=== PATIENT | male | born 1935 | race Caucasian/White ===

== ENCOUNTER 2022-03-23 13:28 | Inpatient (IN) | payer MEDICARE, SELFPAY ==
[2022-03-23 13:29] VITALS: BP 143/122; PULSE 79; RESP 16; TEMP 35.8; O2SAT 99; BMI 25.0
--- NOTE | 2022-03-23 15:41 | EX.ED.DYSGE1 ---
HPI History of Present Illness Chief Complaint: Flank Pain Informant: patient Narrative Narrative: Patient is an 86-year-old male with history of prostate cancer status post what sounds like radiation therapy and who is hard of hearing presenting with urinary complaints. Patient had difficulty urinating for 3 to 4 days. In addition he has had lower abdominal discomfort most pronounced in the right lower quadrant. His granddaughter at the bedside sometimes he feels that he is urinating when he has not. Patient denies any change in his bowel habits. Denies any fever but has had some chills. Also reports a history of kidney stones. States the pain waxes and wanes. Feels that he is not emptying his bladder out completely when he urinates. Follows with Dr. Schafer, urology. [facility] Medical History Kidney stones Prostate cancer Home Medications cholecalciferol (vitamin D3) 25 mcg (1,000 unit) tablet (Vitamin D3) 1,000 unit PO DAILY supplement 03/23/22 [History Last Taken 03/23/22] lisinopril 10 mg tablet 10 mg PO DAILY bp 03/23/22 [History Last Taken 03/22/22] Allergy/AdvReac Type Severity Reaction Status Date / Time No Known Allergies Allergy Verified 03/23/22 13:31 Family History (Updated 03/23/22 @ 19:[address] Miryam Gonsalez DO) Other Heart disease Hypertension Social History (Updated 03/23/22 @ 19:[address] Miryam Gonsalez DO) household members: children housing: house Smoking Status: Never smoker alcohol intake: current alcohol intake frequency: 0-2 drinks per day Alcohol type: hard liquor substance use type: does not use ROS ROS ED Constitutional Constitutional ED: Reports chills; Denies fever(s) or sweats Eyes Eyes: Denies change in vision ENT ENT ED: Denies rhinorrhea or sore throat Cardiovascular Cardiovascular: Denies chest pain or palpitations Respiratory/Chest Respiratory/Chest: Denies cough Gastrointestinal Gastrointestinal: Reports abdominal pain; Denies diarrhea, nausea or vomiting Genitourinary Genitourinary ED: Reports dysuria and urinary frequency; Denies hematuria Musculoskeletal Musculoskeletal: Denies arthralgias or back pain Integumentary Denies rash Neurologic Neurologic: Denies headache(s) or weakness Psychiatric Psychiatric: Denies anxiety Hematologic/Lymphatic Hematologic/Lymphatic: Denies easy bleeding or easy bruising EXAM Physical Exam Const Vital Signs: 03/23/22 13:29 03/23/22 17:46 03/23/22 18:08 Temperature 96.5 F L 98.0 F 98.0 F Temperature Source Temporal Oral Oral Pulse Rate 79 64 64 Respiratory Rate 16 17 17 Blood Pressure 143/122 H 138/61 H 138/61 H Blood Pressure Mean 129 86 86 Pulse Ox 99 95 95 Oxygen Delivery Method Room Air Room Air Room Air Positive well nourished and well developed General Appearance ED: well developed and NAD HEENT Reports moist mucous membranes Eyes PERRL and EOMs intact bilaterally Neck supple and no JVD Chest Wall inspection of chest normal and palpation of chest normal Resp normal respiratory effort and clear to auscultation bilaterally Cardio regular rate, regular rhythm and no murmurs GI normal to inspection, nondistended, normoactive bowel sounds and non-tender Palpation: Negative for tender or guarding Back/Spine no CVA tenderness Extremity normal to inspection Neuro oriented x3 Motor Exam: Negative for general weakness Psych mental status grossly normal Skin no rashes or lesions noted and no wounds Skin Narrative: Well-healed, soft and nontender surgical scars in the lower abdomen MDM MDM MDM Narrative Medical decision making narrative: Patient is evaluated for urinary symptoms for the past 3 to 4 days. Patient appears nontoxic and in no acute distress. Hemodynamically stable. Urinalysis obtained through straight cath is highly consistent with infection with 50-100 white blood cells and 3+ bacteria. He started on IV Rocephin and urine culture sent. He does not have a leukocytosis or other signs of systemic infection including fever, tachycardia or tachypnea. Patient is found to have profound renal disease with a BUN of 40 and a creatinine of 8.09. Patient is not aware of having any history of renal insufficiency. His potassium is normal. Patient does not need emergent dialysis. Patient be admitted for further evaluation of his acute renal insufficiency as well as his UTI. He is agreeable this plan of care. He remains hemodynamically stable at time of disposition. Lab Data Attestation: I reviewed the patient's lab results. Labs: Laboratory Results - last 24 hr 03/23/22 03/23/22 03/23/22 15:34 15:34 15:44 WBC 6.2 RBC 3.53 L Hgb 12.3 L Hct 35.3 L MCV 100.0 H MCH 34.8 H MCHC 34.8 RDW Std Deviation 46.3 H RDW Coeff of Chaparro 12.7 Plt Count 238 MPV 10.2 Immature Gran % (Auto) 0.300 Neut % (Auto) 69.9 Lymph % (Auto) 10.3 L [place] % (Auto) 15.8 H Eos % (Auto) 3.1 Baso % (Auto) 0.6 Absolute Neuts (auto) 4.4 Absolute Lymphs (auto) 0.64 L Nucleated RBC % 0 Sodium 131 L Potassium 4.3 Chloride 96 L Carbon Dioxide 24.0 Anion Gap 11 BUN 40 H Creatinine 8.09 H* Estim Creat Clear Calc 6.46 Est GFR (MDRD) Af Amer 8 L Est GFR (MDRD) Non-Af 7 L BUN/Creatinine Ratio 4.9 L Glucose 102 Calcium 9.1 Urine Color Yellow Urine Clarity Cloudy Urine pH 6.0 Ur Specific [place] 1.010 Urine Protein 500 H Urine Glucose (UA) Normal Urine Ketones Negative Urine Occult Blood 50 H Urine Nitrite Negative Urine Bilirubin Negative Urine Urobilinogen Normal Ur Leukocyte Esterase 500 H Urine RBC 5-10 SEEN Urine WBC 50-100 SEEN Ur Squamous Epith Cells 10-25 SEEN Urine Bacteria 3+ Urine Mucus 0 SEEN Radiography Diagnostic Testing: Clinical Impression(s) from Imaging Studies Abdomen/Pelvis CT 03/23/22 16:25 IMPRESSION: (NOT LISTED IN ORDER OF SIGNIFICANCE) Urinary bladder wall has wall thickening. This can be related to a partially contractile state. However, a cystitis is not excluded. Urinalysis should be performed in an effort to exclude cystitis. There are multiple colonic diverticula consistent with diverticulosis. Other findings as above. Electronically Signed: Jaylon Serra MD at 17:23 EDT , Discharge Plan Dx/Rx/DC Orders Clinical Impression: UTI (urinary tract infection), Acute kidney injury Disposition Disposition: Acute Care [facility] Discharge Date/Time: 03/23/22 19:35
[2022-03-23 15:53] LABS: Mucous, Urine 0 SEEN /hpf (<or=2+)
[2022-03-23] MEDS: Morphine 2 MG/ML Syringe IV (15:54)
[2022-03-23] MEDS: 0.9% Normal Saline 1,000 ML 250 ML IV ×3 (15:54→23:51)
[2022-03-23 16:06] LABS: Color, Urine Yellow (Yellow); Glucose, Dipstick Normal (Normal); Ketone-Dipstick Negative (Negative); Leukocyte Esterase-Dipstick 500 /ul (Negative); Nitrite-Dipstick Negative (Negative); Occult Blood-Urine 50 /ul (Negative); Protein-Dipstick 500 mg/dl (Negative); Urine Bilirubin Dipstick Negative (Negative); Urine Clarity Cloudy (Clear); Urine Urobilinogen Normal (Normal)
[2022-03-23 16:14] LABS: Absolute Lymphocyte Count 0.64 X10^3/uL (0.83-4.51); Absolute Neutrophil Count 4.4 X10^3/uL (2.0-7.7); Basophil# 0.04 X10^3/uL; Basophil% 0.6 % (0-1); Eosinophil# 0.19 X10^3/uL; Eosinophils% 3.1 % (0-5); Hematocrit 35.3 % (40-54); Hemoglobin 12.3 g/dL (13.0-16.5); Lymphocyte # 0.64 X10^3/ul (0.83-4.51); Lymphocyte % 10.3 % (19-41); Mean Corp Hgb Conc 34.8 g/dL (32-36); Mean Corpuscular Hgb 34.8 pg (27.0-32.0); Mean Platelet Vol. 10.2 fl (6.2-12.0); Monocyte# 0.98 X10^3/uL; Monocyte% 15.8 % (0-10); NRBC Flagged by Analyzer 0 % (0-5); Neutrophil # 4.35 X10^3/uL (2.7-7.7); Neutrophil % 69.9 % (47-70); Platelet Count 238 K/mm3 (150-450); RBC Distribution Width CV 12.7 % (11.6-14.6); RBC Distribution Width SD 46.3 fl (35.1-43.9); Red Blood Count 3.53 M/mm3 (4.6-6.2); White Blood Count 6.2 K/mm3 (4.4-11.0)
[2022-03-23 16:21] LABS: Bacteria 3+ /hpf (None Seen); Red Blood Cells-Urine 5-10 SEEN /hpf (0-5); Squamous Epithelial Cells - UA 10-25 SEEN /hpf (0-5); White Blood Cells 50-100 SEEN /hpf (0-5)
--- NOTE | 2022-03-23 16:25 | CT_ITS ---
STUDY: CT Abdomen And Pelvis W/O Contrast Injection 03/23/2022 5:21 PM REASON FOR EXAM: Male, 86 years old. Abdominal pain right flank pain Individualized dose optimization techniques were used for this CT. COMPARISON: Aug 04 2011 2:20pm report only . TECHNIQUE: CT Abdomen And Pelvis W/O Contrast Injection FINDINGS: There are atherosclerotic calcifications of visualized coronary arteries. The visualized portions of the heart are within normal limits. Normal liver. Normal gallbladder and extrahepatic biliary system. Normal spleen. Normal pancreas. Normal bilateral adrenal glands. No acute findings of the right kidney. No acute findings of the left kidney. Normal visualized stomach. Normal small intestine. There are multiple colonic diverticula consistent with diverticulosis. The appendix is visualized and appears normal. There are calcifications of the abdominal aorta. This is consistent for atherosclerotic disease. There is NO abdominal aortic aneurysm. Vascular workup can be obtained based on clinical correlation. Normal inferior vena cava. Subcentimeter mesenteric lymph nodes. Urinary bladder wall has wall thickening. This can be related to a partially contractile state. However, a cystitis is not excluded. Urinalysis should be performed in an effort to exclude cystitis. There is an umbilical hernia containing fat. There are diffuse degenerative changes of the visualized lumbar spine. CT/Abdomen/Pelvis without Cont IMPRESSION: (NOT LISTED IN ORDER OF SIGNIFICANCE) Urinary bladder wall has wall thickening. This can be related to a partially contractile state. However, a cystitis is not excluded. Urinalysis should be performed in an effort to exclude cystitis. There are multiple colonic diverticula consistent with diverticulosis. Other findings as above. Electronically Signed: Jaylon Serra MD at 17:23 EDT ,
[2022-03-23 16:41] LABS: Anion Gap 11 (5-15); BUN 40 mg/dL (7-18); BUN/Creat Ratio 4.9 RATIO (10-20); Calcium,Total 9.1 mg/dL (8.5-10.1); Chloride 96 mmol/L (98-107); Creatinine, Serum 8.09 mg/dL (0.70-1.30); EST Glomerular Filtration Rate 7 mL/min (>60); Est Glom Filt Rate - Afr Amer 8 mL/min (>60); Estimated Creatinine Clearance 6.46 ml/min; Glucose 102 mg/dL (74-106); Potassium 4.3 mmol/L (3.5-5.1); Sodium Level 131 mmol/L (136-145)
[2022-03-23 17:46] VITALS: BP 138/61; PULSE 64; RESP 17; TEMP 36.7; O2SAT 95
[2022-03-23] MEDS: Ceftriaxone 1 GM/50 ML BAG IV (18:07)
[2022-03-23 18:08] VITALS: BP 138/61; PULSE 64; RESP 17; TEMP 36.7; O2SAT 95
--- NOTE | 2022-03-23 18:14 | NURSING ---
MED SURG DEBBI UTI, ACUTE RENAL FAILURE
--- NOTE | 2022-03-23 18:18 | US_ITS ---
STUDY: RENAL ULTRASOUND - COMPLETE REASON FOR EXAM: Male, 86 years old. BELKIS TECHNIQUE: Ultrasound evaluation of the kidneys was performed with real-time and static roberson-scale imaging. COMPARISON: CT done earlier today. FINDINGS: RIGHT KIDNEY: Normal location of the right kidney, which is normal in size. The right kidney measures 10.8 x 6.6 cm. There is a normal cortex of the right kidney. The renal cortex measures 2 cm. There is no right renal mass or cyst. There are no right renal calculi. There is no right hydronephrosis. DISTAL RIGHT URETER: There is non-visualization of the distal right ureter. There is no demonstrated right ureterovesical junction calculus. There is no demonstrated right ureteral jet. LEFT KIDNEY: Normal location of the left kidney, which is normal in size. The left kidney measures 11 x 5.7 cm. There is a normal cortex of the left kidney. The renal cortex measures 2 cm. Renal cyst measures 9 mm. No follow-up required. There are no left renal calculi. There is no left hydronephrosis. DISTAL LEFT URETER: There is non-visualization of the distal left ureter. There is no demonstrated left ureterovesical junction calculus. There is no demonstrated left ureteral jet. AORTA: There is obscuration of the abdominal aorta by overlying bowel gas . I.V.C.: The IVC is obscured. BLADDER: The distended urinary bladder has a volume of 8.3 ml. There is a normal wall thickness of the distended urinary bladder. There is no demonstrated mass within the urinary bladder. There are no demonstrated bladder calculi. US/Kidney and Bladder IMPRESSION: There are no acute findings. Electronically Signed: Jaylon Serra MD at 19:39 EDT ,
--- NOTE | 2022-03-23 18:26 | HP.PCM_ITS ---
Documented by User: AROLDO Wade 03/23/22 18:37 HPI - General General Date of Admission: 03/23/22 Date of Service: 03/23/22 Chief Complaint: Abdominal pain/flank pain HPI Narrative Joaquin GARLAND, is a 86 M who presents with complaints of flank pain/abdominal pain. Patient also states that he has been feeling tired with chills for the past 3 to 4 days. Patient's granddaughter at bedside states that he does [place] and while he was there a family member gave him some leftover antibiotics but she is unsure what it was. Patient medical history includes history of prostate cancer. Patient currently on lisinopril to protect his kidneys following radiation and chemotherapy for prostate cancer. Patient has no other medical history. [facility] Medical History Kidney stones Prostate cancer Home Medications cholecalciferol (vitamin D3) 25 mcg (1,000 unit) tablet (Vitamin D3) 1,000 unit PO DAILY supplement 03/23/22 [History Last Taken 03/23/22] lisinopril 10 mg tablet 10 mg PO DAILY bp 03/23/22 [History Last Taken 03/22/22] Allergy/AdvReac Type Severity Reaction Status Date / Time No Known Allergies Allergy Verified 03/23/22 13:31 Family History (Updated 03/23/22 @ 19:[address] Miryam Gonsalez DO) Other Heart disease Hypertension Surgical History no surgical history Social History (Updated 03/23/22 @ 19:[address] Miryam Gonsalez DO) household members: children housing: house Smoking Status: Never smoker alcohol intake: current alcohol intake frequency: 0-2 drinks per day Alcohol type: hard liquor substance use type: does not use ROS Constitutional Constitutional: Reports chills, fatigue and malaise; Denies anorexia or change in weight Cardiovascular Cardiovascular: Denies chest pain, edema or palpitations Respiratory/Chest Respiratory/Chest: Denies cough, shortness of breath at rest, shortness of breath with exertion or wheezing Gastrointestinal Gastrointestinal: Denies abdominal pain, constipation, diarrhea, nausea or vomiting Genitourinary Genitourinary: Reports abdominal discomfort, dysuria, flank pain and oliguria Musculoskeletal Musculoskeletal: Denies back pain, extremity pain, joint pain, joint stiffness or joint swelling Integumentary Integumentary: Denies dry skin Neurologic Neurologic: Denies abnormal gait, abnormal speech, confusion or dizziness Psychiatric Psychiatric: Denies anxiety or depression Endocrine Endocrinology: Denies change in body appearance Hematologic/Lymphatic Hematologic/Lymphatic: Denies anemia Vital Signs Vital Signs Vital Signs: 03/23/22 13:29 03/23/22 17:46 03/23/22 18:08 Temperature 96.5 F L 98.0 F 98.0 F Temperature Source Temporal Oral Oral Pulse Rate 79 64 64 Respiratory Rate 16 17 17 Blood Pressure 143/122 H 138/61 H 138/61 H Blood Pressure Mean 129 86 86 Pulse Ox 99 95 95 Oxygen Delivery Method Room Air Room Air Room Air Weight Weight: 165 lb Body Mass Index (BMI) 25.0 Physical Exam Const alert, oriented x3 and no apparent distress General Appearance: cooperative HEENT normocephalic, head/scalp atraumatic and moist oral mucous membranes Eyes conjunctivae normal and no scleral icterus Neck no lymphadenopathy and supple General: trachea midline Lymph Lymphatic: no lymphadenopathy noted Resp normal respiratory effort, normal air movement and clear to auscultation bilaterally Cardio regular rate, regular rhythm, S1 normal heart sound, S2 normal heart sound and peripheral pulses 2+ throughout GI normal to inspection, nondistended, normoactive bowel sounds, soft to palpation and non-tender Extremity normal capillary refill and no clubbing, cyanosis or edema Neuro oriented x3, moves all extremities and no focal motor deficits Sensorium / Orientation: awake and alert Psych thought process normal, cooperative and affect normal Results Lab / Micro Data Result Diagrams: 03/23/22 15:34 03/23/22 15:34 Labs: Laboratory Results - last 24 hr 03/23/22 15:34: WBC 6.2, RBC 3.53 L, Hgb 12.3 L, Hct 35.3 L, MCV 100.0 H, MCH 3 4.8 H, MCHC 34.8, RDW Std Deviation 46.3 H, RDW Coeff of [place] 12.7, Plt Count 238, MPV 10.2, Immature Gran % (Auto) 0.300, Neut % (Auto) 69.9, Lymph % (Auto) 10.3 L, [place] % (Auto) 15.8 H, Eos % (Auto) 3.1, Baso % (Auto) 0.6, Absolute Neuts (auto) 4.4, Absolute Lymphs (auto) 0.64 L, Nucleated RBC % 0 03/23/22 15:34: Sodium 131 L, Potassium 4.3, Chloride 96 L, Carbon Dioxide 24.0, Anion Gap 11, BUN 40 H, Creatinine 8.09 H*, Estim Creat Clear Calc 6.46, Est GFR (MDRD) Af Amer 8 L, Est GFR (MDRD) Non-Af 7 L, BUN/Creatinine Ratio 4.9 L, Glucose 102, Calcium 9.1 03/23/22 15:44: Urine Color Yellow, Urine Clarity Cloudy, Urine pH 6.0, Ur Specific [place] 1.010, Urine Protein 500 H, Urine Glucose (UA) Normal, Urine Ketones Negative, Urine Occult Blood 50 H, Urine Nitrite Negative, Urine Bilirubin Negative, Urine Urobilinogen Normal, Ur Leukocyte Esterase 500 H, Urine RBC 5-10 SEEN, Urine WBC 50-100 SEEN, Ur Squamous Epith Cells 10-25 SEEN, Urine Bacteria 3+, Urine Mucus 0 SEEN Radiology Impression Abdomen/Pelvis CT 03/23/22 16:25 IMPRESSION: (NOT LISTED IN ORDER OF SIGNIFICANCE) Urinary bladder wall has wall thickening. This can be related to a partially contractile state. However, a cystitis is not excluded. Urinalysis should be performed in an effort to exclude cystitis. There are multiple colonic diverticula consistent with diverticulosis. Other findings as above. Electronically Signed: Jaylon Serra MD at 17:23 EDT Reading Location ID and State: [address] [place] [address] , Service support , Assessment & Plan Assessment/Plan (1) UTI (urinary tract infection): (2) Acute kidney injury: PLAN: Plan 1. BELKIS secondary to UTI and dehydration -Admit to MedSur -Continue Rocephin, first dose given ER -Insert Kaur catheter -CBC, CMP, magnesium, phosphorus, TSH ordered for a.m. -Urine creatinine and urine sodium stat -Kidney and bladder ultrasound -Normal saline 250 mL/h -Vital signs per protocol -PT and OT to eval and treat -Strict intake and output and daily weights 2. History of prostate cancer -Follows with Dr. Schafer -Patient lisinopril to protect kidneys following radiation for prostate cancer per granddaughter, we will hold in presence of BELKIS DVT prophylaxis-SCDs and subcu heparin This patient was seen by Carla Lamar, ALYSA-C under the supervision of Dr. Gonsalez. 28 minutes spent in clinical coordination of patient's plan of care. Documented by User: Dr. Miryam Gonsalez, 03/23/22 20:32 HPI - General General Date of Admission: 03/23/22 HPI Narrative IRVIN GARLAND, is a 86 M who presented to the emergency department [facility] on 03/23/2022 with bilateral flank pain. The patient has a known history of prostate cancer for which she had seeding. He indicates his prostate cancer had been in remission for some time now. The patient reports that he has had about 3 to 4 days of general malaise, chills, and difficulty urinating during that time period as well. He has had some intermittent lower abdominal discomfort however it has worsened. The pain tends to wax and wane. The patient does not feel like he empties his bladder completely when he urinates. He denies any nausea or vomiting, constipation or diarrhea. His mental status is at baseline per discussion with his granddaughter who presents with him. He has had no respiratory symptoms and denies any chest pain. Patient and family both indicate that his p.o. intake has been depressed some over the last several days. In the emergency department his vitals were as follows: Temperature 96.5 with recheck at 98 degrees, blood pressure 143/122 with repeat at 138/61, respiratory rate 16, oxygen saturation is 99% on room air. CBC shows a mild anemia with a hemoglobin of 12.3 however his white count and platelet counts are normal. He has no left shift but does show a monocytosis. Serum sodium is 131 with a chloride of 96. BUN is 40 with a creatinine of 8.09 (his baseline serum creatinine from 04/01/2021 in clinisync was 0.78). UA showed specific gravity of 1.010, positive for urine protein and occult blood, leuk esterase and had 50-100 white blood cells per high-powered field and 3+ bacteria. See T of the abdomen pelvis showed urinary bladder wall thickening and multiple colonic diverticula consistent with diverticulosis. The emergency department he was treated with aggressive hydration and started on IV antibiotics. [facility] Medical History Kidney stones Prostate cancer Home Medications cholecalciferol (vitamin D3) 25 mcg (1,000 unit) tablet (Vitamin D3) 1,000 unit PO DAILY supplement 03/23/22 [History Last Taken 03/23/22] lisinopril 10 mg tablet 10 mg PO DAILY bp 03/23/22 [History Last Taken 03/22/22] Allergy/AdvReac Type Severity Reaction Status Date / Time No Known Allergies Allergy Verified 03/23/22 13:31 Family History (Updated 03/23/22 @ 19:[address] Miryam Gonsalez DO) Other Heart disease Hypertension Surgical History no surgical history no surgical history Social History (Updated 03/23/22 @ 19:[address] Miryam Gonsalez DO) household members: children housing: house Smoking Status: Never smoker alcohol intake: current alcohol intake frequency: 0-2 drinks per day Alcohol type: hard liquor substance use type: does not use ROS Constitutional Constitutional: Reports anorexia, chills, fatigue, malaise and weakness; Denies fever(s), night sweats, weight gain or weight loss Eyes Eyes: Denies blurry vision, change in vision, discharge from eye(s), double vision, erythema, eye pain, irritation or itchy eyes ENT HEENT: Denies abnormal hearing, dysphagia, ear pain, epistaxis, headache(s), hearing loss, loss taste/smell, nasal congestion, nasal discharge, post nasal drip, sinus pain, sinus pressure, sore throat or throat swelling Cardiovascular Cardiovascular: Denies chest pain, claudication, edema, orthopnea, palpitations, paroxysmal nocturnal dyspnea or syncope Respiratory/Chest Respiratory/Chest: Denies cough, hemoptysis, shortness of breath at rest, shortness of breath with exertion or wheezing Gastrointestinal Gastrointestinal: Reports abdominal pain; Denies constipation, diarrhea, dyspepsia, hematemesis, hematochezia, melena, nausea or vomiting Genitourinary Genitourinary: Reports dysuria and oliguria; Denies hematuria, nocturia, polyuria, urinary frequency, urinary hesitancy, urinary incontinence or urinary urgency Musculoskeletal Musculoskeletal: Denies back pain, extremity pain, joint pain, joint stiffness, joint swelling, limited range of motion, muscle weakness, neck pain or stiffness Integumentary Integumentary: Denies dry skin, jaundice, lesions, pruritus, rash or wounds Neurologic Neurologic: Denies abnormal gait, abnormal speech, confusion, dizziness, focal weakness, headache(s), lack of coordination, numbness, seizures, sensory deficit, tingling, tremor(s) or weakness Psychiatric Psychiatric: Denies anxiety, depression, homicidal ideation or suicidal ideation Endocrine Endocrinology: Denies change in body appearance, cold intolerance, heat intolerance, polydipsia or polyuria Hematologic/Lymphatic Hematologic/Lymphatic: Denies anemia, easy bleeding, easy bruising or lymphadenopathy Physical Exam Const alert, oriented x3, no apparent distress and well nourished Constitutional Narrative: Overweight, elderly white male lying in bed, granddaughter at bedside, patient appears comfortable nontoxic HEENT normocephalic, head/scalp atraumatic, EAC's normal, TM's normal bilaterally, moist oral mucous membranes, oropharynx normal and gingiva normal HEENT Narrative: Mallampati 3, no thrush, markedly hard of hearing Eyes PERRL and EOMs intact bilaterally Neck no carotid bruits Neck Narrative: Trachea midline, no thyroid enlargement noted Resp Auscultation: Negative for rales, rhonchi, wheezes or diminished lung sounds Cardio regular rate, regular rhythm, S1 normal heart sound, S2 normal heart sound, no murmurs, no rub, no gallops and peripheral pulses 2+ throughout GI normal to inspection, nondistended, normoactive bowel sounds and soft to palpation; Negative for non-tender GI Narrative: Mild tenderness bilateral lower quadrants Extremity no clubbing, cyanosis or edema Skin no rashes or lesions noted, no wounds, no jaundice, no petechiae and no mottling Skin Narrative: Tenting noted with skin turgor Neuro CN's II-XII intact bilaterally, no focal motor deficits and no sensory deficits noted Psych thought process normal, cooperative and affect normal Results Lab / Micro Data Attestation: I reviewed the patient's lab results. Result Diagrams: 03/23/22 15:34 03/23/22 15:34 Assessment & Plan Assessment/Plan (1) UTI (urinary tract infection): (2) Acute kidney injury: PLAN: Plan Acute complicated cystitis -UA is suggestive of UTI -Culture pending -Continue ceftriaxone with first dose given the emergency department BELKIS -Baseline serum creatinine was 0.78 on 04/01/2021 -Patient markedly oliguric -No current need for emergent dialysis -Current serum creatinine is 8.09 -Rest of hydration with normal saline at 250 cc/h -Reevaluate in a.m. -Check renal ultrasound -Check urine sodium and creatinine to calculate FENa -Avoid nephrotoxins -Hold home lisinopril Acute hyponatremia -Sodium is 131 -Suspect related to volume status Mild anemia -Hemoglobin is 12.3 -Baseline is unknown at this time -Continue to monitor -Suspect will trend down some with fluids Hypertension -Hold home lisinopril -As needed hydralazine for systolic greater than 160 History of prostate cancer -Has followed with Dr. Banegas on [place] previously -Sounds like he is currently in remission -Seeding previously Generalized weakness -Consult PT/OT for evaluation DVT prophylaxis -Subcu heparin -SCDs CODE STATUS -DNR CCA no intubation as per discussion with patient and his granddaughter at the bedside the emergency department prior to admission Charges/Coding Visit Charges Inpatient E&M: 85945 Init Hosp L3
[2022-03-23 19:46] VITALS: BMI 25.0
[2022-03-23 19:50] VITALS: BP 123/45; PULSE 78; RESP 18; TEMP 36.8; O2SAT 94
[2022-03-23] MEDS: Heparin Injection (Vial) 5,000 UNIT/ML VIAL 5000 UNIT SC (20:29)
[2022-03-23] MEDS: 0.9% Saline Lock 10 ML Syringe IV (20:29)
[2022-03-23 23:49] LABS: Urine Sodium 104 mmol/L (Not Establ.)
[2022-03-24] VITALS (8 sets, daily range): BP systolic 126–147; BP diastolic 57–73; PULSE 60–82; RESP 18–22; TEMP 36.6–36.9; O2SAT 87–97
[2022-03-24] MEDS: 0.9% Normal Saline 1,000 ML 250 ML IV ×2 (04:24→07:59)
[2022-03-24 06:57] LABS: Absolute Lymphocyte Count 0.68 X10^3/uL (0.83-4.51); Absolute Neutrophil Count 4.6 X10^3/uL (2.0-7.7); Basophil# 0.04 X10^3/uL; Basophil% 0.6 % (0-1); Eosinophil# 0.16 X10^3/uL; Eosinophils% 2.5 % (0-5); Hematocrit 32.5 % (40-54); Hemoglobin 10.9 g/dL (13.0-16.5); Lymphocyte # 0.68 X10^3/ul (0.83-4.51); Lymphocyte % 10.7 % (19-41); Mean Corp Hgb Conc 33.5 g/dL (32-36); Mean Corpuscular Hgb 34.6 pg (27.0-32.0); Mean Corpuscular Volume 103.2 fL (80-94); Mean Platelet Vol. 9.9 fl (6.2-12.0); Monocyte# 0.86 X10^3/uL; Monocyte% 13.5 % (0-10); NRBC Flagged by Analyzer 0 % (0-5); Neutrophil # 4.58 X10^3/uL (2.7-7.7); Neutrophil % 72.2 % (47-70); Platelet Count 240 K/mm3 (150-450); RBC Distribution Width CV 12.7 % (11.6-14.6); RBC Distribution Width SD 47.8 fl (35.1-43.9); Red Blood Count 3.15 M/mm3 (4.6-6.2); White Blood Count 6.4 K/mm3 (4.4-11.0)
[2022-03-24 07:44] LABS: ALB/GLOB Ratio 0.7 RATIO (0.9-2.4); AST(SGOT) 21 U/L (15-37); Alanine Aminotransfer ALT/SGPT 19 U/L (16-61); Albumin, Serum 2.5 g/dL (3.2-5.0); Alkaline Phosphatase 92 U/L (45-117); Anion Gap 11 (5-15); BUN 44 mg/dL (7-18); BUN/Creat Ratio 5.2 RATIO (10-20); Calcium,Total 7.7 mg/dL (8.5-10.1); Chloride 103 mmol/L (98-107); Creatinine, Serum 8.53 mg/dL (0.70-1.30); EST Glomerular Filtration Rate 6 mL/min (>60); Est Glom Filt Rate - Afr Amer 8 mL/min (>60); Estimated Creatinine Clearance 6.13 ml/min; Globulin 3.4 g/dL (2.2-4.2); Glucose 90 mg/dL (74-106); Magnesium 1.9 mg/dL (1.6-2.6); Phosphorus 5.9 mg/dL (2.5-4.9); Potassium 4.6 mmol/L (3.5-5.1); Protein, Total 5.9 g/dL (6.4-8.2); Sodium Level 133 mmol/L (136-145); Thyroid Stim Hormone (TSH) 1.29 uIU/mL (0.358-3.74)
[2022-03-24] MEDS: Cholecalciferol (VIT D3) 25 MCG TABLET (1,000 UNITS) PO (09:43)
[2022-03-24] MEDS: Ceftriaxone 1 GM/50 ML BAG IV (09:57)
--- NOTE | 2022-03-24 10:01 | PN.HOSP_ITS ---
Documented by User: PER WadeC 03/24/22 12:44 Subjective Subjective Patient seen and examined. Patient sitting in chair no distress noted. Patient states that he is feeling improved. Discussed with patient laboratory findings from this morning and informed him that he we will be having a social media executive see him today. Patient verbalizes understanding. Objective Data Objective Data Vital Signs: Vital Signs Temp Pulse Resp BP Pulse Ox O2 Del Method 97.9 F 60 18 126/57 H 97 Room Air 03/24/22 08:06 03/24/22 08:06 03/24/22 08:06 03/24/22 08:06 03/24/22 08:06 03/24/22 08:06 Oxygen Delivery Method Room Air Weight: 164 lb 3.91 oz Body Mass Index (BMI) 25.0 Intake & Output: Intake and Output for Last 24 Hours 03/22/22 03/23/22 03/24/22 23:59 23:59 23:59 Intake Total 1891.67 / 1891.67 1895.83 / 1895.83 Output Total 175 / 175 Balance 1891.67 / 1791.67 1720.83 / 1720.83 Lab / Micro Data Result Diagrams: 03/24/22 05:45 03/24/22 05:45 Labs: Laboratory Results - last 24 hr 03/23/22 15:34: WBC 6.2, RBC 3.53 L, Hgb 12.3 L, Hct 35.3 L, MCV 100.0 H, MCH 34.8 H, MCHC 34.8, RDW Std Deviation 46.3 H, RDW Coeff of [place] 12.7, Plt Count 238, MPV 10.2, Immature Gran % (Auto) 0.300, Neut % (Auto) 69.9, Lymph % (Auto) 10.3 L, Ellis % (Auto) 15.8 H, Eos % (Auto) 3.1, Baso % (Auto) 0.6, Absolute Neuts (auto) 4.4, Absolute Lymphs (auto) 0.64 L, Nucleated RBC % 0 03/23/22 15:34: Sodium 131 L, Potassium 4.3, Chloride 96 L, Carbon Dioxide 24.0, Anion Gap 11, BUN 40 H, Creatinine 8.09 H*, Estim Creat Clear Calc 6.46, Est GFR (MDRD) Af Amer 8 L, Est GFR (MDRD) Non-Af 7 L, BUN/Creatinine Ratio 4.9 L, Glucose 102, Calcium 9.1 03/23/22 15:44: Urine Color Yellow, Urine Clarity Cloudy, Urine pH 6.0, Ur Specific [place] 1.010, Urine Protein 500 H, Urine Glucose (UA) Normal, Urine Ketones Negative, Urine Occult Blood 50 H, Urine Nitrite Negative, Urine Bilirubin Negative, Urine Urobilinogen Normal, Ur Leukocyte Esterase 500 H, Urine RBC 5-10 SEEN, Urine WBC 50-100 SEEN, Ur Squamous Epith Cells 10-25 SEEN, Urine Bacteria 3+, Urine Mucus 0 SEEN 03/23/22 23:20: Ur Random Sodium 104, Urine Creatinine 29.70 03/24/22 05:45: WBC 6.4, RBC 3.15 L, Hgb 10.9 L, Hct 32.5 L, MCV 103.2 H, MCH 34.6 H, MCHC 33.5, RDW Std Deviation 47.8 H, RDW Coeff of [place] 12.7, Plt Count 240, MPV 9.9, Immature Gran % (Auto) 0.500, Neut % (Auto) 72.2 H, Lymph % (Auto) 10.7 L, Ellis % (Auto) 13.5 H, Eos % (Auto) 2.5, Baso % (Auto) 0.6, Absolute Neuts (auto) 4.6, Absolute Lymphs (auto) 0.68 L, Nucleated RBC % 0 03/24/22 05:45: Sodium 133 L, Potassium 4.6, Chloride 103, Carbon Dioxide 19.0 L , Anion Gap 11, BUN 44 H, Creatinine 8.53 H*, Estim Creat Clear Calc 6.13, Est GFR (MDRD) Af Amer 8 L, Est GFR (MDRD) Non-Af 6 L, BUN/Creatinine Ratio 5.2 L, Glucose 90, Calcium 7.7 L, Phosphorus 5.9 H, Magnesium 1.9, Total Bilirubin 0.50, AST 21, ALT 19, Alkaline Phosphatase 92, Total Protein 5.9 L, Albumin 2.5 L, Globulin 3.4, Albumin/Globulin Ratio 0.7 L, TSH 1.29 Radiography Diagnostic Testing: Radiology Impression Abdomen/Pelvis CT 03/23/22 16:25 IMPRESSION: (NOT LISTED IN ORDER OF SIGNIFICANCE) Urinary bladder wall has wall thickening. This can be related to a partially contractile state. However, a cystitis is not excluded. Urinalysis should be performed in an effort to exclude cystitis. There are multiple colonic diverticula consistent with diverticulosis. Other findings as above. Electronically Signed: Jaylon Serra MD at 17:23 EDT , Renal Ultrasound 03/23/22 18:18 IMPRESSION: There are no acute findings. Electronically Signed: Jaylon Serra MD at 19:39 EDT , Physical Exam Const alert, oriented x3, no apparent distress and well nourished General Appearance: cooperative HEENT normocephalic, head/scalp atraumatic, moist oral mucous membranes and oropharynx normal Eyes conjunctivae normal and no scleral icterus Neck no lymphadenopathy and supple General: trachea midline Lymph Lymphatic: no lymphadenopathy noted Resp normal respiratory effort, normal air movement and clear to auscultation bilaterally Cardio regular rate, regular rhythm, S1 normal heart sound, S2 normal heart sound and peripheral pulses 2+ throughout GI normal to inspection, nondistended, normoactive bowel sounds and soft to palpation; Negative for non-tender Extremity normal capillary refill and no clubbing, cyanosis or edema Skin no rashes or lesions noted, no wounds and no petechiae Neuro oriented x3, moves all extremities, no focal motor deficits and no sensory deficits noted Sensorium / Orientation: awake and alert Psych thought process normal, cooperative and affect normal Assessment & Plan Assessment/Plan (1) Acute kidney injury: (2) UTI (urinary tract infection): PLAN: Plan 1.? BELKIS secondary to UTI and dehydration -Continue Rocephin -Insert Kaur catheter -CBC, CMP daily -Kidney and bladder ultrasound normal -Lactated Ringer's 150 mL/h -Vital signs per protocol -PT and OT to eval and treat -Strict intake and output and daily weights -Urine creatinine worsened today, Nephrology following 2.? History of prostate cancer -Follows with Dr. Schafer -Patient lisinopril to protect kidneys following radiation for prostate cancer per granddaughter, we will hold in presence of BELKIS DVT prophylaxis-SCDs and subcu heparin This patient was seen by Carla Lamar NP-C under the supervision of Dr. Padilla. 12 minutes spent in clinical coordination of patient's plan of care. Documented by User: Dr. Radha Padilla MD 03/24/22 13:31 Objective Data Lab / Micro Data Result Diagrams: 03/24/22 05:45 03/24/22 05:45 Assessment & Plan Assessment/Plan (1) Acute kidney injury: (2) UTI (urinary tract infection): Charges/Coding Addendum Addendum: This patient was seen in conjunction with Shon Lamar NP. I have independently interviewed and examined the patient and reviewed pertinent his torical, laboratory, and other data. I have reviewed her note and concur with her documentation Patient was seen and examined. He denied any new complaints. No acute events overnight. Urine output has been oliguric Physical Exam: Gen: Comfortable, not pale, not jaundiced CVS:HS I +II, regular, no murmurs RESP: Diminished at lung bases GI: BS present and normal, soft, nontender, no palpable organs EXT:No edema ASSESSMENT: 1. BELKIS, renal, FeNa 21.6% 2. History of prostate CA 3. Hypertension Plan: Continue IV fluids Nephrology consult Repeat blood in am Time spent coordinating all aspects of patient's care, discussing with subspecialty and nursin minutes Visit Charges Inpatient E&M: 40713 Subs Hosp L2
--- NOTE | 2022-03-24 10:30 | CASEMGMT ---
RN JOSEFA Assessment: Face to Face with pt for initial transition planning/care coordination assessment. RN JOSEFA introduced self and role at [facility], pt voices understanding and consents to assessment. Pt is A/O x4 and answers all questions appropriately at this time. Pt is LITTLE TRAVERSE, grandson and great grandson at bedside throughout assessment. Care providers, pharmacy, and demographics verified/updated. Admitting Dx: BELKIS/UTI complicated PCP:Yg Specialists:leslie Schafer Preferred Pharmacy: [facility] Insurance: [employer] [facility] Prescription Benefit: yes LW/HPOA: Pt denies having a LW/DPOA and denies need for info regarding AD. LNOK: Jazmyn Rae, dtr; Toya Roa dtr Living Arrangements: Pt lives with dtr Toya and granddenisha in a ground level apt with 2 steps to enter with a rail. Pt reports he is I in ADL's and denies concerns at home. Pt states he does not use AD, just painted his garage, runs a chainsaw, mows and weedeats his yard. Transportation: Pt drives self and denies concerns with transportation. Pt reports he just came back from driving to [place]. DME/HHC/SNF: Pt has a FWW but does not use. Pt denies hx of HHC or SNF stays. Pt states no concerns with going home at time of dc. He denies needs for any homegoing services. He is aware that should he change his mind to ask for the RN JOSEFA.CM to follow. Advised pt to ask CM if any further question/concerns/needs arise, voices understanding. Pt Goal: Home Plan: Home
--- NOTE | 2022-03-24 10:45 | PCM.CONS.R ---
Assessment & Plan Assessment/Plan (1) Acute kidney injury: (2) UTI (urinary tract infection): PLAN: Plan Patient was admitted to the hospital for further evaluation and treatment of BELKIS, UTI and abdominal pain. We were consulted for acute kidney injury. Patient has no known past medical history of chronic kidney disease, serum creatinine 0.77 mg/dL as of September 2021. Creatinine 8.09 mg/dL yesterday in the emergency room and today creatinine is up to 8.53 mg/dL. Potassium is 4.6, bicarb 19 mmol/L. Patient was started on IV fluids, normal saline at 250 mL an hour. He was also started on IV antibiotics, ceftriaxone for suspected UTI, urine culture is pending. At this time there is no acute indication for CREW LEADER/CONTROL ROOM OPERATOR. Potassium and acid-base acceptable. Volume status is acceptable, patient is mildly hypovolemic on exam. Though patient is complaining of poor appetite there are no significant uremic symptoms at this time. Possible cause of BELKIS from volume depletion/dehydration with nausea, vomiting, diarrhea, poor oral intake and drinking alcohol (whiskey), compounded by MIKAEL inhibitor effect, UTI and possible effect from recent antibiotic. There is no overt fluid overload therefore recommended continue IV fluids as ordered. Renal ultrasound and noncontrast CT of abdomen and pelvis did not show any acute renal findings, no hydronephrosis. Patient does have Michel. Recommend strict urine output measurement. Urine output may be picking up. He did have a urinalysis which was obtained via straight cath which showed protein 500, occult blood 50 and positive leukocyte Estrace. Urine culture is pending. Though UA showed occult blood this may be from straight cath but will order renal serologies (C3, C4, P-ANCA, C-ANCA) to rule out other causes of BELKIS. Can repeat UA after michel removed. Blood pressures acceptable, not on any antihypertensives. Encouraged patient to increase oral and solute intake. Explained to patient and grandson that at this time there is no acute indication for CREW LEADER/CONTROL ROOM OPERATOR but over next 24 hours or so if renal function does not improve patient may need CREW LEADER/CONTROL ROOM OPERATOR. Explained risks and benefits of CREW LEADER/CONTROL ROOM OPERATOR versus if chose not to do CREW LEADER/CONTROL ROOM OPERATOR. Patient is in agreement for CREW LEADER/CONTROL ROOM OPERATOR if needed. We will continue to monitor renal function closely along with you. Thank you for allowing us participate in the care of Mr. Garland. HPI Consult Data Date of Consult: 03/24/22 HPI Narrative HPI Narrative: IRVIN GARLAND, is a 86 M with past medical history significant for prostate cancer status postchemotherapy and radiation approximately 2 years ago who presented to the emergency room with complaints of inability/difficulty urinating and abdominal pain. UA consistent with UTI, urine culture is pending. Patient had noncontrast CT of abdomen and pelvis which did not show any acute findings of right or left kidney, urinary bladder wall thickening, multiple colonic diverticula consistent with diverticulosis. Renal US no acute findings and no hydronephrosis in either kidney. Lab work showed a creatinine of 8 mg/dL. Patient was started on IV fluids and IV antibiotics and admitted for further evaluation and treatment. We were consulted for elevated creatinine. Patient is alert and oriented but very hard of hearing. His grandson is at bedside and able to give most of information. Patient has no known history of chronic kidney disease. We were able to obtain labs after calling PCP office: Creatinine 0.77 mg/dL September 2021. Patient had been in [place] visiting family/friends for approximately 3 weeks. Over the last week patient had not been feeling well, had intermittent nausea with vomiting, also had abdominal pain and loose bowel movements. Also noted dysuria and dark color urine. Patient reports he had poor appetite. Also states that he had not been drinking much fluids but did drink whiskey with his family/friends. Despite not feeling well patient continued to take his medication, lisinopril. Did not take any NSAIDs only Tylenol for pain. He also took an antibiotic for a few days for UTI but does not know name of antibiotic. Despite not feeling well patient continued to bale hay with his family/friends. [facility] Medical History Kidney stones Prostate cancer Home Medications cholecalciferol (vitamin D3) 25 mcg (1,000 unit) tablet (Vitamin D3) 1,000 unit PO DAILY supplement 03/23/22 [History Last Taken 03/23/22] lisinopril 10 mg tablet 10 mg PO DAILY bp 03/23/22 [History Last Taken 03/22/22] Allergy/AdvReac Type Severity Reaction Status Date / Time No Known Allergies Allergy Verified 03/23/22 13:31 Family History (Updated 03/23/22 @ 19:[address] Miryam Gonsalez DO) Other Heart disease Hypertension Surgical History no surgical history Social History (Updated 03/23/22 @ 19:[address] Miryam Gonsalez, DO) household members: children housing: house Smoking Status: Never smoker alcohol intake: current alcohol intake frequency: 0-2 drinks per day Alcohol type: hard liquor substance use type: does not use ROS ROS Narrative As per past medical history and HPI Physical Exam Narrative Alert and oriented x3, no apparent distress. Hard of hearing HEENT: Head is normocephalic, atraumatic, oral mucosa is moist. PERRLA. Cardio: S1-S2, RRR Respiratory: Lung sounds clear anteriorly and posteriorly. No wheezes, rhonchi or rales noted : Abdomen soft, nontender, positive bowel sounds x4 quadrants Extremities: No edema noted to bilateral lower legs feet arms or thighs. Indwelling Michel catheter with dark brown colored urine in bag Lab / Micro Data Result Diagrams: 03/24/22 05:45 03/24/22 05:45 Labs: Laboratory Results - last 24 hr 03/23/22 15:34: WBC 6.2, RBC 3.53 L, Hgb 12.3 L, Hct 35.3 L, MCV 100.0 H, MCH 34.8 H, MCHC 34.8, RDW Std Deviation 46.3 H, RDW Coeff of [place] 12.7, Plt Count 238, MPV 10.2, Immature Gran % (Auto) 0.300, Neut % (Auto) 69.9, Lymph % (Auto) 10.3 L, [place] % (Auto) 15.8 H, Eos % (Auto) 3.1, Baso % (Auto) 0.6, Absolute Neuts (auto) 4.4, Absolute Lymphs (auto) 0.64 L, Nucleated RBC % 0 03/23/22 15:34: Sodium 131 L, Potassium 4.3, Chloride 96 L, Carbon Dioxide 24.0, Anion Gap 11, BUN 40 H, Creatinine 8.09 H*, Estim Creat Clear Calc 6.46, Est GFR (MDRD) Af Amer 8 L, Est GFR (MDRD) Non-Af 7 L, BUN/Creatinine Ratio 4.9 L, Glucose 102, Calcium 9.1 03/23/22 15:44: Urine Color Yellow, Urine Clarity Cloudy, Urine pH 6.0, Ur Specific [place] 1.010, Urine Protein 500 H, Urine Glucose (UA) Normal, Urine Ketones Negative, Urine Occult Blood 50 H, Urine Nitrite Negative, Urine Bilirubin Negative, Urine Urobilinogen Normal, Ur Leukocyte Esterase 500 H, Urine RBC 5-10 SEEN, Urine WBC 50-100 SEEN, Ur Squamous Epith Cells 10-25 SEEN, Urine Bacteria 3+, Urine Mucus 0 SEEN 03/23/22 23:20: Ur Random Sodium 104, Urine Creatinine 29.70 03/24/22 05:45: WBC 6.4, RBC 3.15 L, Hgb 10.9 L, Hct 32.5 L, MCV 103.2 H, MCH 34.6 H, MCHC 33.5, RDW Std Deviation 47.8 H, RDW Coeff of [place] 12.7, Plt Count 240, MPV 9.9, Immature Gran % (Auto) 0.500, Neut % (Auto) 72.2 H, Lymph % (Auto) 10.7 L, [place] % (Auto) 13.5 H, Eos % (Auto) 2.5, Baso % (Auto) 0.6, Absolute Neuts (auto) 4.6, Absolute Lymphs (auto) 0.68 L, Nucleated RBC % 0 03/24/22 05:45: Sodium 133 L, Potassium 4.6, Chloride 103, Carbon Dioxide 19.0 L, Anion Gap 11, BUN 44 H, Creatinine 8.53 H*, Estim Creat Clear Calc 6.13, Est GFR (MDRD) Af Amer 8 L, Est GFR (MDRD) Non-Af 6 L, BUN/Creatinine Ratio 5.2 L, Glucose 90, Calcium 7.7 L, Phosphorus 5.9 H, Magnesium 1.9, Total Bilirubin 0.50, AST 21, ALT 19, Alkaline Phosphatase 92, Total Protein 5.9 L, Albumin 2.5 L, Globulin 3.4, Albumin/Globulin Ratio 0.7 L, TSH 1.29 Radiology Impression Abdomen/Pelvis CT 03/23/22 16:25 IMPRESSION: (NOT LISTED IN ORDER OF SIGNIFICANCE) Urinary bladder wall has wall thickening. This can be related to a partially contractile state. However, a cystitis is not excluded. Urinalysis should be performed in an effort to exclude cystitis. There are multiple colonic diverticula consistent with diverticulosis. Other findings as above. Electronically Signed: Jaylon Serra MD at 17:23 EDT , Renal Ultrasound 03/23/22 18:18 IMPRESSION: There are no acute findings. Electronically Signed: Jaylon Serra MD at 19:39 EDT ,
[2022-03-24] MEDS: Lactated Ringers 1,000 ML 150 ML IV ×2 (12:18→18:19)
[2022-03-24] MEDS: Heparin Injection (Vial) 5,000 UNIT/ML VIAL 5000 UNIT SC ×2 (14:51→21:07)
[2022-03-24] MEDS: 0.9% Saline Lock 10 ML Syringe IV (17:52)
[2022-03-24] MEDS: Ondansetron 4 MG/2 ML Vial IV (17:53)
[2022-03-25] VITALS (12 sets, daily range): BP systolic 120–162; BP diastolic 53–72; PULSE 68–92; RESP 18–22; TEMP 36.3–37; O2SAT 93–97; BMI 30.7
[2022-03-25] MEDS: Lactated Ringers 1,000 ML 150 ML IV (00:24)
--- NOTE | 2022-03-25 00:59 | PCM.PN.BLA ---
Progress Note STOP IVF for wheezing and requiring oxygen.
[2022-03-25] MEDS: 0.9% Saline Lock 10 ML Syringe IV ×2 (01:16→09:29)
[2022-03-25] MEDS: Heparin Injection (Vial) 5,000 UNIT/ML VIAL 5000 UNIT SC ×2 (05:41→23:17)
[2022-03-25 06:08] LABS: Absolute Lymphocyte Count 0.58 X10^3/uL (0.83-4.51); Absolute Neutrophil Count 3.8 X10^3/uL (2.0-7.7); Basophil# 0.04 X10^3/uL; Basophil% 0.7 % (0-1); Eosinophil# 0.23 X10^3/uL; Hematocrit 28.6 % (40-54); Hemoglobin 9.6 g/dL (13.0-16.5); Lymphocyte # 0.58 X10^3/ul (0.83-4.51); Lymphocyte % 10.1 % (19-41); Mean Corp Hgb Conc 33.6 g/dL (32-36); Mean Corpuscular Volume 101.4 fL (80-94); Mean Platelet Vol. 9.6 fl (6.2-12.0); Monocyte# 1.05 X10^3/uL; Monocyte% 18.3 % (0-10); NRBC Flagged by Analyzer 0 % (0-5); Neutrophil % 66.4 % (47-70); POSITIVE DIFFERENTIAL YES; Platelet Count 188 K/mm3 (150-450); RBC Distribution Width CV 12.6 % (11.6-14.6); RBC Distribution Width SD 47.3 fl (35.1-43.9); Red Blood Count 2.82 M/mm3 (4.6-6.2); White Blood Count 5.7 K/mm3 (4.4-11.0)
[2022-03-25 06:10] LABS: Differential Indicated SCAN CRITERIA MET
[2022-03-25 06:27] LABS: Differential Comment SCANNED
[2022-03-25 07:06] LABS: ALB/GLOB Ratio 0.7 RATIO (0.9-2.4); AST(SGOT) 22 U/L (15-37); Alanine Aminotransfer ALT/SGPT 20 U/L (16-61); Albumin, Serum 2.2 g/dL (3.2-5.0); Alkaline Phosphatase 106 U/L (45-117); BUN 47 mg/dL (7-18); BUN/Creat Ratio 5.1 RATIO (10-20); Calcium,Total 7.6 mg/dL (8.5-10.1); Chloride 103 mmol/L (98-107); Creatinine, Serum 9.16 mg/dL (0.70-1.30); EST Glomerular Filtration Rate 6 mL/min (>60); Est Glom Filt Rate - Afr Amer 7 mL/min (>60); Globulin 3.3 g/dL (2.2-4.2); Glucose 96 mg/dL (74-106); Potassium 4.8 mmol/L (3.5-5.1); Protein, Total 5.5 g/dL (6.4-8.2); Sodium Level 132 mmol/L (136-145)
[2022-03-25 07:07] LABS: Anion Gap 9 (5-15)
[2022-03-25] MEDS: Cholecalciferol (VIT D3) 25 MCG TABLET (1,000 UNITS) PO (08:49)
[2022-03-25] MEDS: Ceftriaxone 1 GM/50 ML BAG IV (09:17)
--- NOTE | 2022-03-25 09:24 | PCM.PN.HOSP ---
Subjective Subjective Follow-up on acute kidney injury: Patient was seen and examined. Overnight, he was short of breath. IV fluids were discontinued. He is on 2L of oxygen. Denies any chest pain or dizziness. Objective Data Objective Data Vital Signs: Vital Signs Temp Pulse Resp BP Pulse Ox O2 Del Method O2 Flow Rate 97.9 F 68 20 H 162/69 H 93 Nasal Cannula 2 03/25/22 08:36 03/25/22 08:36 03/25/22 08:36 03/25/22 08:36 03/25/22 08:36 03/25/22 08:38 03/25/22 08:38 Oxygen Flow Rate (L/min) 2 Oxygen Delivery Method Nasal Cannula Weight: 81.3 kg Body Mass Index (BMI) 25.0 Intake & Output: Intake and Output for Last 24 Hours 03/23/22 03/24/22 03/25/22 23:59 23:59 23:59 Intake Total 1891.67 / 1891.67 2848.33 / 2848.33 1040.0 / 1040.0 Output Total 325 / 325 150 / 150 Balance 1891.67 / 1791.67 2523.33 / 2523.33 890.0 / 890.0 Lab / Micro Data Result Diagrams: 03/25/22 05:45 03/25/22 05:45 Labs: Laboratory Results - last 24 hr 03/25/22 05:45: WBC 5.7, RBC 2.82 L, Hgb 9.6 L, Hct 28.6 L, MCV 101.4 H, MCH 34.0 H, MCHC 33.6, RDW Std Deviation 47.3 H, RDW Coeff of [place] 12.6, Plt Count 188, MPV 9.6, Immature Gran % (Auto) 0.500, Neut % (Auto) 66.4, Lymph % (Auto) 10.1 L, [facility] % (Auto) 18.3 H, Eos % (Auto) 4.0, Baso % (Auto) 0.7, Absolute Neuts (auto) 3.8, Absolute Lymphs (auto) 0.58 L, Nucleated RBC % 0, Differential Comment SCANNED 03/25/22 05:45: Sodium 132 L, Potassium 4.8, Chloride 103, Carbon Dioxide 20.0 L, Anion Gap 9, BUN 47 H, Creatinine 9.16 H*, Estim Creat Clear Calc 5.70, Est GFR (MDRD) Af Amer 7 L, Est GFR (MDRD) Non-Af 6 L, BUN/Creatinine Ratio 5.1 L, Glucose 96, Calcium 7.6 L, Phosphorus Cancelled, Total Bilirubin 0.40, AST 22, ALT 20, Alkaline Phosphatase 106, Total Protein 5.5 L, Albumin 2.2 L, Globulin 3.3, Albumin/Globulin Ratio 0.7 L Physical Exam Narrative Physical exam: General: Alert, Oriented x3, Cooperative, hard of hearing, on 2 L oxygen HEENT: Atraumatic Oral: Moist Mucosa Neck: Supple Lungs: Diminished to auscultation, crackles heard in both lung bases Cardiovascular: HS I+II, regular, no murmurs Abdomen: Bowel Sounds Present, Soft, Non Tender Extremities: Bilateral pedal edema +1 Skin: No rashes, No breakdown Neurological: Grossly intact Psych/Mental Status: Appropriate Assessment & Plan Assessment/Plan (1) Acute kidney injury: (2) UTI (urinary tract infection): PLAN: Plan 1. BELKIS, renal, FeNa 21.6%, Creatinine slightly worse at 9.16 CT abdomen pelvis as well as renal ultrasound showed no postobstructive features Nephrology following Patient likely will need dialysis 2. Probable Acute UTI, urine cultures pending, Continue on IV ceftriaxone 3.?History of prostate CA, needs to follow-up in the outpatient 4.?Hypertension, BP is elevated Continue to hold Lisinopril Continue with hydralazine prn 5. DVT PPx-Heparin subcu Charges/Coding Visit Charges Inpatient E&M: 40161 Subs Hosp L2
--- NOTE | 2022-03-25 09:37 | PN.RENAL_ITS ---
Subjective Subjective Following for BELKIS Sitting in chair. Denies any nausea, vomiting or diarrhea. States ate meals yesterday without any nausea. He did develop some shortness of breath during the night and is now off IVF and on O2. Objective Data Objective Data Vital Signs: Vital Signs Temp Pulse Resp BP Pulse Ox O2 Del Method O2 Flow Rate 97.9 F 68 20 H 162/69 H 93 Nasal Cannula 2 03/25/22 08:36 03/25/22 08:36 03/25/22 08:36 03/25/22 08:36 03/25/22 08:36 03/25/22 08:38 03/25/22 08:38 Oxygen Flow Rate (L/min) 2 Oxygen Delivery Method Nasal Cannula Weight: 81.3 kg Body Mass Index (BMI) 25.0 Intake & Output: Intake and Output for Last 24 Hours 03/23/22 03/24/22 03/25/22 23:59 23:59 23:59 Intake Total 1891.67 / 1891.67 2848.33 / 2848.33 1040.0 / 1040.0 Output Total 325 / 325 150 / 150 Balance 1891.67 / 1791.67 2523.33 / 2523.33 890.0 / 890.0 Lab / Micro Data Result Diagrams: 03/25/22 05:45 03/25/22 05:45 Labs: Laboratory Results - last 24 hr 03/25/22 05:45: WBC 5.7, RBC 2.82 L, Hgb 9.6 L, Hct 28.6 L, MCV 101.4 H, MCH 34.0 H, MCHC 33.6, RDW Std Deviation 47.3 H, RDW Coeff of Chaparro 12.6, Plt Count 188, MPV 9.6, Immature Gran % (Auto) 0.500, Neut % (Auto) 66.4, Lymph % (Auto) 10.1 L, [place] % (Auto) 18.3 H, Eos % (Auto) 4.0, Baso % (Auto) 0.7, Absolute Neuts (auto) 3.8, Absolute Lymphs (auto) 0.58 L, Nucleated RBC % 0, Differential Comment SCANNED 03/25/22 05:45: Sodium 132 L, Potassium 4.8, Chloride 103, Carbon Dioxide 20.0 L , Anion Gap 9, BUN 47 H, Creatinine 9.16 H*, Estim Creat Clear Calc 5.70, Est GFR (MDRD) Af Amer 7 L, Est GFR (MDRD) Non-Af 6 L, BUN/Creatinine Ratio 5.1 L, Glucose 96, Calcium 7.6 L, Phosphorus Cancelled, Total Bilirubin 0.40, AST 22, ALT 20, Alkaline Phosphatase 106, Total Protein 5.5 L, Albumin 2.2 L, Globulin 3.3, Albumin/Globulin Ratio 0.7 L Physical Exam Narrative Alert and oriented x3, no apparent distress. Hard of hearing HEENT: Head is normocephalic, atraumatic, oral mucosa is moist. PERRLA. Cardio: S1-S2, RRR Respiratory: Lung sounds clear anteriorly and posteriorly. No wheezes, rhonchi or rales noted. On O2 nasal cannula : Abdomen soft, nontender, positive bowel sounds x4 quadrants Extremities: No edema noted to bilateral lower legs feet arms or thighs. Indwelling Kaur catheter with dark brown/yellow colored urine in bag Assessment & Plan Assessment/Plan (1) Acute kidney injury: (2) UTI (urinary tract infection): PLAN: Plan - Initially oliguric, hypovolemic BELKIS likely multifactorial from volume depletion (nausea, vomiting, poor oral intake), urinary tract infection with concurrent MIKAEL inhibitor and possible antibiotic effect. Obstructive process ruled out, renal ultrasound and noncontrast CT of abdomen and pelvis did not show any hydronephrosis or acute renal findings. Serum creatinine 0.77 mg/dL as of September 2021. BELKIS may have progressed to ATN. UA did show blood/protein but was a straight cath sample however we did draw C3, C3, P-ANCA, C-ANCA, all are pending. We will follow serology results, repeat UA, and we will hold off on kidney biopsy at this time. Creatinine 8.09 mg/dL in ER--> 8.53 mg/dL--> today SCr 9.16mg/dL; urine output 150ml so far today (325ml UOP yesterday). Overnight patient developed some mild SOB with rales, O2 sat dropped in mid 80s. IVF were stopped and patient placed on O2. This am lung sounds are essentially clear, no peripheral edema but is requiring O2 via nasal canula. We will give lasix 100mg IV x1 now and monitor for response. If urine output is >200ml in ~1 hour then will continue to monitor patient without dialysis today. If no significant urine output response with lasix today then we will consult surgery to have temporary HD catheter placed and will start dialysis today. Urinalysis obtained via straight cath showed protein 500, occult blood 50 and positive leukocyte Estrace. Urine culture is pending. Though UA showed occult blood this may be from straight cath sample but will order renal serologies (C3, C4, P-ANCA, C-ANCA) to rule out other causes of BELKIS. Can repeat UA in a few days. - on ceftriaxone IV, Urine cx preliminary no growth. WBC normal, afebrile. - Blood pressures have been acceptable but slightly elevated when last checked possibly from agitation. He is not on any routine antihypertensives. He has hydralazine ordered PRN. Continue to hold lisinopril. - explained above to patient and his daughter who is at bedside. Patient in agreement to plan. Questions answered. Labs ordered tomorrow. - discussed with Dr. Padilla
[2022-03-25] MEDS: Furosemide 100 MG/10 ML Vial IV (10:27)
--- NOTE | 2022-03-25 14:09 | EKG12_ITS ---
Test Reason : IRREG RHYTHM Blood Pressure : / mmHG Vent. Rate : 133 BPM Atrial Rate : 178 BPM P-R Int : 000 ms QRS Dur : 080 ms QT Int : 348 ms P-R-T Axes : 000 009 010 degrees QTc Int : 517 ms Atrial fibrillation Nonspecific ST abnormality Abnormal ECG Confirmed by LORRI GUZMÁN, LETITIA ([id number]), subeditor DAPHNEY FULTON ([id number]) on 03/30/2022 1:10:09 PM Referred By: DR VILLAVICENCIO Confirmed By:LETITIA BLACKMON MD
--- NOTE | 2022-03-25 16:05 | DIALYSIS ---
Upon arrival patient has no line. At this time there is not a specific time for line placement. Dr Doe notified. Staff to call dialysis once line is placed and placement confirmed by xray for dialysis tx. Spoke with Selena
[2022-03-25 16:09] LABS: Cytoplasmic Ab (C-ANCA) <1:20 titer (Neg:<1:20)
--- NOTE | 2022-03-25 17:33 | CON.PCM.SX_ITS ---
Assessment & Plan Assessment/Plan (1) Acute kidney injury: PLAN: I have been consulted in conjunction with Dr. Paz, who has also indepe ndently evaluated this patient. Patient's creatine has increased despite a Lasix trial. Patient will need to undergo temporary dialysis at this time. Dr. Paz will plan to perform a right possible left IJ temporary dialysis catheter placement at bedside under local anesthesia. Procedure details, risks and benefits have been explained to the patient. Patient and family members have had the opportunity to ask and have questions answered. Patient verbally understands and agrees with the proposed plan. We will proceed with catheter placement today at bedside. Patient may proceed with dialysis following the procedure. Thank you for allowing us to participate in this patient's care. HPI Consult Data Date of Consult: 03/25/22 HPI Narrative Reason for Consultation: Temporary dialysis catheter placement HPI Narrative: IRVIN GARLAND, is a 86 M who presents with complaints of flank pain and decrease in urinary output for the past 3 weeks. Patient denies previous urinary symptoms or renal disease. Patient has never been on dialysis previously. He does have a history of prostate cancer s/p chemo and radiation therapy approximately 2 years ago. Patient denies any previous central line placement. He denies any allergies. Patient's creatinine was found to have a creatinine of 8.09 on admission and has trended upwards to 9.16 on 03/25/22 despite a Lasix trial. [facility], [facility] Medical History Kidney stones Prostate cancer Home Medications cholecalciferol (vitamin D3) 25 mcg (1,000 unit) tablet (Vitamin D3) 1,000 unit PO DAILY supplement 03/23/22 [History Last Taken 03/23/22] lisinopril 10 mg tablet 10 mg PO DAILY bp 03/23/22 [History Last Taken 03/22/22] Allergy/AdvReac Type Severity Reaction Status Date / Time No Known Allergies Allergy Verified 03/23/22 13:31 Family History (Updated 03/23/22 @ 19:[address] Miryam Gonsalez DO) Other Heart disease Hypertension Surgical History no surgical history Social History (Updated 03/23/22 @ 19:[address] Miryam Gonsalez DO) household members: children housing: house Smoking Status: Never smoker alcohol intake: current alcohol intake frequency: 0-2 drinks per day Alcohol type: hard liquor substance use type: does not use ROS Constitutional Constitutional: Reports chills and fatigue Eyes Eyes: Reports systems reviewed and no addt'l complaints, except as documented ENT HEENT: Reports systems reviewed and no addt'l complaints, except as documented Cardiovascular Cardiovascular: Reports systems reviewed and no addt'l complaints, except as documented Respiratory/Chest Respiratory/Chest: Reports systems reviewed and no addt'l complaints, except as documented Gastrointestinal Gastrointestinal: Reports systems reviewed and no addt'l complaints, except as documented Genitourinary Genitourinary: Reports systems reviewed and no addt'l complaints, except as documented Musculoskeletal Musculoskeletal: Reports systems reviewed and no addt'l complaints, except as documented Integumentary Integumentary: Reports systems reviewed and no addt'l complaints, except as documented Neurologic Neurologic: Reports systems reviewed and no addt'l complaints, except as documented Psychiatric Psychiatric: Reports systems reviewed and no addt'l complaints, except as documented Endocrine Endocrinology: Reports systems reviewed and no addt'l complaints, except as documented Hematologic/Lymphatic Hematologic/Lymphatic: Reports systems reviewed and no addt'l complaints, except as documented Allergic/Immunologic Allergic/Immunologic: Reports systems reviewed and no addt'l complaints, except as documented Physical Exam Const alert and no apparent distress Constitutional Narrative: Very hard of hearing HEENT normocephalic Eyes PERRL Neck full ROM Resp normal respiratory effort and clear to auscultation bilaterally Effort and Inspection: able to speak in complete sentences Cardio Rate: regular rate Rhythm: regular rhythm GI normal to inspection, nondistended, normoactive bowel sounds Bladder / Kidney Exam: catheter in place Extremity normal to inspection Skin no rashes or lesions noted Neuro CN's II-XII intact bilaterally Psych mental status grossly normal Lab / Micro Data Result Diagrams: 03/25/22 05:45 03/25/22 05:45 Labs: Laboratory Results - last 24 hr 03/25/22 05:45: WBC 5.7, RBC 2.82 L, Hgb 9.6 L, Hct 28.6 L, MCV 101.4 H, MCH 34.0 H, MCHC 33.6, RDW Std Deviation 47.3 H, RDW Coeff of [place]arro 12.6, Plt Count 188, MPV 9.6, Immature Gran % (Auto) 0.500, Neut % (Auto) 66.4, Lymph % (Auto) 10.1 L, [place] % (Auto) 18.3 H, Eos % (Auto) 4.0, Baso % (Auto) 0.7, Absolute Neuts (auto) 3.8, Absolute Lymphs (auto) 0.58 L, Nucleated RBC % 0, Differential Comment SCANNED 03/25/22 05:45: Sodium 132 L, Potassium 4.8, Chloride 103, Carbon Dioxide 20.0 L , Anion Gap 9, BUN 47 H, Creatinine 9.16 H*, Estim Creat Clear Calc 5.70, Est GFR (MDRD) Af Amer 7 L, Est GFR (MDRD) Non-Af 6 L, BUN/Creatinine Ratio 5.1 L, Glucose 96, Calcium 7.6 L, Phosphorus Cancelled, Total Bilirubin 0.40, AST 22, ALT 20, Alkaline Phosphatase 106, Total Protein 5.5 L, Albumin 2.2 L, Globulin 3.3, Albumin/Globulin Ratio 0.7 L Micro: Microbiology 03/23/22 15:44 Urine, Catheterized Urine Culture - Final Culture exhibits no growth. Charges/Coding Visit Charges Office Visits / Consults: 33634 IP Consult L3
--- NOTE | 2022-03-25 19:34 | NURSING ---
message left for radiology regarding needing xray/spoke with CT and let them know as well to pass information along
--- NOTE | 2022-03-25 19:35 | RAD_ITS ---
STUDY: X-RAY CHEST REASON FOR EXAM: Male, 86 years old. Temporary dialysis catheter placement -- PORTABLE. Will call after catheter is placed TECHNIQUE: XR Chest 1 View COMPARISON: 10/03/2012 FINDINGS: There are bilateral pleural effusions. There are bilateral infiltrates. There is no pneumothorax. There is a right IJ line. Normal size heart. Normal mediastinum and lexy. There is prominence of the pulmonary hilar arteries and peripheral pulmonary arteries, consistent with congestive heart failure (CHF). There is atherosclerotic calcification of the aortic arch with tortuosity. There are diffuse degenerative changes of the visualized thoracic spine. There is degenerative osteoarthritis of the bilateral shoulders. There is no demonstrated abnormality of the visualized soft tissue structures of the upper abdomen. RAD/Chest 1 View (Portable) IMPRESSION: There are bilateral pleural effusions. There are bilateral infiltrates. Electronically Signed: Jaylon Serra MD at 19:54 EDT ,
--- NOTE | 2022-03-25 20:02 | PCM.OP.PRO ---
Procedure Report Date of Procedure: 03/25/22 Procedure name: Insertion of temporary hemodialysis catheter (12 [place] X 16 cm straight) Procedure detail: After obtaining consent from patient, patient was positioned in Trendelenburg to facilitate filling of the central veins of the neck. The head was positioned to the left to allow access to the right neck. The right internal jugular vein was localized using bedside ultrasound. It appeared to be widely patent with good color Doppler flow. The right neck was sterilely prepped with the provided chlorhexidine prep and draped. A formal timeout followed to confirm patient and the procedure. Then the procedure was begun with infiltration of the superficial tissues of the neck with a local block using 4 mL Xylocaine. Under direct ultrasound guidance the vein was accessed with return of dark red blood. Using a Seldinger technique a guidewire was placed without difficulty. The guidewire tract was then opened at the skin with an 11 blade and serially dilated. Then the hemodialysis catheter was inserted into the vein. Both ports aspirated and flushed with ease. The catheter was then sewn in using 0 silk in three-point fixation. Insertion site was cleaned and a chlorhexidine dressing was placed about the catheter to maintain sterility. A post procedure chest x-ray was obtained to verify the position of the catheter and exclude pneumothorax. Complications: None EBL: 20 mL Procedures Hospitalists Procedures: 67224 Insert Non-tunnel CV Cath
[2022-03-26] VITALS (15 sets, daily range): BP systolic 117–147; BP diastolic 44–74; PULSE 67–147; RESP 18–20; TEMP 2.6–37.1; O2SAT 92–97
--- NOTE | 2022-03-26 00:52 | DIALYSIS ---
Hemodialysis x2 hours completed at 0025 on a 2K bath, first treatment, tolerated well, UF 2000mL, accessed via new RIJ temporary line, worked well, positional [facility] through treatment and lines reversed, 2nd treatment planned for later today
[2022-03-26] MEDS: Heparin 10,000 UNITS/10 ML Vial IV (03:57)
[2022-03-26] MEDS: 0.9% Saline Lock 10 ML Syringe IV ×3 (03:58→23:02)
[2022-03-26] MEDS: Heparin Injection (Vial) 5,000 UNIT/ML VIAL 5000 UNIT SC ×3 (05:42→21:29)
[2022-03-26 06:19] LABS: Absolute Lymphocyte Count 0.48 X10^3/uL (0.83-4.51); Absolute Neutrophil Count 3.9 X10^3/uL (2.0-7.7); Basophil# 0.04 X10^3/uL; Basophil% 0.7 % (0-1); Eosinophil# 0.19 X10^3/uL; Eosinophils% 3.4 % (0-5); Hematocrit 28.1 % (40-54); Hemoglobin 9.6 g/dL (13.0-16.5); Lymphocyte # 0.48 X10^3/ul (0.83-4.51); Lymphocyte % 8.6 % (19-41); Mean Corp Hgb Conc 34.2 g/dL (32-36); Mean Corpuscular Hgb 34.8 pg (27.0-32.0); Mean Corpuscular Volume 101.8 fL (80-94); Mean Platelet Vol. 9.9 fl (6.2-12.0); Monocyte# 0.96 X10^3/uL; Monocyte% 17.2 % (0-10); NRBC Flagged by Analyzer 0 % (0-5); Neutrophil % 69.7 % (47-70); POSITIVE DIFFERENTIAL YES; Platelet Count 200 K/mm3 (150-450); RBC Distribution Width CV 12.5 % (11.6-14.6); RBC Distribution Width SD 46.5 fl (35.1-43.9); Red Blood Count 2.76 M/mm3 (4.6-6.2); White Blood Count 5.6 K/mm3 (4.4-11.0)
[2022-03-26 06:27] LABS: Differential Indicated SCAN CRITERIA MET
[2022-03-26 06:40] LABS: Differential Comment SCANNED
[2022-03-26 06:51] LABS: ALB/GLOB Ratio 0.6 RATIO (0.9-2.4); AST(SGOT) 24 U/L (15-37); Alanine Aminotransfer ALT/SGPT 16 U/L (16-61); Albumin, Serum 2.2 g/dL (3.2-5.0); Alkaline Phosphatase 132 U/L (45-117); Anion Gap 9 (5-15); BUN 34 mg/dL (7-18); BUN/Creat Ratio 4.6 RATIO (10-20); Calcium,Total 7.8 mg/dL (8.5-10.1); Chloride 101 mmol/L (98-107); Creatinine, Serum 7.35 mg/dL (0.70-1.30); EST Glomerular Filtration Rate 8 mL/min (>60); Est Glom Filt Rate - Afr Amer 9 mL/min (>60); Estimated Creatinine Clearance 6.15 ml/min; Globulin 3.4 g/dL (2.2-4.2); Glucose 87 mg/dL (74-106); Potassium 4.2 mmol/L (3.5-5.1); Protein, Total 5.6 g/dL (6.4-8.2); Sodium Level 134 mmol/L (136-145)
--- NOTE | 2022-03-26 07:32 | PN.HOSP_ITS ---
Subjective Subjective Follow-up on acute kidney injury: Patient was seen and examined.?He had a right IJ placed yesterday and was dialyzed 2 L of fluid. Patient feels well today. Denies any chest pain or dizziness. Remains on 2 L of oxygen. Objective Data Objective Data Vital Signs: Vital Signs Temp Pulse Resp BP Pulse Ox O2 Del Method O2 Flow Rate 98.6 F 85 18 120/46 L 95 Nasal Cannula 2 03/26/22 03:50 03/26/22 03:50 03/26/22 03:50 03/26/22 03:50 03/26/22 03:50 03/26/22 03:54 03/26/22 03:54 Oxygen Flow Rate (L/min) 2 Oxygen Delivery Method Nasal Cannula Weight: 80.7 kg Body Mass Index (BMI) 30.7 Intake & Output: Intake and Output for Last 24 Hours 03/24/22 03/25/22 03/26/22 23:59 23:59 23:59 Intake Total 2848.33 / 2848.33 1090.0 / 1090.0 440 / 440 Output Total 325 / 325 525 / 525 4650 / 4650 Balance 2523.33 / 2523.33 565.0 / 565.0 -4210 / -4210 Lab / Micro Data Result Diagrams: 03/26/22 04:48 03/26/22 04:48 Labs: Laboratory Results - last 24 hr 03/26/22 04:48: WBC 5.6, RBC 2.76 L, Hgb 9.6 L, Hct 28.1 L, MCV 101.8 H, MCH 34.8 H, MCHC 34.2, RDW Std Deviation 46.5 H, RDW Coeff of [place]arro 12.5, Plt Count 200, MPV 9.9, Immature Gran % (Auto) 0.400, Neut % (Auto) 69.7, Lymph % (Auto) 8.6 L, [place] % (Auto) 17.2 H, Eos % (Auto) 3.4, Baso % (Auto) 0.7, Absolute Neuts (auto) 3.9, Absolute Lymphs (auto) 0.48 L, Nucleated RBC % 0, Differential Comment SCANNED 03/26/22 04:48: Sodium 134 L, Potassium 4.2, Chloride 101, Carbon Dioxide 24.0, Anion Gap 9, BUN 34 H, Creatinine 7.35 H, Estim Creat Clear Calc 6.15, Est GFR (MDRD) Af Amer 9 L, Est GFR (MDRD) Non-Af 8 L, BUN/Creatinine Ratio 4.6 L, Glucose 87, Calcium 7.8 L, Total Bilirubin 0.40, AST 24, ALT 16, Alkaline Phosphatase 132 H, Total Protein 5.6 L, Albumin 2.2 L, Globulin 3.4, Albumin/Globulin Ratio 0.6 L Micro: Microbiology 03/23/22 15:44 Urine, Catheterized Urine Culture - Final Culture exhibits no growth. Radiography Diagnostic Testing: Radiology Impression Chest X-Ray 03/25/22 19:35 IMPRESSION: There are bilateral pleural effusions. There are bilateral infiltrates. Electronically Signed: Jaylon Serra MD at 19:54 EDT Reading Location ID and State: [facility] / [place] , Service support , Physical Exam Narrative Physical exam: General: Alert, Oriented x3, Cooperative, hard of hearing, on 2 L oxygen HEENT: Atraumatic Oral: Moist Mucosa Neck: Supple Lungs: Diminished to auscultation Cardiovascular: HS I+II, regular, no murmurs Abdomen: Bowel Sounds Present, Soft, Non Tender Extremities: Bilateral pedal edema +1 Skin: No rashes, No breakdown Neurological: Grossly intact Psych/Mental Status: Appropriate Assessment & Plan Assessment/Plan (1) Acute kidney injury: (2) UTI (urinary tract infection): PLAN: Plan 1. BELKIS, renal, FeNa 21.6%, started on dialysis 03/25/22 Creatinine is 7.[address] abdomen/pelvis as well as renal ultrasound showed no postobstructive features Nephrology following - 2nd day of dialysis planned today Repeat blood work in am 2. Probable Acute UTI, urine cultures are negative Switch from IV ceftriaxone for 5 more days to complete 7 days 3.?History of prostate CA, needs to follow-up in the outpatient 4.?Hypertension, better controlled with fluid removal from dialysis Continue to hold Lisinopril Continue with hydralazine prn 5. DVT PPx-Heparin subcu Charges/Coding Visit Charges Inpatient E&M: 27068 Subs Hosp L2
[2022-03-26] MEDS: Cholecalciferol (VIT D3) 25 MCG TABLET (1,000 UNITS) PO (08:21)
[2022-03-26 08:22] LABS: Hepatitis B Surface Antibody Non-Reactive; Hepatitis B Surface Antigen Non-Reactive (Nonreactive)
--- NOTE | 2022-03-26 08:41 | PCM.PN.REN ---
Subjective Subjective Following for BELKIS Patient sitting up in chair, grandson at bedside. No overnight events. Denies any complaints today. Denies any shortness of breath. States he is feeling better today, states has good appetite. No nausea. Objective Data Objective Data Vital Signs: Vital Signs Temp Pulse Resp BP Pulse Ox O2 Del Method O2 Flow Rate 98.6 F 85 18 120/46 L 92 Nasal Cannula 2 03/26/22 03:50 03/26/22 03:50 03/26/22 03:50 03/26/22 03:50 03/26/22 06:57 03/26/22 06:57 03/26/22 06:57 Oxygen Flow Rate (L/min) 2 Oxygen Delivery Method Nasal Cannula Weight: 80.7 kg Body Mass Index (BMI) 30.7 Intake & Output: Intake and Output for Last 24 Hours 03/24/22 03/25/22 03/26/22 23:59 23:59 23:59 Intake Total 2848.33 / 2848.33 1090.0 / 1090.0 440 / 440 Output Total 325 / 325 525 / 525 4650 / 4650 Balance 2523.33 / 2523.33 565.0 / 565.0 -4210 / -4210 Lab / Micro Data Result Diagrams: 03/26/22 04:48 03/26/22 04:48 Labs: Laboratory Results - last 24 hr 03/25/22 22:20: Hep Bs Antigen Non-Reactive, Hep Bs Antibody Non-Reactive 03/26/22 04:48: WBC 5.6, RBC 2.76 L, Hgb 9.6 L, Hct 28.1 L, MCV 101.8 H, MCH 34.8 H, MCHC 34.2, RDW Std Deviation 46.5 H, RDW Coeff of [place] 12.5, Plt Count 200, MPV 9.9, Immature Gran % (Auto) 0.400, Neut % (Auto) 69.7, Lymph % (Auto) 8.6 L, [place] % (Auto) 17.2 H, Eos % (Auto) 3.4, Baso % (Auto) 0.7, Absolute Neuts (auto) 3.9, Absolute Lymphs (auto) 0.48 L, Nucleated RBC % 0, Differential Comment SCANNED 03/26/22 04:48: Sodium 134 L, Potassium 4.2, Chloride 101, Carbon Dioxide 24.0, Anion Gap 9, BUN 34 H, Creatinine 7.35 H, Estim Creat Clear Calc 6.15, Est GFR (MDRD) Af Amer 9 L, Est GFR (MDRD) Non-Af 8 L, BUN/Creatinine Ratio 4.6 L, Glucose 87, Calcium 7.8 L, Total Bilirubin 0.40, AST 24, ALT 16, Alkaline Phosphatase 132 H, Total Protein 5.6 L, Albumin 2.2 L, Globulin 3.4, Albumin/Globulin Ratio 0.6 L Micro: Microbiology 03/23/22 15:44 Urine, Catheterized Urine Culture - Final Culture exhibits no growth. Radiography Diagnostic Testing: Radiology Impression Chest X-Ray 03/25/22 19:35 IMPRESSION: There are bilateral pleural effusions. There are bilateral infiltrates. Electronically Signed: Jaylon Serra MD at 19:54 EDT Reading Location ID and State: [facility] / [place] , Service support , Physical Exam Narrative Alert and oriented x3, no apparent distress. Hard of hearing HEENT: Head is normocephalic, atraumatic, oral mucosa is moist. PERRLA. Cardio: S1-S2, RRR Respiratory: Lung sounds clear anteriorly and posteriorly. No wheezes, rhonchi or rales noted. On O2 nasal cannula : Abdomen soft, nontender, positive bowel sounds x4 quadrants Extremities: No edema noted to bilateral lower legs feet arms or thighs. Indwelling Kaur catheter with clear yellow urine in bag Non-tunneled temporary right IJ dialysis catheter dressing clean, dry and intact Assessment & Plan Assessment/Plan (1) Acute kidney injury: (2) UTI (urinary tract infection): PLAN: Plan - Initially oliguric, hypovolemic BELKIS likely multifactorial from volume depletion (nausea, vomiting, poor oral intake), urinary tract infection with concurrent MIKAEL inhibitor and possible antibiotic effect. Obstructive process ruled out, renal ultrasound and noncontrast CT of abdomen and pelvis did not show any hydronephrosis or acute renal findings. Serum creatinine 0.77 mg/dL as of September 2021. BELKIS may have progressed to ATN. UA did show blood/protein but was a straight cath sample however we did draw C3, C3, P-ANCA, C-ANCA, all are pending. We will follow serology results, repeat UA, and we will hold off on kidney biopsy at this time. - 03/23/2022 Creatinine 8.09 mg/dL in ER--> 8.53 mg/dL--> 03/25 SCr 9.16mg/dL; urine output 150ml. Overnight patient developed some mild SOB with rales, O2 sat dropped in mid 80s. IVF were stopped and patient placed on O2. We gave lasix 100mg IV x1 trial but patient only had ~50ml urine output in about 2hours therefore he had temporary dialysis catheter placed 03/25 and underwent dialysis for fluid removal and clearance, over 2hours with 2L fluid removed. Patient to undergo iHD again today over 2.5hours and attempt fluid removal 1-2L as pt/bp tolerates, keeping SBP >100. Will monitor renal function over the weekend without dialysis unless acute/emergent issue arises for [employer]. Monitor for renal recovery. Urine out put appears to be picking up Urinalysis obtained via straight cath showed protein 500, occult blood 50 and positive leukocyte Estrace, bacteria 3+. Though UA showed occult blood this may be from straight cath sample but will order renal serologies (C3, C4, P-ANCA, C-ANCA) to rule out other causes of BELKIS. Can repeat UA in a few days. Urine pro/cr ratio ordered - on ceftriaxone IV, Urine cx no growth. WBC normal, afebrile. - Blood pressures acceptable. He is not on any routine antihypertensives. He has hydralazine ordered PRN. Continue to hold lisinopril. - explained above to patient and his grandson who is at bedside. Questions answered. Labs ordered tomorrow. - discussed with Dr. Padilla
--- NOTE | 2022-03-26 09:18 | PCM.PN.SRG ---
Subjective Subjective Patient seen and examined during AM rounds. He is up and about in his room. He denies any significant neck discomfort. He reports that he had a successful time with hemodialysis last evening. Denies any significant change in his respiratory status. Objective Data Objective Data Vital Signs: Vital Signs Temp Pulse Resp BP Pulse Ox O2 Del Method O2 Flow Rate 98 F 72 18 147/62 H 97 Nasal Cannula 2 03/26/22 09:07 03/26/22 09:07 03/26/22 09:07 03/26/22 09:07 03/26/22 09:07 03/26/22 09:07 03/26/22 09:07 Oxygen Flow Rate (L/min) 2 Oxygen Delivery Method Nasal Cannula Weight: 177 lb 14.609 oz Body Mass Index (BMI) 30.7 Intake & Output: Intake and Output for Last 24 Hours 03/24/22 03/25/22 03/26/22 23:59 23:59 23:59 Intake Total 2848.33 / 2848.33 1090.0 / 1090.0 440 / 440 Output Total 325 / 325 525 / 525 4650 / 4650 Balance 2523.33 / 2523.33 565.0 / 565.0 -4210 / -4210 Lab / Micro Data Result Diagrams: 03/26/22 04:48 03/26/22 04:48 Labs: Laboratory Results - last 24 hr 03/25/22 22:20: Hep Bs Antigen Non-Reactive, Hep Bs Antibody Non-Reactive 03/26/22 04:48: WBC 5.6, RBC 2.76 L, Hgb 9.6 L, Hct 28.1 L, MCV 101.8 H, MCH 34.8 H, MCHC 34.2, RDW Std Deviation 46.5 H, RDW Coeff of Chaparro 12.5, Plt Count 200, MPV 9.9, Immature Gran % (Auto) 0.400, Neut % (Auto) 69.7, Lymph % (Auto) 8.6 L, [place] % (Auto) 17.2 H, Eos % (Auto) 3.4, Baso % (Auto) 0.7, Absolute Neuts (auto) 3.9, Absolute Lymphs (auto) 0.48 L, Nucleated RBC % 0, Differential Comment SCANNED 03/26/22 04:48: Sodium 134 L, Potassium 4.2, Chloride 101, Carbon Dioxide 24.0, Anion Gap 9, BUN 34 H, Creatinine 7.35 H, Estim Creat Clear Calc 6.15, Est GFR (MDRD) Af Amer 9 L, Est GFR (MDRD) Non-Af 8 L, BUN/Creatinine Ratio 4.6 L, Glucose 87, Calcium 7.8 L, Total Bilirubin 0.40, AST 24, ALT 16, Alkaline Phosphatase 132 H, Total Protein 5.6 L, Albumin 2.2 L, Globulin 3.4, Albumin/Globulin Ratio 0.6 L Micro: Microbiology 03/23/22 15:44 Urine, Catheterized Urine Culture - Final Culture exhibits no growth. Radiography Diagnostic Testing: Radiology Impression Chest X-Ray 03/25/22 19:35 IMPRESSION: There are bilateral pleural effusions. There are bilateral infiltrates. Electronically Signed: Jaylon Serra MD at 19:54 EDT Reading Location ID and State: [facility] / [place] , Service support , Physical Exam Const oriented x3 and no apparent distress Neck Neck Narrative: Patient's right neck catheter is in stable position with clean chlorhexidine dressing in place. There is no evidence of underlying hematoma or skin discoloration. Resp normal respiratory effort Resp Narrative: Nonlabored Assessment & Plan Assessment/Plan (1) Acute kidney injury: PLAN: Plan Status post insertion of temporary right internal jugular hemodialysis catheter yesterday. Catheter functioned well during hemodialysis and exhibits a stable appearance today. Will await any further direction from nephrology whether patient will require transition to a tunneled catheter versus discontinuation of the present catheter. Remainder management per primary team and nephrology. Charges/Coding Visit Charges Inpatient E&M: 59352 Subs Hosp L2
[2022-03-26 11:36] LABS: Complement C3 127 mg/dL (82-167); Perinuclear Ab (P-ANCA) <1:20 titer (Neg:<1:20)
--- NOTE | 2022-03-26 16:27 | DIALYSIS ---
Hemodialysis complete via right IJ temporary dialysis CVC with 1500ml fluid removed. CVC dressing is clean and dry. Pt tolerated treatment without difficulty.
[2022-03-26] MEDS: Cefdinir 300 MG Capsule PO (16:53)
[2022-03-26] MEDS: Acetaminophen 325 MG Tablet 650 MG PO (20:11)
--- NOTE | 2022-03-26 22:27 | EKG12_ITS ---
Test Reason : ILLNESS Blood Pressure : / mmHG Vent. Rate : 071 BPM Atrial Rate : 071 BPM P-R Int : 168 ms QRS Dur : 074 ms QT Int : 408 ms P-R-T Axes : 020 035 029 degrees QTc Int : 443 ms Sinus rhythm with Premature supraventricular complexes Low voltage QRS (Limb Leads) Confirmed by LORRI GUZMÁN, LETITIA ([id number]), editor in chief newspaper DAPHNEY FULTON ([id number]) on 03/29/2022 9:05:49 AM Referred By: DEBBI Confirmed By:LETITIA BLACKMON MD
--- NOTE | 2022-03-26 22:46 | PCM.PN.BLA ---
Progress Note Afib with RVR. Give metoprolol IV. If patient does not convert transfer to PCU. Magnesium on 03/24/22 1.9. IV Magnesium ordered. Check TSH. Check Echo. With recent dialysis catheter place will not start therapeutic heparin.
[2022-03-26] MEDS: Metoprolol Tartrate 5 MG/5 ML Vial IV (22:53)
[2022-03-27] VITALS (11 sets, daily range): BP systolic 126–159; BP diastolic 59–74; PULSE 61–96; RESP 18–20; TEMP 36.7–37.7; O2SAT 95–98
[2022-03-27 02:32] LABS: Mucous, Urine 0 SEEN /hpf (<or=2+); Squamous Epithelial Cells - UA 0 SEEN /hpf (0-5)
[2022-03-27 02:39] LABS: Color, Urine Red (Yellow); Glucose, Dipstick Normal (Normal); Ketone-Dipstick 5 mg/dl (Negative); Leukocyte Esterase-Dipstick 25 /ul (Negative); Nitrite-Dipstick Negative (Negative); Occult Blood-Urine 250 /ul (Negative); Protein, Urine (Random) 216.1 mg/dL (<11.9); Protein-Dipstick 500 mg/dl (Negative); Protein:Creat Ratio 4911 mg/g CRE (0-200); Urine Bilirubin Dipstick Negative (Negative); Urine Clarity Cloudy (Clear); Urine Urobilinogen Normal (Normal); Urine pH 6.5 (5.0 - 8.0)
[2022-03-27] MEDS: Acetaminophen 325 MG Tablet 650 MG PO ×2 (02:45→12:10)
[2022-03-27 02:52] LABS: Bacteria 1+ /hpf (None Seen); Red Blood Cells-Urine > 100 SEEN /hpf (0-5); White Blood Cells 5-10 SEEN /hpf (0-5)
[2022-03-27] MEDS: Heparin Injection (Vial) 5,000 UNIT/ML VIAL 5000 UNIT SC (05:17)
--- NOTE | 2022-03-27 05:55 | ECHOD_ITS ---
Reason For Study: A. fib/flutter Procedure This was a 2D Doppler, Color Flow transthoracic echocardiogram. Patient scanned supine due to dialysis in progress. The study was technically difficult. Exam performed portable in patient room. Left Ventricle Normal left ventricle. The estimated ejection fraction is 55-60 %. Right Ventricle Normal right ventricle. Normal systolic function. Atria The left atrium is mildly enlarged. Normal right atrium. Mitral Valve There is mild mitral annular calcification. Mild (1+) mitral valve insufficiency. Tricuspid Valve Normal tricuspid valve. Mild tricuspid valve insufficiency. Aortic Valve Mild diffuse aortic valve calcification. Mild (1+) aortic valve insufficiency. Pulmonic Valve The pulmonic valve is not well visualized. Great Vessels Normal aortic root. Pericardium/Pleural No pericardial effusion. MMode/2D Measurements & Calculations LVIDd: 4.4 cm IVSd: 1.2 cm Ao root diam: 3.3 cm LVIDs: 2.1 cm LVPWd: 1.1 cm RVDd: 3.6 cm FS: 52.9 % LAV(MOD-bp): 64.8 ml LA A4 area: 21.3 cm2 LA dimension(2D): 5.1 cm LAV(MOD-bp) Indexed: 34.8 ml/m2 LAV(MOD-sp2): 61.5 ml LAV(MOD-sp4): 64.3 ml RA A4 area: 17.9 cm2 Time Measurements MV dec time: 0.13 sec Doppler Measurements & Calculations MV E max [place]: 93.4 cm/sec Lat Peak E' [place]: 10.7 cm/sec Med Peak E' [place]: 8.4 cm/sec MV A max [place]: 67.9 cm/sec E/E' lat: 8.7 E/E' med: 11.1 MV E/A: 1.4 MV dec slope: 744.1 cm/sec2 Ao V2 max: 134.5 cm/sec LV V1 max: 96.8 cm/sec Ao max P.2 mmHg LV V1 max P.7 mmHg PA V2 max: 73.5 cm/sec TR max [place]: 327.8 cm/sec TR max P.1 mmHg ECHO/Echo Complete Interpretation Summary The estimated ejection fraction is 55-60 %. Normal LV systolic function Mild MR Mild AI Mild TR RVSP calculated 43.1 mmhg consistent with mild Pulmonary Hypertension No previous study to compare Ordering Physician: William Melendez Referring Physician: Conor Ronquillo Performed By: Chanelle Dockery RDCS
[2022-03-27 06:27] LABS: Absolute Lymphocyte Count 0.46 X10^3/uL (0.83-4.51); Absolute Neutrophil Count 3.6 X10^3/uL (2.0-7.7); Basophil# 0.03 X10^3/uL; Basophil% 0.5 % (0-1); Eosinophil# 0.11 X10^3/uL; Eosinophils% 1.9 % (0-5); Hematocrit 25.7 % (40-54); Hemoglobin 8.6 g/dL (13.0-16.5); Lymphocyte # 0.46 X10^3/ul (0.83-4.51); Lymphocyte % 8.1 % (19-41); Mean Corp Hgb Conc 33.5 g/dL (32-36); Mean Corpuscular Hgb 34.5 pg (27.0-32.0); Mean Corpuscular Volume 103.2 fL (80-94); Mean Platelet Vol. 10.2 fl (6.2-12.0); Monocyte# 1.41 X10^3/uL; Monocyte% 24.9 % (0-10); NRBC Flagged by Analyzer 0 % (0-5); Neutrophil # 3.62 X10^3/uL (2.7-7.7); Neutrophil % 63.9 % (47-70); POSITIVE DIFFERENTIAL YES; Platelet Count 175 K/mm3 (150-450); RBC Distribution Width CV 12.4 % (11.6-14.6); RBC Distribution Width SD 46.5 fl (35.1-43.9); Red Blood Count 2.49 M/mm3 (4.6-6.2); White Blood Count 5.7 K/mm3 (4.4-11.0)
[2022-03-27 06:31] LABS: Differential Indicated SCAN CRITERIA MET
[2022-03-27 07:07] LABS: ALB/GLOB Ratio 0.6 RATIO (0.9-2.4); AST(SGOT) 31 U/L (15-37); Alanine Aminotransfer ALT/SGPT 22 U/L (16-61); Albumin, Serum 2.1 g/dL (3.2-5.0); Alkaline Phosphatase 142 U/L (45-117); Anion Gap 7 (5-15); BUN 20 mg/dL (7-18); BUN/Creat Ratio 3.9 RATIO (10-20); Calcium,Total 7.5 mg/dL (8.5-10.1); Chloride 100 mmol/L (98-107); Creatinine, Serum 5.12 mg/dL (0.70-1.30); EST Glomerular Filtration Rate 11 mL/min (>60); Est Glom Filt Rate - Afr Amer 14 mL/min (>60); Estimated Creatinine Clearance 8.83 ml/min; Globulin 3.4 g/dL (2.2-4.2); Glucose 113 mg/dL (74-106); Potassium 3.7 mmol/L (3.5-5.1); Protein, Total 5.5 g/dL (6.4-8.2); Sodium Level 135 mmol/L (136-145)
[2022-03-27 07:09] LABS: Differential Comment SCANNED
--- NOTE | 2022-03-27 07:42 | PN.HOSP_ITS ---
Subjective Subjective Follow-up on acute kidney injury: Patient was seen and examined. Overnight, he went into A. fib with RVR. He is back in normal sinus rhythm. Denied any dizziness or palpitation. Patient stated he has history of paroxysmal atrial fibrillation. He follows up in [facility] in [place]. He has refused to be on any blood thinners or any other medication for A. fib. Objective Data Objective Data Vital Signs: Vital Signs Temp Pulse Resp BP Pulse Ox O2 Del Method O2 Flow Rate 98.0 F 85 18 126/67 H 98 Nasal Cannula 2 03/27/22 02:48 03/27/22 02:48 03/27/22 02:48 03/27/22 02:48 03/27/22 02:48 03/27/22 03:18 03/27/22 03:18 Oxygen Flow Rate (L/min) 2 Oxygen Delivery Method Nasal Cannula Weight: 77 kg Body Mass Index (BMI) 30.7 Intake & Output: Intake and Output for Last 24 Hours 03/25/22 03/26/22 03/27/22 23:59 23:59 23:59 Intake Total 1090.0 / 1090.0 440 / 440 Output Total 525 / 525 8175 / 8175 400 / 400 Balance 565.0 / 565.0 -7735 / -7735 -400 / -400 Lab / Micro Data Result Diagrams: 03/27/22 05:10 03/27/22 05:10 Labs: Laboratory Results - last 24 hr 03/24/22 12:17: c-ANCA Antibody <1:20, Atypical p-ANCA <1:20, p-ANCA Antibody <1:20, Complement C3 127, Complement C4 32 03/25/22 22:20: Hep Bs Antigen Non-Reactive, Hep Bs Antibody Non-Reactive 03/27/22 02:10: U Random Total Protein 216.1 H, Urine Creatinine 44.00, Protein/Creatinin Ratio 4911 H 03/27/22 02:10: Urine Color Red, Urine Clarity Cloudy, Urine pH 6.5, Ur Specific [place] 1.010, Urine Protein 500 H, Urine Glucose (UA) Normal, Urine Ketones 5 H , Urine Occult Blood 250 H, Urine Nitrite Negative, Urine Bilirubin Negative, Urine Urobilinogen Normal, Ur Leukocyte Esterase 25 H, Urine RBC > 100 SEEN, Urine WBC 5-10 SEEN, Ur Squamous Epith Cells 0 SEEN, Urine Bacteria 1+, Urine Mucus 0 SEEN 03/27/22 05:10: WBC 5.7, RBC 2.49 L, Hgb 8.6 L, Hct 25.7 L, MCV 103.2 H, MCH 34.5 H, MCHC 33.5, RDW Std Deviation 46.5 H, RDW Coeff of Chaparro 12.4, Plt Count 175, MPV 10.2, Immature Gran % (Auto) 0.700, Neut % (Auto) 63.9, Lymph % (Auto) 8.1 L, [place] % (Auto) 24.9 H, Eos % (Auto) 1.9, Baso % (Auto) 0.5, Absolute Neuts (auto) 3.6, Absolute Lymphs (auto) 0.46 L, Nucleated RBC % 0, Differential Comment SCANNED 03/27/22 05:10: Sodium 135 L, Potassium 3.7, Chloride 100, Carbon Dioxide 28.0, Anion Gap 7, BUN 20 H, Creatinine 5.12 H, Estim Creat Clear Calc 8.83, Est GFR (MDRD) Af Amer 14 L, Est GFR (MDRD) Non-Af 11 L, BUN/Creatinine Ratio 3.9 L, Glucose 113 H, Calcium 7.5 L, Total Bilirubin 0.50, AST 31, ALT 22, Alkaline Phosphatase 142 H, Total Protein 5.5 L, Albumin 2.1 L, Globulin 3.4, Albumin/Globulin Ratio 0.6 L, TSH 0.80 Micro: Microbiology 03/23/22 15:44 Urine, Catheterized Urine Culture - Final Culture exhibits no growth. Physical Exam Narrative Physical exam: General: Alert, Oriented x3, Cooperative, hard of hearing, on 2 L oxygen HEENT: Atraumatic Oral: Moist Mucosa Neck: Supple, RIJ temporary dialysis catheter Lungs: Diminished to auscultation Cardiovascular: HS I+II, regular, no murmurs Abdomen: Bowel Sounds Present, Soft, Non Tender Extremities: Bilateral pedal edema +1 Skin: No rashes, No breakdown Neurological: Grossly intact Psych/Mental Status: Appropriate Assessment & Plan Assessment/Plan (1) Acute kidney injury: (2) UTI (urinary tract infection): PLAN: Plan 1. A. fib with RVR, patient with known history of paroxysmal atrial fibrillation Received IV metoprolol. Currently in normal sinus rhythm. TSH is 0.80. 2D echo pending Will start on metoprolol 12.5mg bid Will hold off on anticoagulation for now on account of hematuria and possible tunneled dialysis catheter We will get records from [facility] concerning cardiology procedures. 2.BELKIS, renal, FeNa 21.6%, started on dialysis 03/25/22 Patient has received 2 sessions of dialysis Creatinine is 5.12<--7.35<--9.16 CT abdomen/pelvis as well as renal ultrasound showed no postobstructive features Nephrology following Repeat blood work in am 3. Acute hematuria, patient denies any pain with Kaur catheter We will consult urology Discontinue heparin subcu 4. Probable Acute UTI, urine cultures are negative Continue cefdinir to complete 7 days 5.?History of prostate CA, needs to follow-up in the outpatient 6.?Hypertension, better controlled with fluid removal from dialysis Continue to hold Lisinopril Continue with hydralazine prn 7. DVT PPx-Heparin subcu Charges/Coding Visit Charges Inpatient E&M: 11060 Subs Hosp L2
[2022-03-27 09:57] LABS: Magnesium 1.8 mg/dL (1.6-2.6)
[2022-03-27] MEDS: Cholecalciferol (VIT D3) 25 MCG TABLET (1,000 UNITS) PO (12:10)
--- NOTE | 2022-03-27 12:17 | CASEMGMT ---
RN CM in to pt room, pt lying in bed receiving dialysis. Pt family at bedside. Pt aware that RN CM will follow for dialysis needs and that therapy will re eval him. Pt and family in agreement. Spoke to charge nurse, pt is 1 assist now. Previously therapy did eval only.
--- NOTE | 2022-03-27 14:30 | DIALYSIS ---
3.5 hour tx complete. net uf 1500 ml removed. tolerated well. see scanned records.
[2022-03-27] MEDS: Cefdinir 300 MG Capsule PO (15:55)
[2022-03-27] MEDS: Metoprolol Tartrate 25 MG Tablet 12.5 MG PO ×2 (15:56→21:03)
[2022-03-27] MEDS: 0.9% Saline Lock 10 ML Syringe IV (17:23)
[2022-03-28] VITALS (9 sets, daily range): BP systolic 136–145; BP diastolic 64–71; PULSE 61–88; RESP 18–20; TEMP 36.8–37.1; O2SAT 94–96
[2022-03-28 06:08] LABS: Absolute Lymphocyte Count 0.57 X10^3/uL (0.83-4.51); Absolute Neutrophil Count 3.6 X10^3/uL (2.0-7.7); Basophil# 0.03 X10^3/uL; Basophil% 0.5 % (0-1); Eosinophils% 1.8 % (0-5); Hematocrit 26.8 % (40-54); Hemoglobin 8.9 g/dL (13.0-16.5); Lymphocyte # 0.57 X10^3/ul (0.83-4.51); Lymphocyte % 10.3 % (19-41); Mean Corp Hgb Conc 33.2 g/dL (32-36); Mean Corpuscular Hgb 34.2 pg (27.0-32.0); Mean Corpuscular Volume 103.1 fL (80-94); Monocyte# 1.29 X10^3/uL; Monocyte% 23.2 % (0-10); NRBC Flagged by Analyzer 0 % (0-5); Neutrophil # 3.55 X10^3/uL (2.7-7.7); Neutrophil % 63.8 % (47-70); POSITIVE DIFFERENTIAL YES; Platelet Count 202 K/mm3 (150-450); RBC Distribution Width CV 12.4 % (11.6-14.6); RBC Distribution Width SD 46.5 fl (35.1-43.9); White Blood Count 5.6 K/mm3 (4.4-11.0)
[2022-03-28 06:09] LABS: Differential Indicated SCAN CRITERIA MET
[2022-03-28 06:29] LABS: Albumin, Serum 2.2 g/dL (3.2-5.0); BUN 15 mg/dL (7-18); BUN/Creat Ratio 4.6 RATIO (10-20); Calcium,Total 8.2 mg/dL (8.5-10.1); Chloride 101 mmol/L (98-107); Creatinine, Serum 3.27 mg/dL (0.70-1.30); EST Glomerular Filtration Rate 19 mL/min (>60); Est Glom Filt Rate - Afr Amer 23 mL/min (>60); Estimated Creatinine Clearance 13.83 ml/min; Glucose 118 mg/dL (74-106); Phosphorus 2.7 mg/dL (2.5-4.9); Potassium 3.8 mmol/L (3.5-5.1); Sodium Level 136 mmol/L (136-145)
[2022-03-28 06:38] LABS: Macrocytosis 2+
[2022-03-28] MEDS: Acetaminophen 325 MG Tablet 650 MG PO (07:52)
[2022-03-28] MEDS: Cholecalciferol (VIT D3) 25 MCG TABLET (1,000 UNITS) PO (07:53)
[2022-03-28] MEDS: Metoprolol Tartrate 25 MG Tablet 12.5 MG PO ×2 (10:28→20:53)
--- NOTE | 2022-03-28 11:00 | PN.HOSP_ITS ---
Subjective Subjective Follow-up on acute kidney injury: Patient was seen and examined.?Remains in atrial fibrillation, rate controlled. He complains of pain in the left knee. He is unable to move around without pain. He has got history of severe osteoarthritis; follows with an orthopedic surgeon in [facility]. There is a plan for left knee replacement this summer. He denies any fever or chills. He had dialysis yesterday; 1500mls removed. Objective Data Objective Data Vital Signs: Vital Signs Temp Pulse Resp BP Pulse Ox O2 Del Method O2 Flow Rate 98.6 F 71 20 H 145/66 H 96 Nasal Cannula 3 03/28/22 07:48 03/28/22 10:28 03/28/22 07:48 03/28/22 10:28 03/28/22 08:21 03/28/22 08:21 03/28/22 08:21 Oxygen Flow Rate (L/min) 3 Oxygen Delivery Method Nasal Cannula Weight: 77.1 kg Body Mass Index (BMI) 30.7 Intake & Output: Intake and Output for Last 24 Hours 03/26/22 03/27/22 03/28/22 23:59 23:59 23:59 Intake Total 440 / 440 452 / 452 Output Total 8175 / 8175 2500 / 2500 150 / 150 Balance -7735 / -7735 -2048 / -2048 -150 / -150 Lab / Micro Data Result Diagrams: 03/28/22 05:20 03/28/22 05:20 Labs: Laboratory Results - last 24 hr 03/28/22 05:20: WBC 5.6, RBC 2.60 L, Hgb 8.9 L, Hct 26.8 L, MCV 103.1 H, MCH 34.2 H, MCHC 33.2, RDW Std Deviation 46.5 H, RDW Coeff of Chaparro 12.4, Plt Count 202, MPV 10.0, Immature Gran % (Auto) 0.400, Neut % (Auto) 63.8, Lymph % (Auto) 10.3 L, [place] % (Auto) 23.2 H, Eos % (Auto) 1.8, Baso % (Auto) 0.5, Absolute Neuts (auto) 3.6, Absolute Lymphs (auto) 0.57 L, Nucleated RBC % 0, Macrocytosis 2+ 03/28/22 05:20: Sodium 136, Potassium 3.8, Chloride 101, Carbon Dioxide 29.0, BUN 15, Creatinine 3.27 H, Estim Creat Clear Calc 13.83, Est GFR (MDRD) Af Amer 23 L, Est GFR (MDRD) Non-Af 19 L, BUN/Creatinine Ratio 4.6 L, Glucose 118 H, Calcium 8.2 L, Phosphorus 2.7, Albumin 2.2 L Micro: Microbiology 03/23/22 15:44 Urine, Catheterized Urine Culture - Final Culture exhibits no growth. Radiography Diagnostic Testing: Radiology Impression Echocardiogram 03/27/22 05:55 Interpretation Summary The estimated ejection fraction is 55-60 %. Normal LV systolic function Mild MR Mild AI Mild TR RVSP calculated 43.1 mmhg consistent with mild Pulmonary Hypertension No previous study to compare Ordering Physician: William Melendez Referring Physician: Conor Ronquillo Performed By: Chanelle Dockery RDCS Physical Exam Narrative Physical exam: General: Alert, Oriented x3, Cooperative, hard of hearing, on 2 L oxygen HEENT: Atraumatic Oral: Moist Mucosa Neck: Supple, RIJ temporary dialysis catheter Lungs: Diminished to auscultation Cardiovascular: HS I+II, regular, no murmurs Abdomen: Bowel Sounds Present, Soft, Non Tender Extremities: Bilateral pedal edema, trace, left knee is swollen, marginally warm to touch, tender Skin: No rashes, No breakdown Neurological: Grossly intact Psych/Mental Status: Appropriate Const alert, oriented x3, no apparent distress and well nourished Constitutional Narrative: Overweight, elderly white male lying in bed, granddaughter at bedside, patient appears comfortable nontoxic General Appearance: cooperative HEENT normocephalic, head/scalp atraumatic, EAC's normal, TM's normal bilaterally, moist oral mucous membranes, oropharynx normal and gingiva normal Eyes PERRL, EOMs intact bilaterally, conjunctivae normal and no scleral icterus Neck no lymphadenopathy, supple and no carotid bruits Neck Narrative: Trachea midline, no thyroid enlargement noted General: trachea midline Lymph Lymphatic: no lymphadenopathy noted Resp normal respiratory effort, normal air movement and clear to auscultation bilaterally Auscultation: Negative for rales, rhonchi, wheezes or diminished lung sounds Cardio regular rate, regular rhythm, S1 normal heart sound, S2 normal heart sound, no murmurs, no rub, no gallops and peripheral pulses 2+ throughout GI normal to inspection, nondistended, normoactive bowel sounds and soft to palpation; Negative for non-tender GI Narrative: Mild tenderness bilateral lower quadrants Extremity normal capillary refill and no clubbing, cyanosis or edema Skin no rashes or lesions noted, no wounds, no jaundice, no petechiae and no mottling Skin Narrative: Tenting noted with skin turgor Neuro oriented x3, CN's II-XII intact bilaterally, moves all extremities, no focal motor deficits and no sensory deficits noted Sensorium / Orientation: awake and alert Psych thought process normal, cooperative and affect normal Assessment & Plan Assessment/Plan (1) Acute kidney injury: (2) UTI (urinary tract infection): PLAN: Plan 86-year-old male with past medical history of hypertension who comes in with bilateral flank pain and lower abdominal discomfort. 1. A. fib with RVR, rate controlled now, CHADS-VASC score of 3 Patient with known history of paroxysmal atrial fibrillation TSH is 0.80. 2D echo showed EF of 55 to 60%, mild pulmonary hypertension Continue on metoprolol, Discussed with nephrology, will start patient on heparin drip 2.BELKIS, renal, FeNa 21.6%, started on dialysis 03/25/22 Patient has received 3 sessions of dialysis Creatinine is 3.27 <--5.12<--7.35<--9.16 Unknown previous baseline creatinine CT abdomen/pelvis as well as renal ultrasound showed no postobstructive features Nephrology following Repeat blood work in am 3. Acute hematuria, resolved, urine is clear Status post michel catheter placement 4. Probable Acute UTI, urine cultures are negative Continue cefdinir to complete 7 days 5.?History of prostate CA, needs to follow-up in the outpatient 6.?Hypertension, better controlled with fluid removal from dialysis Continue with hydralazine prn 7. DVT PPx-Heparin subcu Charges/Coding Visit Charges Inpatient E&M: 66890 Subs Hosp L2
[2022-03-28 11:51] LABS: Magnesium 1.9 mg/dL (1.6-2.6)
[2022-03-28] MEDS: Lidocaine 5% Patch 1 PATCH TOPICAL (12:02)
--- NOTE | 2022-03-28 12:15 | RAD_ITS ---
STUDY: XR Knee 1 or 2 Views 03/28/2022 2:41 PM REASON FOR EXAM: Male, 86 years old. left knee osteoarthritis pain and swelling TECHNIQUE: XR Knee 1 or 2 Views LEFT COMPARISON: None FINDINGS: Normal visualized distal femur. Normal visualized proximal tibia and fibula. Normal proximal tibiofibular articulation. There is severe degenerative arthrosis of the medial femorotibial compartment with severe joint space narrowing. Normal lateral femorotibial compartment. There is mild degenerative arthrosis of the patellofemoral articulation. There is a soft tissue prominence in the suprapatellar region suggesting a small volume joint effusion. The soft tissue structures are unremarkable. RAD/Knee 1 or 2 Views IMPRESSION: Degenerative arthrosis. Effusion, as described above. Electronically Signed: Jaylon Serra MD at 14:42 EDT ,
[2022-03-28 13:11] LABS: Prothrombin Time (Protime)PT. 12.5 SECONDS (11.7-14.9)
[2022-03-28 13:12] LABS: Partial Thromboplast Time 30.9 Seconds (24.1-36.2)
[2022-03-28] MEDS: HEPARIN/D5w 25,000 UNITS 25,000 UNITS/250 ML IV.SOLN. 11 UNITS CONT INF (13:43)
[2022-03-28] MEDS: Cefdinir 300 MG Capsule PO (13:45)
[2022-03-28] MEDS: Acetaminophen 500 MG Tablet PO ×2 (13:45→20:53)
[2022-03-28 20:00] LABS: Partial Thromboplast Time 64.8 Seconds (24.1-36.2)
[2022-03-29] VITALS (7 sets, daily range): BP systolic 134–163; BP diastolic 70–83; PULSE 67–88; RESP 15–22; TEMP 36.7–37.2; O2SAT 93–98
[2022-03-29 02:01] LABS: Absolute Lymphocyte Count 0.69 X10^3/uL (0.83-4.51); Absolute Neutrophil Count 2.6 X10^3/uL (2.0-7.7); Basophil# 0.04 X10^3/uL; Basophil% 0.8 % (0-1); Eosinophil# 0.32 X10^3/uL; Eosinophils% 6.8 % (0-5); Hematocrit 25.1 % (40-54); Hemoglobin 8.5 g/dL (13.0-16.5); Lymphocyte # 0.69 X10^3/ul (0.83-4.51); Lymphocyte % 14.6 % (19-41); Mean Corp Hgb Conc 33.9 g/dL (32-36); Mean Corpuscular Hgb 34.7 pg (27.0-32.0); Mean Corpuscular Volume 102.4 fL (80-94); Mean Platelet Vol. 9.6 fl (6.2-12.0); Monocyte# 1.08 X10^3/uL; Monocyte% 22.9 % (0-10); NRBC Flagged by Analyzer 0 % (0-5); Neutrophil # 2.58 X10^3/uL (2.7-7.7); Neutrophil % 54.7 % (47-70); Platelet Count 180 K/mm3 (150-450); RBC Distribution Width CV 12.3 % (11.6-14.6); RBC Distribution Width SD 46.3 fl (35.1-43.9); Red Blood Count 2.45 M/mm3 (4.6-6.2); White Blood Count 4.7 K/mm3 (4.4-11.0)
[2022-03-29 02:13] LABS: Partial Thromboplast Time 88.1 Seconds (24.1-36.2)
[2022-03-29 02:19] LABS: AST(SGOT) 28 U/L (15-37); Alanine Aminotransfer ALT/SGPT 24 U/L (16-61); Alkaline Phosphatase 163 U/L (45-117); BUN 20 mg/dL (7-18); BUN/Creat Ratio 5.8 RATIO (10-20); Calcium,Total 8.4 mg/dL (8.5-10.1); Chloride 99 mmol/L (98-107); Creatinine, Serum 3.42 mg/dL (0.70-1.30); EST Glomerular Filtration Rate 18 mL/min (>60); Est Glom Filt Rate - Afr Amer 22 mL/min (>60); Estimated Creatinine Clearance 13.22 ml/min; Globulin 3.7 g/dL (2.2-4.2); Glucose 114 mg/dL (74-106); Phosphorus 3.3 mg/dL (2.5-4.9); Protein, Total 5.7 g/dL (6.4-8.2); Sodium Level 134 mmol/L (136-145)
[2022-03-29] MEDS: Acetaminophen 500 MG Tablet PO ×3 (05:08→21:45)
--- NOTE | 2022-03-29 07:26 | PN.HOSP_ITS ---
Subjective Subjective Seen and examined. I talked to the patient's grandson near the bedside. Patient had 3 sessions of dialysis through temporary dialysis catheter at right IJ. Patient has Michel catheter. Had total of 800 mL urine output on 03/28. Patient makes very little urine. BUN/creatinine improving. Denies prior history of kidney stone. , History of prostate cancer, follows with Dr. Schafer Patient also has paroxysmal A. fib and currently on heparin drip. As per grandson he had A. fib about a year ago. No chest pain or shortness of breath. Objective Data Objective Data Vital Signs: Vital Signs Temp Pulse Resp BP Pulse Ox O2 Del Method O2 Flow Rate 98.0 F 88 16 134/70 H 98 Room Air 3 03/29/22 02:34 03/29/22 02:34 03/29/22 02:34 03/29/22 02:34 03/29/22 02:34 03/29/22 02:34 03/28/22 08:21 Oxygen Flow Rate (L/min) 3 Oxygen Delivery Method Room Air Weight: 170 lb 10.205 oz Body Mass Index (BMI) 30.7 Intake & Output: Intake and Output for Last 24 Hours 03/27/22 03/28/22 03/29/22 23:59 23:59 23:59 Intake Total 452 / 452 700 / 700 141.35 / 141.35 Output Total 2500 / 2500 800 / 800 Balance -2048 / -2048 -100 / -100 141.35 / 141.35 Lab / Micro Data Result Diagrams: 03/29/22 01:52 03/29/22 01:52 Labs: Laboratory Results - last 24 hr 03/28/22 05:20: Magnesium 1.9 03/28/22 12:35: PT 12.5, INR 1.0, APTT 30.9 03/28/22 19:36: APTT 64.8 H 03/29/22 01:52: WBC 4.7, RBC 2.45 L, Hgb 8.5 L, Hct 25.1 L, MCV 102.4 H, MCH 34.7 H, MCHC 33.9, RDW Std Deviation 46.3 H, RDW Coeff of Chaparro 12.3, Plt Count 180, MPV 9.6, Immature Gran % (Auto) 0.200, Neut % (Auto) 54.7, Lymph % (Auto) 14.6 L, [place] % (Auto) 22.9 H, Eos % (Auto) 6.8 H, Baso % (Auto) 0.8, Absolute Neuts (auto) 2.6, Absolute Lymphs (auto) 0.69 L, Nucleated RBC % 0 03/29/22 01:52: Sodium 134 L, Potassium 4.0, Chloride 99, Carbon Dioxide 29.0, BUN 20 H, Creatinine 3.42 H, Estim Creat Clear Calc 13.22, Est GFR (MDRD) Af Amer 22 L, Est GFR (MDRD) Non-Af 18 L, BUN/Creatinine Ratio 5.8 L, Glucose 114 H , Calcium 8.4 L, Phosphorus 3.3, Total Bilirubin 0.40, Direct Bilirubin 0.20, AST 28, ALT 24, Alkaline Phosphatase 163 H, Total Protein 5.7 L, Albumin 2.0 L, Globulin 3.7 03/29/22 01:52: APTT 88.1 H Micro: Microbiology 03/23/22 15:44 Urine, Catheterized Urine Culture - Final Culture exhibits no growth. Radiography Diagnostic Testing: Radiology Impression Knee X-Ray 03/28/22 12:15 IMPRESSION: Degenerative arthrosis. Effusion, as described above. Electronically Signed: Jaylon Serra MD at 14:42 EDT Reading Location ID and State: [facility] / [place] , Service support , Physical Exam Narrative General: Alert, Oriented x3, Cooperative HEENT: Very hard of hearing, bilateral atraumatic, PERRLA, EOMI, Normocephalic Oral: No Gingival or Mucosal Lesions/ Ulcerations Neck: Supple, No JVD, Negative Carotid Bruits Lungs: Air entry diminished in bilateral lung bases. No crepitation/rhonchi Cardiovascular: A. fib, irregular rhythm, Normal S1, Normal S2, No murmurs Abdomen: Bowel Sounds Present, Soft, Non Tender, Non-Distended : No renal angle tenderness. No suprapubic tenderness. Michel catheter draining clear urine about 400 mL since morning Extremities: No pedal edema, Capillary Refill Less than 3 Seconds Skin: No rashes, No breakdown Musculoskeletal: No Tenderness to Palpation of Joints or Extremities. Muscle strength 4/5 at major joints Neurological: Cranial nerves II-XII grossly intact, DTR 2+/4 and Symmetrical Psych/Mental Status: Normal Affect, Appropriate. Assessment & Plan Assessment/Plan (1) Acute kidney injury: (2) UTI (urinary tract infection): PLAN: Plan 86-year-old male with past medical history of hypertension who comes in with bilateral flank pain and lower abdominal discomfort. 1. A. fib with RVR, rate controlled now, CHADS-VASC score of 3 Patient with known history of paroxysmal atrial fibrillation TSH is 0.80. 2D echo showed EF of 55 to 60%, mild pulmonary hypertension, mild MR, mild AI and mild TR Continue on metoprolol, 03/29: Continue heparin drip. As per grandson he had A. fib about 2 years ago therefore paroxysmal A. fib. Plan for changed to Eliquis at time of discharge 2.BELKIS, renal, FeNa 21.6%, started on dialysis 03/25/22 Patient has received 3 sessions of dialysis Creatinine is 3.42, 3.27 <--5.12<--7.35<--9.16 Unknown previous baseline creatinine CT abdomen/pelvis as well as renal ultrasound showed no postobstructive features 03/29: Discussed with the instructional specialist. Plan to keep the patient on intake and o utput monitoring. Continue IV heparin drip. No plan for dialysis today as patient is making sufficient urine. Repeat blood work in am 3. Acute hematuria, resolved, urine is clear Status post michel catheter placement 4. UTI ruled out. UA WBC 5-10 cells, RBC more than 100, LE 25, nitrite negativ e, squamous epithelial cells 0. Urine culture shows no growth. Antibiotic discontinued 5.?History of prostate CA, needs to follow-up in the outpatient 6.?Hypertension, better controlled with fluid removal from dialysis Continue with hydralazine prn 7. DVT PPx-Heparin subcu Total time of the visit including total time spent in counseling or coordination of care, (more than 50% of the total time, spent in obtaining medical information from nurses and other ancillary care providers,explaining to the patient about labs, imaging, diagnosis and management of active complex medical conditions), discussion with instructional specialist, clinical update given to the family, review of labs and imaging is 40 minutes. Charges/Coding Visit Charges Inpatient E&M: 17302 Subs Hosp L3
[2022-03-29] MEDS: Lidocaine 5% Patch 1 PATCH TOPICAL (08:09)
[2022-03-29] MEDS: Metoprolol Tartrate 25 MG Tablet 12.5 MG PO ×2 (08:09→21:45)
[2022-03-29] MEDS: Cholecalciferol (VIT D3) 25 MCG TABLET (1,000 UNITS) PO (08:11)
[2022-03-29 09:06] LABS: Partial Thromboplast Time 61.5 Seconds (24.1-36.2)
--- NOTE | 2022-03-29 10:38 | DIALYSIS ---
No dialysis today, will check again tomorrow
[2022-03-29] MEDS: HEPARIN/D5w 25,000 UNITS 25,000 UNITS/250 ML IV.SOLN. 10 UNITS CONT INF (12:37)
[2022-03-29 13:33] LABS: CPK Total, Creatine Kinase 22 U/L (39-308)
--- NOTE | 2022-03-29 13:58 | PCM.PN.REN ---
Subjective Subjective no new complaints. hematuria since yesterday. now on heparin drip Objective Data Objective Data Vital Signs: Vital Signs Temp Pulse Resp BP Pulse Ox O2 Del Method O2 Flow Rate 98.3 F 70 18 163/81 H 96 Room Air 2 03/29/22 08:00 03/29/22 08:09 03/29/22 08:00 03/29/22 08:00 03/29/22 08:00 03/29/22 09:22 03/29/22 07:45 Oxygen Flow Rate (L/min) 2 Oxygen Delivery Method Room Air Weight: 77.4 kg Body Mass Index (BMI) 30.7 Intake & Output: Intake and Output for Last 24 Hours 03/27/22 03/28/22 03/29/22 23:59 23:59 23:59 Intake Total 452 / 452 700 / 700 241.85 / 241.85 Output Total 2500 / 2500 800 / 800 375 / 375 Balance -2048 / -2048 -100 / -100 -133.15 / -133.15 Lab / Micro Data Result Diagrams: 03/29/22 01:52 03/29/22 01:52 Labs: Laboratory Results - last 24 hr 03/28/22 19:36: APTT 64.8 H 03/29/22 01:52: WBC 4.7, RBC 2.45 L, Hgb 8.5 L, Hct 25.1 L, MCV 102.4 H, MCH 34.7 H, MCHC 33.9, RDW Std Deviation 46.3 H, RDW Coeff of Chaparro 12.3, Plt Count 180, MPV 9.6, Immature Gran % (Auto) 0.200, Neut % (Auto) 54.7, Lymph % (Auto) 14.6 L, [place] % (Auto) 22.9 H, Eos % (Auto) 6.8 H, Baso % (Auto) 0.8, Absolute Neuts (auto) 2.6, Absolute Lymphs (auto) 0.69 L, Nucleated RBC % 0 03/29/22 01:52: Sodium 134 L, Potassium 4.0, Chloride 99, Carbon Dioxide 29.0, BUN 20 H, Creatinine 3.42 H, Estim Creat Clear Calc 13.22, Est GFR (MDRD) Af Amer 22 L, Est GFR (MDRD) Non-Af 18 L, BUN/Creatinine Ratio 5.8 L, Glucose 114 H, Calcium 8.4 L, Phosphorus 3.3, Total Bilirubin 0.40, Direct Bilirubin 0.20, AST 28, ALT 24, Alkaline Phosphatase 163 H, Total Protein 5.7 L, Albumin 2.0 L, Globulin 3.7 03/29/22 01:52: APTT 88.1 H 03/29/22 01:52: Total Creatine Kinase 22 L 03/29/22 08:27: APTT 61.5 H Micro: Microbiology 03/23/22 15:44 Urine, Catheterized Urine Culture - Final Culture exhibits no growth. Radiography Diagnostic Testing: Radiology Impression Knee X-Ray 03/28/22 12:15 IMPRESSION: Degenerative arthrosis. Effusion, as described above. Electronically Signed: Jaylon Serra MD at 14:42 EDT Reading Location ID and State: [facility] / [place] , Service support , Physical Exam Narrative Alert awake oriented x 3 no obvious distress no pallor no icterus no JVD s1s2 no murmurs lungs clear abdomen soft no organomegaly no edema no cyanosis michel + Assessment & Plan Assessment/Plan (1) Acute kidney injury: PLAN: Baseline cr was normal as of last year, was on lisinopril only. history of prostrate surgery follows with urology. came in with cr more than 7, started HD. last HD tuesday ANCA negative complements ok UA with hematuria but this was straight cath/repeat on michel sample urine output has picked up. cr increased by a small amount. hold HD today will assess for recovery for now would maintain heparin drip for now, for AFIB dw family at bedside dw hospitalist
[2022-03-29] MEDS: 0.9% Saline Lock 10 ML Syringe IV (15:55)
[2022-03-29] MEDS: Heparin Injection (Vial) 5,000 UNIT/ML VIAL IV (15:58)
[2022-03-29 22:31] LABS: Partial Thromboplast Time 72.6 Seconds (24.1-36.2)
[2022-03-30 02:45] VITALS: BP 139/67; PULSE 63; RESP 20; TEMP 36.8; O2SAT 97
[2022-03-30 04:19] LABS: Absolute Lymphocyte Count 0.62 X10^3/uL (0.83-4.51); Absolute Neutrophil Count 2.2 X10^3/uL (2.0-7.7); Basophil# 0.04 X10^3/uL; Eosinophil# 0.35 X10^3/uL; Eosinophils% 8.8 % (0-5); Hematocrit 27.6 % (40-54); Hemoglobin 9.1 g/dL (13.0-16.5); Lymphocyte # 0.62 X10^3/ul (0.83-4.51); Lymphocyte % 15.6 % (19-41); Mean Corpuscular Hgb 33.6 pg (27.0-32.0); Mean Corpuscular Volume 101.8 fL (80-94); Mean Platelet Vol. 9.5 fl (6.2-12.0); Monocyte# 0.73 X10^3/uL; Monocyte% 18.3 % (0-10); NRBC Flagged by Analyzer 0 % (0-5); Neutrophil # 2.23 X10^3/uL (2.7-7.7); Platelet Count 246 K/mm3 (150-450); RBC Distribution Width CV 12.3 % (11.6-14.6); RBC Distribution Width SD 45.6 fl (35.1-43.9); Red Blood Count 2.71 M/mm3 (4.6-6.2)
[2022-03-30 04:30] LABS: Partial Thromboplast Time 80.7 Seconds (24.1-36.2)
[2022-03-30 05:01] LABS: Albumin, Serum 2.2 g/dL (3.2-5.0); BUN 24 mg/dL (7-18); BUN/Creat Ratio 8.5 RATIO (10-20); Calcium,Total 8.2 mg/dL (8.5-10.1); Chloride 100 mmol/L (98-107); Creatinine, Serum 2.83 mg/dL (0.70-1.30); EST Glomerular Filtration Rate 23 mL/min (>60); Est Glom Filt Rate - Afr Amer 28 mL/min (>60); Estimated Creatinine Clearance 15.98 ml/min; Glucose 94 mg/dL (74-106); Phosphorus 4.6 mg/dL (2.5-4.9); Potassium 3.8 mmol/L (3.5-5.1); Sodium Level 135 mmol/L (136-145)
[2022-03-30] MEDS: Acetaminophen 500 MG Tablet PO (06:14)
--- NOTE | 2022-03-30 07:44 | PCM.CONS.U ---
Assessment & Plan Assessment/Plan (1) Gross hematuria: PLAN: 86-year-old male with a Kaur catheter and some gross materia but now the urine is clearing he can go home with a catheter follow-up in my office for outpatient work-up call me with questions. HPI Consult Data Date of Consult: 03/30/22 HPI Narrative Reason for Consultation: Kaur catheter hematuria HPI Narrative: IRVIN GARLAND, is a 86 M who presents to the hospital and renal failure currently on dialysis, he had a catheter placed and there was some blood in the urine at this point the urine is clearing up. He will need to follow-up with my office as an outpatient for an outpatient cystoscopy and we will try a voiding trial deceiving go without a catheter. Call me with questions. COUNT INCLUDES THE [facility] Medical History Kidney stones Prostate cancer Home Medications cholecalciferol (vitamin D3) 25 mcg (1,000 unit) tablet (Vitamin D3) 1,000 unit PO DAILY supplement 03/23/22 [History Last Taken 03/23/22] lisinopril 10 mg tablet 10 mg PO DAILY bp 03/23/22 [History Last Taken 03/22/22] Allergy/AdvReac Type Severity Reaction Status Date / Time No Known Allergies Allergy Verified 03/23/22 13:31 Family History Other Heart disease Hypertension Surgical History no surgical history Social History household members: children housing: house Smoking Status: Never smoker alcohol intake: current alcohol intake frequency: 0-2 drinks per day Alcohol type: hard liquor substance use type: does not use ROS Constitutional Constitutional: Denies chills, fever(s) or malaise Eyes Eyes: Denies blurry vision or change in vision ENT HEENT: Reports none Cardiovascular Cardiovascular: Denies chest pain or palpitations Respiratory/Chest Respiratory/Chest: Denies cough or shortness of breath with exertion Gastrointestinal Gastrointestinal: Denies abdominal pain, constipation or diarrhea Musculoskeletal Musculoskeletal: Denies back pain, joint stiffness or joint swelling Integumentary Integumentary: Denies dry skin, jaundice, lesions or rash Neurologic Neurologic: Denies confusion, syncope or weakness Psychiatric Psychiatric: Reports none; Denies anxiety or depression Endocrine Endocrinology: Denies excessive sweating, fatigue or flushing Hematologic/Lymphatic Hematologic/Lymphatic: Denies anemia, easy bleeding or easy bruising Physical Exam Const alert and oriented x3 General Appearance: cooperative HEENT normocephalic, head/scalp atraumatic, EAC's normal and TM's normal bilaterally Eyes PERRL and EOMs intact bilaterally Pupil: sluggish Neck no lymphadenopathy, supple and no JVD General: trachea midline Lymph Lymphatic: no lymphadenopathy noted, lymphedema and lymphadenopathy Resp normal respiratory effort, normal air movement and clear to auscultation bilaterally Cardio regular rate, regular rhythm and peripheral pulses 2+ throughout GI soft to palpation, non-tender and non-distended Extremity normal capillary refill and no clubbing, cyanosis or edema General Extremity: no tenderness to palpation of joints or extremities Skin no rashes or lesions noted General Skin Exam: turgor normal Lesions: no lesions Rashes: no rashes Neuro CN's II-XII intact bilaterally Speech: speech normal Motor Exam: strength 5/5 throughout; Negative for general weakness Psych thought process normal, cooperative and affect normal Appearance: appropriate Lab / Micro Data Result Diagrams: 03/30/22 04:13 03/30/22 04:13 Labs: Laboratory Results - last 24 hr 03/29/22 01:52: Total Creatine Kinase 22 L 03/29/22 08:27: APTT 61.5 H 03/29/22 14:30: APTT 49.0 H 03/29/22 22:05: APTT 72.6 H 03/30/22 04:13: WBC 4.0 L, RBC 2.71 L, Hgb 9.1 L, Hct 27.6 L, MCV 101.8 H, MCH 33.6 H, MCHC 33.0, RDW Std Deviation 45.6 H, RDW Coeff of Chaparro 12.3, Plt Count 246, MPV 9.5, Immature Gran % (Auto) 0.300, Neut % (Auto) 56.0, Lymph % (Auto) 15.6 L, [place] % (Auto) 18.3 H, Eos % (Auto) 8.8 H, Baso % (Auto) 1.0, Absolute Neuts (auto) 2.2, Absolute Lymphs (auto) 0.62 L, Nucleated RBC % 0 08/23/22 04:13: Sodium 135 L, Potassium 3.8, Chloride 100, Carbon Dioxide 29.0, BUN 24 H, Creatinine 2.83 H, Estim Creat Clear Calc 15.98, Est GFR (MDRD) Af Amer 28 L, Est GFR (MDRD) Non-Af 23 L, BUN/Creatinine Ratio 8.5 L, Glucose 94, Calcium 8.2 L, Phosphorus 4.6, Albumin 2.2 L 03/30/22 04:13: APTT 80.7 H
--- NOTE | 2022-03-30 08:02 | DIALYSIS ---
labs reviewed with dr Ellington, no dialysis today. Advised him also of planned discharge for today.
--- NOTE | 2022-03-30 08:20 | DCINST_ITS ---
Discharge Instructions Diet Discharge Diet: 2000 mg Sodium Diet Activity Discharge Activity: May Not Drive Weight Bearing Status: Weight bearing as tolerated Dressing / Incision Call your doctor if you observe: Fever of 101 or Higher, Coldness, Increased Pain, Numbness or Tingling, Change in Color, Inability to urinate, Inability to have a bowel movement, Shortness of breath, Dizziness, Fainting spells, Swelling in the ankles, Chest pain, Prolonged hiccupping, Increased palpitations (irregular heartbeat), Calf discomfort and Uncontrolled pain Follow Up Care Test Results: Test results from this visit will be discussed in further detail at your follow- up appointment, if applicable. Discharge Plan Admission Admit Date/Time: 03/23/22 18:13 Primary Reason for Your Visit: BELKIS that required temporary HD Attending Provider: Mitchell Rodas Primary Care Provider: Conor Ronquillo Consulting Providers: Miryam Gonsalez ; Dax Paz ; Coby Sykes ; Radha Padilla ; Edgard Schafer Discharge Orders/Prescriptions Prescriptions: New sennosides-docusate sodium [Stool Softener-Stimulant Laxat] 8.6-50 mg Tablet 2 tab PO BID PRN PRN (Reason: Constipation) Qty: 0 0RF Rx Instructions: Available pelr-[id number]-[id number]. metoprolol tartrate 25 mg Tablet 12.5 mg PO BID Qty: 60 1RF Eliquis 2.5 mg tablet 2.5 mg PO BID Qty: 60 0RF Rx Instructions: START FROM 04/01/22 for Afib Continued cholecalciferol (vitamin D3) [Vitamin D3] 25 mcg (1,000 unit) tablet 1,000 unit PO DAILY Label Comments: Take 1 tablet by mouth once a day Discontinued lisinopril 10 mg tablet 10 mg PO DAILY Label Comments: TAKE 1 TABLET BY MOUTH ONCE DAILY Referrals / Follow Up: Conor Ronquillo DO [Primary Care Provider] - Within 2 Weeks Josey Ellington MD [Med Staff - Consulting] - Within 2 Weeks Edgard Schafer MD [Med Staff - Active Staff] - Within 1 Week (Discharged with Kaur catheter ) Rohan Bain MD [Med Staff - Active Staff] - Within 2 Weeks Disposition Disposition (needs filled in before D/C Order can be placed[facility]
[2022-03-30 08:45] VITALS: BP 169/78; PULSE 67; RESP 17; TEMP 36.8; O2SAT 93
[2022-03-30 08:52] VITALS: PULSE 66
[2022-03-30] MEDS: Cholecalciferol (VIT D3) 25 MCG TABLET (1,000 UNITS) PO (08:52)
[2022-03-30] MEDS: Lidocaine 5% Patch 1 PATCH TOPICAL (08:52)
[2022-03-30] MEDS: Metoprolol Tartrate 25 MG Tablet 12.5 MG PO (08:52)
--- NOTE | 2022-03-30 09:06 | DIALYSIS ---
after heparin gtt was held x 1 hour and procedure explained, dialysis line was removed without difficulty. tip intact. sterile 2x2 with betadine and opsite applied for pressure. instructed to leave in place x 24 hours and call 911 with heavy bleeding. dressing remained dry and intact while i'm at bedside. Report given to pt's nurse Debra.
--- NOTE | 2022-03-30 09:59 | CASEMGMT ---
Addendum entered by Liza Kinsey 03/30/22 14:21: Pt and pt dtr provided with [employer] savings card and explanation given. Addendum entered by Liza Kinsey 03/30/22 14:14: CARLOTA RIVERO in to pt room, pt dtr states they do have a FWW. Pt qualifies [place]. [place] [facility] [place] from [place] and pox provided. Nurse aware. Addendum entered by Liza Kinsey 03/30/22 11:48: Received acceptance back from Shandra at [facility], they will see pt on 04/01/2022. Pt aware. Addendum entered by Liza Kinsey 03/30/22 11:23: TC to [facility], referral made for patient with Shandra, awaiting acceptance. Addendum entered by Liza Kinsey 03/30/22 10:34: CARLOTA RIVERO in to pt room, pt dtr at bedside. She has reviewed pt list for DME and HHC. She states choice for HHC would be [facility] and [facility] [place]. Verified with dtr that pt has FWW at home. She states that she is not sure, she will check. She is going home at noon for an hour and will check and notify [facility] RIV[facility] if this will be needed. Original Note: CARLOTA RIVERO in to pt room, pt sitting up in chair. Discussed dc planning, dc'ing with catheter and therapy. Pt is agreeable to HHC/DME, patient was provided a list of HHC providers including quality and resource use data and consistent with the patient?s preferred geographic region, medical needs, and insurance network. Pt would like to discuss with his dtr when she comes in. CARLOTA RIVERO to check back.
--- NOTE | 2022-03-30 10:25 | PCM.DC.SUM ---
Providers Date of Admission: 03/23/22 Date of Discharge: 03/30/22 Primary Care Physician: Dr. Conor Ronquillo, DO Consultations 03/25/22 17:33 Consult: General Surgery Routine Consulting Provider: Dax Paz Reason for Consult: temporary dialysis catheter placement for dialysis to occur afterwards EMERGENT Consult: Yes MD Notified: Yes Date Notified: 03/25/22 Time Notified: 15:00 Method of Notification: Verbal Comments:: pricilla De Anda [employer] spoke directly to Dr. Paz 03/26/22 08:24 Consult: Nephrology Routine Consulting Provider: Coby Sykes Reason for Consult: belkis EMERGENT Consult: No Notified: Yes Date Notified: 03/25/22 Time Notified: 17:00 Method of Notification: Verbal 03/27/22 09:35 Consult: Urology Routine Consulting Provider: Edgard Schafer Reason for Consult: Hematuria EMERGENT Consult: No MD Notified: Yes Date Notified: 03/27/22 Time Notified: 09:37 Method of Notification: via tobacco primer machine operator Reason For Visit: BELKIS/UTI COMPLICATED Diagnosis Discharge Diagnosis (1) Acute kidney injury: Status: Acute Code(s): N17.9 - Acute kidney failure, unspecified Medications at Discharge Home Medications cholecalciferol (vitamin D3) 25 mcg (1,000 unit) tablet (Vitamin D3) 1,000 unit PO DAILY supplement 03/23/22 apixaban 2.5 mg tablet (Eliquis) 2.5 mg PO BID #60 tabs 03/30/22 metoprolol tartrate 25 mg tablet 12.5 mg PO BID #60 tabs 03/30/22 sennosides 8.6 mg-docusate sodium 50 mg tablet (Stool Softener-Stimulant Laxative) 2 tab PO BID PRN PRN Constipation #0 tabs 03/30/22 Hospital Course Summary of Care Provided Hospital Course: 86-year-old male with past medical history of hypertension who comes in with bilateral flank pain and lower abdominal discomfort. 1. A. fib with RVR, rate controlled now, CHADS-VASC score of 3 Patient with known history of paroxysmal atrial fibrillation TSH is 0.80. 2D echo showed EF of 55 to 60%, mild pulmonary hypertension, mild MR, mild AI and mild TR Continue on metoprolol, 03/29: Continue heparin drip. As per grandson he had A. fib about 2 years ago therefore paroxysmal A. fib. Plan for changed to Eliquis at time of discharge 03/30: Eliquis to be resumed after 2 days as patient had right IJ dialysis catheter removed today AM. 2.BELKIS, renal, FeNa 21.6%, started on dialysis 03/25/22 Patient has received 3 sessions of dialysis Creatinine is 3.42, 3.27 <--5.12<--7.35<--9.16 Unknown previous baseline creatinine CT abdomen/pelvis as well as renal ultrasound showed no postobstructive features 03/29: Discussed with the drilling assistant. Plan to keep the patient on intake and output monitoring. Continue IV heparin drip. No plan for dialysis today as patient is making sufficient urine. 03/30: Labs reviewed. BUN/creatinine 24/.83 getting better. Temporary dialysis catheter right IJ removed after stopping IV heparin drip. Eliquis to be resumed after 36 to 48 hours because of right IJ access and heart dialysis catheter to prevent hematoma or bleeding and hematuria. 3. Acute hematuria, resolved, urine is clear Status post michel catheter placement Patient is discharged with Michel catheter. Urologist was consulted and advised to follow-up in office in 1 week 4. UTI ruled out. UA WBC 5-10 cells, RBC more than 100, LE 25, nitrite negative, squamous epithelial cells 0. Urine culture shows no growth. Antibiotic discontinued 5.?History of prostate CA, needs to follow-up in the outpatient 6.?Hypertension, better controlled with fluid removal from dialysis Continue with hydralazine prn 7. DVT PPx-Heparin drip. Obstructive sleep apnea: Patient has sleep apnea and had to sleep machines at home but that got broken about 4-5 years ago. He has never been tested before. Patient required oxygen during nighttime and early hours of morning. Patient is ambulatory in home and in the community and requires home oxygen with portability. Patient is to follow-up in pulmonary clinic for sleep study test. Discharge medication reconciliation done. Discharge follow-up instructions completed. Discharge process discussed with the patient and all questions were answered to patient's satisfaction. Patient is ambulatory in home and in the community and requires home oxygen with portability. Total time spent, exact 35 minutes on discharge meds reconciliation, examination, coordination of care with nurses and ancillary staff, review of imaging and blood test and discussion with the patient on follow-up instructions. Laboratory Results 03/29/22 01:52: Total Creatine Kinase 22 L 03/29/22 14:30: APTT 49.0 H 03/29/22 22:05: APTT 72.6 H 03/30/22 04:13: WBC 4.0 L, RBC 2.71 L, Hgb 9.1 L, Hct 27.6 L, MCV 101.8 H, MCH 33.6 H, MCHC 33.0, RDW Std Deviation 45.6 H, RDW Coeff of [place]arro 12.3, Plt Count 246, MPV 9.5, Immature Gran % (Auto) 0.300, Neut % (Auto) 56.0, Lymph % (Auto) 15.6 L, [place] % (Auto) 18.3 H, Eos % (Auto) 8.8 H, Baso % (Auto) 1.0, Absolute Neuts (auto) 2.2, Absolute Lymphs (auto) 0.62 L, Nucleated RBC % 0 03/30/22 04:13: Sodium 135 L, Potassium 3.8, Chloride 100, Carbon Dioxide 29.0, BUN 24 H, Creatinine 2.83 H, Estim Creat Clear Calc 15.98, Est GFR (MDRD) Af Amer 28 L, Est GFR (MDRD) Non-Af 23 L, BUN/Creatinine Ratio 8.5 L, Glucose 94, Calcium 8.2 L, Phosphorus 4.6, Albumin 2.2 L 03/30/22 04:13: APTT 80.7 H Physical Exam Narrative Seen and examined on the day of discharge General: Alert, Oriented x3, Cooperative HEENT: Very hard of hearing, bilateral atraumatic, PERRLA, EOMI, Normocephalic Oral: No Gingival or Mucosal Lesions/ Ulcerations Neck: Supple, No JVD, Negative Carotid Bruits Lungs:? Air entry diminished in bilateral lung bases.? No crepitation/rhonchi Cardiovascular: A. fib, irregular rhythm, Normal S1, Normal S2, No murmurs Abdomen: Bowel Sounds Present, Soft, Non Tender, Non-Distended : No renal angle tenderness.? No suprapubic tenderness.? Michel catheter draining clear urine. Total urine output 1300 mL in last 24 hours. Extremities: No pedal edema, Capillary Refill Less than 3 Seconds Skin: No rashes, No breakdown Musculoskeletal: No Tenderness to Palpation of Joints or Extremities.? Muscle strength 4/5 at major joints Neurological: Cranial nerves II-XII grossly intact, DTR? 2+/4 and Symmetrical Psych/Mental Status: Normal Affect, Appropriate. Weight / BMI Weight Weight: 175 lb 4.28 oz Body Mass Index (BMI) 30.7 ABG / Lab / Microbiology Data Result Diagrams: 03/30/22 04:13 03/30/22 04:13 Laboratory: Laboratory Results - last 24 hr 03/29/22 01:52: Total Creatine Kinase 22 L 03/29/22 08:27: APTT 61.5 H 03/29/22 14:30: APTT 49.0 H 03/29/22 22:05: APTT 72.6 H 03/30/22 04:13: WBC 4.0 L, RBC 2.71 L, Hgb 9.1 L, Hct 27.6 L, MCV 101.8 H, MCH 33.6 H, MCHC 33.0, RDW Std Deviation 45.6 H, RDW Coeff of [place] 12.3, Plt Count 246, MPV 9.5, Immature Gran % (Auto) 0.300, Neut % (Auto) 56.0, Lymph % (Auto) 15.6 L, [place] % (Auto) 18.3 H, Eos % (Auto) 8.8 H, Baso % (Auto) 1.0, Absolute Neuts (auto) 2.2, Absolute Lymphs (auto) 0.62 L, Nucleated RBC % 0 03/30/22 04:13: Sodium 135 L, Potassium 3.8, Chloride 100, Carbon Dioxide 29.0, BUN 24 H, Creatinine 2.83 H, Estim Creat Clear Calc 15.98, Est GFR (MDRD) Af Amer 28 L, Est GFR (MDRD) Non-Af 23 L, BUN/Creatinine Ratio 8.5 L, Glucose 94, Calcium 8.2 L, Phosphorus 4.6, Albumin 2.2 L 03/30/22 04:13: APTT 80.7 H Microbiology: Microbiology 03/23/22 15:44 Urine, Catheterized Urine Culture - Final Culture exhibits no growth. Meaningful Use Info Meaningful Use Diagnoses (Choose all that apply): None applicable Discharge Plan Admission Admit Date/Time: 03/23/22 18:13 Primary Reason for Your Visit: BELKIS that required temporary HD Attending Provider: Mitchell Rodas Primary Care Provider: Conor Ronquillo Consulting Providers: Miryam Gonsalez ; Dax Paz ; Coby Sykes ; Radha Padilla ; Edgard Schafer Discharge Orders/Prescriptions Prescriptions: New sennosides-docusate sodium [Stool Softener-Stimulant Laxat] 8.6-50 mg Tablet 2 tab PO BID PRN PRN (Reason: Constipation) Qty: 0 0RF Rx Instructions: Available brfo-grz-[id number]. metoprolol tartrate 25 mg Tablet 12.5 mg PO BID Qty: 60 1RF Eliquis 2.5 mg tablet 2.5 mg PO BID Qty: 60 0RF Rx Instructions: START FROM 04/01/22 for Afib Continued cholecalciferol (vitamin D3) [Vitamin D3] 25 mcg (1,000 unit) tablet 1,000 unit PO DAILY Label Comments: Take 1 tablet by mouth once a day Discontinued lisinopril 10 mg tablet 10 mg PO DAILY Label Comments: TAKE 1 TABLET BY MOUTH ONCE DAILY Referrals / Follow Up: Conor Ronquillo DO [Primary Care Provider] - Within 2 Weeks Josey Ellington MD [Med Staff - Consulting] - Within 2 Weeks Edgard Schafer MD [Med Staff - Active Staff] - Within 1 Week (Discharged with Michel catheter ) Rohan Bain MD [Med Staff - Active Staff] - Within 2 Weeks Dario Munguia DO [Med Staff - Active Staff] - Within 1 Month (For sleep study test. History of obstructive sleep apnea, CPAP got broken 5 years ago) Disposition Disposition (needs filled in before D/C Order can be placed): Home Health Service
--- NOTE | 2022-03-30 13:16 | PCM.PN.REN ---
Subjective Subjective no new complaints. hematuria resolved. urine output is good. cr improved Objective Data Objective Data Vital Signs: Vital Signs Temp Pulse Resp BP Pulse Ox O2 Del Method O2 Flow Rate 98.2 F 66 17 169/78 H 93 Room Air 3 03/30/22 08:45 03/30/22 08:52 03/30/22 08:45 03/30/22 08:45 03/30/22 08:45 03/30/22 10:00 03/30/22 04:00 Oxygen Flow Rate (L/min) 3 Oxygen Delivery Method Room Air Weight: 79.5 kg Body Mass Index (BMI) 30.7 Intake & Output: Intake and Output for Last 24 Hours 03/28/22 03/29/22 03/30/22 23:59 23:59 23:59 Intake Total 700 / 700 275.35 / 275.35 183.02 / 183.02 Output Total 800 / 800 375 / 875 1350 / 1350 Balance -100 / -100 -99.65 / -599.65 -1166.98 / -1166.98 Lab / Micro Data Result Diagrams: 03/30/22 04:13 03/30/22 04:13 Labs: Laboratory Results - last 24 hr 03/29/22 01:52: Total Creatine Kinase 22 L 03/29/22 14:30: APTT 49.0 H 03/29/22 22:05: APTT 72.6 H 03/30/22 04:13: WBC 4.0 L, RBC 2.71 L, Hgb 9.1 L, Hct 27.6 L, MCV 101.8 H, MCH 33.6 H, MCHC 33.0, RDW Std Deviation 45.6 H, RDW Coeff of [place] 12.3, Plt Count 246, MPV 9.5, Immature Gran % (Auto) 0.300, Neut % (Auto) 56.0, Lymph % (Auto) 15.6 L, [place] % (Auto) 18.3 H, Eos % (Auto) 8.8 H, Baso % (Auto) 1.0, Absolute Neuts (auto) 2.2, Absolute Lymphs (auto) 0.62 L, Nucleated RBC % 0 03/30/22 04:13: Sodium 135 L, Potassium 3.8, Chloride 100, Carbon Dioxide 29.0, BUN 24 H, Creatinine 2.83 H, Estim Creat Clear Calc 15.98, Est GFR (MDRD) Af Amer 28 L, Est GFR (MDRD) Non-Af 23 L, BUN/Creatinine Ratio 8.5 L, Glucose 94, Calcium 8.2 L, Phosphorus 4.6, Albumin 2.2 L 03/30/22 04:13: APTT 80.7 H Micro: Microbiology 03/23/22 15:44 Urine, Catheterized Urine Culture - Final Culture exhibits no growth. Physical Exam Narrative Alert awake oriented x 3 no obvious distress no pallor no icterus no JVD s1s2 no murmurs lungs clear abdomen soft no organomegaly no edema no cyanosis michel + Assessment & Plan Assessment/Plan (1) Acute kidney injury: PLAN: Baseline cr was normal as of last year, was on lisinopril only. history of prostrate surgery follows with urology. came in with cr more than 7, started HD. last HD tuesday ANCA negative complements ok UA with hematuria but this was straight cath/repeat on michel sample urine output has picked up cr better. likely recovered. stop HD. remove HD line. possible dc today. will arrange follow up in office dw family at bedside
[2022-03-30 13:47] VITALS: O2SAT 86; O2SAT 87; O2SAT 92; O2SAT 94; O2SAT 97
--- NOTE | 2022-03-30 14:16 | PHA.DC.MC ---
Addendum entered and electronically signed by Inna Hanna 03/30/22 14:20: This [facility] spoke to RN JOSEFA to let her know patient has new Eliquis. Original Note: Pharmacy Service has performed discharge medication reconciliation and counseling for this patient. 1. APIXABAN 2.5MG PO BID 2. METOPROLOL TARTRATE 12.5MG PO BID 3. SENNA/DOCUSATE 2T PO BID PRN CONSTIPATION The patient's discharge medication list was reviewed for discrepancies and discrepancies were resolved. Metoprolol ordered was signed but not sent to patient's pharmacy. This [facility] texted Dr. Rodas and he sent it to the pharmacy. Home Medications cholecalciferol (vitamin D3) 25 mcg (1,000 unit) tablet (Vitamin D3) 1,000 unit PO DAILY supplement 03/23/22 apixaban 2.5 mg tablet (Eliquis) 2.5 mg PO BID #60 tabs 03/30/22 metoprolol tartrate 25 mg tablet 12.5 mg PO BID #60 tabs 03/30/22 sennosides 8.6 mg-docusate sodium 50 mg tablet (Stool Softener-Stimulant Laxative) 2 tab PO BID PRN PRN Constipation #0 tabs 03/30/22 The patient was counseled on the following discharge medications and changes in medications for homegoing were reviewed. The Reason for Use, instructions for use, and potential side effects were reviewed for all new medications. The patient's questions regarding all of their medications were answered. The patient was able to verbally demonstrate an understanding of their discharge medications. Patient counseled by gas engine operator generatorsRaz.
== END 2022-03-30 15:04 | disposition home health service (06) | DRG 684 ==
LOC: ED 18:13 → MS3 18:46
PROVIDERS: Hospitalist; Internal Medicine; Internal Medicine Nephrology; Nurse Practitioner Adult Health; Nurse Practitioner Family; Admitting Provider Internal Medicine; Emergency Provider Emergency Medicine; PCP Internal Medicine; Visit Provider Internal Medicine
DX: N17.9 Acute kidney failure, unspecified (principal); I27.20 Pulmonary hypertension, unspecified; Z99.2 Dependence on renal dialysis; I48.0 Paroxysmal atrial fibrillation; D64.9 Anemia, unspecified; I10 Essential (primary) hypertension; K57.30 Diverticulosis of large intestine without perforation or abscess without bleeding; I08.0 Rheumatic disorders of both mitral and aortic valves; G47.33 Obstructive sleep apnea (adult) (pediatric); H91.90 Unspecified hearing loss, unspecified ear; Z51.5 Encounter for palliative care; Z80.42 Family history of malignant neoplasm of prostate; Z92.3 Personal history of irradiation; Z66 Do not resuscitate; Z85.46 Personal history of malignant neoplasm of prostate; Z87.442 Personal history of urinary calculi; R06.02 Shortness of breath
CPT/HCPCS: 36415; 71045; 73560; 74176; 76770; 80048; 80053; 80069; 80076; 81001; 82550; 82570; 83735; 84100; 84156; 84300; 84443; 85025; 85610; 85730; 86160; 86256; 86706; 87086; 87340; 90937; 93005; 93306; 97161; 97164; 97166; 99284; J7030; J7120; A4216; G0257; J1940; J2405

== ENCOUNTER 2022-04-21 15:25 | Emergency (ER) | payer MEDICARE, SELFPAY ==
[2022-04-21 15:29] VITALS: BP 161/116; PULSE 84; RESP 17; TEMP 36.6; O2SAT 92; BMI 25.8
[2022-04-21 16:07] LABS: Mucous, Urine 0 SEEN /hpf (<or=2+)
[2022-04-21 16:17] LABS: Absolute Lymphocyte Count 0.85 X10^3/uL (0.83-4.51); Absolute Neutrophil Count 2.9 X10^3/uL (2.0-7.7); Basophil# 0.07 X10^3/uL; Basophil% 1.3 % (0-1); Eosinophil# 0.53 X10^3/uL; Hematocrit 30.8 % (40-54); Hemoglobin 9.7 g/dL (13.0-16.5); Lymphocyte # 0.85 X10^3/ul (0.83-4.51); Mean Corp Hgb Conc 31.5 g/dL (32-36); Mean Corpuscular Hgb 33.1 pg (27.0-32.0); Mean Corpuscular Volume 105.1 fL (80-94); Mean Platelet Vol. 9.4 fl (6.2-12.0); Monocyte# 0.93 X10^3/uL; Monocyte% 17.5 % (0-10); NRBC Flagged by Analyzer 0 % (0-5); Neutrophil % 54.8 % (47-70); Platelet Count 202 K/mm3 (150-450); RBC Distribution Width CV 13.8 % (11.6-14.6); RBC Distribution Width SD 53.1 fl (35.1-43.9); Red Blood Count 2.93 M/mm3 (4.6-6.2); White Blood Count 5.3 K/mm3 (4.4-11.0)
[2022-04-21 16:21] LABS: Color, Urine Red (Yellow); Glucose, Dipstick Normal (Normal); Ketone-Dipstick Negative (Negative); Leukocyte Esterase-Dipstick 100 /ul (Negative); Nitrite-Dipstick Negative (Negative); Occult Blood-Urine 250 /ul (Negative); Protein-Dipstick 100 mg/dl (Negative); Urine Bilirubin Dipstick Negative (Negative); Urine Clarity Cloudy (Clear); Urine Urobilinogen Normal (Normal)
[2022-04-21 16:24] LABS: Red Blood Cells-Urine > 100 SEEN /hpf (0-5); White Blood Cells >100 SEEN /hpf (0-5)
[2022-04-21 16:25] LABS: Bacteria 4+ /hpf (None Seen); Squamous Epithelial Cells - UA 5-10 SEEN /hpf (0-5)
[2022-04-21 16:29] LABS: Anion Gap 6 (5-15); BUN 13 mg/dL (7-18); BUN/Creat Ratio 12.5 RATIO (10-20); Chloride 109 mmol/L (98-107); Creatinine, Serum 1.04 mg/dL (0.70-1.30); EST Glomerular Filtration Rate 72 mL/min (>60); Est Glom Filt Rate - Afr Amer 87 mL/min (>60); Estimated Creatinine Clearance 50.24 ml/min; Glucose 113 mg/dL (74-106); Potassium 4.1 mmol/L (3.5-5.1); Sodium Level 143 mmol/L (136-145)
--- NOTE | 2022-04-21 17:26 | EX.ED.GUMALE ---
HPI History of Present Illness Chief Complaint: Complaint Narrative Narrative: 86-year-old male presents for blood in his urine after self cathing today. He states he has been able to void spontaneously most of the day. He states that he has had some blood and small amounts of clots coming out in his urine. Initially this was not painful but does complain of intermittent pain with urination especially with the clots. No fever or chills. No nausea or vomiting. No constipation or diarrhea. Patient with history of UTIs in the past. [facility] Medical History Kidney stones Prostate cancer Home Medications cholecalciferol (vitamin D3) 25 mcg (1,000 unit) tablet (Vitamin D3) 1,000 unit PO DAILY supplement 03/23/22 [History Last Taken 03/23/22] cephalexin 500 mg capsule 500 mg PO Q12 #14 caps 04/21/22 [Rx Last Taken Unknown] Allergy/AdvReac Type Severity Reaction Status Date / Time No Known Allergies Allergy Verified 04/21/22 15:27 Family History Other Heart disease Hypertension Social History household members: children housing: house Smoking Status: Never smoker alcohol intake: current alcohol intake frequency: 0-2 drinks per day Alcohol type: hard liquor substance use type: does not use ROS ROS ED Constitutional Constitutional ED: Denies chills or fever(s) Eyes Eyes: Denies change in vision ENT ENT ED: Denies rhinorrhea or sore throat Cardiovascular Cardiovascular: Denies chest pain or palpitations Respiratory/Chest Respiratory/Chest: Denies cough or dyspnea Gastrointestinal Gastrointestinal: Denies abdominal pain Genitourinary Genitourinary ED: Reports dysuria and hematuria Musculoskeletal Musculoskeletal: Denies arthralgias or back pain Integumentary Denies abscess Neurologic Neurologic: Denies headache(s) Psychiatric Psychiatric: Denies anxiety or depression EXAM Physical Exam Const Vital Signs: 04/21/22 15:29 04/21/22 17:34 04/21/22 19:03 Temperature 97.8 F 98.1 F Temperature Source Temporal Temporal Pulse Rate 84 94 93 Respiratory Rate 17 20 H 20 H Blood Pressure 161/116 H 174/82 H 178/86 H Blood Pressure Mean 131 112 116 Pulse Ox 92 94 91 Oxygen Delivery Method Room Air Room Air Room Air Positive well nourished General Appearance ED: NAD; Negative for pallor HEENT Reports moist mucous membranes normocephalic and atraumatic Eyes PERRL and EOMs intact bilaterally Resp normal respiratory effort and clear to auscultation bilaterally Auscultation: Negative for rales, rhonchi or wheezes Cardio regular rate and regular rhythm GI non-tender and non-distended no CVA tenderness Extremity normal to inspection Neuro oriented x3 and CN's II-XII intact bilaterally Sensorium / Orientation: alert Motor Exam: strength 5/5 throughout Psych mental status grossly normal Thought Process: normal thought process Thought Content: normal thought content Skin General Skin Exam: Negative for jaundice or pallor MDM MDM MDM Narrative Medical decision making narrative: Patient presenting with dysuria and hematuria. His recent history of UTI. Culture this showed that it was sensitive to everything but amoxicillin. Patient was having some difficulty urinating and clots in his urine after self catheterizing himself today. He is able to urinate on his own. It is unclear if he had some trauma while he was doing self-catheterization. His CBC shows no leukocytosis. His hemoglobin is stable at 9.7. Platelets normal at 202. Renal function normal as well as electrolytes within normal limits. Urinalysis shows occult blood as well as urine RBCs, greater than 100 WBCs with 4+ bacteria and 5-10 space epithelial cells. Given his symptoms he will be treated for UTI. He does not have any flank pain or CVA tenderness to suggest pyelonephritis or kidney stones. Patient was able to again void here in the ER and his urine is clearing. He is given Keflex 500 mg in the ED. He will be given prescription for this for home. Another urine culture was sent. Patient to follow-up with urology. Discharged in stable condition. Impression: 1. Hematuria 2. Dysuria 3. UTI Lab Data Attestation: I reviewed the patient's lab results. Labs: Laboratory Results - last 24 hr 04/21/22 04/21/22 04/21/22 16:03 16:12 16:12 WBC 5.3 RBC 2.93 L Hgb 9.7 L Hct 30.8 L MCV 105.1 H MCH 33.1 H MCHC 31.5 L RDW Std Deviation 53.1 H RDW Coeff of Chaparro 13.8 Plt Count 202 MPV 9.4 Immature Gran % (Auto) 0.400 Neut % (Auto) 54.8 Lymph % (Auto) 16.0 L [place] % (Auto) 17.5 H Eos % (Auto) 10.0 H Baso % (Auto) 1.3 H Absolute Neuts (auto) 2.9 Absolute Lymphs (auto) 0.85 Nucleated RBC % 0 Sodium 143 Potassium 4.1 Chloride 109 H Carbon Dioxide 28.0 Anion Gap 6 BUN 13 Creatinine 1.04 Estim Creat Clear Calc 50.24 Est GFR (MDRD) Af Amer 87 Est GFR (MDRD) Non-Af 72 BUN/Creatinine Ratio 12.5 Glucose 113 H Calcium 9.0 Urine Color Red Urine Clarity Cloudy Urine pH 7.0 Ur Specific [place] 1.010 Urine Protein 100 H Urine Glucose (UA) Normal Urine Ketones Negative Urine Occult Blood 250 H Urine Nitrite Negative Urine Bilirubin Negative Urine Urobilinogen Normal Ur Leukocyte Esterase 100 H Urine RBC > 100 SEEN Urine WBC >100 SEEN Ur Squamous Epith Cells 5-10 SEEN Urine Bacteria 4+ Urine Mucus 0 SEEN Discharge Plan Triage Chief Complaint: Complaint ED Provider: Hoang Zabala Dx/Rx/DC Orders Instructions: ED Hematuria, ED Bladder Infection, Male (Adult) Prescriptions: New cephalexin 500 mg capsule 500 mg PO Q12 Qty: 14 0RF No Action cholecalciferol (vitamin D3) [Vitamin D3] 25 mcg (1,000 unit) tablet 1,000 unit PO DAILY Label Comments: Take 1 tablet by mouth once a day Primary Care Provider: Conor Ronquillo Referrals: Conor Ronquillo DO [Primary Care Provider] - Edgard Schafer MD [Med Staff - Active Staff] - As Needed Disposition Disposition: Home, Self Care
[2022-04-21 17:34] VITALS: BP 174/82; PULSE 94; RESP 20; TEMP 36.7; O2SAT 94
[2022-04-21 19:03] VITALS: BP 178/86; PULSE 93; RESP 20; O2SAT 91
[2022-04-21 20:00] VITALS: BP 162/71; PULSE 99; RESP 20; O2SAT 90
[2022-04-21] MEDS: Cephalexin 250 MG Capsule 500 MG PO (20:00)
== END 2022-04-21 20:09 | disposition home or self-care (01) ==
PROVIDERS: Emergency Provider Student in an Organized Health Care Education/Training Program; PCP Internal Medicine; Visit Provider Student in an Organized Health Care Education/Training Program
DX: N39.0 Urinary tract infection, site not specified (principal); R31.9 Hematuria, unspecified; R30.0 Dysuria
CPT/HCPCS: 80048; 81001; 85025; 99284; A4216

== ENCOUNTER 2022-05-19 17:26 | Inpatient (IN) | payer MEDICARE, SELFPAY ==
[2022-05-19] VITALS (25 sets, daily range): BP systolic 98–138; BP diastolic 65–100; PULSE 62–144; RESP 12–34; TEMP 36.1–36.6; O2SAT 26–99; BMI 23.1; BMI 25.9
--- NOTE | 2022-05-19 18:15 | EKG12_ITS ---
Test Reason : DYSRHYTHMIA Blood Pressure : / mmHG Vent. Rate : 114 BPM Atrial Rate : 086 BPM P-R Int : 000 ms QRS Dur : 070 ms QT Int : 332 ms P-R-T Axes : 000 032 026 degrees QTc Int : 457 ms Accelerated Junctional rhythm with Premature supraventricular complexes Low voltage QRS Septal infarct , age undetermined Abnormal ECG Confirmed by LISA GUZMÁN, ABHIJEET ([id number]), television news video editor DAPHNEY FULTON ([id number]) on 05/20/2022 2:05:43 P M Referred By: RAVI Confirmed By:TIFFANIE GONZALEZ MD
--- NOTE | 2022-05-19 18:17 | RAD_ITS ---
STUDY: X-RAY CHEST REASON FOR EXAM: Male, 86 years old. cough TECHNIQUE: XR Chest 1 View COMPARISON: 03.25.22 FINDINGS: There is atherosclerotic calcification of the aortic arch with tortuosity. There are diffuse degenerative changes of the visualized thoracic spine. There is degenerative osteoarthritis of the bilateral shoulders. There are bilateral pleural effusions. There are bilateral infiltrates. Normal size heart. Normal mediastinum and lexy. Normal visualized pulmonary arteries. There is no demonstrated abnormality of the visualized soft tissue structures of the upper abdomen. RAD/Chest 1 View (Portable) IMPRESSION: There are bilateral pleural effusions. There are bilateral infiltrates. Electronically Signed: Jaylon Serra MD at 18:35 EDT ,
--- NOTE | 2022-05-19 18:18 | EDS_ITS ---
HPI History of Present Illness Chief Complaint: Shortness of Breath Informant: patient and family Onset/Context/Timing Onset: Days Context: Gradual Onset Narrative Narrative: Patient presents with shortness of breath, cough with posttussive emesis, diarrhea over the past 3 to 4 days. He denies fever or chills. He states cough has been dry but today he started to bring up some mucus. He complains of pain across his lower back and around to the groin bilaterally. He had similar presentation earlier this year when he was found to have acute renal failure requiring temporary dialysis. He was also noted to have paroxysmal A. fib at that time. He was discharged in the hospital on Eliquis. He states he did not like the way it made him feel so he had stopped taking it for quite a while. Family talked him into restarting it 4 days ago. [facility] Medical History (Updated 05/19/22 @ 22:[address] Diana Lopez MD) COPD (chronic obstructive pulmonary disease) Kidney stones Paroxysmal A-fib Prostate cancer Home Medications cholecalciferol (vitamin D3) 25 mcg (1,000 unit) tablet (Vitamin D3) 1,000 unit PO DAILY supplement 03/23/22 [History Last Taken 05/19/22] apixaban 2.5 mg tablet (Eliquis) 2.5 mg PO BID 05/19/22 [History Last Taken 05/19/22] metoprolol tartrate 25 mg tablet 12.5 mg PO BID HEART 05/19/22 [History Last Taken 05/19/22] Allergy/AdvReac Type Severity Reaction Status Date / Time No Known Allergies Allergy Verified 05/19/22 17:27 Family History Mother Heart disease Hypertension Father Heart disease Hypertension Surgical History S/P hemodialysis catheter insertion Social History household members: significant other housing: house Smoking Status: Never smoker alcohol intake: current alcohol intake frequency: 0-2 drinks per day details: Occasional EtOH use. substance use type: does not use ROS ROS ED Constitutional Constitutional ED: Denies chills or fever(s) Eyes Eyes: Denies change in vision or discharge from eye(s) ENT ENT ED: Denies discharge from eye(s), rhinorrhea or sore throat Cardiovascular Cardiovascular: Reports racing heartbeat; Denies chest pain or palpitations Respiratory/Chest Respiratory/Chest: Reports cough and dyspnea Gastrointestinal Gastrointestinal: Reports diarrhea, nausea and vomiting; Denies abdominal pain Genitourinary Genitourinary ED: Denies difficulty urinating or dysuria Musculoskeletal Musculoskeletal: Reports back pain; Denies extremity pain Integumentary Denies Abrasions or rash Neurologic Neurologic: Reports weakness; Denies headache(s) Psychiatric Psychiatric: Denies anxiety or depression Allergic/Immunologic Allergic/Immunologic ED: Denies lip swelling or urticaria EXAM Physical Exam Const Vital Signs: 05/19/22 17:27 05/19/22 18:08 05/19/22 17:32 Temperature 97.6 F L 97.6 F L Temperature Source Temporal Temporal Pulse Rate 62 110 H 110 H Respiratory Rate 26 H 32 H 32 H Respiratory Effort Respiratory Depth Respiratory Pattern Blood Pressure 132/97 H 132/97 H Blood Pressure Mean 108 108 Pulse Ox 94 95 95 Oxygen Delivery Method Room Air Nasal Cannula Nasal Cannula Oxygen Flow Rate (L/min) 2 2 Fraction of Inspired Oxygen (FIO2) 05/19/22 18:09 05/19/22 18:10 05/19/22 18:10 Temperature Temperature Source Pulse Rate Respiratory Rate 34 H Respiratory Effort Short of Breath Labored Accessory Muscle Use Respiratory Depth Respiratory Pattern Normal Blood Pressure Blood Pressure Mean Pulse Ox 95 95 Oxygen Delivery Method Nasal Cannula Nasal Cannula Nasal Cannula Oxygen Flow Rate (L/min) 2 2 2 Fraction of Inspired Oxygen (FIO2) 05/19/22 18:24 05/19/22 18:25 05/19/22 18:27 Temperature Temperature Source Pulse Rate 122 H 144 H 113 H Respiratory Rate Respiratory Effort Respiratory Depth Respiratory Pattern Blood Pressure Blood Pressure Mean Pulse Ox Oxygen Delivery Method Oxygen Flow Rate (L/min) Fraction of Inspired Oxygen (FIO2) 05/19/22 18:40 05/19/22 19:23 05/19/22 19:00 Temperature Temperature Source Pulse Rate 108 H 113 H 133 H Respiratory Rate 22 H Respiratory Effort Respiratory Depth Respiratory Pattern Blood Pressure 137/94 H 138/100 H Blood Pressure Mean 112 Pulse Ox 95 Oxygen Delivery Method Bi-pap Oxygen Flow Rate (L/min) Fraction of Inspired Oxygen (FIO2) 05/19/22 19:20 05/19/22 18:29 05/19/22 18:29 Temperature Temperature Source Pulse Rate 114 H 113 H Respiratory Rate 16 24 H 28 H Respiratory Effort Short of Breath Labored Accessory Muscle Use Respiratory Depth Shallow Respiratory Pattern Normal Tachypnea Tachypnea Blood Pressure Blood Pressure Mean Pulse Ox 99 95 Oxygen Delivery Method Nasal Cannula Oxygen Flow Rate (L/min) 3 Fraction of Inspired Oxygen (FIO2) 30 05/19/22 19:32 Temperature 97.9 F Temperature Source Temporal Pulse Rate 120 H Respiratory Rate 21 H Respiratory Effort Respiratory Depth Respiratory Pattern Blood Pressure 122/67 H Blood Pressure Mean 85 Pulse Ox 93 Oxygen Delivery Method Bi-pap Oxygen Flow Rate (L/min) Fraction of Inspired Oxygen (FIO2) 30 Positive well nourished and well developed General Appearance ED: well developed HEENT Reports normocephalic and head/scalp atraumatic Eyes PERRL and EOMs intact bilaterally Neck supple Chest Wall inspection of chest normal and palpation of chest normal Resp Resp Narrative: Patient tachypneic with expiratory wheezes. Cardio Rate: tachycardic Rhythm: abnormal rhythm irregularly irregular GI non-tender Palpation: soft Extremity normal to inspection Neuro oriented x3 and no sensory deficits noted Sensorium / Orientation: alert Motor Exam: strength 5/5 throughout Psych mental status grossly normal Skin no rashes or lesions noted MDM MDM MDM Narrative Medical decision making narrative: Patient placed on 2 L nasal cannula for comfort. He has audible wheezing from the door. DuoNeb and albuterol treatments ordered. Lab work, EKG, chest x-ray obtained. Patient ordered 10 mg of IV Cardizem for rate control. Lab Data Attestation: I reviewed the patient's lab results. Labs: Laboratory Results - last 24 hr 05/19/22 05/19/22 05/19/22 18:11 18:11 18:11 WBC 6.8 RBC 2.98 L Hgb 10.1 L Hct 33.0 L MCV 110.7 H MCH 33.9 H MCHC 30.6 L RDW Std Deviation 62.1 H RDW Coeff of Chaparro 15.7 H Plt Count 248 MPV 10.5 Immature Gran % (Auto) 0.300 Neut % (Auto) 56.4 Lymph % (Auto) 20.4 [place] % (Auto) 13.7 H Eos % (Auto) 7.4 H Baso % (Auto) 1.8 H Absolute Neuts (auto) 3.8 Absolute Lymphs (auto) 1.39 Nucleated RBC % 0.3 Sodium 140 Potassium 4.4 Chloride 108 H Carbon Dioxide 24.0 Anion Gap 8 BUN 23 H Creatinine 1.08 Estim Creat Clear Calc 48.38 Est GFR (MDRD) Af Amer 83 Est GFR (MDRD) Non-Af 69 BUN/Creatinine Ratio 21.3 H Glucose 120 H Calcium 9.3 Magnesium Troponin I High Sens B-Natriuretic Peptide 916.2 H Urine Color Urine Clarity Urine pH Ur Specific [place] Urine Protein Urine Glucose (UA) Urine Ketones Urine Occult Blood Urine Nitrite Urine Bilirubin Urine Urobilinogen Ur Leukocyte Esterase Urine RBC Urine WBC Ur Squamous Epith Cells Urine Bacteria Urine Mucus 05/19/22 05/19/22 05/19/22 18:11 18:11 19:35 WBC RBC Hgb Hct MCV MCH MCHC RDW Std Deviation RDW Coeff of [place] Plt Count MPV Immature Gran % (Auto) Neut % (Auto) Lymph % (Auto) [place] % (Auto) Eos % (Auto) Baso % (Auto) Absolute Neuts (auto) Absolute Lymphs (auto) Nucleated RBC % Sodium Potassium Chloride Carbon Dioxide Anion Gap BUN Creatinine Estim Creat Clear Calc Est GFR (MDRD) Af Amer Est GFR (MDRD) Non-Af BUN/Creatinine Ratio Glucose Calcium Magnesium 2.0 Troponin I High Sens 118 H B-Natriuretic Peptide Urine Color Brown Urine Clarity Cloudy Urine pH 5.0 Ur Specific [place] 1.020 Urine Protein 100 H Urine Glucose (UA) Normal Urine Ketones 5 H Urine Occult Blood 250 H Urine Nitrite Positive H Urine Bilirubin Negative Urine Urobilinogen 4 H Ur Leukocyte Esterase 500 H Urine RBC > 100 SEEN Urine WBC 50-100 SEEN Ur Squamous Epith Cells 0 SEEN Urine Bacteria 4+ Urine Mucus 0 SEEN Radiography Chest X-Ray - ED: 1 View, Read by ED Physician, CHF, Right Effusion and Left Effusion Diagnostic Testing: Clinical Impression(s) from Imaging Studies Chest X-Ray 05/19/22 18:17 IMPRESSION: There are bilateral pleural effusions. There are bilateral infiltrates. Electronically Signed: Jaylon Serra MD at 18:35 EDT , EKG Initial EKG: Attestation: I personally reviewed and interpreted this EKG as follows: Interpretation: Atrial Fibrillation (A. fib at 114 with no acute ischemia.) Treatment and Re-Evaluation Narrative: On repeat evaluation patient continues to be tachypneic, although feels that his shortness of breath is slightly improved. Lab work reveals normal white count. Hemoglobin 10.1. Chemistry studies unremarkable. BNP is elevated at 916 and troponin is 118. EKG reveals A. fib at 114. No acute ST change noted. Chest x-ray per my interpretation reveals evidence of CHF with bilateral pleural effusions. Radiology interpretation is reviewed. Patient will be trialed on BiPAP to see if that helps with his work of breathing. He is given a dose of IV Lasix as well as topical nitro paste. I will speak with hospitalist regarding admission. Addendum: Patient had urinalysis obtained that does show sign of acute infection. Urine culture has been sent and he is given a dose of Rocephin. Discharge Plan Dx/Rx/DC Orders Clinical Impression: CHF (congestive heart failure), Atrial fibrillation with RVR, Elevated troponin, UTI (urinary tract infection) Disposition Disposition: Acute Care Hospital [facility] Discharge Date/Time: 05/19/22 21:27
[2022-05-19 18:19] LABS: Absolute Lymphocyte Count 1.39 X10^3/uL (0.83-4.51); Absolute Neutrophil Count 3.8 X10^3/uL (2.0-7.7); Basophil# 0.12 X10^3/uL; Basophil% 1.8 % (0-1); Eosinophils% 7.4 % (0-5); Hemoglobin 10.1 g/dL (13.0-16.5); Lymphocyte # 1.39 X10^3/ul (0.83-4.51); Lymphocyte % 20.4 % (19-41); Mean Corp Hgb Conc 30.6 g/dL (32-36); Mean Corpuscular Hgb 33.9 pg (27.0-32.0); Mean Corpuscular Volume 110.7 fL (80-94); Mean Platelet Vol. 10.5 fl (6.2-12.0); Monocyte# 0.93 X10^3/uL; Monocyte% 13.7 % (0-10); NRBC Flagged by Analyzer 0.3 % (0-5); Neutrophil # 3.84 X10^3/uL (2.7-7.7); Neutrophil % 56.4 % (47-70); Platelet Count 248 K/mm3 (150-450); RBC Distribution Width CV 15.7 % (11.6-14.6); RBC Distribution Width SD 62.1 fl (35.1-43.9); Red Blood Count 2.98 M/mm3 (4.6-6.2); White Blood Count 6.8 K/mm3 (4.4-11.0)
[2022-05-19 18:20] LABS: POSITIVE COUNT NO; POSITIVE DIFFERENTIAL NO; POSITIVE MORPHOLOGY NO
[2022-05-19] MEDS: dilTIAZem 25 MG/5 ML Vial 10 MG IV BOLUS (18:23)
[2022-05-19 18:28] LABS: Anion Gap 8 (5-15); BUN 23 mg/dL (7-18); BUN/Creat Ratio 21.3 RATIO (10-20); Calcium,Total 9.3 mg/dL (8.5-10.1); Chloride 108 mmol/L (98-107); Creatinine, Serum 1.08 mg/dL (0.70-1.30); EST Glomerular Filtration Rate 69 mL/min (>60); Est Glom Filt Rate - Afr Amer 83 mL/min (>60); Estimated Creatinine Clearance 48.38 ml/min; Glucose 120 mg/dL (74-106); Potassium 4.4 mmol/L (3.5-5.1); Sodium Level 140 mmol/L (136-145)
[2022-05-19] MEDS: Ipratropium/Albuterol Sulfate 3 ML AMPUL.NEB INHALATION (18:29)
[2022-05-19] MEDS: Albuterol 2.5 MG/3 ML VIAL.NEB. INHALATION ×2 (18:44→19:04)
[2022-05-19 19:05] LABS: BNP,B-Type NATRIURETIC PEPTIDE 916.2 pg/mL (0-100)
[2022-05-19 19:11] LABS: Troponin-I HS 118 pg/mL (3.0-78.0)
[2022-05-19] MEDS: Nitroglycerin Oint 1 INCH PACKET TD (19:23)
--- NOTE | 2022-05-19 19:24 | PCM.HP.STD ---
HPI - General General Date of Admission: 05/19/22 Date of Service: 05/19/22 Chief Complaint: Dyspnea, N/V, dizziness x 3 days HPI Narrative The patient is an 86 y/o M w/ PMHx: COPD, Hx Prostate CA, PAF, HTN, Hx nephrolithiasis, Chronic anemia, prolonged admission 03/23-03/31/22 treated/evaluation for PAF with RVR, BELKIS requiring transient HD who presents to the [facility] ED on 05/19/22 with history of progressively worsening dyspnea, cough with associated posttussive emesis and loose stools over the last 3 to 4 days with no associated fevers or chills with occasional mucus production with his cough but not discolored with noted discomfort across his lower back and groin secondary to ongoing coughing prompted eventual ED evaluation. His urine had been very dark and mildly foul-smelling appearance. He notes he been significantly fatigued with notable malaise as well with poor intake and tolerance of oral intake for the last couple days. Patient had been on Eliquis secondary to history of paroxysmal A. fib noted during an evaluation earlier this year with acute kidney injury at that time requiring temporary dialysis however he did not like the way the medication made him felt and notes that he discontinued it for a while however family recently talked him into starting it again approximately 4 days prior to current presentation. Patient does report mildly worsened bilateral lower extremity swelling. Work-up in the ED included T97.6, heart rate 62, BP 132/97, respiratory rate 26, initially 94% on room air eventually and placed on 2 L nasal cannula with 95% oxygenation with most recent vital signs heart rate 113, BP 137/94, respiratory rate 34-->given ongoing evidence or respiratory distress patient was placed on BIPAP, CBC with WC 6.8, hemoglobin 10.1, MCV of 110.7, platelet 248 without marked shift, BMP with chloride 108, BUN/creat 23/1.08, glucose 120, troponin 118, BNP 916.2, chest x-ray with bilateral pleural effusions as well as bilateral infiltrates, EKG with atrial fibrillation with RVR,urinalysis concerning appearing with urine culture pending per ED. In the ED patient placed on nitroglycerin ointment 1 inch, DuoNeb therapy administered as well as Lasix 40 mg IV x1 and diltiazem 10 mg IV bolus x1 as well as rocephin 1 gm IV x 1. In the ED patient notes feeling significantly improved since BiPAP application and is breathing with greater ease with lessening respiratory failure. [facility] Medical History (Updated 05/19/22 @ 21:[address] Angelica Willis MD) COPD (chronic obstructive pulmonary disease) Kidney stones Paroxysmal A-fib Prostate cancer Home Medications cholecalciferol (vitamin D3) 25 mcg (1,000 unit) tablet (Vitamin D3) 1,000 unit PO DAILY supplement 03/23/22 [History Last Taken 05/19/22] apixaban 2.5 mg tablet (Eliquis) 2.5 mg PO BID 05/19/22 [History Last Taken 05/19/22] metoprolol tartrate 25 mg tablet 12.5 mg PO BID HEART 05/19/22 [History Last Taken 05/19/22] Allergy/AdvReac Type Severity Reaction Status Date / Time No Known Allergies Allergy Verified 05/19/22 17:27 Family History (Updated 05/19/22 @ 21:[address] Angelica Willis MD) Mother Heart disease Hypertension Father Heart disease Hypertension Surgical History (Updated 05/19/22 @ 21:[address] Angelica Willis MD) S/P hemodialysis catheter insertion Social History (Updated 05/19/22 @ 21:[address] Angelica Willis MD) household members: significant other housing: house Smoking Status: Never smoker alcohol intake: current alcohol intake frequency: 0-2 drinks per day details: Occasional EtOH use. substance use type: does not use ROS ROS Narrative Admission Review of Systems: CONSTITUTIONAL: No weight loss, fever, chills, + weakness or fatigue. HEENT: Eyes: No visual loss, blurred vision, double vision or yellow sclerae. Ears, Nose, Throat: No hearing loss, sneezing, congestion, runny nose or sore throat. SKIN: No rash or itching, lesions, wounds. CARDIOVASCULAR: + Palpitations, edema, No chest pain, chest pressure or chest discomfort, orthopnea, syncopal events. RESPIRATORY: + shortness of breath, cough with minimal sputum, No wheezing, hemoptysis. GASTROINTESTINAL: + anorexia, nausea, vomiting, diarrhea, No abdominal pain, melena, BRBPR. GENITOURINARY: + Dark urine, foul smelling, No dysuria, frequency, urgency or retention. NEUROLOGICAL: No headache, dizziness, syncope, paralysis, ataxia, numbness or tingling in the extremities, focal weakness, change in bowel or bladder control, seizure. MUSCULOSKELETAL: + muscle, back pain, joint pain or stiffness. HEMATOLOGIC: + anemia, bleeding or bruising. LYMPHATICS: No enlarged nodes. No history of splenectomy. PSYCHIATRIC: No history of depression or anxiety. ENDOCRINOLOGIC: No reports of sweating, cold or heat intolerance. No polyuria or polydipsia. ALLERGIES: No history of asthma, hives, eczema or rhinitis. Vital Signs Vital Signs Vital Signs: 05/19/22 17:27 05/19/22 18:08 05/19/22 17:32 Temperature 97.6 F L 97.6 F L Temperature Source Temporal Temporal Pulse Rate 62 110 H 110 H Respiratory Rate 26 H 32 H 32 H Respiratory Effort Respiratory Pattern Blood Pressure 132/97 H 132/97 H Blood Pressure Mean 108 108 Pulse Ox 94 95 95 Oxygen Delivery Method Room Air Nasal Cannula Nasal Cannula Oxygen Flow Rate (L/min) 2 2 05/19/22 18:09 05/19/22 18:10 05/19/22 18:10 Temperature Temperature Source Pulse Rate Respiratory Rate 34 H Respiratory Effort Short of Breath Labored Accessory Muscle Use Respiratory Pattern Normal Blood Pressure Blood Pressure Mean Pulse Ox 95 95 Oxygen Delivery Method Nasal Cannula Nasal Cannula Nasal Cannula Oxygen Flow Rate (L/min) 2 2 2 05/19/22 18:24 05/19/22 18:25 05/19/22 18:27 Temperature Temperature Source Pulse Rate 122 H 144 H 113 H Respiratory Rate Respiratory Effort Respiratory Pattern Blood Pressure Blood Pressure Mean Pulse Ox Oxygen Delivery Method Oxygen Flow Rate (L/min) 05/19/22 18:40 Temperature Temperature Source Pulse Rate 108 H Respiratory Rate Respiratory Effort Respiratory Pattern Blood Pressure Blood Pressure Mean Pulse Ox Oxygen Delivery Method Oxygen Flow Rate (L/min) Weight Weight: 152 lb Body Mass Index (BMI) 23.1 Physical Exam Narrative Physical Examination: General: Awake, alert, oriented x 3 and cooperative, patient notes feeling significantly improved, BiPAP in place, respiratory failure/distress lessening, still mildly increased respiratory rate but accessory muscle usage is lessening Skin: Normal color, normal turgor, no icterus, no cyanosis except occasional staged ecchymoses, bilateral lower extremity venous stasis skin change. HEENT: AT/NC, EOMI, PERRLA, mildly dry MM, BiPAP in place, no carotid bruits but difficult assessment given referred sounds from BiPAP, + JVD. Lungs: Significantly diminished, greater bases, mild rales, increased respiratory rate and accessory muscle usage with BiPAP in place although this is improving, no rhonchi or wheezing. Heart: Irregular irregular; no gallop, rub audible. Abdomen: Soft, NTTP, ND, distant normal BS, no HSM. Extremities: No cyanosis, no clubbing, see skin, pedal to proximal kraft 2+ edema. Neurological: Patient awake, alert, oriented as noted, cognitive function improving, appears baseline intact; pupils equally reactive to light and accommodation, cranial nerves II-XII grossly normal, moving all 4 extremities, no focal deficits, strength moderately to severely globally decreased secondary to acute presentation however improving as respiratory distress is improving. Psychiatric: Affect appears significantly fatigued but respiratory distress is lessening, no acute evidence of depressive or anxiety feelings. Results Lab / Micro Data Result Diagrams: 05/19/22 18:11 05/19/22 18:11 Labs: Laboratory Results - last 24 hr 05/19/22 18:11: WBC 6.8, RBC 2.98 L, Hgb 10.1 L, Hct 33.0 L, MCV 110.7 H, MCH 33.9 H, MCHC 30.6 L, RDW Std Deviation 62.1 H, RDW Coeff of [place] 15.7 H, Plt Count 248, MPV 10.5, Immature Gran % (Auto) 0.300, Neut % (Auto) 56.4, Lymph % (Auto) 20.4, [place] % (Auto) 13.7 H, Eos % (Auto) 7.4 H, Baso % (Auto) 1.8 H, Absolute Neuts (auto) 3.8, Absolute Lymphs (auto) 1.39, Nucleated RBC % 0.3 05/19/22 18:11: Sodium 140, Potassium 4.4, Chloride 108 H, Carbon Dioxide 24.0, Anion Gap 8, BUN 23 H, Creatinine 1.08, Estim Creat Clear Calc 48.38, Est GFR (MDRD) Af Amer 83, Est GFR (MDRD) Non-Af 69, BUN/Creatinine Ratio 21.3 H, Glucose 120 H, Calcium 9.3 05/19/22 18:11: B-Natriuretic Peptide 916.2 H 05/19/22 18:11: Troponin I High Sens 118 H Radiology Impression Chest X-Ray 05/19/22 18:17 IMPRESSION: There are bilateral pleural effusions. There are bilateral infiltrates. Electronically Signed: Jaylon Serra MD at 18:35 EDT Reading Location ID and State[facility] [place] , Service support , Assessment & Plan Assessment/Plan (1) Acute respiratory failure: PLAN: Plan The patient is an 86 y/o M w/ PMHx: COPD, Hx Prostate CA, PAF, HTN, Hx nephrolithiasis, Chronic anemia, prolonged admission 03/23-03/31/22 treated/evaluation for PAF with RVR, BELKIS requiring transient HD who presents to the [facility] ED on 05/19/22 with history of progressively worsening dyspnea, cough with associated posttussive emesis and loose stools over the last 3 to 4 days with no associated fevers or chills with occasional mucus production with his cough but not discolored with noted discomfort across his lower back and groin secondary to ongoing coughing prompted eventual ED evaluation. #1. Acute Hypoxic Respiratory Failure secondary to Volume Overload, suspected secondary to PAF with RVR, possible Decompensated CHF, Presumed Diastolic: Patient administered IV lasix in the ED, will admit to PCU as stepdown given #2 cardizem drip usage and planned continued BIPAP usage, maintain on cardiac telemetry obtain, continue cardiac enzyme series, continue IV lasix diuresis, monitor I/Os, continue medical therapy, TSH and magnesium level requested, recent echocardiogram thus will not repeat. Cardiology consulted, pending. Patient does have history of prior admission with significant acute kidney injury requiring transient dialysis therefore will need to continue to closely monitor renal function given diuresis. Kaur catheter in place per ED which will be continued. #2. Paroxsymal atrial fibrillation with RVR with associated indeterminate cardiac enzyme: EKG in ED w/ atrial fibrillation w/ RVR. Patient administered Cardizem bolus 10 mg IV x1 in ED. Will admit to PCU, maintain on telemetry, obtain cardiac enzyme serial set, obtain magnesium level, obtain TSH level. 03/27/2022 echocardiogram with EF 55 to 60%, normal LV systolic function, mild MR, mild AI, mild TR, RVSP 43.1 mmHg consistent with mild pulmonary hypertension with no previous study for comparison. Will resume patient metoprolol with dose now and continue home Eliquis regimen. If any concerns arise low threshold to involve cardiology. #3. Acute Complicated Urinary Tract Infection: Likely responsible for recent nausea, emesis and occasional loose stools UA upon ED evaluation remarkable, pending UCx, monitor I/Os, continue IV Rocephin w/ transition as able pending sensitivities and speciation. To be cautious given respiratory complaints respiratory viral panel has been requested however suspect nausea, emesis and general malaise and fatigue as well as likely loose stools secondary to complicated UTI which led to paroxysmal A. fib with RVR and eventual overload is noted. Kaur catheter is in place given BiPAP usage with respiratory failure, de-escalate once able. #4. Chronic COPD: Not on any routine inhalers, BiPAP in place as noted, will defer DuoNeb scheduled therapies given A. fib RVR presentation and place on budesonide, PRN albuterol, HOB, IS parameters. #5. Former tobacco use: Encourage continued tobacco cessation. #6. History of prostate cancer: From discussion appears to be in remission, encourage continued outpatient follow-up. #7. Chronic anemia, macrocytic: Admission Hgb 10.1, baseline appears 9 range, stable, continue to trend. #8. DVT prophylaxis: SCDs, will continue patient home Eliquis regimen. #9. CODE status: Patient MAX is his who is present and living will is not currently in place. Discussed CODE status at length including difference between FULL code, DNR-CCA and DNR-CC status. Following discussions about the differences in these status, requested DNR-CCA, no intubation status. Advanced Care Planning Face to Face Time: 16 minutes. Charges/Coding Visit Charges Inpatient E&M: 90986 Init Hosp L3 Procedures Hospitalists Procedures: 51988 Advncd Care Plan 30 Min
--- NOTE | 2022-05-19 19:27 | CPS ---
x2 Albuterol given to pt. in ER as well
[2022-05-19] MEDS: Furosemide 40 MG/4 ML Vial IV (19:42)
[2022-05-19 20:01] LABS: Mucous, Urine 0 SEEN /hpf (<or=2+); Squamous Epithelial Cells - UA 0 SEEN /hpf (0-5)
[2022-05-19 20:07] LABS: Color, Urine Brown (Yellow); Glucose, Dipstick Normal (Normal); Ketone-Dipstick 5 mg/dl (Negative); Leukocyte Esterase-Dipstick 500 /ul (Negative); Nitrite-Dipstick Positive (Negative); Occult Blood-Urine 250 /ul (Negative); Protein-Dipstick 100 mg/dl (Negative); Urine Bilirubin Dipstick Negative (Negative); Urine Clarity Cloudy (Clear); Urine Urobilinogen 4 mg/dl (Normal)
[2022-05-19 20:14] LABS: Bacteria 4+ /hpf (None Seen); Red Blood Cells-Urine > 100 SEEN /hpf (0-5); White Blood Cells 50-100 SEEN /hpf (0-5)
[2022-05-19] MEDS: Ceftriaxone 1 GM/50 ML BAG IV (20:52)
--- NOTE | 2022-05-19 22:17 | CPS ---
pt on nurses cont pox
[2022-05-19] MEDS: APIXABAN 2.5 MG TABLET PO (23:03)
[2022-05-19 23:25] LABS: Troponin-I HS 113 pg/mL (3.0-78.0)
[2022-05-20] VITALS (29 sets, daily range): BP systolic 101–161; BP diastolic 55–92; PULSE 82–115; RESP 12–29; TEMP 36.2–37.1; O2SAT 88–99
[2022-05-20 00:31] LABS: Troponin-I HS 112 pg/mL (3.0-78.0)
[2022-05-20 06:39] LABS: Absolute Neutrophil Count 4.2 X10^3/uL (2.0-7.7); Basophil# 0.11 X10^3/uL; Basophil% 1.6 % (0-1); Eosinophil# 0.35 X10^3/uL; Hematocrit 29.3 % (40-54); Hemoglobin 9.1 g/dL (13.0-16.5); Lymphocyte % 15.7 % (19-41); Mean Corp Hgb Conc 31.1 g/dL (32-36); Mean Corpuscular Hgb 33.6 pg (27.0-32.0); Mean Corpuscular Volume 108.1 fL (80-94); Mean Platelet Vol. 10.4 fl (6.2-12.0); Monocyte# 1.24 X10^3/uL; Monocyte% 17.7 % (0-10); NRBC Flagged by Analyzer 0 % (0-5); Neutrophil # 4.19 X10^3/uL (2.7-7.7); Neutrophil % 59.6 % (47-70); Platelet Count 223 K/mm3 (150-450); RBC Distribution Width CV 15.9 % (11.6-14.6); RBC Distribution Width SD 62.1 fl (35.1-43.9); Red Blood Count 2.71 M/mm3 (4.6-6.2)
[2022-05-20] MEDS: Budesonide Respules 0.5 MG/2 ML AMPUL.NEB. INHALATION ×2 (07:14→19:32)
[2022-05-20 07:21] LABS: ALB/GLOB Ratio 0.9 RATIO (0.9-2.4); AST(SGOT) 52 U/L (15-37); Alanine Aminotransfer ALT/SGPT 57 U/L (16-61); Albumin, Serum 3.1 g/dL (3.2-5.0); Alkaline Phosphatase 159 U/L (45-117); Anion Gap 7 (5-15); BUN 21 mg/dL (7-18); BUN/Creat Ratio 19.6 RATIO (10-20); Calcium,Total 8.8 mg/dL (8.5-10.1); Chloride 106 mmol/L (98-107); Cholesterol 111 mg/dL (200); Creatinine, Serum 1.07 mg/dL (0.70-1.30); EST Glomerular Filtration Rate 70 mL/min (>60); Est Glom Filt Rate - Afr Amer 84 mL/min (>60); Estimated Creatinine Clearance 48.83 ml/min; Globulin 3.4 g/dL (2.2-4.2); Glucose 114 mg/dL (74-106); High Density Lipoprotein 35 mg/dL; Potassium 3.9 mmol/L (3.5-5.1); Protein, Total 6.5 g/dL (6.4-8.2); Sodium Level 141 mmol/L (136-145); Thyroid Stim Hormone (TSH) 1.43 uIU/mL (0.358-3.74); Triglycerides 76 mg/dL; Very Low Density Lipoprotein 15 mg/dL (5-40)
--- NOTE | 2022-05-20 08:09 | CON.PCM.CA_ITS ---
Assessment & Plan Assessment/Plan (1) Elevated troponin: PLAN: The patient has elevated troponins. The troponins have been relatively [facility] without a peak and trough. This does raise concern that the troponins are secondary to the patient's multiple comorbidities including concerns of volume overload, atrial fibrillation, superimposed upon his underlying ongoing pulmonary disease process concerning for pneumonia as well as his anemia. This would be a pattern compatible with a type II non-ST segment elevation AL. At the present time it is reasonable to continue to monitor the patient. It would not be unreasonable based upon his troponin elevation to reassess his left ventricle for any new left ventricular regional wall motion abnormalities compared to his previous findings of March of this year which would raise additional concerns about the possibility of CAD/AL, etc. In the interim he should continue medical therapy as deemed appropriate. At some point in time as he improves from his cardiopulmonary issues, etc., it may be reasonable to further evaluate him either noninvasively such as a pharmacologic stress nuclear imaging study for any evidence of significant myocardial ischemia that would warrant further invasive valuation care versus, depending upon his clinical course, proceeding with direct invasive evaluation. (2) CHF (congestive heart failure): PLAN: The patient has been thought to have evidence of volume overload compatible with CHF. Based upon his previous transthoracic echocardiogram this may be considered heart failure with preserved ejection fraction. As noted above based upon the patient's change in his cardiac enzymes, which again appear compatible with a type II event, it would not be unreasonable to reassess his left ventricle for any new regional wall motion abnormalities that would suggest a diminished systolic function, etc. In the interim he will continue medical therapy. This has included diuretic therapy. Hopefully this will help with his pulmonary disease process and his clinical state. (3) Atrial fibrillation with RVR: PLAN: The patient appears to have a history of atrial fibrillation. He states this has been chronic. He will need to continue rate control therapy and anticoagulant therapy as deemed appropriate. Depending upon his future course, if he does at some point in time require invasive valuation, then his anticoagulant therapy will have to be adjusted. (4) HTN (hypertension): PLAN: The patient is reported as having a history of hypertension. His blood pressure will need to be monitored and his medicines adjusted accordingly. (5) Pneumonia: PLAN: The patient does appear to have an underlying pulmonary disease based upon his history, exam, and his radiologic findings compatible with an acute respiratory event/pneumonitis. He will need continued medical therapy which includes his antibiotic therapy with adjustment over time as needed. It would be prudent to try and bring his pulmonary disease process under better control prior to proceeding with additional noninvasive or invasive cardiovascular studies. (6) UTI (urinary tract infection): PLAN: The patient was diagnosed with a UTI on admission. He will continue medical management (7) COPD (chronic obstructive pulmonary disease): PLAN: The patient has a history of underlying COPD. This has to be taken into consideration with his ongoing evaluation and care. (8) Anemia: PLAN: The patient has a history of what appears to be chronic anemia. His hemoglobin remains low. This will need to be monitored during his evaluation and care especially with respect to anticoagulant therapy. Addt'l Comments Overall, at the present time, the patient will continue to be monitored, treated medically, and undergo reevaluation of his cardiac anatomy and physiology with a transthoracic echocardiogram. From a medication standpoint he ideally, based upon his multiple findings, would be considered for medical therapy such as aspirin, nitrates if needed, beta-blo ckers versus calcium channel antagonist as deemed appropriate, diuretic therapy, potentially afterload reducing therapy, cardiovascular risk factor modification therapy which would include lipid-lowering therapy, as well as his anticoagulant therapy with adjustment in and around time of additional procedures. The patient will also continue noncardiac evaluation and care of his multiple comorbidities. It appears the patient has also requested to be a DNR patient. The above was discussed and reviewed with the patient. This note was generated using a voice recognition system and there may be incorrect words, spelling or punctuation that were not noted when reviewing the office note prior to saving. HPI Consult Data Date of Consult: 05/20/22 HPI Narrative HPI Narrative: IRVIN GARLAND, is a 86 year old white male who presents for evaluation of abnormal cardiac enzymes/troponin I levels, heart failure with preserved ejection fraction, atrial fibrillation, superimposed upon concerns of pneumonia, COPD, recent acute renal insufficiency status post temporary hemodialysis, history of nephrolithiasis, anemia-chronic, hypertension, and history of prostate carcinoma. The patient has been at [facility] in March of this year for his multiple medical issues/comorbidities and now has returned in May of this year based upon concerns of a worsening cough, productive sputum-mucus, posttussive emesis, loose stools, diffuse discomforts throughout the thorax and the abdomen which he states is related to his coughing, decreased oral intake, progressive fatigue, and an abnormal urine. He notes his main concern has been his respiratory related concerns. He states he has been able to sleep in any position comfortably if he is not coughing. He has noted some waxing and waning lower extremity ankle/pedal edema. He states he has had the intermittent chest discomfort along with his abdominal discomfort which she admits he does not necessarily pay attention to. He describes it intermittently as a sharp discomfort. He has had no episodes of loss of consciousness. He was evaluated at the [facility] emergency department and then subsequently by the [facility] hospitalist staff. He was noted to have concerns of abnormal troponin I levels. His troponin I levels have been monitored. They have had no significant increase or decrease/peak and trough. He is cardiac rhythm has remained atrial fibrillation. Based upon an elevated heart rate he was placed on IV diltiazem. It appears his heart rate has come under better control. His ECG demonstrated atrial fibrillation with an occasional PVC with low voltage QRS in the limb leads and poor R wave progression with an anteroseptal AL pattern of indeterminate age. His chest x- ray appeared to demonstrate concerns of possible increased pulmonary vascularity/pleural effusions as well as a pulmonary infiltrate-more right-sided. During his previous hospitalization he underwent evaluation with a transthoracic echocardiogram. The results are noted below. He states he has never undergone additional cardiac evaluation to the best of his knowledge. He notes that his atrial fibrillation is chronic and is never required to the best of his recollection cardiovascular consultation or additional diagnostic studies. He states today he still has his cough. He still feels like he has mucus production. He has not complained of any worsening palpitations or rapid rates. He is not complaining of any worsening chest discomfort. He notes his lower extremity edema appears to be somewhat improved this morning. [facility] Medical History (Updated 05/20/22 @ 08:[address] Oscar French MD) COPD (chronic obstructive pulmonary disease) Kidney stones Paroxysmal A-fib Prostate cancer Home Medications cholecalciferol (vitamin D3) 25 mcg (1,000 unit) tablet (Vitamin D3) 1,000 unit PO DAILY supplement 03/23/22 [History Last Taken 05/19/22] apixaban 2.5 mg tablet (Eliquis) 2.5 mg PO BID 05/19/22 [History Last Taken 05/19/22] metoprolol tartrate 25 mg tablet 12.5 mg PO BID HEART 05/19/22 [History Last Taken 05/19/22] Allergy/AdvReac Type Severity Reaction Status Date / Time No Known Allergies Allergy Verified 05/19/22 17:27 Family History Mother Heart disease Hypertension Father Heart disease Hypertension Surgical History S/P hemodialysis catheter insertion Social History household members: significant other housing: house Smoking Status: Never smoker alcohol intake: current alcohol intake frequency: 0-2 drinks per day details: Occasional EtOH use. substance use type: does not use ROS Constitutional Constitutional: Reports fatigue and poor appetite Eyes Eyes: Reports as per HPI ENT HEENT: Reports as per HPI Cardiovascular Cardiovascular: Reports chest pain, dyspnea and leg edema Respiratory/Chest Respiratory/Chest: Reports cough, dyspnea and excessive phlegm production Gastrointestinal Gastrointestinal: Reports as per HPI Genitourinary Genitourinary: Reports as per HPI Musculoskeletal Musculoskeletal: Reports as per HPI Integumentary Integumentary: Reports as per HPI Neurologic Neurologic: Reports as per HPI Psychiatric Psychiatric: Reports as per HPI Physical Exam Const alert, oriented x3 and no apparent distress Orientation / Consciousness: awake HEENT normocephalic, head/scalp atraumatic and hearing grossly normal bilaterally Eyes PERRL, EOMs intact bilaterally, conjunctivae normal and no scleral icterus Neck no JVD Resp Auscultation: rhonchi throughout Cardio Rhythm: abnormal rhythm irregularly irregular Heart Sounds: S1 normal and S2 normal GI normal to inspection, nondistended, normoactive bowel sounds Extremity General Extremity: edema bilateral lower extremity Details: trace Skin no rashes or lesions noted Psych mental status grossly normal Risk Stratification Risk Stratification Applicable: Yes Age >/= 65: Yes >/= 3 CAD Risk Factors (HTN, HLD, DM, family hx of CAD, or current smoker): No Aspirin Use in the Past 7 Days: No Severe Angina (>/= episodes in 24 hours): No EKG ST Changes >/= 0.5mm: No Positive Cardiac Marker: Yes SUKHWINDER Risk Stratification Score: 2 SUKHWINDER % Risk: 8% Risk Procedure Criteria Type of Procedure Procedure Type: Elective Elective Risks - COVID COVID Risk Discussion: The surgeon/proceduralist and patient have discussed in detail the risk of exposure to and/or potential harm posed by the COVID-19 virus with having a surgery/procedure at this time versus the risk of delaying the surgery/procedure. It is not possible to know either the risk of delaying the surgery or procedure or chance of getting an infection with perfect accuracy, but a joint decision was made between the patient and the surgeon/proceduralist to proceed at this time with the scheduled surgery/procedure as indicated on the consent form. Objective Data Vital Signs: Vital Signs Temp Pulse Resp BP Pulse Ox O2 Del Method O2 Flow Rate 97.1 F L 95 21 H 105/66 91 Nasal Cannula 4 05/20/22 06:00 05/20/22 07:00 05/20/22 07:00 05/20/22 07:00 05/20/22 07:00 05/20/22 07:00 05/20/22 07:00 FiO2 30 05/19/22 19:32 Oxygen Flow Rate (L/min) 4 Oxygen Delivery Method Nasal Cannula Weight: 169 lb 5.04 oz Body Mass Index (BMI) 25.9 Intake & Output: Intake and Output for Last 24 Hours 05/18/22 05/19/22 05/20/22 23:59 23:59 23:59 Intake Total 53.92 / 55.17 96.25 / 96.25 Output Total 1900 / 1900 Balance 53.92 / 55.17 -1803.75 / -1803.75 Lab / Micro Data Result Diagrams: 05/20/22 06:05 05/20/22 06:05 Labs: Laboratory Results - last 24 hr 05/19/22 18:11: WBC 6.8, RBC 2.98 L, Hgb 10.1 L, Hct 33.0 L, MCV 110.7 H, MCH 33.9 H, MCHC 30.6 L, RDW Std Deviation 62.1 H, RDW Coeff of [place] 15.7 H, Plt Count 248, MPV 10.5, Immature Gran % (Auto) 0.300, Neut % (Auto) 56.4, Lymph % (Auto) 20.4, [place] % (Auto) 13.7 H, Eos % (Auto) 7.4 H, Baso % (Auto) 1.8 H, Absolute Neuts (auto) 3.8, Absolute Lymphs (auto) 1.39, Nucleated RBC % 0.3 05/19/22 18:11: Sodium 140, Potassium 4.4, Chloride 108 H, Carbon Dioxide 24.0, Anion Gap 8, BUN 23 H, Creatinine 1.08, Estim Creat Clear Calc 48.38, Est GFR (MDRD) Af Amer 83, Est GFR (MDRD) Non-Af 69, BUN/Creatinine Ratio 21.3 H, Glucose 120 H, Calcium 9.3 05/19/22 18:11: B-Natriuretic Peptide 916.2 H 05/19/22 18:11: Troponin I High Sens 118 H 05/19/22 18:11: Magnesium 2.0 05/19/22 19:35: Urine Color Brown, Urine Clarity Cloudy, Urine pH 5.0, Ur Spe cific [place] 1.020, Urine Protein 100 H, Urine Glucose (UA) Normal, Urine Ketones 5 H, Urine Occult Blood 250 H, Urine Nitrite Positive H, Urine Bilirubin Negative, Urine Urobilinogen 4 H, Ur Leukocyte Esterase 500 H, Urine RBC > 100 SEEN, Urine WBC 50-100 SEEN, Ur Squamous Epith Cells 0 SEEN, Urine Bacteria 4+, Urine Mucus 0 SEEN 05/19/22 22:35: Troponin I High Sens 113 H 05/20/22 00:08: Troponin I High Sens 112 H 05/20/22 06:05: WBC 7.0, RBC 2.71 L, Hgb 9.1 L, Hct 29.3 L, MCV 108.1 H, MCH 33.6 H, MCHC 31.1 L, RDW Std Deviation 62.1 H, RDW Coeff of [place] 15.9 H, Plt Count 223, MPV 10.4, Immature Gran % (Auto) 0.400, Neut % (Auto) 59.6, Lymph % (Auto) 15.7 L, [place] % (Auto) 17.7 H, Eos % (Auto) 5.0, Baso % (Auto) 1.6 H, Absolute Neuts (auto) 4.2, Absolute Lymphs (auto) 1.10, Nucleated RBC % 0 05/20/22 06:05: Sodium 141, Potassium 3.9, Chloride 106, Carbon Dioxide 28.0, Anion Gap 7, BUN 21 H, Creatinine 1.07, Estim Creat Clear Calc 48.83, Est GFR (MDRD) Af Amer 84, Est GFR (MDRD) Non-Af 70, BUN/Creatinine Ratio 19.6, Glucose 114 H, Calcium 8.8, Total Bilirubin 0.80, AST 52 H, ALT 57, Alkaline Phosphatase 159 H, Total Protein 6.5, Albumin 3.1 L, Globulin 3.4, Albumin/Globulin Ratio 0.9, Triglycerides 76, Cholesterol 111, LDL Cholesterol 61, VLDL Cholesterol 15, HDL Cholesterol 35 L, TSH 1.43 Micro: Microbiology 05/19/22 21:25 Mucosa - Nose Respiratory Panel (PCR) - Final 05/19/22 18:05 Nasal Secretion SARS-CoV-2 Antigen (Rapid) - Final Cardiology Labs/Tests 05/19/22 18:11: WBC 6.8, RBC 2.98 L, Hgb 10.1 L, Hct 33.0 L, MCV 110.7 H, MCH 33.9 H, MCHC 30.6 L, Plt Count 248, MPV 10.5, Immature Gran % (Auto) 0.300, Neut % (Auto) 56.4, Lymph % (Auto) 20.4, [place] % (Auto) 13.7 H, Eos % (Auto) 7.4 H, Baso % (Auto) 1.8 H, Absolute Neuts (auto) 3.8, Nucleated RBC % 0.3 05/19/22 18:11: Sodium 140, Potassium 4.4, Chloride 108 H, Carbon Dioxide 24.0, Anion Gap 8, BUN 23 H, Creatinine 1.08, Est GFR (MDRD) Af Amer 83, Est GFR (MDRD) Non-Af 69, BUN/Creatinine Ratio 21.3 H, Glucose 120 H, Calcium 9.3 05/19/22 18:11: B-Natriuretic Peptide 916.2 H 05/19/22 18:11: Magnesium 2.0 05/19/22 19:35: Urine Color Brown, Urine Clarity Cloudy, Urine pH 5.0, Ur Specific [place] 1.020, Urine Protein 100 H, Urine Glucose (UA) Normal, Urine Ketones 5 H, Urine Occult Blood 250 H, Urine Nitrite Positive H, Urine Bilirubin Negative, Urine Urobilinogen 4 H, Ur Leukocyte Esterase 500 H, Urine RBC > 100 SEEN, Urine WBC 50-100 SEEN 05/20/22 06:05: WBC 7.0, RBC 2.71 L, Hgb 9.1 L, Hct 29.3 L, MCV 108.1 H, MCH 33.6 H, MCHC 31.1 L, Plt Count 223, MPV 10.4, Immature Gran % (Auto) 0.400, Neut % (Auto) 59.6, Lymph % (Auto) 15.7 L, [place] % (Auto) 17.7 H, Eos % (Auto) 5.0, Baso % (Auto) 1.6 H, Absolute Neuts (auto) 4.2, Nucleated RBC % 0 05/20/22 06:05: Sodium 141, Potassium 3.9, Chloride 106, Carbon Dioxide 28.0, Anion Gap 7, BUN 21 H, Creatinine 1.07, Est GFR (MDRD) Af Amer 84, Est GFR (MDRD) Non-Af 70, BUN/Creatinine Ratio 19.6, Glucose 114 H, Calcium 8.8, Total Bilirubin 0.80, Triglycerides 76, Cholesterol 111, LDL Cholesterol 61, VLDL Cholesterol 15, HDL Cholesterol 35 L Rhythm: Atrial fibrillation EKG: As noted above ECHO: 03-27-2022 Interpretation Summary The estimated ejection fraction is 55-60 %. Normal LV systolic function Mild MR Mild AI Mild TR RVSP calculated 43.1 mmhg consistent with mild Pulmonary Hypertension No previous study to compare Radiography Diagnostic Testing: Radiology Impression Chest X-Ray 05/19/22 18:17 IMPRESSION: There are bilateral pleural effusions. There are bilateral infiltrates. Electronically Signed: Jaylon Serra MD at 18:35 EDT ,
[2022-05-20] MEDS: APIXABAN 2.5 MG TABLET PO ×2 (08:22→20:51)
[2022-05-20] MEDS: Furosemide 40 MG/4 ML Vial IV ×2 (08:23→17:13)
--- NOTE | 2022-05-20 08:31 | NURSING ---
Patient denies SOB, however patients breathing appears labored. Oxygen saturation stable. RR elevated 20-35. This RN offered patient the bipap until breakfast tray arrives. Patient agreed to wear.
--- NOTE | 2022-05-20 08:35 | ECHOD_ITS ---
Reason For Study: AFIB/FLUTTER Procedure This was a 2D Doppler, Color Flow transthoracic echocardiogram. The study was technically difficult. PT sitting upright due to coughing and deep respirations. Exam performed in department. Left Ventricle Normal LV size. Left ventricular systolic function is normal. The estimated ejection fraction is 60 %. Diastolic function is indeterminate. No regional wall motion abnormalities noted. Right Ventricle Mildly dilated right ventricle. Mild global right ventricular systolic dysfunction. Atria The left atrium is moderately enlarged. The right atrium is mildly enlarged. No doppler evidence for ASD. Mitral Valve There is no mitral annular calcification. Moderate focal mitral valve calcification of the anterior leaflet. Moderate (2+) eccentric mitral valve insufficiency. Tricuspid Valve Normal tricuspid valve. Mild to moderate (1-2+) tricuspid valve insufficiency. Right ventricular systolic pressure estimated to be 51 mmHg. Aortic Valve Trisinus/trileaflet aortic valve. Mild focal aortic valve calcification. Pulmonic Valve The pulmonic valve is not well visualized. Trivial pulmonic valve insufficiency. Great Vessels Normal sized aortic root. Pericardium/Pleural Trivial pericardial effusion. There are no echocardiographic indications of cardiac tamponade. Echolucency compatible with a pleural effusion. MMode/2D Measurements & Calculations LVIDd: 4.7 cm IVSd: 0.86 cm Ao root diam: 3.3 cm LVIDs: 3.2 cm LVPWd: 0.92 cm RVDd: 4.1 cm FS: 31.8 % LAV(MOD-bp): 79.3 ml LA A4 area: 24.7 cm2 LA dimension(2D): 4.6 cm LAV(MOD-bp) Indexed: 41.6 ml/m2 LAV(MOD-sp2): 79.4 ml LAV(MOD-sp4): 79.3 ml RA A4 area: 21.5 cm2 Doppler Measurements & Calculations MV E max edgard: 108.5 cm/sec Ao V2 max: 106.6 cm/sec LV V1 max: 82.9 cm/sec Ao max P.6 mmHg LV V1 max P.8 mmHg Ao V2 mean: 76.5 cm/sec LV V1 mean P.6 mmHg Ao mean P.7 mmHg LV V1 mean: 58.8 cm/sec Ao V2 VTI: 19.2 cm LV V1 VTI: 16.0 cm MR max edgard: 469.9 cm/sec PA V2 max: 53.9 cm/sec TR max edgard: 323.3 cm/sec MR max P.3 mmHg TR max P.7 mmHg MR mean edgard: 372.4 cm/sec MR mean P.1 mmHg MR VTI: 118.2 cm ECHO/Echo Complete Interpretation Summary The study was technically difficult. Left ventricular systolic function is normal. The estimated ejection fraction is 60 %. Mildly dilated right ventricle. Mild global right ventricular systolic dysfunction. The left atrium is moderately enlarged. The right atrium is mildly enlarged. Moderate focal mitral valve calcification of the anterior leaflet. Moderate (2+) eccentric mitral valve insufficiency. Mild to moderate (1-2+) tricuspid valve insufficiency. Mild focal aortic valve calcification. Trivial pulmonic valve insufficiency. Trivial pericardial effusion. There are no echocardiographic indications of cardiac tamponade. Echolucency compatible with a pleural effusion. Right ventricular systolic pressure estimated to be 51 mmHg c/w pulmonary hyper tension. Diastolic function is indeterminate. Ordering Physician: Oscar French Referring Physician: Conor Ronquillo Performed By: Jolly Simeon, NIKKI, RVT
[2022-05-20] MEDS: Aspirin 81 MG TAB.CHEW PO (09:27)
--- NOTE | 2022-05-20 09:36 | PN.HOSP_ITS ---
Subjective Subjective DOS 05/20/22 CC SOB Pt reports continued SOB, was slightly better but waxes and wanes throughout the day, intermittently on bipap. Denies CP, slight dry cough. Feels slightly swollen. Denies abd pain, no n/v, but poor appetite. Denies other complaints this AM Objective Data Objective Data Vital Signs: Vital Signs Temp Pulse Resp BP Pulse Ox O2 Del Method O2 Flow Rate 98.2 F 98 19 H 161/78 H 95 Bi-pap 35 05/20/22 08:00 05/20/22 09:24 05/20/22 09:00 05/20/22 09:24 05/20/22 09:00 05/20/22 09:00 05/20/22 09:00 FiO2 35 05/20/22 08:38 Oxygen Flow Rate (L/min) 35 Oxygen Delivery Method Bi-pap Weight: 76.8 kg Body Mass Index (BMI) 25.9 Intake & Output: Intake and Output for Last 24 Hours 05/18/22 05/19/22 05/20/22 23:59 23:59 23:59 Intake Total 53.92 / 55.17 132.25 / 132.25 Output Total 2350 / 2350 Balance 53.92 / 55.17 -2217.75 / -2217.75 Lab / Micro Data Result Diagrams: 05/20/22 06:05 05/20/22 06:05 Labs: Laboratory Results - last 24 hr 05/19/22 18:11: WBC 6.8, RBC 2.98 L, Hgb 10.1 L, Hct 33.0 L, MCV 110.7 H, MCH 33.9 H, MCHC 30.6 L, RDW Std Deviation 62.1 H, RDW Coeff of Chaparro 15.7 H, Plt Count 248, MPV 10.5, Immature Gran % (Auto) 0.300, Neut % (Auto) 56.4, Lymph % (Auto) 20.4, [place] % (Auto) 13.7 H, Eos % (Auto) 7.4 H, Baso % (Auto) 1.8 H, Absolute Neuts (auto) 3.8, Absolute Lymphs (auto) 1.39, Nucleated RBC % 0.3 05/19/22 18:11: Sodium 140, Potassium 4.4, Chloride 108 H, Carbon Dioxide 24.0, Anion Gap 8, BUN 23 H, Creatinine 1.08, Estim Creat Clear Calc 48.38, Est GFR (MDRD) Af Amer 83, Est GFR (MDRD) Non-Af 69, BUN/Creatinine Ratio 21.3 H, Glucose 120 H, Calcium 9.3 05/19/22 18:11: B-Natriuretic Peptide 916.2 H 05/19/22 18:11: Troponin I High Sens 118 H 05/19/22 18:11: Magnesium 2.0 05/19/22 19:35: Urine Color Brown, Urine Clarity Cloudy, Urine pH 5.0, Ur Specific [place] 1.020, Urine Protein 100 H, Urine Glucose (UA) Normal, Urine Ketones 5 H, Urine Occult Blood 250 H, Urine Nitrite Positive H, Urine Bilirubin Negative, Urine Urobilinogen 4 H, Ur Leukocyte Esterase 500 H, Urine RBC > 100 SEEN, Urine WBC 50-100 SEEN, Ur Squamous Epith Cells 0 SEEN, Urine Bacteria 4+, Urine Mucus 0 SEEN 05/19/22 22:35: Troponin I High Sens 113 H 05/20/22 00:08: Troponin I High Sens 112 H 05/20/22 06:05: WBC 7.0, RBC 2.71 L, Hgb 9.1 L, Hct 29.3 L, MCV 108.1 H, MCH 33.6 H, MCHC 31.1 L, RDW Std Deviation 62.1 H, RDW Coeff of [place] 15.9 H, Plt Count 223, MPV 10.4, Immature Gran % (Auto) 0.400, Neut % (Auto) 59.6, Lymph % (Auto) 15.7 L, [place] % (Auto) 17.7 H, Eos % (Auto) 5.0, Baso % (Auto) 1.6 H, Absolute Neuts (auto) 4.2, Absolute Lymphs (auto) 1.10, Nucleated RBC % 0 05/20/22 06:05: Sodium 141, Potassium 3.9, Chloride 106, Carbon Dioxide 28.0, Anion Gap 7, BUN 21 H, Creatinine 1.07, Estim Creat Clear Calc 48.83, Est GFR (MDRD) Af Amer 84, Est GFR (MDRD) Non-Af 70, BUN/Creatinine Ratio 19.6, Glucose 114 H, Calcium 8.8, Total Bilirubin 0.80, AST 52 H, ALT 57, Alkaline Phosphatase 159 H, Total Protein 6.5, Albumin 3.1 L, Globulin 3.4, Albumin/Globulin Ratio 0.9, Triglycerides 76, Cholesterol 111, LDL Cholesterol 61, VLDL Cholesterol 15, HDL Cholesterol 35 L, TSH 1.43 Micro: Microbiology 05/19/22 21:25 Mucosa - Nose Respiratory Panel (PCR) - Final 05/19/22 18:05 Nasal Secretion SARS-CoV-2 Antigen (Rapid) - Final Radiography Diagnostic Testing: Radiology Impression Chest X-Ray 05/19/22 18:17 IMPRESSION: There are bilateral pleural effusions. There are bilateral infiltrates. Electronically Signed: Jaylon eSrra MD at 18:35 EDT , Physical Exam Const alert and oriented x3 HEENT head/scalp atraumatic Eyes EOMs intact bilaterally Neck supple Resp Resp Narrative: Slight increased WOB, diminished at bases Cardio regular rate and regular rhythm GI soft to palpation, non-tender and non-distended Extremity Extremity Narrative: Some LE edema bilaterally Neuro moves all extremities Assessment & Plan Assessment/Plan (1) Acute respiratory failure: (2) Atrial fibrillation with RVR: (3) Elevated troponin: PLAN: Plan Pt is a 86 y/o M w/ PMHx: COPD, Hx Prostate CA, PAF, HTN, Hx nephrolithiasis, Chronic anemia, prolonged admission 03/23-03/31/22 treated/evaluation for PAF with RVR, BELKIS requiring transient HD who presents to the [facility] ED on 05/19/22 with history of progressively worsening dyspnea, cough with associated posttussive emesis and loose stools over the last 3 to 4 days with no associated fevers or chills with occasional mucus production with his cough but not discolored with noted discomfort across his lower back and groin secondary to ongoing coughing prompted eventual ED evaluation.? # Acute hypoxic resp failure 2/2 volume overload 2/2 pafib with RVR leading to possible decompensated HFpEF IV lasix 40 BID Cardiology c/s Cardizem gtt weaned On tele Resume bipap I's and O's Daily weights Echo ordered- EF 60%, diastolic dysfnx unable to be determined. TV pressure was consistent with pulm HTN however On low dose of coreg ?pna #afib RVR s/p cardizem, HR improved Cardiology following On home eliquis #Elevated troponins Relatively steady Likely type II NSTEMI likely 2/2 afib w/ RVR and acute strain Cardiology following Repeat echo did not reveal any wall motion abnormalities Possible stress once pt more stable #Acute complicated urinary tract infection UA suggestive of UTI Cx pending On IV rocephin #Chronic COPD prn albuterol, not on home inhalers #alchohol abuse Per family started on CIWA Start folic acid and thiamine IV x 5 days #Former tobacco use Encourage cessation #hx of prostate cancer appears to be in remission f/u outpt #Chronic macrocytic anemia baseline roughly 9, consistent with current hgb Given alcohol history will check b12 DVT ppx: scds, on home eliquis Charges/Coding Visit Charges Inpatient E&M: 56218 Subs Hosp L2
[2022-05-20] MEDS: Carvedilol 3.125 MG TABLET PO ×2 (10:05→20:52)
--- NOTE | 2022-05-20 13:25 | CASEMGMT ---
CARLOTA RIVERO assessment: Face to Face with patient for initial transition planning/care coordination assessment. CARLOTA RIVERO introduced self and role at [facility], pt voices understanding and consents to assessment. Pt is sitting up in bed tachypnic on 5L nc with use of accessory muscles. Pt is A/Ox4 but is hard of hearing and SOB so granddaughter at bedside answers all questions. Care providers, pharmacy,?and demographics verified. ? Presentation: Pt arrives to ED w/ SOB, N/V, dizziness for 3 days Admitting dx: CHF exac, PAF w/ RVR, indeterminate troponin PCP: Yg Specialists: Hanh, uro; nephro prn Preferred Pharmacy: [facility] Insurance: [facility] Prescription Benefit:?HumR Living Will/HPOA: Pt has LW/HPOA and granddaughter is aware that they are not on file at [facility]. Pt's daughter, Toya oRa, is HPOA. LNOK: Toya Roa, daughter/HPOA Living Arrangements: Pt lives with daughter, Toya, and grandson in 1 story apt with 2 steps in and states no concerns at home. Pt is normally independent with ADL's. Transportation: Pt drives self and states no transportation concerns. DME/HHC: Pt has a walker, pulse ox, and home oxygen 3L w/ exertion. Per granddaughter, pt will get up and do what he needs to do and then sit down and put oxygen on because he is so short. Granddaughter educated that pt needs to wear 3L with any exertion/movement so that he doesn't get so SOB, voices understanding. Pt was recently on temp HD OP but is no longer. Pt had [facility] set up at d/c last visit but they are no longer active. Pt states no hx of SNF. Granddaughter states no concerns with pt going home at time of discharge. Pt is retired. Pt does not smoke cigarettes but per granddaughter, does drink ETOH almost daily. Granddaughter voices no further concerns/needs. CM to follow for increased home oxygen, therapy notes, and any further discharge planning/needs. Advised pt/granddaughter to ask for CM if any further questions/concerns/needs arise, voices understanding. Pt Goal: Home ? Plan: Home, pending clinical course, therapy notes, and home oxygen testing. [place] CARLOTA RIVERO
--- NOTE | 2022-05-20 15:28 | CHAPLAIN ---
Type of Pastoral Visit _x_ Initial Visit ___ Follow-up Visit ___ On-call Visit ___ General Patient Visit ___ Spiritual Assessment ___ Family Conference ___ Bereavement ___ Rapid Response ___ Code Blue ___ Other (describe below) Pastoral Care Referral From _x__ Patient ___ Family ___ Nurse ___ Physician ___ Insurance Analyst ___ Manager Strategy & Account ___ Other (describe below) Sacrament/Intervention _x__ Active listening ___ Anointing ___ Mormonism ___ Bereavement ___ Communion ___ Lina exploration ___ ___ Life review _x__ Prayer ___ Reconciliation ___ Sacrament of Sick _x__ Supportive presence ___ Wedding ___ Other (describe below) Pastoral Comments patient and granddaughter are in the room; pt answers questions but has some breathing issues as he talks much; pt granddaughter is helpful in answering more questions and reveals that pt spouse two years ago; pt is having some similar decline as his did according to the granddaughter; pt has a tear or two when speaking of 's ; pt states that he is not worried or in need of anything; pt does accept a prayer If you want to do that
[2022-05-20 16:20] LABS: Blood Gas Specimen Type VEN; O2 Delivery Device BiPAP; VBG BASE EXCESS 1 mmol/L (-1.0-3.5); VBG Bicarbonate 26 mmol/L (22-26); VBG PO2 80 mmHg (25-40); VBG SO2 96 % (50-70); VBG TCO2 27 mmol/L (23-33); VBG pCO2 37.9 mmHg (41-51); VBG pH 7.44 (7.32-7.42)
[2022-05-20 16:22] LABS: Anion Gap 7 (5-15); BUN 20 mg/dL (7-18); BUN/Creat Ratio 16.1 RATIO (10-20); Calcium,Total 9.2 mg/dL (8.5-10.1); Chloride 103 mmol/L (98-107); Creatinine, Serum 1.24 mg/dL (0.70-1.30); EST Glomerular Filtration Rate 59 mL/min (>60); Est Glom Filt Rate - Afr Amer 71 mL/min (>60); Estimated Creatinine Clearance 42.14 ml/min; Glucose 137 mg/dL (74-106); Potassium 4.7 mmol/L (3.5-5.1); Sodium Level 138 mmol/L (136-145)
[2022-05-20 16:28] LABS: Lactic Acid 1.8 mmol/L (0.4-1.9)
[2022-05-20] MEDS: Folic Acid 1 MG Tablet PO (17:17)
[2022-05-20] MEDS: Acetaminophen 325 MG Tablet 650 MG PO (20:43)
[2022-05-20] MEDS: LORazepam 1 MG Tablet PO (20:43)
[2022-05-20] MEDS: Ceftriaxone 1 GM/50 ML BAG IV (20:50)
[2022-05-20] MEDS: Atorvastatin Calcium 10 MG Tablet PO (20:51)
[2022-05-21] VITALS (19 sets, daily range): BP systolic 90–116; BP diastolic 56–74; PULSE 49–119; RESP 12–24; TEMP 36.5–37.1; O2SAT 93–99
--- NOTE | 2022-05-21 05:55 | EKG12_ITS ---
Test Reason : AM EKG Blood Pressure : / mmHG Vent. Rate : 106 BPM Atrial Rate : 000 BPM P-R Int : 000 ms QRS Dur : 086 ms QT Int : 398 ms P-R-T Axes : 000 077 039 degrees QTc Int : 528 ms Atrial fibrillation with rapid ventricular response with premature ventricular or aberrantly conducte d complexes Low voltage QRS (Limb Leads) Prolonged QT Abnormal ECG Confirmed by LORRI GUZMÁN, LETITIA ([id number]), image editor DAPHNEY FULTON ([id number]) on 05/25/2022 11:04:31 AM Referred By: Confirmed By:LETITIA BLACKMON MD
[2022-05-21] MEDS: Budesonide Respules 0.5 MG/2 ML AMPUL.NEB. INHALATION ×2 (06:59→19:35)
[2022-05-21] MEDS: Albuterol 2.5 MG/3 ML VIAL.NEB. INHALATION (06:59)
[2022-05-21 07:11] LABS: Absolute Lymphocyte Count 0.92 X10^3/uL (0.83-4.51); Absolute Neutrophil Count 2.3 X10^3/uL (2.0-7.7); Basophil# 0.08 X10^3/uL; Basophil% 1.7 % (0-1); Eosinophil# 0.48 X10^3/uL; Eosinophils% 10.2 % (0-5); Hematocrit 30.4 % (40-54); Hemoglobin 9.5 g/dL (13.0-16.5); Lymphocyte # 0.92 X10^3/ul (0.83-4.51); Lymphocyte % 19.5 % (19-41); Mean Corp Hgb Conc 31.3 g/dL (32-36); Mean Corpuscular Hgb 34.3 pg (27.0-32.0); Mean Corpuscular Volume 109.7 fL (80-94); Mean Platelet Vol. 10.2 fl (6.2-12.0); Monocyte# 0.89 X10^3/uL; Monocyte% 18.9 % (0-10); NRBC Flagged by Analyzer 0 % (0-5); Neutrophil # 2.33 X10^3/uL (2.7-7.7); Neutrophil % 49.5 % (47-70); Platelet Count 197 K/mm3 (150-450); RBC Distribution Width CV 15.7 % (11.6-14.6); Red Blood Count 2.77 M/mm3 (4.6-6.2); White Blood Count 4.7 K/mm3 (4.4-11.0)
[2022-05-21 07:42] LABS: ALB/GLOB Ratio 0.8 RATIO (0.9-2.4); AST(SGOT) 35 U/L (15-37); Alanine Aminotransfer ALT/SGPT 47 U/L (16-61); Albumin, Serum 2.9 g/dL (3.2-5.0); Alkaline Phosphatase 149 U/L (45-117); Anion Gap 7 (5-15); BUN 19 mg/dL (7-18); BUN/Creat Ratio 17.4 RATIO (10-20); Chloride 103 mmol/L (98-107); Creatinine, Serum 1.09 mg/dL (0.70-1.30); EST Glomerular Filtration Rate 68 mL/min (>60); Est Glom Filt Rate - Afr Amer 83 mL/min (>60); Estimated Creatinine Clearance 47.94 ml/min; Globulin 3.5 g/dL (2.2-4.2); Glucose 102 mg/dL (74-106); Potassium 3.9 mmol/L (3.5-5.1); Protein, Total 6.4 g/dL (6.4-8.2); Sodium Level 138 mmol/L (136-145)
--- NOTE | 2022-05-21 07:58 | PN.CARD_ITS ---
Subjective Subjective The patient believes his cough is somewhat better as well as his overall sensation of his shortness of breath. He denies any ongoing chest discomfort. He denies any ongoing sensation of palpitations. Objective Data Vital Signs: Vital Signs Temp Pulse Resp BP Pulse Ox O2 Del Method O2 Flow Rate 98.2 F 101 H 23 H 116/62 99 Nasal Cannula 5 05/21/22 07:01 05/21/22 07:01 05/21/22 07:01 05/21/22 07:01 05/21/22 07:01 05/21/22 07:01 05/21/22 07:01 FiO2 35 05/21/22 06:20 Oxygen Flow Rate (L/min) 5 Oxygen Delivery Method Nasal Cannula Weight: 166 lb 0.129 oz Body Mass Index (BMI) 25.9 Intake & Output: Intake and Output for Last 24 Hours 05/19/22 05/20/22 05/21/22 23:59 23:59 23:59 Intake Total 53.92 / 55.17 193.42 / 193.42 50 / 50 Output Total 3550 / 3550 600 / 600 Balance 53.92 / 55.17 -3356.58 / -3356.58 -550 / -550 Lab / Micro Data Result Diagrams: 05/21/22 06:40 05/21/22 06:40 Labs: Laboratory Results - last 24 hr 05/20/22 15:57: Sodium 138, Potassium 4.7, Chloride 103, Carbon Dioxide 28.0, Anion Gap 7, BUN 20 H, Creatinine 1.24, Estim Creat Clear Calc 42.14, Est GFR (MDRD) Af Amer 71, Est GFR (MDRD) Non-Af 59 L, BUN/Creatinine Ratio 16.1, Glucose 137 H, Calcium 9.2 05/20/22 15:57: Lactic Acid 1.8 05/21/22 06:40: WBC 4.7, RBC 2.77 L, Hgb 9.5 L, Hct 30.4 L, MCV 109.7 H, MCH 34.3 H, MCHC 31.3 L, RDW Std Deviation 62.0 H, RDW Coeff of [place] 15.7 H, Plt Count 197, MPV 10.2, Immature Gran % (Auto) 0.200, Neut % (Auto) 49.5, Lymph % (Auto) 19.5, [place] % (Auto) 18.9 H, Eos % (Auto) 10.2 H, Baso % (Auto) 1.7 H, Abs olute Neuts (auto) 2.3, Absolute Lymphs (auto) 0.92, Nucleated RBC % 0 05/21/22 06:40: Sodium 138, Potassium 3.9, Chloride 103, Carbon Dioxide 28.0, Anion Gap 7, BUN 19 H, Creatinine 1.09, Estim Creat Clear Calc 47.94, Est GFR (MDRD) Af Amer 83, Est GFR (MDRD) Non-Af 68, BUN/Creatinine Ratio 17.4, Glucose 102, Calcium 9.0, Total Bilirubin 1.00, AST 35, ALT 47, Alkaline Phosphatase 149 H, Total Protein 6.4, Albumin 2.9 L, Globulin 3.5, Albumin/Globulin Ratio 0.8 L ABG Data ABG results: ABG 05/20/22 16:14 Specimen Type STACIA VBG pH 7.44 H VBG pO2 80 H VBG HCO3 26 VBG Total CO2 27 VBG O2 Sat (Calc) 96 H VBG Base Excess 1 POC Mix VBG pCO2 Pt Tmp 37.9 L O2 Delivery Device BiPAP Cardiology Labs/Tests 05/20/22 15:57: Sodium 138, Potassium 4.7, Chloride 103, Carbon Dioxide 28.0, Anion Gap 7, BUN 20 H, Creatinine 1.24, Est GFR (MDRD) Af Amer 71, Est GFR ( MDRD) Non-Af 59 L, BUN/Creatinine Ratio 16.1, Glucose 137 H, Calcium 9.2 05/20/22 15:57: Lactic Acid 1.8 05/20/22 16:14: VBG pH 7.44 H, VBG pO2 80 H, VBG HCO3 26, VBG O2 Sat (Calc) 96 H , VBG Base Excess 1 05/21/22 06:40: WBC 4.7, RBC 2.77 L, Hgb 9.5 L, Hct 30.4 L, MCV 109.7 H, MCH 34.3 H, MCHC 31.3 L, Plt Count 197, MPV 10.2, Immature Gran % (Auto) 0.200, Neut % (Auto) 49.5, Lymph % (Auto) 19.5, [place] % (Auto) 18.9 H, Eos % (Auto) 10.2 H, Baso % (Auto) 1.7 H, Absolute Neuts (auto) 2.3, Nucleated RBC % 0 05/21/22 06:40: Sodium 138, Potassium 3.9, Chloride 103, Carbon Dioxide 28.0, An ion Gap 7, BUN 19 H, Creatinine 1.09, Est GFR (MDRD) Af Amer 83, Est GFR (MDRD) Non-Af 68, BUN/Creatinine Ratio 17.4, Glucose 102, Calcium 9.0, Total Bilirubin 1.00 Rhythm: Atrial fibrillation EKG: Atrial fibrillation; PVCs; low voltage QRS-limb leads; incomplete right bundle branch block type pattern; no acute ECG changes ECHO: As noted below Radiography Diagnostic Testing: Radiology Impression Echocardiogram 05/20/22 08:35 Interpretation Summary The study was technically difficult. Left ventricular systolic function is normal. The estimated ejection fraction is 60 %. Mildly dilated right ventricle. Mild global right ventricular systolic dysfunction. The left atrium is moderately enlarged. The right atrium is mildly enlarged. Moderate focal mitral valve calcification of the anterior leaflet. Moderate (2+) eccentric mitral valve insufficiency. Mild to moderate (1-2+) tricuspid valve insufficiency. Mild focal aortic valve calcification. Trivial pulmonic valve insufficiency. Trivial pericardial effusion. There are no echocardiographic indications of cardiac tamponade. Echolucency compatible with a pleural effusion. Right ventricular systolic pressure estimated to be 51 mmHg c/w pulmonary hypertension. Diastolic function is indeterminate. Ordering Physician: Oscar French Referring Physician: Conor Ronquillo Performed By: Jolly Simeon, NIKKI, RVT Physical Exam Const alert, oriented x3 and no apparent distress Orientation / Consciousness: awake HEENT normocephalic, head/scalp atraumatic and hearing grossly normal bilaterally Eyes PERRL, EOMs intact bilaterally, conjunctivae normal and no scleral icterus Neck no JVD Resp Auscultation: rhonchi throughout and wheezes scattered wheezes Cardio Palpation: normal PMI Rhythm: abnormal rhythm irregularly irregular Heart Sounds: S1 normal and S2 normal GI normal to inspection, nondistended, normoactive bowel sounds Extremity no pedal edema Skin no rashes or lesions noted Psych mental status grossly normal Assessment & Plan Assessment/Plan (1) Elevated troponin: PLAN: The patient has elevated troponins. The troponins have been relatively steady without a peak and trough. This does raise concern that the troponins are secondary to the patient's multiple comorbidities including concerns of volume overload, atrial fibrillation, superimposed upon his underlying ongoing pulmonary disease process concerning for pneumonia as well as his anemia. This would be a pattern compatible with a type II non-ST segment elevation RI. At the present time it is reasonable to continue to monitor the patient. The patient has undergone a follow-up transthoracic echocardiogram. The results are as noted. At the present time he will continue medical management. At some point in time as he improves from his cardiopulmonary issues, etc., it may be reasonable to further evaluate him either noninvasively such as a pharma cologic stress nuclear imaging study for any evidence of significant myocardial ischemia that would warrant further invasive valuation care versus, depending upon his clinical course, proceeding with direct invasive evaluation. (2) CHF (congestive heart failure): PLAN: The patient has been thought to have evidence of volume overload compatible with CHF. Based upon his echocardiogram he continues to demonstrate evidence of overall preserved LV systolic function. Thus his CHF may be heart failure with preserved ejection fraction. As noted above based upon the patient's change in his cardiac enzymes, which again appear compatible with a type II event, it would not be unreasonable to reassess his left ventricle for any new regional wall motion abnormalities that would suggest a diminished systolic function, etc. He has continue medical therapy with diuretics. His output has increased. Overall he states he does believe his cough and his breathing is somewhat improved. However his physical exam still demonstrates evidence of scattered rhonchi and wheezing. At the present time he will continue medical therapy including diuresis with adjustment over time. (3) Atrial fibrillation with RVR: PLAN: The patient appears to have a history of atrial fibrillation. He states this has been chronic. He will need to continue rate control therapy and anticoagulant therapy as deemed appropriate. Depending upon his future course, if he does at some point in time require invasive valuation, then his anticoagulant therapy will have to be adjusted. (4) HTN (hypertension): PLAN: The patient is reported as having a history of hypertension. His blood pressure will need to be monitored and his medicines adjusted accordingly. (5) Pneumonia: PLAN: The patient does appear to have an underlying pulmonary disease based upon his history, exam, and his radiologic findings compatible with an acute respiratory event/pneumonitis. He will need continued medical therapy which includes his antibiotic therapy with adjustment over time as needed. It would be prudent to try and bring his pulmonary disease process under better control prior to proceeding with additional noninvasive or invasive cardiovascular studies. (6) UTI (urinary tract infection): PLAN: The patient was diagnosed with a UTI on admission. He will continue medical management (7) COPD (chronic obstructive pulmonary disease): PLAN: The patient has a history of underlying COPD. This has to be taken into consideration with his ongoing evaluation and care. (8) Anemia: PLAN: The patient has a history of what appears to be chronic anemia. His hemoglobin remains low. This will need to be monitored during his evaluation and care especially with respect to anticoagulant therapy. Addt'l Comments This note was generated using a voice recognition system and there may be incorrect words, spelling or punctuation that were not noted when reviewing the office note prior to saving. Procedure Criteria Type of Procedure Procedure Type: Elective Elective Risks - COVID COVID Risk Discussion: The surgeon/proceduralist and patient have discussed in detail the risk of exposure to and/or potential harm posed by the COVID-19 virus with having a surgery/procedure at this time versus the risk of delaying the surgery/procedure. It is not possible to know either the risk of delaying the surgery or procedure or chance of getting an infection with perfect accuracy, bu t a joint decision was made between the patient and the surgeon/proceduralist to proceed at this time with the scheduled surgery/procedure as indicated on the consent form.
[2022-05-21 09:33] LABS: Vitamin B12 469 pg/mL (211-911)
[2022-05-21] MEDS: Furosemide 40 MG/4 ML Vial IV ×2 (09:55→17:34)
[2022-05-21] MEDS: Folic Acid 1 MG Tablet PO (09:55)
[2022-05-21] MEDS: APIXABAN 2.5 MG TABLET PO (09:55)
[2022-05-21] MEDS: Aspirin 81 MG TAB.CHEW PO (09:56)
[2022-05-21] MEDS: Carvedilol 6.25 MG Tablet PO ×2 (10:00→21:24)
--- NOTE | 2022-05-21 12:08 | CASEMGMT ---
Per admission questions patient does not have a Healthcare Power of Citrix Engineer or Healthcare Living Will and is not interested in information. Heather Cabrera MOTOR VEHICLE ASSEMBLER GOVERNMENT TEACHER
[2022-05-21] MEDS: Ondansetron 4 MG/2 ML Vial IV (13:33)
--- NOTE | 2022-05-21 18:36 | PCM.PN.HOSP ---
Subjective Subjective Doing well, no issues overnight. Says that he is breathing a little bit easier but he has been going back and forth on his BiPAP versus nasal cannula Objective Data Objective Data Vital Signs: Vital Signs Temp Pulse Resp BP Pulse Ox O2 Del Method O2 Flow Rate 98 F 104 H 20 H 105/56 L 95 Nasal Cannula 5 05/21/22 14:45 05/21/22 14:45 05/21/22 14:45 05/21/22 14:45 05/21/22 16:03 05/21/22 14:45 05/21/22 16:03 FiO2 35 05/21/22 08:00 Oxygen Flow Rate (L/min) 5 Oxygen Delivery Method Nasal Cannula Weight: 166 lb 0.129 oz Body Mass Index (BMI) 25.9 Intake & Output: Intake and Output for Last 24 Hours 05/20/22 05/21/22 05/22/22 03:59 03:59 03:59 Intake Total 90.17 / 105.17 207.17 / 207.17 171 / 171 Output Total 3550 / 3550 1900 / 1900 Balance 90.17 / 105.17 -3342.83 / -3342.83 -1729 / -1729 Lab / Micro Data Result Diagrams: 05/22/22 06:32 05/22/22 06:32 Labs: Laboratory Results - last 24 hr 05/21/22 06:40: WBC 4.7, RBC 2.77 L, Hgb 9.5 L, Hct 30.4 L, MCV 109.7 H, MCH 34.3 H, MCHC 31.3 L, RDW Std Deviation 62.0 H, RDW Coeff of [place] 15.7 H, Plt Count 197, MPV 10.2, Immature Gran % (Auto) 0.200, Neut % (Auto) 49.5, Lymph % (Auto) 19.5, [place] % (Auto) 18.9 H, Eos % (Auto) 10.2 H, Baso % (Auto) 1.7 H, Absolute Neuts (auto) 2.3, Absolute Lymphs (auto) 0.92, Nucleated RBC % 0 05/21/22 06:40: Sodium 138, Potassium 3.9, Chloride 103, Carbon Dioxide 28.0, Anion Gap 7, BUN 19 H, Creatinine 1.09, Estim Creat Clear Calc 47.94, Est GFR (MDRD) Af Amer 83, Est GFR (MDRD) Non-Af 68, BUN/Creatinine Ratio 17.4, Glucose 102, Calcium 9.0, Total Bilirubin 1.00, AST 35, ALT 47, Alkaline Phosphatase 149 H, Total Protein 6.4, Albumin 2.9 L, Globulin 3.5, Albumin/Globulin Ratio 0.8 L 05/21/22 06:40: Vitamin B12 469 Micro: Microbiology 05/19/22 19:35 Urine Catheter - Catheter Urine Culture - Preliminary GNR lactose manager consumer insights 05/19/22 21:25 Mucosa - Nose Respiratory Panel (PCR) - Final 05/19/22 18:05 Nasal Secretion SARS-CoV-2 Antigen (Rapid) - Final Physical Exam Narrative General: Alert, Oriented x3, Cooperative, No apparent distress HEENT: Atraumatic, PERRLA, EOMI, Normocephalic Oral: Moist Mucosa Neck: Supple, No JVD Lungs: Diminished, Normal air movement, No rhonchi, intermittent wheeze, No rales Cardiovascular: Irregular rate and rhythm, Normal S1, Normal S2, No murmurs Abdomen: Soft, Non Tender, Non-Distended, No Hepato-splenomegaly Extremities: Trace edema, Capillary Refill Less than 3 Seconds Skin: No rashes, No breakdown Musculoskeletal: No Tenderness to Palpation of Joints or Extremities Neurological: Cranial nerves II-XII grossly intact, Motor Exam 5/5 strength throughout, Sensory exam intact to light touch and pain Psych/Mental Status: Normal Affect, Appropriate Assessment & Plan Assessment/Plan (1) Acute respiratory failure: (2) Atrial fibrillation with RVR: (3) Elevated troponin: PLAN: Plan 1. Acute hypoxic respiratory failure secondary to paroxysmal A. fib with RVR leading to decompensated diastolic CHF/HTN/non-STEMI type II ? Continue with IV Lasix ? Appreciate cardiology's assistance ? Echo with an EF of 60% and diastolic dysfunction does appear that he has pulmonary hypertension as well ? Continue with rate control medications ?Will need a more thorough ischemic work-up once he is out of this acute decompensation 2. UTI ? Continue with Rocephin 3. Chronic COPD ? Not in exacerbation ? Continue with inhalers 4. Alcohol abuse ? This is in history, per family ? Can monitor him on CIWA and continue with folic acid and thiamine DVT: Eliquis Charges/Coding Visit Charges Inpatient E&M: 45357 Subs Hosp L2
[2022-05-21] MEDS: Atorvastatin Calcium 10 MG Tablet PO (21:24)
[2022-05-21] MEDS: Ceftriaxone 1 GM/50 ML BAG IV (21:24)
[2022-05-22] VITALS (15 sets, daily range): BP systolic 103–130; BP diastolic 53–74; PULSE 89–115; RESP 12–23; TEMP 36.6–36.9; O2SAT 94–99
[2022-05-22 06:47] LABS: Absolute Lymphocyte Count 0.96 X10^3/uL (0.83-4.51); Basophil# 0.08 X10^3/uL; Basophil% 1.4 % (0-1); Eosinophil# 0.52 X10^3/uL; Eosinophils% 9.4 % (0-5); Hematocrit 31.8 % (40-54); Hemoglobin 10.1 g/dL (13.0-16.5); Lymphocyte # 0.96 X10^3/ul (0.83-4.51); Lymphocyte % 17.4 % (19-41); Mean Corp Hgb Conc 31.8 g/dL (32-36); Mean Corpuscular Hgb 34.8 pg (27.0-32.0); Mean Corpuscular Volume 109.7 fL (80-94); Mean Platelet Vol. 9.8 fl (6.2-12.0); Monocyte# 0.98 X10^3/uL; Monocyte% 17.7 % (0-10); NRBC Flagged by Analyzer 0 % (0-5); Neutrophil # 2.97 X10^3/uL (2.7-7.7); Neutrophil % 53.7 % (47-70); Platelet Count 219 K/mm3 (150-450); RBC Distribution Width CV 15.4 % (11.6-14.6); White Blood Count 5.5 K/mm3 (4.4-11.0)
[2022-05-22 07:11] LABS: Anion Gap 6 (5-15); BUN 20 mg/dL (7-18); BUN/Creat Ratio 15.6 RATIO (10-20); Calcium,Total 9.2 mg/dL (8.5-10.1); Chloride 100 mmol/L (98-107); Creatinine, Serum 1.28 mg/dL (0.70-1.30); EST Glomerular Filtration Rate 57 mL/min (>60); Est Glom Filt Rate - Afr Amer 69 mL/min (>60); Estimated Creatinine Clearance 40.82 ml/min; Glucose 137 mg/dL (74-106); Magnesium 1.9 mg/dL (1.6-2.6); Potassium 3.7 mmol/L (3.5-5.1); Sodium Level 139 mmol/L (136-145)
[2022-05-22] MEDS: Budesonide Respules 0.5 MG/2 ML AMPUL.NEB. INHALATION ×2 (07:38→19:07)
[2022-05-22] MEDS: Folic Acid 1 MG Tablet PO (08:51)
[2022-05-22] MEDS: Carvedilol 6.25 MG Tablet PO ×2 (08:51→20:49)
[2022-05-22] MEDS: 0.9% Saline Lock 10 ML Syringe IV ×2 (08:51→20:49)
[2022-05-22] MEDS: Furosemide 40 MG/4 ML Vial IV ×2 (08:51→17:00)
[2022-05-22] MEDS: Aspirin 81 MG TAB.CHEW PO (08:51)
[2022-05-22] MEDS: Thiamine Hydrochloride 200 MG/2 ML Vial (08:52)
--- NOTE | 2022-05-22 11:10 | PCM.PN.HOSP ---
Subjective Subjective Doing well, had to hold his Eliquis last night and this morning secondary to some mild hematuria. We will continue to monitor his hemoglobin. Otherwise he feels about the same and did need BiPAP overnight Objective Data Objective Data Vital Signs: Vital Signs Temp Pulse Resp BP Pulse Ox O2 Del Method O2 Flow Rate 98.4 F 98 18 114/73 99 Nasal Cannula 4 05/22/22 09:00 05/22/22 09:00 05/22/22 09:00 05/22/22 09:00 05/22/22 10:09 05/22/22 09:00 05/22/22 10:09 FiO2 35 05/22/22 03:08 Oxygen Flow Rate (L/min) 4 Oxygen Delivery Method Nasal Cannula Weight: 161 lb 6.054 oz Body Mass Index (BMI) 25.9 Intake & Output: Intake and Output for Last 24 Hours 05/21/22 05/22/22 05/23/22 03:59 03:59 03:59 Intake Total 207.17 / 207.17 221 / 221 120 / 120 Output Total 3550 / 3550 4000 / 4000 350 / 350 Balance -3342.83 / -3342.83 -3779 / -3779 -230 / -230 Lab / Micro Data Result Diagrams: 05/22/22 06:32 05/22/22 06:32 Labs: Laboratory Results - last 24 hr 05/22/22 06:32: WBC 5.5, RBC 2.90 L, Hgb 10.1 L, Hct 31.8 L, MCV 109.7 H, MCH 34.8 H, MCHC 31.8 L, RDW Std Deviation 62.0 H, RDW Coeff of [place] 15.4 H, Plt Count 219, MPV 9.8, Immature Gran % (Auto) 0.400, Neut % (Auto) 53.7, Lymph % (Auto) 17.4 L, [place] % (Auto) 17.7 H, Eos % (Auto) 9.4 H, Baso % (Auto) 1.4 H, Absolute Neuts (auto) 3.0, Absolute Lymphs (auto) 0.96, Nucleated RBC % 0 05/22/22 06:32: Sodium 139, Potassium 3.7, Chloride 100, Carbon Dioxide 33.0 H, Anion Gap 6, BUN 20 H, Creatinine 1.28, Estim Creat Clear Calc 40.82, Est GFR (MDRD) Af Amer 69, Est GFR (MDRD) Non-Af 57 L, BUN/Creatinine Ratio 15.6, Glucose 137 H, Calcium 9.2, Magnesium 1.9 Micro: Microbiology 05/19/22 19:35 Urine Catheter - Catheter Urine Culture - Final Escherichia coli 05/19/22 21:25 Mucosa - Nose Respiratory Panel (PCR) - Final 05/19/22 18:05 Nasal Secretion SARS-CoV-2 Antigen (Rapid) - Final Physical Exam Narrative General: Alert, Oriented x3, Cooperative, No apparent distress HEENT: Atraumatic, PERRLA, EOMI, Normocephalic Oral: Moist Mucosa Neck: Supple, No JVD Lungs: Diminished, Normal air movement, No rhonchi, intermittent wheeze, No rales Cardiovascular: Irregular rate and rhythm, Normal S1, Normal S2, No murmurs Abdomen: Soft, Non Tender, Non-Distended, No Hepato-splenomegaly Extremities: Trace edema, Capillary Refill Less than 3 Seconds Skin: No rashes, No breakdown Musculoskeletal: No Tenderness to Palpation of Joints or Extremities Neurological: Cranial nerves II-XII grossly intact, Motor Exam 5/5 strength throughout, Sensory exam intact to light touch and pain Psych/Mental Status: Normal Affect, Appropriate Assessment & Plan Assessment/Plan (1) Acute respiratory failure: (2) Atrial fibrillation with RVR: (3) Elevated troponin: PLAN: Plan 1. Acute hypoxic respiratory failure secondary to paroxysmal A. fib with RVR leading to decompensated diastolic CHF/HTN/non-STEMI type II ? Continue with IV Lasix ? Appreciate cardiology's assistance ? Echo with an EF of 60% and diastolic dysfunction does appear that he has pulmonary hypertension as well ? Continue with rate control medications ?Will need a more thorough ischemic work-up once he is out of this acute decompensation next line ? He is down about 7 L, will continue IV Lasix for 1 more day and then transition to orals in the morning 2. UTI due to E. coli/hematuria ? Continue with Rocephin ? Hematuria is likely due to his Kaur catheter, will hold Eliquis and flush his bladder if his urine does become clear again can resume his Eliquis 3. Chronic COPD ? Not in exacerbation ? Continue with inhalers 4. Alcohol abuse ? This is in history, per family ? Can monitor him on CIWA and continue with folic acid and thiamine DVT: Eliquis Charges/Coding Visit Charges Inpatient E&M: 43924 Subs Hosp L2
[2022-05-22] MEDS: Ceftriaxone 1 GM/50 ML BAG IV (20:49)
[2022-05-22] MEDS: Atorvastatin Calcium 10 MG Tablet PO (20:49)
--- NOTE | 2022-05-22 22:30 | CPS ---
Pt having difficulty tolerating BIPAP mask, asked to take it off.
[2022-05-23] VITALS (13 sets, daily range): BP systolic 96–114; BP diastolic 57–75; PULSE 71–141; RESP 18–20; TEMP 36.4–37.4; O2SAT 94–99
[2022-05-23 05:59] LABS: Absolute Lymphocyte Count 0.96 X10^3/uL (0.83-4.51); Absolute Neutrophil Count 3.4 X10^3/uL (2.0-7.7); Basophil# 0.08 X10^3/uL; Basophil% 1.3 % (0-1); Eosinophil# 0.56 X10^3/uL; Eosinophils% 9.1 % (0-5); Hematocrit 30.8 % (40-54); Hemoglobin 10.3 g/dL (13.0-16.5); Lymphocyte # 0.96 X10^3/ul (0.83-4.51); Lymphocyte % 15.6 % (19-41); Mean Corp Hgb Conc 33.4 g/dL (32-36); Mean Corpuscular Hgb 34.9 pg (27.0-32.0); Mean Corpuscular Volume 104.4 fL (80-94); Mean Platelet Vol. 9.6 fl (6.2-12.0); Monocyte# 1.19 X10^3/uL; Monocyte% 19.3 % (0-10); NRBC Flagged by Analyzer 0 % (0-5); Neutrophil # 3.35 X10^3/uL (2.7-7.7); Neutrophil % 54.4 % (47-70); Platelet Count 199 K/mm3 (150-450); RBC Distribution Width CV 14.8 % (11.6-14.6); RBC Distribution Width SD 56.5 fl (35.1-43.9); Red Blood Count 2.95 M/mm3 (4.6-6.2); White Blood Count 6.2 K/mm3 (4.4-11.0)
[2022-05-23 06:42] LABS: Anion Gap 6 (5-15); BUN 18 mg/dL (7-18); BUN/Creat Ratio 17.1 RATIO (10-20); Calcium,Total 8.9 mg/dL (8.5-10.1); Chloride 96 mmol/L (98-107); Creatinine, Serum 1.05 mg/dL (0.70-1.30); EST Glomerular Filtration Rate 71 mL/min (>60); Est Glom Filt Rate - Afr Amer 86 mL/min (>60); Estimated Creatinine Clearance 49.76 ml/min; Glucose 162 mg/dL (74-106); Potassium 3.4 mmol/L (3.5-5.1); Sodium Level 136 mmol/L (136-145)
[2022-05-23] MEDS: Aspirin 81 MG TAB.CHEW PO (07:33)
[2022-05-23] MEDS: Budesonide Respules 0.5 MG/2 ML AMPUL.NEB. INHALATION ×2 (07:33→20:10)
[2022-05-23] MEDS: Folic Acid 1 MG Tablet PO (07:33)
[2022-05-23] MEDS: Thiamine Hydrochloride 100 MG Tablet PO (07:33)
[2022-05-23] MEDS: Carvedilol 6.25 MG Tablet PO ×2 (09:05→19:51)
[2022-05-23] MEDS: Furosemide 40 MG/4 ML Vial IV ×2 (09:05→17:03)
[2022-05-23] MEDS: 0.9% Saline Lock 10 ML Syringe IV ×3 (09:05→22:15)
--- NOTE | 2022-05-23 10:11 | PN.HOSP_ITS ---
Subjective Subjective Doing well, no issues overnight. He is coming down on his oxygen requirements and he did not need to be transition to BiPAP at all Objective Data Objective Data Vital Signs: Vital Signs Temp Pulse Resp BP Pulse Ox O2 Del Method O2 Flow Rate 98.6 F 92 20 H 101/75 95 Nasal Cannula 3 05/23/22 05:20 05/23/22 07:33 05/23/22 07:33 05/23/22 05:20 05/23/22 07:33 05/23/22 07:33 05/23/22 07:33 FiO2 35 05/22/22 19:20 Oxygen Flow Rate (L/min) 3 Oxygen Delivery Method Nasal Cannula Weight: 161 lb 13.109 oz Body Mass Index (BMI) 25.9 Intake & Output: Intake and Output for Last 24 Hours 05/22/22 05/23/22 05/24/22 03:59 03:59 03:59 Intake Total 221 / 221 1200 / 1200 Output Total 4000 / 4000 4200 / 4200 300 / 300 Balance -3779 / -3779 -3000 / -3000 -300 / -300 Lab / Micro Data Result Diagrams: 05/23/22 05:35 05/23/22 05:35 Labs: Laboratory Results - last 24 hr 05/23/22 05:35: WBC 6.2, RBC 2.95 L, Hgb 10.3 L, Hct 30.8 L, MCV 104.4 H, MCH 34.9 H, MCHC 33.4 D, RDW Std Deviation 56.5 H, RDW Coeff of [place] 14.8 H, Plt Count 199, MPV 9.6, Immature Gran % (Auto) 0.300, Neut % (Auto) 54.4, Lymph % (Auto) 15.6 L, [place] % (Auto) 19.3 H, Eos % (Auto) 9.1 H, Baso % (Auto) 1.3 H, Absolute Neuts (auto) 3.4, Absolute Lymphs (auto) 0.96, Nucleated RBC % 0 05/23/22 05:35: Sodium 136, Potassium 3.4 L, Chloride 96 L, Carbon Dioxide 34.0 H, Anion Gap 6, BUN 18, Creatinine 1.05, Estim Creat Clear Calc 49.76, Est GFR (MDRD) Af Amer 86, Est GFR (MDRD) Non-Af 71, BUN/Creatinine Ratio 17.1, Glucose 162 H, Calcium 8.9 Micro: Microbiology 05/19/22 19:35 Urine Catheter - Catheter Urine Culture - Final Escherichia coli 05/19/22 21:25 Mucosa - Nose Respiratory Panel (PCR) - Final 05/19/22 18:05 Nasal Secretion SARS-CoV-2 Antigen (Rapid) - Final Physical Exam Narrative General: Alert, Oriented x3, Cooperative, No apparent distress HEENT: Atraumatic, PERRLA, EOMI, Normocephalic Oral: Moist Mucosa Neck: Supple, No JVD Lungs: Diminished, Normal air movement, No rhonchi, no wheeze, No rales Cardiovascular: Irregular rate and rhythm, Normal S1, Normal S2, No murmurs Abdomen: Soft, Non Tender, Non-Distended, No Hepato-splenomegaly Extremities: Trace edema, Capillary Refill Less than 3 Seconds Skin: No rashes, No breakdown Musculoskeletal: No Tenderness to Palpation of Joints or Extremities Neurological: Cranial nerves II-XII grossly intact, Motor Exam 5/5 strength throughout, Sensory exam intact to light touch and pain Psych/Mental Status: Normal Affect, Appropriate Assessment & Plan Assessment/Plan (1) Acute respiratory failure: (2) Atrial fibrillation with RVR: (3) Elevated troponin: PLAN: Plan 1. Acute hypoxic respiratory failure secondary to paroxysmal A. fib with RVR leading to decompensated diastolic CHF/HTN/non-STEMI type II ? Continue with IV Lasix ? Appreciate cardiology's assistance ? Echo with an EF of 60% and diastolic dysfunction does appear that he has pulmonary hypertension as well ? Continue with rate control medications ?Will need a more thorough ischemic work-up once he is out of this acute decompensation next line ? He is down about 10 L, his creatinine is stable at 1.05 today, will continue with IV Lasix while his renal function allows us to 2. UTI due to E. coli/hematuria ? Continue with Rocephin ? Continues to have hematuria, he states that he self caths so we will continue to hold his Eliquis and remove the Kaur. In 6 hours we will get a bladder scan and straight cath if necessary. If that remains bloody then we will likely need to put in a three-way Kaur start continuous bladder irrigation and consult urology for evaluation and outpatient follow-up 3. Chronic COPD ? Not in exacerbation ? Continue with inhalers 4. Alcohol abuse ? This is in history, per family ? He has been here for 4 days without any significant adverse effects, will discontinue his CIWA DVT: Eliquis Charges/Coding Visit Charges Inpatient E&M: 06092 Subs Hosp L2
[2022-05-23] MEDS: Potassium Chloride Oral Tablet 20 MEQ 40 MEQ PO (11:07)
--- NOTE | 2022-05-23 15:40 | PCM.PN.CARD ---
Subjective Subjective Doing well. Denies any chest pain Objective Data Vital Signs: Vital Signs Temp Pulse Resp BP Pulse Ox O2 Del Method O2 Flow Rate 97.6 F L 107 H 18 104/57 L 97 Nasal Cannula 3 05/23/22 11:20 05/23/22 14:56 05/23/22 11:20 05/23/22 11:20 05/23/22 13:54 05/23/22 14:30 05/23/22 14:30 FiO2 35 05/22/22 19:20 Oxygen Flow Rate (L/min) 3 Oxygen Delivery Method Nasal Cannula Weight: 161 lb 13.109 oz Body Mass Index (BMI) 25.9 Intake & Output: Intake and Output for Last 24 Hours 05/21/22 05/22/22 05/23/22 23:59 23:59 23:59 Intake Total 271 / 271 1200 / 1200 480 / 480 Output Total 4000 / 4000 4200 / 4200 650 / 650 Balance -3729 / -3729 -3000 / -3000 -170 / -170 Lab / Micro Data Result Diagrams: 05/23/22 05:35 05/23/22 05:35 Labs: Laboratory Results - last 24 hr 05/23/22 05:35: WBC 6.2, RBC 2.95 L, Hgb 10.3 L, Hct 30.8 L, MCV 104.4 H, MCH 34.9 H, MCHC 33.4 D, RDW Std Deviation 56.5 H, RDW Coeff of [place] 14.8 H, Plt Count 199, MPV 9.6, Immature Gran % (Auto) 0.300, Neut % (Auto) 54.4, Lymph % (Auto) 15.6 L, [place] % (Auto) 19.3 H, Eos % (Auto) 9.1 H, Baso % (Auto) 1.3 H, Absolute Neuts (auto) 3.4, Absolute Lymphs (auto) 0.96, Nucleated RBC % 0 05/23/22 05:35: Sodium 136, Potassium 3.4 L, Chloride 96 L, Carbon Dioxide 34.0 H, Anion Gap 6, BUN 18, Creatinine 1.05, Estim Creat Clear Calc 49.76, Est GFR (MDRD) Af Amer 86, Est GFR (MDRD) Non-Af 71, BUN/Creatinine Ratio 17.1, Glucose 162 H, Calcium 8.9 Cardiology Labs/Tests 10/16/22 05:35: WBC 6.2, RBC 2.95 L, Hgb 10.3 L, Hct 30.8 L, MCV 104.4 H, MCH 34.9 H, MCHC 33.4 D, Plt Count 199, MPV 9.6, Immature Gran % (Auto) 0.300, Neut % (Auto) 54.4, Lymph % (Auto) 15.6 L, [place] % (Auto) 19.3 H, Eos % (Auto) 9.1 H, Baso % (Auto) 1.3 H, Absolute Neuts (auto) 3.4, Nucleated RBC % 0 05/23/22 05:35: Sodium 136, Potassium 3.4 L, Chloride 96 L, Carbon Dioxide 34.0 H, Anion Gap 6, BUN 18, Creatinine 1.05, Est GFR (MDRD) Af Amer 86, Est GFR (MDRD) Non-Af 71, BUN/Creatinine Ratio 17.1, Glucose 162 H, Calcium 8.9 Rhythm: EKG: ECHO: Stress Test: Cardiac Cath: PCI: CT Surgery: Holter monitor: EPS: PPM: CXR: Chest CT Scan: Physical Exam Const alert and oriented x3 HEENT normocephalic Eyes no scleral icterus Resp normal respiratory effort Cardio Cardio Narrative: Irregular rhythm Extremity no pedal edema Skin no rashes or lesions noted Psych mental status grossly normal Assessment & Plan Assessment/Plan (1) Elevated troponin: PLAN: Possible type II non-STEMI. Continue present management. (2) Atrial fibrillation with RVR: PLAN: Heart rate appears to be creeping up. Blood pressure is normal to low. If heart rate continues to remain elevated then we could consider switching from carvedilol to metoprolol 75 mg p.o. twice daily. (3) CHF (congestive heart failure): PLAN: Appears closer to euvolemic. Reasonable to switch from IV Lasix to 40 mg p.o. daily. Charges/Coding Visit Charges Inpatient E&M: 65880 Subs Hosp L2
[2022-05-23] MEDS: Atorvastatin Calcium 10 MG Tablet PO (22:15)
[2022-05-23] MEDS: Ceftriaxone 1 GM/50 ML BAG IV (22:15)
--- NOTE | 2022-05-23 23:25 | CPS ---
Pt refused BiPAP
[2022-05-24] VITALS (15 sets, daily range): BP systolic 104–132; BP diastolic 60–72; PULSE 70–148; RESP 16–20; TEMP 36.5–37.1; O2SAT 93–100
[2022-05-24 05:31] LABS: Absolute Lymphocyte Count 1.12 X10^3/uL (0.83-4.51); Absolute Neutrophil Count 2.2 X10^3/uL (2.0-7.7); Basophil# 0.09 X10^3/uL; Basophil% 1.7 % (0-1); Eosinophil# 0.55 X10^3/uL; Eosinophils% 10.6 % (0-5); Hemoglobin 10.3 g/dL (13.0-16.5); Lymphocyte # 1.12 X10^3/ul (0.83-4.51); Lymphocyte % 21.6 % (19-41); Mean Corp Hgb Conc 32.2 g/dL (32-36); Mean Corpuscular Hgb 33.4 pg (27.0-32.0); Mean Corpuscular Volume 103.9 fL (80-94); Mean Platelet Vol. 9.8 fl (6.2-12.0); Monocyte# 1.21 X10^3/uL; Monocyte% 23.4 % (0-10); NRBC Flagged by Analyzer 0 % (0-5); Neutrophil # 2.21 X10^3/uL (2.7-7.7); Neutrophil % 42.7 % (47-70); Platelet Count 229 K/mm3 (150-450); RBC Distribution Width CV 14.6 % (11.6-14.6); Red Blood Count 3.08 M/mm3 (4.6-6.2); White Blood Count 5.2 K/mm3 (4.4-11.0)
[2022-05-24 06:36] LABS: Anion Gap 6 (5-15); BUN 21 mg/dL (7-18); BUN/Creat Ratio 19.6 RATIO (10-20); Calcium,Total 9.3 mg/dL (8.5-10.1); Chloride 97 mmol/L (98-107); Creatinine, Serum 1.07 mg/dL (0.70-1.30); EST Glomerular Filtration Rate 70 mL/min (>60); Est Glom Filt Rate - Afr Amer 84 mL/min (>60); Estimated Creatinine Clearance 48.83 ml/min; Glucose 102 mg/dL (74-106); Magnesium 1.9 mg/dL (1.6-2.6); Phosphorus 3.2 mg/dL (2.5-4.9); Potassium 3.8 mmol/L (3.5-5.1); Sodium Level 136 mmol/L (136-145)
[2022-05-24] MEDS: Budesonide Respules 0.5 MG/2 ML AMPUL.NEB. INHALATION ×2 (07:23→22:18)
[2022-05-24] MEDS: Thiamine Hydrochloride 100 MG Tablet PO (09:03)
[2022-05-24] MEDS: Aspirin 81 MG TAB.CHEW PO (09:03)
[2022-05-24] MEDS: Furosemide 40 MG/4 ML Vial IV (09:03)
[2022-05-24] MEDS: Folic Acid 1 MG Tablet PO (09:03)
[2022-05-24] MEDS: Carvedilol 6.25 MG Tablet PO ×2 (09:03→10:14)
[2022-05-24] MEDS: APIXABAN 2.5 MG TABLET PO (09:15)
--- NOTE | 2022-05-24 09:48 | PN.CARD_ITS ---
Subjective Subjective The patient states his breathing has improved. He has been able to lie supine and breathe comfortably. Objective Data Vital Signs: Vital Signs Temp Pulse Resp BP Pulse Ox O2 Del Method O2 Flow Rate 98.0 F 70 16 106/72 94 Nasal Cannula 3 05/24/22 08:58 05/24/22 08:58 05/24/22 08:58 05/24/22 08:58 05/24/22 08:58 05/24/22 09:10 05/24/22 09:10 FiO2 35 05/22/22 19:20 Oxygen Flow Rate (L/min) 3 Oxygen Delivery Method Nasal Cannula Weight: 154 lb 5.177 oz Body Mass Index (BMI) 25.9 Intake & Output: Intake and Output for Last 24 Hours 05/22/22 05/23/22 05/24/22 23:59 23:59 23:59 Intake Total 1200 / 1200 1030 / 1030 Output Total 4200 / 4200 1750 / 1750 Balance -3000 / -3000 -720 / -720 Lab / Micro Data Result Diagrams: 05/24/22 05:07 05/24/22 05:07 Labs: Laboratory Results - last 24 hr 05/24/22 05:07: WBC 5.2, RBC 3.08 L, Hgb 10.3 L, Hct 32.0 L, MCV 103.9 H, MCH 33.4 H, MCHC 32.2, RDW Std Deviation 55.0 H, RDW Coeff of [place] 14.6, Plt Count 229, MPV 9.8, Immature Gran % (Auto) 0.000, Neut % (Auto) 42.7 L, Lymph % (Auto) 21.6, [place] % (Auto) 23.4 H, Eos % (Auto) 10.6 H, Baso % (Auto) 1.7 H, Absolute Neuts (auto) 2.2, Absolute Lymphs (auto) 1.12, Nucleated RBC % 0 05/24/22 05:07: Sodium 136, Potassium 3.8, Chloride 97 L, Carbon Dioxide 33.0 H, Anion Gap 6, BUN 21 H, Creatinine 1.07, Estim Creat Clear Calc 48.83, Est GFR (MDRD) Af Amer 84, Est GFR (MDRD) Non-Af 70, BUN/Creatinine Ratio 19.6, Glucose 102, Calcium 9.3, Phosphorus 3.2, Magnesium 1.9 Cardiology Labs/Tests 05/24/22 05:07: WBC 5.2, RBC 3.08 L, Hgb 10.3 L, Hct 32.0 L, MCV 103.9 H, MCH 33.4 H, MCHC 32.2, Plt Count 229, MPV 9.8, Immature Gran % (Auto) 0.000, Neut % (Auto) 42.7 L, Lymph % (Auto) 21.6, [place] % (Auto) 23.4 H, Eos % (Auto) 10.6 H, Baso % (Auto) 1.7 H, Absolute Neuts (auto) 2.2, Nucleated RBC % 0 05/24/22 05:07: Sodium 136, Potassium 3.8, Chloride 97 L, Carbon Dioxide 33.0 H, Anion Gap 6, BUN 21 H, Creatinine 1.07, Est GFR (MDRD) Af Amer 84, Est GFR (MDRD) Non-Af 70, BUN/Creatinine Ratio 19.6, Glucose 102, Calcium 9.3, Phosphorus 3.2, Magnesium 1.9 Rhythm: Atrial fibrillation Physical Exam Const alert, oriented x3 and no apparent distress Orientation / Consciousness: awake HEENT normocephalic, head/scalp atraumatic and hearing grossly normal bilaterally Eyes PERRL, EOMs intact bilaterally, conjunctivae normal and no scleral icterus Neck no JVD Resp normal respiratory effort and clear to auscultation bilaterally Cardio Palpation: normal PMI Rhythm: abnormal rhythm irregularly irregular Heart Sounds: S1 normal and S2 normal GI normal to inspection, nondistended, normoactive bowel sounds Extremity no pedal edema Skin no rashes or lesions noted Psych mental status grossly normal Assessment & Plan Assessment/Plan (1) Elevated troponin: PLAN: The patient has elevated troponins. The troponins have been relatively s teady without a peak and trough. This does raise concern that the troponins are secondary to the patient's multiple comorbidities including concerns of volume overload, atrial fibrillation, superimposed upon his underlying ongoing pulmonary disease process concerning for pneumonia as well as his anemia. This would be a pattern compatible with a type II non-ST segment elevation NE. At the present time it is reasonable to continue to monitor the patient. The patient has undergone a follow-up transthoracic echocardiogram. The results are as noted. At the present time he will continue medical management. At some point in time as he improves from his cardiopulmonary issues, etc., it may be reasonable to further evaluate him either noninvasively such as a pharmacologic stress nuclear imaging study for any evidence of significant myocardial ischemia that would warrant further invasive valuation care versus, depending upon his clinical course, proceeding with direct invasive evaluation. (2) CHF (congestive heart failure): PLAN: The patient has been thought to have evidence of volume overload compatible with CHF. Based upon his echocardiogram he continues to demonstrate evidence of overall preserved LV systolic function. Thus his CHF may be heart failure with preserved ejection fraction. As noted above based upon the patient's change in his cardiac enzymes, which again appear compatible with a type II event, it would not be unreasonable to reassess his left ventricle for any new regional wall motion abnormalities that would suggest a diminished systolic function, etc. He has continue medical therapy with diuretics. He does appear to be sympto matically improved as well as improved on examination. He will continue medical therapy with altering his IV diuretics to oral diuretics. (3) Atrial fibrillation with RVR: PLAN: The patient appears to have a history of atrial fibrillation. He states this has been chronic. He will need to continue rate control therapy and anticoagulant therapy as deemed appropriate. Depending upon his future course, if he does at some point in time require invasive valuation, then his anticoagulant therapy will have to be adjusted. (4) HTN (hypertension): PLAN: The patient is reported as having a history of hypertension. His blood pressure will need to be monitored and his medicines adjusted accordingly. (5) Pneumonia: PLAN: The patient does appear to have an underlying pulmonary disease based upon his history, exam, and his radiologic findings compatible with an acute respiratory event/pneumonitis. He will need continued medical therapy which includes his antibiotic therapy with adjustment over time as needed. It would be prudent to try and bring his pulmonary disease process under better control prior to proceeding with additional noninvasive or invasive cardiovascular studies. (6) UTI (urinary tract infection): PLAN: The patient was diagnosed with a UTI on admission. He will continue medical management (7) COPD (chronic obstructive pulmonary disease): PLAN: The patient has a history of underlying COPD. This has to be taken into consideration with his ongoing evaluation and care. (8) Anemia: PLAN: The patient has a history of what appears to be chronic anemia. His hemoglobin remains low. This will need to be monitored during his evaluation and care especially with respect to anticoagulant therapy. Addt'l Comments This note was generated using a voice recognition system and there may be incorrect words, spelling or punctuation that were not noted when reviewing the office note prior to saving. Procedure Criteria Type of Procedure Procedure Type: Elective Elective Risks - COVID COVID Risk Discussion: The surgeon/proceduralist and patient have discussed in detail the risk of exposure to and/or potential harm posed by the COVID-19 virus with having a surgery/procedure at this time versus the risk of delaying the surgery/procedure. It is not possible to know either the risk of delaying the surgery or procedure or chance of getting an infection with perfect accuracy, but a joint decision was made between the patient and the surgeon/proceduralist to proceed at this time with the scheduled surgery/procedure as indicated on the consent form.
--- NOTE | 2022-05-24 13:33 | PN.HOSP_ITS ---
Subjective Subjective Patient seen and examined. He had no active complaints and was lying comfortably in bed. He had an unventful night and says his breathing was much better. Review of systems was otherwise negative. He has remained hemodynamically stable Objective Data Objective Data Vital Signs: Vital Signs Temp Pulse Resp BP Pulse Ox O2 Del Method O2 Flow Rate 98.0 F 148 H 16 106/72 95 Nasal Cannula 3 05/24/22 08:58 05/24/22 09:52 05/24/22 08:58 05/24/22 08:58 05/24/22 11:09 05/24/22 09:10 05/24/22 11:09 FiO2 35 05/22/22 19:20 Oxygen Flow Rate (L/min) 3 Oxygen Delivery Method Nasal Cannula Weight: 154 lb 5.177 oz Body Mass Index (BMI) 25.9 Intake & Output: Intake and Output for Last 24 Hours 05/22/22 05/23/22 05/24/22 23:59 23:59 23:59 Intake Total 1200 / 1200 1030 / 1030 480 / 480 Output Total 4200 / 4200 1750 / 1750 520 / 520 Balance -3000 / -3000 -720 / -720 -40 / -40 Lab / Micro Data Result Diagrams: 05/24/22 05:07 05/24/22 05:07 Labs: Laboratory Results - last 24 hr 05/24/22 05:07: WBC 5.2, RBC 3.08 L, Hgb 10.3 L, Hct 32.0 L, MCV 103.9 H, MCH 33.4 H, MCHC 32.2, RDW Std Deviation 55.0 H, RDW Coeff of [place] 14.6, Plt Count 229, MPV 9.8, Immature Gran % (Auto) 0.000, Neut % (Auto) 42.7 L, Lymph % (Auto) 21.6, [place] % (Auto) 23.4 H, Eos % (Auto) 10.6 H, Baso % (Auto) 1.7 H, Absolute Neuts (auto) 2.2, Absolute Lymphs (auto) 1.12, Nucleated RBC % 0 05/24/22 05:07: Sodium 136, Potassium 3.8, Chloride 97 L, Carbon Dioxide 33.0 H, Anion Gap 6, BUN 21 H, Creatinine 1.07, Estim Creat Clear Calc 48.83, Est GFR (MDRD) Af Amer 84, Est GFR (MDRD) Non-Af 70, BUN/Creatinine Ratio 19.6, Glucose 102, Calcium 9.3, Phosphorus 3.2, Magnesium 1.9 Micro: Microbiology 05/19/22 19:35 Urine Catheter - Catheter Urine Culture - Final Escherichia coli 05/19/22 21:25 Mucosa - Nose Respiratory Panel (PCR) - Final 05/19/22 18:05 Nasal Secretion SARS-CoV-2 Antigen (Rapid) - Final Physical Exam Const alert, oriented x3 and no apparent distress HEENT head/scalp atraumatic, moist oral mucous membranes and oropharynx normal Head and Scalp: normocephalic Mouth: oral and palatal mucosa normal Eyes PERRL and EOMs intact bilaterally Neck no lymphadenopathy and supple Resp Resp Narrative: diminished breath sounds bibasally, no wheezes, no crackles. On 3L of oxygen by nasal canula. Cardio regular rate, regular rhythm, S1 normal heart sound, S2 normal heart sound and no murmurs GI normal to inspection, nondistended, normoactive bowel sounds, soft to palpation, non-tender and non-distended Extremity normal to inspection, full ROM and no clubbing, cyanosis or edema Neuro oriented x3, CN's II-XII intact bilaterally, moves all extremities and no focal motor deficits Sensorium / Orientation: awake and alert Motor Exam: strength 5/5 throughout Psych affect normal Assessment & Plan Assessment/Plan (1) HTN (hypertension): (2) Acute respiratory failure: (3) CHF (congestive heart failure): (4) Atrial fibrillation with RVR: PLAN: Plan #Acute hypoxic respiratory failure due to acute on chronic HFpEF * Has known EF of 60%. Also has pulmonary hypertension. * On IV Lasix 40 mg twice daily. Cardiology on board. * Monitor intake and output. Fluid restriction 1500 cc daily. * #A. fib * No longer in RVR. Continue current meds. * #Non-STEMI: * Troponins were elevated and this was thought to be due to demand ischemia from heart failure. * cardiology on board, to have stress test. * #UTI due to E. coli: On Rocephin #Hematuria * Eliquis was started today but patient started having hematuria. Will consult urology. * Will insert Kaur catheter. Hold Eliquis. * #COPD: Not in exacerbation. Breathing treatments with bronchodilators. #History of alcohol use disorder: not in withdrawal. Stable. DVT prophylaxis: SCDs. ELiquis on hold. Charges/Coding Visit Charges Inpatient E&M: 53670 Subs Hosp L2
[2022-05-24] MEDS: Furosemide 40 MG Tablet PO (17:07)
[2022-05-24] MEDS: Carvedilol 12.5 MG Tablet PO (21:16)
[2022-05-24] MEDS: Ceftriaxone 1 GM/50 ML BAG IV (21:16)
[2022-05-24] MEDS: Atorvastatin Calcium 10 MG Tablet PO (21:16)
[2022-05-25] VITALS (11 sets, daily range): BP systolic 103–115; BP diastolic 56–81; PULSE 89–112; RESP 15–20; TEMP 36.1–36.6; O2SAT 86–99
--- NOTE | 2022-05-25 00:18 | CPS ---
Pt refused bipap this PM. RN aware
--- NOTE | 2022-05-25 05:55 | EKG12_ITS ---
Test Reason : AM EKG Blood Pressure : / mmHG Vent. Rate : 109 BPM Atrial Rate : 000 BPM P-R Int : 000 ms QRS Dur : 082 ms QT Int : 338 ms P-R-T Axes : 000 040 001 degrees QTc Int : 455 ms Atrial fibrillation with rapid ventricular response with premature ventricular or aberrantly conducte d complexes Abnormal ECG Confirmed by LORRI GUZMÁN, LETITIA ([id number]), scientific publications editor DAPHNEY FULTON ([id number]) on 05/26/2022 6:50:15 AM Referred By: Confirmed By:LETITIA BLACKMON MD
[2022-05-25] MEDS: Aspirin 81 MG TAB.CHEW PO (06:01)
[2022-05-25 06:09] LABS: Absolute Lymphocyte Count 1.01 X10^3/uL (0.83-4.51); Absolute Neutrophil Count 1.8 X10^3/uL (2.0-7.7); Basophil# 0.09 X10^3/uL; Eosinophil# 0.58 X10^3/uL; Eosinophils% 12.8 % (0-5); Hematocrit 33.3 % (40-54); Hemoglobin 11.1 g/dL (13.0-16.5); Lymphocyte # 1.01 X10^3/ul (0.83-4.51); Lymphocyte % 22.3 % (19-41); Mean Corp Hgb Conc 33.3 g/dL (32-36); Mean Corpuscular Hgb 34.2 pg (27.0-32.0); Mean Corpuscular Volume 102.5 fL (80-94); Mean Platelet Vol. 9.9 fl (6.2-12.0); Monocyte# 1.02 X10^3/uL; Monocyte% 22.5 % (0-10); NRBC Flagged by Analyzer 0 % (0-5); Neutrophil # 1.82 X10^3/uL (2.7-7.7); Neutrophil % 40.2 % (47-70); Platelet Count 227 K/mm3 (150-450); RBC Distribution Width CV 14.5 % (11.6-14.6); RBC Distribution Width SD 54.5 fl (35.1-43.9); Red Blood Count 3.25 M/mm3 (4.6-6.2); White Blood Count 4.5 K/mm3 (4.4-11.0)
[2022-05-25 06:58] LABS: Anion Gap 10 (5-15); BUN 23 mg/dL (7-18); BUN/Creat Ratio 24.4 RATIO (10-20); Calcium,Total 9.5 mg/dL (8.5-10.1); Chloride 104 mmol/L (98-107); Creatinine, Serum 0.94 mg/dL (0.70-1.30); EST Glomerular Filtration Rate 81 mL/min (>60); Est Glom Filt Rate - Afr Amer 98 mL/min (>60); Estimated Creatinine Clearance 55.34 ml/min; Glucose 111 mg/dL (74-106); Potassium 4.1 mmol/L (3.5-5.1); Sodium Level 148 mmol/L (136-145)
--- NOTE | 2022-05-25 08:50 | STRESSREP_ITS ---
Stress Test Report Date: 05-25-2022 Procedure: Pharmacologic stress nuclear imaging study Indications: Abnormal troponin I levels; atrial fibrillation Consent: Per the patient Procedure: The patient underwent pharmacologic (Regadenoson 0.4mg ) evaluation with a peak heart rate of 115 beats per minute (85%predicted maximal heart rate) and a resting blood pressure of 112/62 mmHg and a peak blood pressure of 112/62 mmHg. The baseline ECG demonstrated atrial fibrillation. The peak pharmacologic ECG demonstrated no obvious ECG changes. There was a rare PVC during recovery. There was no complaint of chest discomfort during pharmacologic infusion or recovery. The examination was discontinued secondary to completion of protocol. Impression: 1. Pharmacologic (Regadenoson) evaluation 2. Peak pharmacologic ECG with atrial fibrillation with no obvious ECG changes. 3. There was a rare PVC during recovery. 4. Nuclear images pending Myocardial perfusion imaging study: Technique: The patient was injected with 12.0 millicuries of technetium 99m Cardiolite and subsequently rest SPECT Cardiolite nuclear imaging was obtained in the horizontal long, vertical long, and short axis views. The patient underwent pharmacologic (Regadenoson) evaluation with a peak heart rate of 115 beats per minute (85% percent predicted maximal heart rate) and a resting blood pressure of 112/62 mmHg and a peak blood pressure of 112/62 mmHg. The patient was injected with 34.6 millicuries of technetium 99m Cardiolite and subsequently stress SPECT Cardiolite nuclear imaging was obtained in the horizontal long, vertical long, and short axis views. A gated Cardiolite study at peak stress was obtained. Interpretation: Rest and stress SPECT Cardiolite nuclear imaging status post realignment, normalization, and attenuation correction demonstrate relative uniform tracer uptake and myocardial perfusion appearing within normal limits. There is end systolic thickening and brightening. The gated Cardiolite study demonstrates myocardial thickening and inward wall motion. The reported LVEF is 58%. Impression: 1. Relative uniform tracer uptake and myocardial perfusion appearing within normal limits. 2. The gated Cardiolite study reports an LVEF of 58%. This note was generated with [employer] software. It may contain incorrect words, spelling, and punctuation that were not noted in checking the note before signing.
[2022-05-25] MEDS: Carvedilol 12.5 MG Tablet PO ×2 (09:38→20:57)
[2022-05-25] MEDS: Thiamine Hydrochloride 100 MG Tablet PO (09:38)
[2022-05-25] MEDS: Folic Acid 1 MG Tablet PO (09:38)
--- NOTE | 2022-05-25 12:39 | PCM.CONS.U ---
HPI Consult Data Date of Consult: 05/25/22 HPI Narrative Reason for Consultation: Gross hematuria HPI Narrative: IRVIN GARLAND, is a 86 M who presents to the hospital with shortness of breath congestive heart failure. He has a history of a TURP in the past I did a recent cystoscopy not that long ago the demonstrated a wide open channel from a prior TURP. No tumors or stones within the bladder. He came to the hospital is been having some gross hematuria. Typically at home he self caths to empty his bladder he will need to continue with self-catheterization here at the hospital I would probably have his family members get the catheters from his home since they are little stiffer and a be easier to get into the bladder so have the patient continue self-catheterization while he was here in the hospital. Call me with questions but I do not think a hematuria work-up is necessary since a very seen the patient recently probably the blood in the urine it may be from an infection or for some trauma from the catheter and continue with self intermittent catheterization. [facility] Medical History (Updated 05/20/22 @ 08:[address] Oscar French MD) COPD (chronic obstructive pulmonary disease) Kidney stones Paroxysmal A-fib Prostate cancer Home Medications cholecalciferol (vitamin D3) 25 mcg (1,000 unit) tablet (Vitamin D3) 1,000 unit PO DAILY supplement 03/23/22 [History Last Taken 05/19/22] apixaban 2.5 mg tablet (Eliquis) 2.5 mg PO BID 05/19/22 [History Last Taken 05/19/22] metoprolol tartrate 25 mg tablet 12.5 mg PO BID HEART 05/19/22 [History Last Taken 05/19/22] Allergy/AdvReac Type Severity Reaction Status Date / Time No Known Allergies Allergy Verified 05/19/22 17:27 Family History Mother Heart disease Hypertension Father Heart disease Hypertension Surgical History S/P hemodialysis catheter insertion Social History household members: significant other housing: house Smoking Status: Never smoker alcohol intake: current alcohol intake frequency: 0-2 drinks per day details: Occasional EtOH use. substance use type: does not use Lab / Micro Data Result Diagrams: 05/25/22 05:23 05/25/22 05:23 Labs: Laboratory Results - last 24 hr 05/25/22 05:23: WBC 4.5, RBC 3.25 L, Hgb 11.1 L, Hct 33.3 L, MCV 102.5 H, MCH 34.2 H, MCHC 33.3, RDW Std Deviation 54.5 H, RDW Coeff of [place] 14.5, Plt Count 227, MPV 9.9, Immature Gran % (Auto) 0.200, Neut % (Auto) 40.2 L, Lymph % (Auto) 22.3, [place] % (Auto) 22.5 H, Eos % (Auto) 12.8 H, Baso % (Auto) 2.0 H, Absolute Neuts (auto) 1.8 L, Absolute Lymphs (auto) 1.01, Nucleated RBC % 0 05/25/22 05:23: Sodium 148 H, Potassium 4.1, Chloride 104, Carbon Dioxide 34.0 H, Anion Gap 10, BUN 23 H, Creatinine 0.94, Estim Creat Clear Calc 55.34, Est GFR (MDRD) Af Amer 98, Est GFR (MDRD) Non-Af 81, BUN/Creatinine Ratio 24.4 H, Glucose 111 H, Calcium 9.5
[2022-05-25] MEDS: Furosemide 40 MG Tablet PO ×2 (12:52→17:12)
[2022-05-25] MEDS: APIXABAN 2.5 MG TABLET PO ×2 (12:52→20:57)
--- NOTE | 2022-05-25 13:34 | PN.HOSP_ITS ---
Subjective Subjective Patient seen and examined. He feels much better.He had an uneventful night and review of systems is otherwise negative. Objective Data Objective Data Vital Signs: Vital Signs Temp Pulse Resp BP Pulse Ox O2 Del Method O2 Flow Rate 97 F L 93 18 115/81 H 96 Nasal Cannula 3 05/25/22 09:35 05/25/22 09:35 05/25/22 09:35 05/25/22 09:35 05/25/22 09:35 05/25/22 09:35 05/25/22 09:35 FiO2 35 05/22/22 19:20 Oxygen Flow Rate (L/min) 3 Oxygen Delivery Method Nasal Cannula Weight: 150 lb 2.157 oz Body Mass Index (BMI) 25.9 Intake & Output: Intake and Output for Last 24 Hours 05/23/22 05/24/22 05/25/22 23:59 23:59 23:59 Intake Total 1030 / 1030 1150 / 1150 240 / 240 Output Total 1750 / 1750 1320 / 1320 400 / 400 Balance -720 / -720 -170 / -170 -160 / -160 Lab / Micro Data Result Diagrams: 05/25/22 05:23 05/25/22 05:23 Labs: Laboratory Results - last 24 hr 05/25/22 05:23: WBC 4.5, RBC 3.25 L, Hgb 11.1 L, Hct 33.3 L, MCV 102.5 H, MCH 34.2 H, MCHC 33.3, RDW Std Deviation 54.5 H, RDW Coeff of [place] 14.5, Plt Count 227, MPV 9.9, Immature Gran % (Auto) 0.200, Neut % (Auto) 40.2 L, Lymph % (Auto) 22.3, [place] % (Auto) 22.5 H, Eos % (Auto) 12.8 H, Baso % (Auto) 2.0 H, Absolute Neuts (auto) 1.8 L, Absolute Lymphs (auto) 1.01, Nucleated RBC % 0 05/25/22 05:23: Sodium 148 H, Potassium 4.1, Chloride 104, Carbon Dioxide 34.0 H , Anion Gap 10, BUN 23 H, Creatinine 0.94, Estim Creat Clear Calc 55.34, Est GFR (MDRD) Af Amer 98, Est GFR (MDRD) Non-Af 81, BUN/Creatinine Ratio 24.4 H, Glucose 111 H, Calcium 9.5 Micro: Microbiology 05/19/22 19:35 Urine Catheter - Catheter Urine Culture - Final Escherichia coli 05/19/22 21:25 Mucosa - Nose Respiratory Panel (PCR) - Final 05/19/22 18:05 Nasal Secretion SARS-CoV-2 Antigen (Rapid) - Final Physical Exam Const alert, oriented x3 and no apparent distress HEENT head/scalp atraumatic, moist oral mucous membranes and oropharynx normal Mouth: oral and palatal mucosa normal Eyes PERRL and EOMs intact bilaterally Neck no lymphadenopathy and supple Resp normal respiratory effort, no retractions, no use of accessory muscles and clear to auscultation bilaterally Resp Narrative: diminished breath sounds bibasally, no wheezes, no crackles. On 3L of oxygen by nasal canula. Cardio regular rate, regular rhythm, S1 normal heart sound, S2 normal heart sound and no murmurs GI normal to inspection, nondistended, normoactive bowel sounds, soft to palpation, non-tender and non-distended Extremity normal to inspection, full ROM and no clubbing, cyanosis or edema Extremity Narrative: Some LE edema bilaterally Neuro oriented x3, CN's II-XII intact bilaterally, moves all extremities and no focal motor deficits Sensorium / Orientation: awake and alert Motor Exam: strength 5/5 throughout Psych affect normal Assessment & Plan Assessment/Plan (1) HTN (hypertension): (2) Acute respiratory failure: (3) CHF (congestive heart failure): (4) Atrial fibrillation with RVR: PLAN: Plan #Acute hypoxic respiratory failure due to acute on chronic HFpEF * Has known EF of 60%. Also has pulmonary hypertension. * On IV Lasix 40 mg twice daily. Cardiology on board. * Monitor intake and output. Fluid restriction 1500 cc daily. * #A. fib * rate controlled. * #Non-STEMI: * Troponins were elevated and this was thought to be due to demand ischemia from heart failure. * cardiology on board * stress test today was negative. * #UTI due to E. coli: On Rocephin. Completed a 5 day course of antibiotics #Hematuria * Eliquis was started today but patient started having hematuria. Will consult urology. * Will insert Kaur catheter. Hold Eliquis. * #COPD: Not in exacerbation. Breathing treatments with bronchodilators. #History of alcohol use disorder: not in withdrawal. Stable. DVT prophylaxis: SCDs. ELiquis on hold. Charges/Coding Visit Charges Inpatient E&M: 02827 Subs Hosp L2
--- NOTE | 2022-05-25 14:47 | CASEMGMT ---
Pt qualifies for 4L w/ exertion but is ok on room air at rest. Dr. Banegas states pt will d/c home tomorrow. Pt's daughter, Toya, is at bedside and pt/daughter state no concerns with going home at discharge. Pt/daughter state no need for any further therapy. Daughter aware that pt may need increased oxygen at discharge and new script will be sent, voices understanding. Daughter also aware that pt was supposed to be wearing oxygen with any exertion, voices understanding. Pt does have pulse ox at home. Pt/daughter voice no further questions/concerns/needs. SStkeegan VAN CM
--- NOTE | 2022-05-25 15:40 | PN.CARD_ITS ---
Subjective Subjective The patient appears to be resting comfortably at this time. He has no new acute symptoms. Objective Data Vital Signs: Vital Signs Temp Pulse Resp BP Pulse Ox O2 Del Method O2 Flow Rate 97 F L 93 18 115/81 H 98 Nasal Cannula 0 05/25/22 09:35 05/25/22 09:35 05/25/22 09:35 05/25/22 09:35 05/25/22 14:27 05/25/22 14:20 05/25/22 14:27 FiO2 35 05/22/22 19:20 Oxygen Flow Rate (L/min) [ 4 AMBULATING with Oxygen #3] Oxygen Flow Rate (L/min) [ 3 AMBULATING with Oxygen #2] Oxygen Flow Rate (L/min) [ 2 AMBULATING with Oxygen #1] Oxygen Flow Rate (L/min) [At 0 REST on Room Air] Oxygen Flow Rate (L/min) 3 Oxygen Delivery Method Nasal Cannula Weight: 150 lb 2.157 oz Body Mass Index (BMI) 25.9 Intake & Output: Intake and Output for Last 24 Hours 05/23/22 05/24/22 05/25/22 23:59 23:59 23:59 Intake Total 1030 / 1030 1150 / 1150 240 / 240 Output Total 1750 / 1750 1320 / 1320 400 / 400 Balance -720 / -720 -170 / -170 -160 / -160 Lab / Micro Data Result Diagrams: 05/25/22 05:23 05/25/22 05:23 Labs: Laboratory Results - last 24 hr 05/25/22 05:23: WBC 4.5, RBC 3.25 L, Hgb 11.1 L, Hct 33.3 L, MCV 102.5 H, MCH 34.2 H, MCHC 33.3, RDW Std Deviation 54.5 H, RDW Coeff of [place] 14.5, Plt Count 227, MPV 9.9, Immature Gran % (Auto) 0.200, Neut % (Auto) 40.2 L, Lymph % (Auto) 22.3, [place] % (Auto) 22.5 H, Eos % (Auto) 12.8 H, Baso % (Auto) 2.0 H, Absolute Neuts (auto) 1.8 L, Absolute Lymphs (auto) 1.01, Nucleated RBC % 0 05/25/22 05:23: Sodium 148 H, Potassium 4.1, Chloride 104, Carbon Dioxide 34.0 H , Anion Gap 10, BUN 23 H, Creatinine 0.94, Estim Creat Clear Calc 55.34, Est GFR (MDRD) Af Amer 98, Est GFR (MDRD) Non-Af 81, BUN/Creatinine Ratio 24.4 H, Glucose 111 H, Calcium 9.5 Cardiology Labs/Tests 05/25/22 05:23: WBC 4.5, RBC 3.25 L, Hgb 11.1 L, Hct 33.3 L, MCV 102.5 H, MCH 34.2 H, MCHC 33.3, Plt Count 227, MPV 9.9, Immature Gran % (Auto) 0.200, Neut % (Auto) 40.2 L, Lymph % (Auto) 22.3, [place] % (Auto) 22.5 H, Eos % (Auto) 12.8 H, Baso % (Auto) 2.0 H, Absolute Neuts (auto) 1.8 L, Nucleated RBC % 0 05/25/22 05:23: Sodium 148 H, Potassium 4.1, Chloride 104, Carbon Dioxide 34.0 H , Anion Gap 10, BUN 23 H, Creatinine 0.94, Est GFR (MDRD) Af Amer 98, Est GFR (MDRD) Non-Af 81, BUN/Creatinine Ratio 24.4 H, Glucose 111 H, Calcium 9.5 Rhythm: Atrial fibrillation Stress Test: Stress Test Report Date: 05-25-2022 Procedure: Pharmacologic stress nuclear imaging study? Indications: Abnormal troponin I levels; atrial fibrillation Consent: Per the patient Procedure: The patient underwent pharmacologic (Regadenoson 0.4mg ) evaluation with a peak heart rate of 115 beats per minute (85%predicted maximal heart rate) and a resting blood pressure of 112/62 mmHg and a peak blood pressure of 112/62 mmHg. The baseline ECG demonstrated atrial fibrillation.? The peak pharmacologic ECG demonstrated no obvious ECG changes. There was a rare PVC during recovery. There was no complaint of chest discomfort during pharmacologic infusion or recovery. The examination was discontinued secondary to completion of protocol. Impression: 1.? Pharmacologic (Regadenoson) evaluation 2.? Peak pharmacologic ECG with atrial fibrillation with no obvious ECG changes. 3.? There was a rare PVC during recovery. 4.? Nuclear images pending Myocardial perfusion imaging study: Technique: The patient was injected with 12.0 millicuries of technetium 99m Cardiolite and subsequently rest SPECT Cardiolite nuclear imaging was obtained in the horizontal long, vertical long, and short axis views. The patient underwent pharmacologic (Regadenoson) evaluation with a peak heart rate of 115 beats per minute (85% percent predicted maximal heart rate) and a resting blood pressure of 112/62 mmHg and a peak blood pressure of 112/62 mmHg. The patient was injected with 34.6 millicuries of technetium 99m Cardiolite and subsequently stress SPECT Cardiolite nuclear imaging was obtained in the horizontal long, vertical long, and short axis views.? A gated Cardiolite study at peak stress was obtained. Interpretation: Rest and stress SPECT Cardiolite nuclear imaging status post realignment, normalization, and attenuation correction demonstrate relative uniform tracer uptake and myocardial perfusion appearing within normal limits.? There is end systolic thickening and brightening.? The gated Cardiolite study demonstrates my ocardial thickening and inward wall motion.? The reported LVEF is 58%. Impression: 1.? Relative uniform tracer uptake and myocardial perfusion appearing within normal limits. 2.? The gated Cardiolite study reports an LVEF of 58%. Physical Exam Const alert, oriented x3 and no apparent distress Orientation / Consciousness: awake HEENT normocephalic, head/scalp atraumatic and hearing grossly normal bilaterally Eyes PERRL, EOMs intact bilaterally, conjunctivae normal and no scleral icterus Neck no JVD Resp normal respiratory effort and clear to auscultation bilaterally Cardio Palpation: normal PMI Rhythm: abnormal rhythm irregularly irregular Heart Sounds: S1 normal and S2 normal GI normal to inspection, nondistended, normoactive bowel sounds Extremity no pedal edema Skin no rashes or lesions noted Psych mental status grossly normal Assessment & Plan Assessment/Plan (1) Elevated troponin: PLAN: The patient has elevated troponins. The troponins have been relatively steady without a peak and trough. This does raise concern that the troponins are secondary to the patient's multiple comorbidities including concerns of volume overload, atrial fibrillation, superimposed upon his underlying ongoing pulmonary disease process concerning for pneumonia as well as his anemia. This would be a pattern compatible with a type II non-ST segment elevation NH. The patient has undergone a follow-up transthoracic echocardiogram. The results are as noted. The patient has also undergone a pharmacologic stress nuclear imaging study. It did not appear to demonstrate any obvious evidence of myocardial injury/infarction or ongoing myocardial ischemia. At the present time he will continue medical management. (2) CHF (congestive heart failure): PLAN: The patient has been thought to have evidence of volume overload compatible with CHF. Based upon his echocardiogram he continues to demonstrate evidence of overall preserved LV systolic function. Thus his CHF may be heart failure with preserved ejection fraction. The patient does appear to be symptomatically improved. He will continue medical management. (3) Atrial fibrillation with RVR: PLAN: The patient appears to have a history of atrial fibrillation. He states this has been chronic. He will need to continue rate control therapy and anticoagulant therapy as deemed appropriate. (4) HTN (hypertension): PLAN: The patient is reported as having a history of hypertension. His blood pressure will need to be monitored and his medicines adjusted accordingly. (5) Pneumonia: PLAN: The patient does appear to have an underlying pulmonary disease based upon his history, exam, and his radiologic findings compatible with an acute respiratory event/pneumonitis. He will need continued medical therapy which includes his antibiotic therapy with adjustment over time as needed. It would be prudent to try and bring his pulmonary disease process under better control prior to proceeding with additional noninvasive or invasive cardiovascular studies. (6) UTI (urinary tract infection): PLAN: The patient was diagnosed with a UTI on admission. He will continue medical management (7) COPD (chronic obstructive pulmonary disease): PLAN: The patient has a history of underlying COPD. This has to be taken into consideration with his ongoing evaluation and care. (8) Anemia: PLAN: The patient has a history of what appears to be chronic anemia. His hemoglobin remains low. This will need to be monitored during his evaluation and care especially with respect to anticoagulant therapy. Addt'l Comments The above was discussed and reviewed with the patient with his family member present. This note was generated using a voice recognition system and there may be incorrect words, spelling or punctuation that were not noted when reviewing the office note prior to saving. Procedure Criteria Type of Procedure Procedure Type: Elective Elective Risks - COVID COVID Risk Discussion: The surgeon/proceduralist and patient have discussed in detail the risk of exposure to and/or potential harm posed by the COVID-19 virus with having a surgery/procedure at this time versus the risk of delaying the surgery/proced ure. It is not possible to know either the risk of delaying the surgery or procedure or chance of getting an infection with perfect accuracy, but a joint decision was made between the patient and the surgeon/proceduralist to proceed at this time with the scheduled surgery/procedure as indicated on the consent form.
[2022-05-25] MEDS: Budesonide Respules 0.5 MG/2 ML AMPUL.NEB. INHALATION (19:49)
[2022-05-25] MEDS: Atorvastatin Calcium 10 MG Tablet PO (20:57)
[2022-05-25] MEDS: 0.9% Saline Lock 10 ML Syringe IV (20:57)
--- NOTE | 2022-05-25 23:48 | CPS ---
pt refuses BIPAP
[2022-05-26 03:00] VITALS: PULSE 76
[2022-05-26 03:16] VITALS: BP 118/60; PULSE 93; RESP 20; TEMP 36.8; O2SAT 100
[2022-05-26 06:45] LABS: Absolute Lymphocyte Count 1.09 X10^3/uL (0.83-4.51); Absolute Neutrophil Count 1.7 X10^3/uL (2.0-7.7); Basophil# 0.08 X10^3/uL; Basophil% 1.9 % (0-1); Hematocrit 32.4 % (40-54); Hemoglobin 10.9 g/dL (13.0-16.5); Lymphocyte # 1.09 X10^3/ul (0.83-4.51); Lymphocyte % 26.3 % (19-41); Mean Corp Hgb Conc 33.6 g/dL (32-36); Mean Corpuscular Hgb 33.7 pg (27.0-32.0); Mean Corpuscular Volume 100.3 fL (80-94); Mean Platelet Vol. 9.9 fl (6.2-12.0); Monocyte# 0.73 X10^3/uL; Monocyte% 17.6 % (0-10); NRBC Flagged by Analyzer 0 % (0-5); Neutrophil # 1.74 X10^3/uL (2.7-7.7); Platelet Count 246 K/mm3 (150-450); RBC Distribution Width CV 14.4 % (11.6-14.6); RBC Distribution Width SD 52.9 fl (35.1-43.9); Red Blood Count 3.23 M/mm3 (4.6-6.2); White Blood Count 4.2 K/mm3 (4.4-11.0)
[2022-05-26 07:00] VITALS: PULSE 100
[2022-05-26 07:16] LABS: Anion Gap 8 (5-15); BUN 25 mg/dL (7-18); BUN/Creat Ratio 28.2 RATIO (10-20); Calcium,Total 9.5 mg/dL (8.5-10.1); Chloride 100 mmol/L (98-107); Creatinine, Serum 0.88 mg/dL (0.70-1.30); EST Glomerular Filtration Rate 87 mL/min (>60); Est Glom Filt Rate - Afr Amer 105 mL/min (>60); Estimated Creatinine Clearance 58.68 ml/min; Glucose 121 mg/dL (74-106); Potassium 4.2 mmol/L (3.5-5.1); Sodium Level 139 mmol/L (136-145)
[2022-05-26] MEDS: Budesonide Respules 0.5 MG/2 ML AMPUL.NEB. INHALATION (07:26)
[2022-05-26 07:52] VITALS: PULSE 102; RESP 20; O2SAT 96
[2022-05-26 08:50] VITALS: BP 104/64; PULSE 76; RESP 17; TEMP 36.5; O2SAT 98
[2022-05-26] MEDS: Folic Acid 1 MG Tablet PO (08:54)
[2022-05-26] MEDS: Aspirin 81 MG TAB.CHEW PO (08:54)
[2022-05-26] MEDS: APIXABAN 2.5 MG TABLET PO (08:55)
[2022-05-26] MEDS: Thiamine Hydrochloride 100 MG Tablet PO (08:55)
[2022-05-26] MEDS: Carvedilol 12.5 MG Tablet PO (08:55)
[2022-05-26] MEDS: Furosemide 40 MG Tablet PO (08:55)
--- NOTE | 2022-05-26 09:52 | DS.PCM_ITS ---
Providers Date of Admission: 05/19/22 Date of Discharge: 05/26/22 Primary Care Physician: Dr. Conor Ronquillo, Consultations 05/19/22 21:58 Consult: Cardiology Routine Consulting Provider: Oscar French Reason for Consult: Acute Hypoxic Resp Failure, PAF w/ RVR, Volume overload/CHF associated EMERGENT Consult: No Notified: Yes Date Notified: 05/19/22 Time Notified: 20:26 Method of Notification: Text 05/24/22 13:59 Consult: Urology Routine Consulting Provider: Edgard Schafer Reason for Consult: hematuria EMERGENT Consult: No Notified: Yes Date Notified: 05/24/22 Time Notified: 14:00 Method of Notification: Text Reason For Visit: CHF EXACERBATION, PAF W/ RVR, INDETER TROP Diagnosis Discharge Diagnosis (1) Elevated troponin: Status: Acute Code(s): R77.8 - Other specified abnormalities of plasma proteins (2) CHF (congestive heart failure): Status: Acute Code(s): I50.9 - Heart failure, unspecified (3) Atrial fibrillation with RVR: Status: Acute Code(s): I48.91 - Unspecified atrial fibrillation (4) HTN (hypertension): Status: Chronic Code(s): I10 - Essential (primary) hypertension (5) Pneumonia: Status: Acute Code(s): J18.9 - Pneumonia, unspecified organism (6) UTI (urinary tract infection): Status: Acute Code(s): N39.0 - Urinary tract infection, site not specified (7) COPD (chronic obstructive pulmonary disease): Status: Chronic Code(s): J44.9 - Chronic obstructive pulmonary disease, unspecified (8) Anemia: Status: Acute Code(s): D64.9 - Anemia, unspecified Plan #Acute hypoxic respiratory failure due to acute on chronic HFpEF * Has known EF of 60%. Also has pulmonary hypertension. * On IV Lasix 40 mg twice daily. Cardiology on board. * Monitor intake and output. Fluid restriction 1500 cc daily. * #A. fib * rate controlled. * #Non-STEMI: * Troponins were elevated and this was thought to be due to demand ischemia from heart failure. * cardiology on board * stress test today was negative. * #UTI due to E. coli: On Rocephin. Completed a 5 day course of antibiotics #Hematuria * Eliquis was started today but patient started having hematuria. Will consult urology. * Will insert Kaur catheter. Hold Eliquis. * #COPD: Not in exacerbation. Breathing treatments with bronchodilators. #History of alcohol use disorder: not in withdrawal. Stable. DVT prophylaxis: SCDs. ELiquis on hold. Medications at Discharge Home Medications cholecalciferol (vitamin D3) 25 mcg (1,000 unit) tablet (Vitamin D3) 1,000 unit PO DAILY supplement 03/23/22 apixaban 2.5 mg tablet (Eliquis) 2.5 mg PO BID 05/19/22 atorvastatin 10 mg tablet 10 mg PO QHS #30 tabs 05/26/22 carvedilol 12.5 mg tablet 12.5 mg PO BID #60 tabs 05/26/22 furosemide 40 mg tablet 40 mg PO BIDLX #60 tabs 05/26/22 potassium chloride 20 mEq tablet,extended release 20 meq PO DAILY #30 tabs 05/08 04/29 Hospital Course Operations None Procedures 2-D Echocardiogram and Stress test Summary of Care Provided Minutes Spent on Discharge: 50 Hospital Course: Is an 86-year-old male with a past medical history as outlined was admitted thr ough the ED with a complaint of shortness of breath and cough with resultant emesis as well as diarrhea for about 3 to 4 days prior to admission. He also complained of lower back pain. His symptoms have been going on for about 3 to 4 days. He had presented earlier in the year for acute renal failure which required temporary dialysis and was noted to have paroxysmal A. fib at that time. He was noted to have A. fib at that time and was discharged home on Eliquis. He had been noncompliant with Eliquis as he did not like how it made him feel though family had convinced him to start retaking it a few days prior to admission. Chest x-ray showed evidence of CHF with bilateral pleural effusion and EKG showed A. fib with a heart rate of 114. BNP was elevated and high-sensitivity troponin was also elevated. He was admitted to be managed for acute on chronic heart failure as well as non-STEMI. He was diuresed with IV Lasix and admitted to the hospital. Cardiology was also consulted in light of elevated troponin. Patient was also managed for UTI and placed on IV antibiotics. Urine culture E. coli. Hospital course was complicated by hematuria and Eliquis was initially held. This was subsequently resumed. 2D echo done showed EF of 60% as well as evidence of pulmonary hypertension. As mentioned, cardiology was on board. Shortness of breath improved and he was weaned down to his baseline oxygen. He had a stress test done which was negative for any evidence of ischemia. Patient felt much better and was discharged home on 05/26/2022. He was discharged on p.o. Lasix. He is to follow-up with his primary care doctor as well as outreach analyst. Patient seen and examined prior to discharge. He felt much better and had no complaints. Review of systems otherwise negative. Labs and vitals reviewed. Home medication reviewed and reconciled. Physical Exam Const alert, oriented x3 and no apparent distress General Appearance: cooperative, comfortable and well kempt Orientation / Consciousness: awake Exam Limitations: no limitations HEENT normocephalic, head/scalp atraumatic, hearing grossly normal bilaterally, moist oral mucous membranes and oropharynx normal Mouth: oral and palatal mucosa normal Eyes PERRL and EOMs intact bilaterally Neck no lymphadenopathy and supple Resp Resp Narrative: diminished breath sounds bibasally, no wheezes, no crackles. On 3L of oxygen by nasal canula. Cardio regular rate, regular rhythm, S1 normal heart sound, S2 normal heart sound and no murmurs GI normal to inspection, nondistended, normoactive bowel sounds, soft to palpation, non-tender and non-distended Extremity normal to inspection, full ROM and no clubbing, cyanosis or edema Skin no rashes or lesions noted Neuro oriented x3, CN's II-XII intact bilaterally, moves all extremities and no focal motor deficits Sensorium / Orientation: awake and alert Motor Exam: strength 5/5 throughout Psych affect normal Weight / BMI Weight Weight: 149 lb 0.52 oz Body Mass Index (BMI) 25.9 ABG / Lab / Microbiology Data Result Diagrams: 05/26/22 06:32 05/26/22 06:32 Laboratory: Laboratory Results - last 24 hr 05/26/22 06:32: WBC 4.2 L, RBC 3.23 L, Hgb 10.9 L, Hct 32.4 L, MCV 100.3 H, MCH 33.7 H, MCHC 33.6, RDW Std Deviation 52.9 H, RDW Coeff of Chaparro 14.4, Plt Count 246, MPV 9.9, Immature Gran % (Auto) 0.200, Neut % (Auto) 42.0 L, Lymph % (Auto) 26.3, [place] % (Auto) 17.6 H, Eos % (Auto) 12.0 H, Baso % (Auto) 1.9 H, Absolute Neuts (auto) 1.7 L, Absolute Lymphs (auto) 1.09, Nucleated RBC % 0 05/26/22 06:32: Sodium 139, Potassium 4.2, Chloride 100, Carbon Dioxide 31.0, Anion Gap 8, BUN 25 H, Creatinine 0.88, Estim Creat Clear Calc 58.68, Est GFR (MDRD) Af Amer 105, Est GFR (MDRD) Non-Af 87, BUN/Creatinine Ratio 28.2 H, Glucose 121 H, Calcium 9.5 Microbiology: Microbiology 05/19/22 19:35 Urine Catheter - Catheter Urine Culture - Final Escherichia coli 05/19/22 21:25 Mucosa - Nose Respiratory Panel (PCR) - Final 05/19/22 18:05 Nasal Secretion SARS-CoV-2 Antigen (Rapid) - Final D/C Instructions Discharge Diet: Low fat / Low cholesterol Weight Bearing Status: Weight bearing as tolerated Call your doctor if you observe: Fever of 101 or Higher, Shortness of breath, Swelling in the ankles, Chest pain and Increased palpitations (irregular heartbeat) Meaningful Use Info Meaningful Use Diagnoses (Choose all that apply): None applicable AMI/Post PCI/Angioplasty Aspirin given w/in 24hrs of arrival?: Yes ASA at discharge?: Yes Discharge Plan Admission Admit Date/Time: 05/19/22 19:31 Primary Reason for Your Visit: heart failure exacerbation, Afib with RVR Attending Provider: Purnima Banegas Primary Care Provider: Conor Ronquillo Consulting Providers: Oscar French ; Angelica Willis ; Leigh Bauman Nicholas F ; Edgard Schafer Instructions Patient Instructions: Coping with Heart Failure, AFib Discharge Orders/Prescriptions Prescriptions: New furosemide 40 mg Tablet 40 mg PO BIDLX Qty: 60 2RF carvedilol 12.5 mg Tablet 12.5 mg PO BID Qty: 60 1RF atorvastatin 10 mg Tablet 10 mg PO QHS Qty: 30 1RF potassium chloride 20 mEq tablet extended release 20 meq PO DAILY Qty: 30 1RF Continued cholecalciferol (vitamin D3) [Vitamin D3] 25 mcg (1,000 unit) tablet 1,000 unit PO DAILY Label Comments: Take 1 tablet by mouth once a day Eliquis 2.5 mg tablet 2.5 mg PO BID Label Comments: TAKE 1 TABLET BY MOUTH TWICE DAILY. START 04/01/22 Discontinued metoprolol tartrate 25 mg tablet 12.5 mg PO BID Label Comments: TAKE 1/2 (ONE-HALF) TABLET BY MOUTH TWICE DAILY Referrals / Follow Up: Conor Ronquillo DO [Primary Care Provider] - 06/02/22 2:30 pm Azul Haro NP, [facility] [Non-Staff -Ordering Privileges] - 06/10/22 3:30 pm Disposition Disposition (needs filled in before D/C Order can be placed): Home, Self Care Charges/Coding Visit Charges Inpatient E&M: 62210 Disch Hosp
--- NOTE | 2022-05-26 09:52 | DCINST_ITS ---
Discharge Instructions Diet Discharge Diet: Low fat / Low cholesterol Activity Discharge Activity: Return to Normal Activity Weight Bearing Status: Weight bearing as tolerated Dressing / Incision Call your doctor if you observe: Fever of 101 or Higher, Shortness of breath, Swelling in the ankles, Chest pain and Increased palpitations (irregular heartbeat) Follow Up Care Test Results: Test results from this visit will be discussed in further detail at your follow- up appointment, if applicable. Discharge Plan Admission Admit Date/Time: 05/19/22 19:31 Primary Reason for Your Visit: heart failure exacerbation, Afib with RVR Attending Provider: Purnima Banegas Primary Care Provider: Coonr Ronquillo Consulting Providers: Oscar French ; Angelica Willis ; Leigh Bauman ; Víctor Back ; Edgard Schafer Instructions Patient Instructions: Coping with Heart Failure, AFib Discharge Orders/Prescriptions Prescriptions: New furosemide 40 mg Tablet 40 mg PO BIDLX Qty: 60 2RF carvedilol 12.5 mg Tablet 12.5 mg PO BID Qty: 60 1RF atorvastatin 10 mg Tablet 10 mg PO QHS Qty: 30 1RF potassium chloride 20 mEq tablet extended release 20 meq PO DAILY Qty: 30 1RF Continued cholecalciferol (vitamin D3) [Vitamin D3] 25 mcg (1,000 unit) tablet 1,000 unit PO DAILY Label Comments: Take 1 tablet by mouth once a day Eliquis 2.5 mg tablet 2.5 mg PO BID Label Comments: TAKE 1 TABLET BY MOUTH TWICE DAILY. START 04/01/22 Discontinued metoprolol tartrate 25 mg tablet 12.5 mg PO BID Label Comments: TAKE 1/2 (ONE-HALF) TABLET BY MOUTH TWICE DAILY Referrals / Follow Up: Conor Ronquillo DO [Primary Care Provider] - Within 2 Weeks Oscar French MD [Med Staff - Active Staff] - Within 2 Weeks Disposition Disposition (needs filled in before D/C Order can be placed): Home, Self Care
--- NOTE | 2022-05-26 10:33 | CASEMGMT ---
Addendum entered by Myesha Rodriguez 05/26/22 12:01: Daughter/pt states no other concerns with pt going home at discharge and decline need for any further therapy. Ant VAN CM Original Note: New order sent to [facility] for 4L w/ exertion home oxygen. Per daughter, pt already has concentrator and mini tanks at home and is aware that pt needs to wear oxygen with any exertion/movement. Pt does have pulse ox at home and daughter is aware to keep oxygen 89% or greater. Ant VAN CM
--- NOTE | 2022-05-26 10:53 | PHA.DC.MC ---
Pharmacy Service has performed discharge medication reconciliation and counseling for this patient. 1. ATORVASTATIN 10MG PO QHS 2. CARVEDILOL 12.5MG PO BID 3. FUROSEMIDE 40MG PO BIDLX 4. POTASSIUM CHLORIDE 20MEQ PO DAILY The patient's discharge medication list was reviewed for discrepancies and discrepancies were resolved. Home Medications cholecalciferol (vitamin D3) 25 mcg (1,000 unit) tablet (Vitamin D3) 1,000 unit PO DAILY supplement 03/23/22 apixaban 2.5 mg tablet (Eliquis) 2.5 mg PO BID 05/19/22 atorvastatin 10 mg tablet 10 mg PO QHS #30 tabs 05/26/22 carvedilol 12.5 mg tablet 12.5 mg PO BID #60 tabs 05/26/22 furosemide 40 mg tablet 40 mg PO BIDLX #60 tabs 05/26/22 potassium chloride 20 mEq tablet,extended release 20 meq PO DAILY #30 tabs 05/26/22 The patient was counseled on the following discharge medications and changes in medications for homegoing were reviewed. The Reason for Use, instructions for use, and potential side effects were reviewed for all new medications. The patient's questions regarding all of their medications were answered. The patient was able to verbally demonstrate an understanding of their discharge medications.
== END 2022-05-26 12:59 | disposition home or self-care (01) | DRG 291 ==
LOC: ED 19:41 → PCU 21:30
PROVIDERS: Family Medicine; Internal Medicine; Admitting Provider Family Medicine; Emergency Provider Emergency Medicine; PCP Internal Medicine; Visit Provider Student in an Organized Health Care Education/Training Program
DX: I11.0 Hypertensive heart disease with heart failure (principal); J96.01 Acute respiratory failure with hypoxia; I50.33 Acute on chronic diastolic (congestive) heart failure; N39.0 Urinary tract infection, site not specified; I27.20 Pulmonary hypertension, unspecified; I48.0 Paroxysmal atrial fibrillation; J44.9 Chronic obstructive pulmonary disease, unspecified; D53.9 Nutritional anemia, unspecified; F10.10 Alcohol abuse, uncomplicated; Y90.9 Presence of alcohol in blood, level not specified; B96.20 Unspecified Escherichia coli [E. coli] as the cause of diseases classified elsewhere; R31.0 Gross hematuria; Z66 Do not resuscitate; Z91.14 Patient's other noncompliance with medication regimen; Z79.01 Long term (current) use of anticoagulants; Z79.899 Other long term (current) drug therapy; Z85.46 Personal history of malignant neoplasm of prostate; Z87.891 Personal history of nicotine dependence
CPT/HCPCS: 36415; 71045; 78452; 80048; 80053; 80061; 81001; 82607; 82803; 83605; 83735; 83880; 84100; 84443; 84484; 85025; 87077; 87086; 87088; 87186; 87633; 87811; 93005; 93017; 93306; 94002; 94003; 94640; 94760; 94762; 97116; 97162; 97166; 97530; 97535; 99251; 99285; A9500; J7030; A4216; G0463; J1940; J2405; J2785; J3490

== ENCOUNTER 2022-05-28 17:09 | Observation (INO) | payer MEDICARE, SELFPAY ==
[2022-05-28] VITALS (10 sets, daily range): BP systolic 74–127; BP diastolic 48–102; PULSE 49–107; RESP 16–18; TEMP 36.2–36.7; O2SAT 96–100; BMI 25.0; BMI 24.0
--- NOTE | 2022-05-28 18:06 | EDS_ITS ---
HPI History of Present Illness Chief Complaint: Complaint Detail of Chief Complaint: Hematuria Informant: patient and family Onset/Context/Timing Onset: Days (2) Timing: Continuous Quality: blood w/ clots Location: urethral Current Severity: Moderate Maximum Severity: Moderate Worsened by: Nothing Relieved by: Catheterizing Associated Symptoms Associated Symptoms: Lower abdominal discomfort until he catheterizes Narrative Narrative: Patient presenting with hematuria. He was just discharged from the hospital 2 days ago, he had some hematuria while he was in the hospital, but it resolved, and ever since he has been home he has been having hematuria. He self caths. States he feels like he is emptying his bladder with it, but it is persistent. He is on Eliquis 2.5 mg twice daily because of a history of atrial fibrillation, he was advised to discontinue it until 4 days from now so he has been off of it. He has been getting clots out. He denies any other new symptoms. [facility] Medical History COPD (chronic obstructive pulmonary disease) Kidney stones Paroxysmal A-fib Prostate cancer Home Medications cholecalciferol (vitamin D3) 25 mcg (1,000 unit) tablet (Vitamin D3) 1,000 unit PO DAILY supplement 03/23/22 [History Last Taken 05/19/22] apixaban 2.5 mg tablet (Eliquis) 2.5 mg PO BID 05/19/22 [History Last Taken 05/19/22] atorvastatin 10 mg tablet 10 mg PO QHS #30 tabs 05/26/22 [Rx Last Taken Unknown] carvedilol 12.5 mg tablet 12.5 mg PO BID #60 tabs 05/26/22 [Rx Last Taken Unknown] furosemide 40 mg tablet 40 mg PO BIDLX #60 tabs 05/26/22 [Rx Last Taken Unknown] potassium chloride 20 mEq tablet,extended release 20 meq PO DAILY #30 tabs 05/26/22 [Rx Last Taken Unknown] Allergy/AdvReac Type Severity Reaction Status Date / Time No Known Allergies Allergy Verified 05/28/22 17:34 Family History Mother Heart disease Hypertension Father Heart disease Hypertension Surgical History S/P hemodialysis catheter insertion Social History household members: significant other housing: house Smoking Status: Never smoker alcohol intake: current alcohol intake frequency: 0-2 drinks per day details: Occasional EtOH use. substance use type: does not use ROS ROS ED Constitutional Constitutional ED: Denies chills or fever(s) Eyes Eyes: Denies change in vision or diplopia ENT ENT ED: Denies rhinorrhea or sore throat Cardiovascular Cardiovascular: Denies chest pain or palpitations Respiratory/Chest Respiratory/Chest: Reports cough and dyspnea on exertion; Denies dyspnea Gastrointestinal Gastrointestinal: Reports abdominal pain; Denies diarrhea, nausea or vomiting Genitourinary Genitourinary ED: Reports hematuria; Denies dysuria Musculoskeletal Musculoskeletal: Denies back pain or neck pain Integumentary Denies abscess or rash Neurologic Neurologic: Denies headache(s), paresthesias or weakness Psychiatric Psychiatric: Denies anxiety or suicidal thoughts EXAM Physical Exam Const Vital Signs: 05/28/22 17:10 05/28/22 17:31 05/28/22 20:25 Temperature 97.8 F Temperature Source Temporal Pulse Rate 107 H 49 L Respiratory Rate 16 18 Blood Pressure 94/75 97/53 L 122/102 H Blood Pressure Mean 81 67 108 Pulse Ox 96 96 Oxygen Delivery Method Room Air Nasal Cannula Nasal Cannula Oxygen Flow Rate (L/min) 4 4 Positive well nourished and well developed General Appearance ED: well developed and NAD HEENT Reports moist mucous membranes normocephalic and atraumatic Eyes PERRL and EOMs intact bilaterally Neck full ROM and supple Resp normal respiratory effort and clear to auscultation bilaterally Cardio regular rate, regular rhythm and no murmurs GI non-tender and non-distended Auscultation: normoactive bowel sounds Palpation: soft Back/Spine no CVA tenderness General Back: other FROM Extremity normal to inspection General Extremety ED: Negative for edema, pulses abnormal or tenderness General Extremity: Negative for edema or pulses abnormal Neuro oriented x3, CN's II-XII intact bilaterally and no sensory deficits noted Sensorium / Orientation: awake and alert Motor Exam: strength 5/5 throughout Skin no rashes or lesions noted and no wounds MDM MDM MDM Narrative Medical decision making narrative: Patient is just urinated, we did bedside bladder scan that was somewhere between 160-200 cc. I recommended catheter to irrigate. Patient is amenable. We attempted to place a 22F three-way, it was unable to be placed due to obstruction likely at the prostate, causing some hematuria and nursing aborted. I then had the patient catheterize himself because he has stiff small catheters, he was able but not able to get any significant urine out, just a small amount of blood and a clot. I spoke with Dr. Schafer, he advised trying a 16 [place]. I had nurses try a daily 16, they felt they were able to place it in his bladder, small amount of blood was drained but not 150-200 cc of anything, they were able to irrigate by pushing 20 cc of sterile water in but it would not come out, with attempting another 20 the bloody fluid came out around the catheter at the urethral meatus. I again spoke to Dr. Schafer, who advises not attempting further, he will evaluate in the ED and possibly take to the OR. Lab Data Attestation: I reviewed the patient's lab results. Labs: Laboratory Results - last 24 hr 05/28/22 05/28/22 18:22 18:22 WBC 5.0 RBC 2.81 L Hgb 9.3 L Hct 28.8 L MCV 102.5 H MCH 33.1 H MCHC 32.3 RDW Std Deviation 53.2 H RDW Coeff of Chaparro 14.1 Plt Count 296 MPV 10.3 Immature Gran % (Auto) 0.400 Neut % (Auto) 50.3 Lymph % (Auto) 27.8 [place] % (Auto) 12.3 H Eos % (Auto) 7.0 H Baso % (Auto) 2.2 H Absolute Neuts (auto) 2.5 Absolute Lymphs (auto) 1.40 Nucleated RBC % 0 Sodium 135 L Potassium 4.6 Chloride 98 Carbon Dioxide 32.0 Anion Gap 5 BUN 37 H Creatinine 1.56 H Estim Creat Clear Calc 33.49 Est GFR (MDRD) Af Amer 55 L Est GFR (MDRD) Non-Af 45 L BUN/Creatinine Ratio 23.7 H Glucose 159 H Calcium 9.3 Discharge Plan Triage Chief Complaint: Complaint ED Provider: Ryley Jasmine Dx/Rx/DC Orders Clinical Impression: Hematuria Prescriptions: No Action cholecalciferol (vitamin D3) [Vitamin D3] 25 mcg (1,000 unit) tablet 1,000 unit PO DAILY Label Comments: Take 1 tablet by mouth once a day Eliquis 2.5 mg tablet 2.5 mg PO BID Label Comments: TAKE 1 TABLET BY MOUTH TWICE DAILY. START 04/01/22 furosemide 40 mg Tablet 40 mg PO BIDLX Qty: 60 2RF carvedilol 12.5 mg Tablet 12.5 mg PO BID Qty: 60 1RF atorvastatin 10 mg Tablet 10 mg PO QHS Qty: 30 1RF potassium chloride 20 mEq tablet extended release 20 meq PO DAILY Qty: 30 1RF Primary Care Provider: Conor Ronquillo Referrals: Conor Ronquillo DO [Primary Care Provider] - Disposition Disposition: Acute Care Hospital [facility]
[2022-05-28 18:35] LABS: Absolute Neutrophil Count 2.5 X10^3/uL (2.0-7.7); Basophil# 0.11 X10^3/uL; Basophil% 2.2 % (0-1); Eosinophil# 0.35 X10^3/uL; Hematocrit 28.8 % (40-54); Hemoglobin 9.3 g/dL (13.0-16.5); Lymphocyte % 27.8 % (19-41); Mean Corp Hgb Conc 32.3 g/dL (32-36); Mean Corpuscular Hgb 33.1 pg (27.0-32.0); Mean Corpuscular Volume 102.5 fL (80-94); Mean Platelet Vol. 10.3 fl (6.2-12.0); Monocyte# 0.62 X10^3/uL; Monocyte% 12.3 % (0-10); NRBC Flagged by Analyzer 0 % (0-5); Neutrophil # 2.53 X10^3/uL (2.7-7.7); Neutrophil % 50.3 % (47-70); Platelet Count 296 K/mm3 (150-450); RBC Distribution Width CV 14.1 % (11.6-14.6); RBC Distribution Width SD 53.2 fl (35.1-43.9); Red Blood Count 2.81 M/mm3 (4.6-6.2)
[2022-05-28] MEDS: Lidocaine Jelly 2% 20 ML Syringe (URO-JET) 1 APPLIC TOPICAL (18:35)
[2022-05-28 18:48] LABS: Anion Gap 5 (5-15); BUN 37 mg/dL (7-18); BUN/Creat Ratio 23.7 RATIO (10-20); Calcium,Total 9.3 mg/dL (8.5-10.1); Chloride 98 mmol/L (98-107); Creatinine, Serum 1.56 mg/dL (0.70-1.30); EST Glomerular Filtration Rate 45 mL/min (>60); Est Glom Filt Rate - Afr Amer 55 mL/min (>60); Estimated Creatinine Clearance 33.49 ml/min; Glucose 159 mg/dL (74-106); Potassium 4.6 mmol/L (3.5-5.1); Sodium Level 135 mmol/L (136-145)
--- NOTE | 2022-05-28 19:22 | ED.RN ---
THIS RN ATTEMPTED TO PLACE JIMÉNEZ CATHETER. UNABLE TO GET PAST PT PROSTATE. CATHETER CHANGED FROM [address] TO [place]DE, STILL UNSUCCESSFUL. PT TOLERATED WELL. BLOOD DRIPPING FROM PT PENIS AFTER CATHETER. DR. BLAIR INFORMED. PT UNABLE TO GET SELF CATHETER TO DRAIN WITH ASSISTANCE FROM THIS RN AT BEDSIDE. DR. CANDELARIO INFORMED. PT CLEANED WITH BATH WIPES, GOWN CHANGED.
--- NOTE | 2022-05-28 20:36 | ED.RN ---
Irrigated with 60 ml saline. Able to get 20ml back out but then started to drain blood around the catheter. tried to do another 20ml into the bladder and no return this time. reattached to michel bag. Dr Jasmine is aware. CARLOTA Fry is aware.
[2022-05-28] MEDS: Cefazolin 2 GM in 0.9% Normal Saline 100 ML IV (22:22)
--- NOTE | 2022-05-28 22:29 | PCM.HP.STD ---
HPI - General General Date of Admission: 05/28/22 HPI Narrative IRVIN GARLAND, is a 86 M who presents to the hospital with gross hematuria and has a history of TURP in the past emergency room had a difficult time placing Kaur catheter he had a lot of blood in his urine check and taken to surgery today for cystoscopy clot evacuation cauterize a bleeding hopefully place a catheter in the bladder. He will be admitted to the hospital. PENDING SALE TO [facility] Medical History COPD (chronic obstructive pulmonary disease) Kidney stones Paroxysmal A-fib Prostate cancer Home Medications cholecalciferol (vitamin D3) 25 mcg (1,000 unit) tablet (Vitamin D3) 1,000 unit PO DAILY supplement 03/23/22 [History Last Taken 05/19/22] atorvastatin 10 mg tablet 10 mg PO QHS #30 tabs 05/26/22 [Rx Last Taken Unknown] carvedilol 12.5 mg tablet 12.5 mg PO BID #60 tabs 05/26/22 [Rx Last Taken Unknown] furosemide 40 mg tablet 40 mg PO BIDLX #60 tabs 05/26/22 [Rx Last Taken Unknown] potassium chloride 20 mEq tablet,extended release 20 meq PO DAILY #30 tabs 05/26/22 [Rx Last Taken Unknown] ciprofloxacin HCl 500 mg tablet (Cipro) 500 mg PO BID #10 tabs 05/28/22 [Rx Last Taken Unknown] Allergy/AdvReac Type Severity Reaction Status Date / Time No Known Allergies Allergy Verified 05/28/22 17:34 Family History Mother Heart disease Hypertension Father Heart disease Hypertension Surgical History S/P hemodialysis catheter insertion Social History household members: significant other housing: house Smoking Status: Never smoker alcohol intake: current alcohol intake frequency: 0-2 drinks per day details: Occasional EtOH use. substance use type: does not use ROS Constitutional Constitutional: Denies chills, fever(s) or malaise Eyes Eyes: Denies blurry vision or change in vision ENT HEENT: Reports none Cardiovascular Cardiovascular: Denies chest pain or palpitations Respiratory/Chest Respiratory/Chest: Denies cough or shortness of breath with exertion Gastrointestinal Gastrointestinal: Denies abdominal pain, constipation or diarrhea Musculoskeletal Musculoskeletal: Denies back pain, joint stiffness or joint swelling Integumentary Integumentary: Denies dry skin, jaundice, lesions or rash Neurologic Neurologic: Denies confusion, syncope or weakness Psychiatric Psychiatric: Reports none; Denies anxiety or depression Endocrine Endocrinology: Denies excessive sweating, fatigue or flushing Hematologic/Lymphatic Hematologic/Lymphatic: Denies anemia, easy bleeding or easy bruising Vital Signs Vital Signs Vital Signs: 05/28/22 17:10 05/28/22 17:31 05/28/22 20:25 Temperature 97.8 F Temperature Source Temporal Pulse Rate 107 H 49 L Respiratory Rate 16 18 Blood Pressure 94/75 97/53 L 122/102 H Blood Pressure Mean 81 67 108 Blood Pressure Source Blood Pressure Position Blood Pressure Location Pulse Ox 96 96 Oxygen Delivery Method Room Air Nasal Cannula Nasal Cannula Oxygen Flow Rate (L/min) 4 4 05/28/22 21:35 05/28/22 22:09 Temperature 98.1 F 97.6 F L Temperature Source Oral Temporal Pulse Rate 49 L 61 Respiratory Rate 18 18 Blood Pressure 74/48 L 101/75 Blood Pressure Mean 56 83 Blood Pressure Source Monitor Monitor Blood Pressure Position Semi-Fowlers Semi-Fowlers Blood Pressure Location Right Arm Right Arm Pulse Ox 98 100 Oxygen Delivery Method Nasal Cannula Nasal Cannula Oxygen Flow Rate (L/min) 4 4 Weight Weight: 74.84 kg Body Mass Index (BMI) 25.0 Physical Exam Const alert and oriented x3 General Appearance: cooperative HEENT normocephalic, head/scalp atraumatic, EAC's normal and TM's normal bilaterally Eyes PERRL and EOMs intact bilaterally Pupil: sluggish Neck no lymphadenopathy, supple and no JVD General: trachea midline Lymph Lymphatic: no lymphadenopathy noted, lymphedema and lymphadenopathy Resp normal respiratory effort, normal air movement and clear to auscultation bilaterally Cardio regular rate, regular rhythm and peripheral pulses 2+ throughout GI soft to palpation, non-tender and non-distended Extremity normal capillary refill and no clubbing, cyanosis or edema General Extremity: no tenderness to palpation of joints or extremities Skin no rashes or lesions noted General Skin Exam: turgor normal Lesions: no lesions Rashes: no rashes Neuro CN's II-XII intact bilaterally Speech: speech normal Motor Exam: strength 5/5 throughout; Negative for general weakness Psych thought process normal, cooperative and affect normal Appearance: appropriate Results Medical Records Data Attestation: I reviewed the patient's medical records Lab / Micro Data Attestation: I reviewed the patient's lab results. Result Diagrams: 05/28/22 18:22 05/28/22 18:22 Labs: Laboratory Results - last 24 hr 05/28/22 18:22: WBC 5.0, RBC 2.81 L, Hgb 9.3 L, Hct 28.8 L, MCV 102.5 H, MCH 33.1 H, MCHC 32.3, RDW Std Deviation 53.2 H, RDW Coeff of Chaparro 14.1, Plt Count 296, MPV 10.3, Immature Gran % (Auto) 0.400, Neut % (Auto) 50.3, Lymph % (Auto) 27.8, Price % (Auto) 12.3 H, Eos % (Auto) 7.0 H, Baso % (Auto) 2.2 H, Absolute Neuts (auto) 2.5, Absolute Lymphs (auto) 1.40, Nucleated RBC % 0 05/28/22 18:22: Sodium 135 L, Potassium 4.6, Chloride 98, Carbon Dioxide 32.0, Anion Gap 5, BUN 37 H, Creatinine 1.56 H, Estim Creat Clear Calc 33.49, Est GFR (MDRD) Af Amer 55 L, Est GFR (MDRD) Non-Af 45 L, BUN/Creatinine Ratio 23.7 H, Glucose 159 H, Calcium 9.3 Assessment & Plan Assessment/Plan (1) Hematuria: PLAN: Plan to take him to surgery for evacuation of blood clots and cauterization of bleeding (2) UTI (urinary tract infection): PLAN: Continue antibiotics for UTI Bradley tract infection PLAN: Plan He was mated to the hospital after the procedure today.
[2022-05-28] MEDS: Lactated Ringers 1,000 ML 15 ML IV (22:30)
--- NOTE | 2022-05-28 22:31 | PCM.DC ---
Discharge Instructions Diet Discharge Diet: No restrictions, Light diet - advance as tolerated and Soft diet Dressing / Incision Call your doctor if your incision/area has: Continuous Slow Oozing and Sudden Increased Bleeding Catheter: Kaur to leg bag and Kaur to large bag Drain: [place] Follow Up Care Please Follow Up With: Edgard Schafer MD When: call for appt. Test Results: Test results from this visit will be discussed in further detail at your follow-up appointment, if applicable. Discharge Plan Admission Primary Reason for Your Visit: Gross hematuria Attending Provider: Edgard Schafer Primary Care Provider: Conor Ronquillo Discharge Orders/Prescriptions Prescriptions: New ciprofloxacin HCl [Cipro] 500 mg tablet 500 mg PO BID Qty: 10 0RF Continued cholecalciferol (vitamin D3) [Vitamin D3] 25 mcg (1,000 unit) tablet 1,000 unit PO DAILY Label Comments: Take 1 tablet by mouth once a day furosemide 40 mg Tablet 40 mg PO BIDLX Qty: 60 2RF carvedilol 12.5 mg Tablet 12.5 mg PO BID Qty: 60 1RF atorvastatin 10 mg Tablet 10 mg PO QHS Qty: 30 1RF potassium chloride 20 mEq tablet extended release 20 meq PO DAILY Qty: 30 1RF Discontinued Eliquis 2.5 mg tablet 2.5 mg PO BID Label Comments: TAKE 1 TABLET BY MOUTH TWICE DAILY. START 04/01/22 Referrals / Follow Up: Conor Ronquillo DO [Primary Care Provider] - Edgard Schafer MD [Med Staff - Active Staff] - Disposition Disposition (needs filled in before D/C Order can be placed): Home, Self Care
[2022-05-28] MEDS: Lidocaine Jelly 2% 20 ML Syringe (URO-JET) 1 APPLIC (22:42)
--- NOTE | 2022-05-28 22:49 | PCM.OPRPT ---
Report of Operation Date of Procedure: 05/28/22 Pre-Operative Diagnosis: Gross hematuria bleeding from the prostate Post-Operative Diagnosis: Same Surgery/Procedure Performed:: Cystoscopy clot evacuation and cauterization of prostatic bleeding Description of Surgical Findings:: Indication this is an 86-year-old male who was recently in the hospital for shortness of breath and pneumonia he was discharged home came back recently to the emergency room tonight with heavy bleeding the emergency room had a difficult time getting the catheter in and then when they finally got a catheter and that of difficult time irrigating because of the heavy bleeding so recommend we taken the surgery evaluate the bladder and prostate evacuate blood clots and cauterize any bleeding that is found. Patient was taken back to the operating room with a smooth induction of a MAC local the penis and testicles were prepped and draped in usual sterile fashion lidocaine jelly was placed into the urethra I went into the bladder with a 21 [place]kin[place] rigid cystourethroscope inside the bladder there was a heavy amount of dark blood clots I manually irrigated out and evacuated all these blood clots from the bladder using a Eboni syringe and an [address] evacuator after successfully evacuated out all the blood clots then I used a Bugbee electrode behind placing and basically the main bleeding I could see was from the prostatic fossa there was a very thin blood vessels that look like there were about the bleeding look like the could be the source and also in the posterior wall there was some areas that were traumatized probably from the Kaur catheter that was cauterized to control the bleeding once ago with acute clots out and cauterize everything successfully placed a 20 [place] tip into the tip catheter in the bladder irrigated manually there is no bleeding in the catheter was hung to gravity drainage and his anesthetic is being reversed we will keep the patient overnight for observation he had to have go home with a catheter hopefully tomorrow. Surgeon: Edgard Schafer Type of Anesthesia: MAC Drains: 20 fr Admit VTE Documentation VTE Present on Admission: No VTE Mechan Device Prophylaxis: SCD's VTE Pharm Prophylaxis ordered?: No
[2022-05-28] MEDS: 0.9% Normal Saline 1,000 ML 75 ML IV (23:44)
[2022-05-29 00:23] VITALS: O2SAT 100
[2022-05-29 01:45] VITALS: BP 114/78; PULSE 90; RESP 16; TEMP 36.6; O2SAT 100
[2022-05-29 03:45] VITALS: BP 109/56; PULSE 90; RESP 16; TEMP 36.6; O2SAT 96
[2022-05-29 08:30] VITALS: BP 95/58; PULSE 90; RESP 16; TEMP 36.8; O2SAT 96
[2022-05-29] MEDS: Ciprofloxacin 500 MG Tablet PO (09:53)
[2022-05-29] MEDS: Docusate Sodium 100 MG Capsule 200 MG PO (09:54)
[2022-05-29] MEDS: FLU VACC QS2022-23(6MOS UP)/PF 60 MCG/0.5 ML SYRINGE IM (09:54)
--- NOTE | 2022-05-29 10:24 | DS.PCM_ITS ---
Providers Date of Admission: 05/28/22 Primary Care Physician: Dr. Conor Ronquillo DO Reason For Visit: TURP Diagnosis Discharge Diagnosis (1) Hematuria: Status: Acute Code(s): R31.9 - Hematuria, unspecified Plan: Plan to take him to surgery for evacuation of blood clots and cauterization of bleeding (2) UTI (urinary tract infection): Status: Acute Code(s): N39.0 - Urinary tract infection, site not specified Plan: Continue antibiotics for UTI [place] tract infection Plan He was mated to the hospital after the procedure today. Medications at Discharge Home Medications cholecalciferol (vitamin D3) 25 mcg (1,000 unit) tablet (Vitamin D3) 1,000 unit PO DAILY supplement 03/23/22 atorvastatin 10 mg tablet 10 mg PO QHS #30 tabs 05/26/22 carvedilol 12.5 mg tablet 12.5 mg PO BID #60 tabs 05/26/22 furosemide 40 mg tablet 40 mg PO BIDLX #60 tabs 05/26/22 potassium chloride 20 mEq tablet,extended release 20 meq PO DAILY #30 tabs 05/26/22 ciprofloxacin HCl 500 mg tablet (Cipro) 500 mg PO BID #10 tabs 05/28/22 Hospital Course Summary of Care Provided Hospital Course: Admitted for gross bleeding went to surgery, and evcuated clots and cauterized prostate bleeding home with michel. Physical Exam Const alert and oriented x3 General Appearance: cooperative HEENT normocephalic, head/scalp atraumatic, EAC's normal and TM's normal bilaterally Eyes PERRL and EOMs intact bilaterally Pupil: sluggish Neck no lymphadenopathy, supple and no JVD General: trachea midline Lymph Lymphatic: no lymphadenopathy noted, lymphedema and lymphadenopathy Resp normal respiratory effort, normal air movement and clear to auscultation bilaterally Cardio regular rate, regular rhythm and peripheral pulses 2+ throughout GI soft to palpation, non-tender and non-distended Extremity normal capillary refill and no clubbing, cyanosis or edema General Extremity: no tenderness to palpation of joints or extremities Skin no rashes or lesions noted General Skin Exam: turgor normal Lesions: no lesions Rashes: no rashes Neuro CN's II-XII intact bilaterally Speech: speech normal Motor Exam: strength 5/5 throughout; Negative for general weakness Psych thought process normal, cooperative and affect normal Appearance: appropriate Weight / BMI Weight Weight: 71.532 kg Body Mass Index (BMI) 24.0 ABG / Lab / Microbiology Data Result Diagrams: 05/28/22 18:22 05/28/22 18:22 Laboratory: Laboratory Results - last 24 hr 05/28/22 18:22: WBC 5.0, RBC 2.81 L, Hgb 9.3 L, Hct 28.8 L, MCV 102.5 H, MCH 33.1 H, MCHC 32.3, RDW Std Deviation 53.2 H, RDW Coeff of Chaparro 14.1, Plt Count 296, MPV 10.3, Immature Gran % (Auto) 0.400, Neut % (Auto) 50.3, Lymph % (Auto) 27.8, [place] % (Auto) 12.3 H, Eos % (Auto) 7.0 H, Baso % (Auto) 2.2 H, Absolute Neuts (auto) 2.5, Absolute Lymphs (auto) 1.40, Nucleated RBC % 0 05/28/22 18:22: Sodium 135 L, Potassium 4.6, Chloride 98, Carbon Dioxide 32.0, Anion Gap 5, BUN 37 H, Creatinine 1.56 H, Estim Creat Clear Calc 33.49, Est GFR (MDRD) Af Amer 55 L, Est GFR (MDRD) Non-Af 45 L, BUN/Creatinine Ratio 23.7 H, Glucose 159 H, Calcium 9.3 D/C Instructions Discharge Diet: No restrictions, Light diet - advance as tolerated and Soft diet Catheter: Michel to leg bag and Michel to large bag Drain: [place] Please Follow Up With: Edgard Schafer MD When: call for appt. Meaningful Use Info Meaningful Use Diagnoses (Choose all that apply): None applicable Discharge Plan Admission Admit Date/Time: 05/28/22 22:28 Primary Reason for Your Visit: Gross hematuria Attending Provider: Edgard Schafer Primary Care Provider: Conor Ronquillo Discharge Orders/Prescriptions Prescriptions: New ciprofloxacin HCl [Cipro] 500 mg tablet 500 mg PO BID Qty: 10 0RF Continued cholecalciferol (vitamin D3) [Vitamin D3] 25 mcg (1,000 unit) tablet 1,000 unit PO DAILY Label Comments: Take 1 tablet by mouth once a day furosemide 40 mg Tablet 40 mg PO BIDLX Qty: 60 2RF carvedilol 12.5 mg Tablet 12.5 mg PO BID Qty: 60 1RF atorvastatin 10 mg Tablet 10 mg PO QHS Qty: 30 1RF potassium chloride 20 mEq tablet extended release 20 meq PO DAILY Qty: 30 1RF Discontinued Eliquis 2.5 mg tablet 2.5 mg PO BID Label Comments: TAKE 1 TABLET BY MOUTH TWICE DAILY. START 04/01/22 Referrals / Follow Up: Conor Ronquillo DO [Primary Care Provider] - Edgard Schafer MD [Med Staff - Active Staff] -
--- NOTE | 2022-05-29 10:27 | DCINST_ITS ---
Discharge Instructions Diet Discharge Diet: No restrictions, Light diet - advance as tolerated and Soft diet Dressing / Incision Call your doctor if your incision/area has: Continuous Slow Oozing and Sudden Increased Bleeding Catheter: Kaur to leg bag and Kaur to large bag Drain: [place] Follow Up Care Please Follow Up With: Edgard Schafer MD When: 2 weeks Test Results: Test results from this visit will be discussed in further detail at your follow- up appointment, if applicable. Discharge Plan Admission Admit Date/Time: 05/28/22 22:28 Primary Reason for Your Visit: Gross hematuria Attending Provider: Edgard Schafer Primary Care Provider: Conor Ronquillo Discharge Orders/Prescriptions Prescriptions: New ciprofloxacin HCl [Cipro] 500 mg tablet 500 mg PO BID Qty: 10 0RF Continued cholecalciferol (vitamin D3) [Vitamin D3] 25 mcg (1,000 unit) tablet 1,000 unit PO DAILY Label Comments: Take 1 tablet by mouth once a day furosemide 40 mg Tablet 40 mg PO BIDLX Qty: 60 2RF carvedilol 12.5 mg Tablet 12.5 mg PO BID Qty: 60 1RF atorvastatin 10 mg Tablet 10 mg PO QHS Qty: 30 1RF potassium chloride 20 mEq tablet extended release 20 meq PO DAILY Qty: 30 1RF Discontinued Eliquis 2.5 mg tablet 2.5 mg PO BID Label Comments: TAKE 1 TABLET BY MOUTH TWICE DAILY. START 04/01/22 Referrals / Follow Up: Conor Ronquillo DO [Primary Care Provider] - Edgard Schafer MD [Med Staff - Active Staff] - Disposition Discharge Orders: Discharge Patient (Routine); Ordered 05/29/22 Ordered By: Dr. Edgard Schafer
== END 2022-05-29 11:40 | disposition home or self-care (01) ==
LOC: ED 21:24 → AC 21:33 → MS3 22:33
PROVIDERS: Admitting Provider Urology; Emergency Provider Emergency Medicine; PCP Internal Medicine; Visit Provider Urology
PROC: 0TJB8ZZ Inspection of Bladder, Via Natural or Artificial Opening Endoscopic (ICD-10-PCS; CPT 52000; principal; 2022-05-28 21:00)
DX: R31.0 Gross hematuria (principal); J44.9 Chronic obstructive pulmonary disease, unspecified; I11.0 Hypertensive heart disease with heart failure; I50.30 Unspecified diastolic (congestive) heart failure; I48.0 Paroxysmal atrial fibrillation; C61 Malignant neoplasm of prostate; Z79.01 Long term (current) use of anticoagulants; Z79.899 Other long term (current) drug therapy; N39.0 Urinary tract infection, site not specified; Z23 Encounter for immunization
CPT/HCPCS: 52214; 51702; 80048; 85025; 96360; 96361; 99218; 99283; G0008; J7030; J7120; 90686; A4216; G0378

== ENCOUNTER 2022-06-16 15:24 | Inpatient (IN) | payer MEDICARE, SELFPAY ==
[2022-06-16 15:25] VITALS: BP 103/79; PULSE 110; RESP 20; TEMP 36.2; O2SAT 99; BMI 22.8
[2022-06-16 16:23] VITALS: BP 97/60; PULSE 115; RESP 20; O2SAT 96
--- NOTE | 2022-06-16 16:29 | EDS_ITS ---
HPI History of Present Illness Chief Complaint: Complaint Detail of Chief Complaint: Gross hematuria Informant: patient and family Pain Onset: Days Context: Gradual Onset Timing: Intermittent Current Severity: Mild Maximum Severity: Mild Narrative Narrative: .86-year-old male history of anemia, CHF, COPD, A. fib currently on no blood thinners. He has had a history of hematuria and urinary retention. Just had a Kaur catheter removed on Tuesday at his urologist office yesterday and today has had intermittent gross hematuria. He is able to urinate. Denies any fever. Currently he is not on antibiotics. Prior similar symptoms: Yes Recent Illness/Hospitalization: Yes [facility] Medical History Anemia CHF (congestive heart failure) COPD (chronic obstructive pulmonary disease) HTN (hypertension) Kidney stones Paroxysmal A-fib Prostate cancer Home Medications cholecalciferol (vitamin D3) 25 mcg (1,000 unit) tablet (Vitamin D3) 1,000 unit PO DAILY supplement 03/23/22 [History Last Taken 05/19/22] atorvastatin 10 mg tablet 10 mg PO QHS #30 tabs 05/26/22 [Rx Last Taken Unknown] carvedilol 12.5 mg tablet 12.5 mg PO BID #60 tabs 05/26/22 [Rx Last Taken Unknown] furosemide 40 mg tablet 40 mg PO BIDLX #60 tabs 05/26/22 [Rx Last Taken Unknown] potassium chloride 20 mEq tablet,extended release 20 meq PO DAILY #30 tabs 05/26/22 [Rx Last Taken Unknown] ciprofloxacin HCl 500 mg tablet (Cipro) 500 mg PO BID #10 tabs 05/28/22 [Rx Last Taken Unknown] Allergy/AdvReac Type Severity Reaction Status Date / Time No Known Allergies Allergy Verified 06/16/22 15:27 Family History Mother Heart disease Hypertension Father Heart disease Hypertension Surgical History S/P hemodialysis catheter insertion Social History household members: significant other housing: house Smoking Status: Never smoker alcohol intake: current alcohol intake frequency: 0-2 drinks per day details: Occasional EtOH use. substance use type: does not use ROS ROS ED ROS Narrative Denies recent illness. Hematuria. Review of Systems ROS Unobtainable: Denies due to encephalopathy Constitutional Constitutional ED: Denies chills or fever(s) Eyes Eyes: Denies blurry vision ENT ENT ED: Denies ear pain Cardiovascular Cardiovascular: Denies chest pain Respiratory/Chest Respiratory/Chest: Denies cough or dyspnea Gastrointestinal Gastrointestinal: Denies abdominal pain, constipation, diarrhea, melena, nausea or vomiting Genitourinary Genitourinary ED: Reports dysuria and hematuria Musculoskeletal Musculoskeletal: Denies arthralgias or back pain Integumentary Denies abscess or rash Neurologic Neurologic: Denies headache(s) Psychiatric Psychiatric: Denies anxiety Endocrine Endocrinology: Denies polydipsia Hematologic/Lymphatic Hematologic/Lymphatic: Denies easy bleeding Allergic/Immunologic Allergic/Immunologic ED: Denies mouth swelling or tongue swelling EXAM Physical Exam Narrative Exam Narrative: 86-year-old male no acute distress. Vital signs stable afebrile. H EENT exam unremarkable. Neck nontender. Lungs clear to auscultation bilaterally. Heart regular rhythm rate about 100 no murmur. Abdomen soft nontender. Nondistended. External exam nontender. Moving all 4 extremities. Calves are nontender. Neurologically is awake and alert. Benign exam. Const Vital Signs: 06/16/22 15:25 06/16/22 16:23 06/16/22 18:33 Temperature 97.2 F L Temperature Source Temporal Pulse Rate 110 H 115 H 106 H Respiratory Rate 20 H 20 H 18 Blood Pressure 103/79 97/60 124/84 H Blood Pressure Mean 87 72 97 Pulse Ox 99 96 94 Oxygen Delivery Method Room Air Room Air Room Air 06/16/22 20:48 06/16/22 20:49 Temperature 98.0 F Temperature Source Temporal Pulse Rate 90 Respiratory Rate 18 Blood Pressure 142/88 H 142/88 H Blood Pressure Mean 106 106 Pulse Ox 97 Oxygen Delivery Method Room Air Positive well nourished and well developed; Negative for obese, cachectic, contractures or unkempt General Appearance ED: well developed and NAD; Negative for unkempt, cachectic, contractures or pallor Nutritional Appearance: Negative for cachectic or obese HEENT Reports moist mucous membranes; Denies dry mucous membranes normocephalic; Negative for atraumatic, trauma or tenderness Mouth ED: No dry mucous membranes Mouth: No dry mucous membranes Eyes PERRL and EOMs intact bilaterally General Eye ED: Negative for pale conjunctiva or scleral icterus Neck no lymphadenopathy, supple and no JVD General: Negative for tenderness Resp normal respiratory effort and clear to auscultation bilaterally Effort and Inspection: Negative for retractions Auscultation: Negative for rales, rhonchi or wheezes Cardio regular rate, regular rhythm, S1 normal heart sound, S2 normal heart sound and no murmurs GI non-tender, non-distended and no masses Inspection: Negative for abdominal distention Auscultation: normoactive bowel sounds Palpation: soft; Negative for tender or guarding no CVA tenderness Bladder / Kidney Exam: No CVA tenderness Groin / Perineum Exam: Negative for edema or lesions Back/Spine no CVA tenderness General Back: Negative for CVA tenderness Cervical Spine: Negative for cervical spine tenderness Thoracic Spine / Upper Back: Negative for thoracic spinal tenderness Extremity normal to inspection General Extremety ED: Negative for edema General Extremity: Negative for edema Neuro CN's II-XII intact bilaterally, moves all extremities and no focal motor deficits Sensorium / Orientation: alert, oriented to person, oriented to place and oriented to time; Negative for orientation impaired, confused, lethargic or stuporous Motor Exam: strength 5/5 throughout Psych mental status grossly normal Appearance: Negative for unkempt Attitude: No agitated Mood & Affect: Negative for depressed or anxious Thought Process: normal thought process Thought Content: normal thought content Attention / Concentration: Negative for other Skin General Skin Exam: Negative for jaundice or pallor Lesions: no lesions Rashes: no rashes Trauma: Negative for abrasion MDM MDM MDM Narrative Medical decision making narrative: 86-year-old male with gross hematuria. Prior history recent Kaur catheter removed. Not on any blood thinners. A Kaur catheter will be placed due to his gross hematuria. Irrigated. Screening labs and urinalysis will be obtained. Kaur catheter will remain in place. Repeat exam patient is doing well at 9 PM. He continues to have gross hematuria even after 2 L plus of the irrigation. I spoke to his urologist and the patient will be admitted to the hospitalist. He is being typed and screened but his vital signs are stable and he does not need an emergent transfusion at this time. Lab Data Attestation: I reviewed the patient's lab results. Lab results narrative: CBC shows a normal white count 5.9 H&H is 7.8 and 23.6 consistent with anemia. Electrolytes showed shows a sodium 126. Gap of 8. BUN 20 creatinine 1.13. Glucose 136. Urine greater than 100 red cells 5-10 white cells no bacteria. No nitrites. Labs: Laboratory Results - last 24 hr 06/16/22 06/16/22 06/16/22 16:40 16:55 16:55 WBC 5.9 RBC 2.38 L Hgb 7.8 L Hct 23.6 L MCV 99.2 H MCH 32.8 H MCHC 33.1 RDW Std Deviation 51.9 H RDW Coeff of [place] 14.7 H Plt Count 233 MPV 9.9 Immature Gran % (Auto) 0.300 Neut % (Auto) 55.8 Lymph % (Auto) 23.4 [place] % (Auto) 11.5 H Eos % (Auto) 7.6 H Baso % (Auto) 1.4 H Absolute Neuts (auto) 3.3 Absolute Lymphs (auto) 1.38 Nucleated RBC % 0 Sodium 126 L Potassium 4.5 Chloride 95 L Carbon Dioxide 23.0 Anion Gap 8 BUN 20 H Creatinine 1.13 Estim Creat Clear Calc 45.99 Est GFR (MDRD) Af Amer 79 Est GFR (MDRD) Non-Af 65 BUN/Creatinine Ratio 17.7 Glucose 136 H Calcium 9.1 Urine Color Brown Urine Clarity Cloudy Urine pH 7.0 Ur Specific [place] 1.015 Urine Protein 500 H Urine Glucose (UA) Normal Urine Ketones 15 H Urine Occult Blood 150 H Urine Nitrite Negative Urine Bilirubin Negative Urine Urobilinogen Normal Ur Leukocyte Esterase Negative Urine RBC > 100 SEEN Urine WBC 5-10 SEEN Ur Squamous Epith Cells 0 SEEN Urine Bacteria 0 SEEN Urine Mucus 0 SEEN Discharge Plan Triage Chief Complaint: Complaint ED Provider: Jairo Alston Dx/Rx/DC Orders Clinical Impression: Gross hematuria, Anemia Prescriptions: No Action cholecalciferol (vitamin D3) [Vitamin D3] 25 mcg (1,000 unit) tablet 1,000 unit PO DAILY Label Comments: Take 1 tablet by mouth once a day furosemide 40 mg Tablet 40 mg PO BIDLX Qty: 60 2RF carvedilol 12.5 mg Tablet 12.5 mg PO BID Qty: 60 1RF atorvastatin 10 mg Tablet 10 mg PO QHS Qty: 30 1RF potassium chloride 20 mEq tablet extended release 20 meq PO DAILY Qty: 30 1RF ciprofloxacin HCl [Cipro] 500 mg tablet 500 mg PO BID Qty: 10 0RF Primary Care Provider: Conor Ronquillo Referrals: Conor Ronquillo DO [Primary Care Provider] - Disposition Disposition: Acute Care Hospital [facility]
[2022-06-16 17:01] LABS: Absolute Lymphocyte Count 1.38 X10^3/uL (0.83-4.51); Absolute Neutrophil Count 3.3 X10^3/uL (2.0-7.7); Basophil# 0.08 X10^3/uL; Basophil% 1.4 % (0-1); Eosinophil# 0.45 X10^3/uL; Eosinophils% 7.6 % (0-5); Hematocrit 23.6 % (40-54); Hemoglobin 7.8 g/dL (13.0-16.5); Lymphocyte # 1.38 X10^3/ul (0.83-4.51); Lymphocyte % 23.4 % (19-41); Mean Corp Hgb Conc 33.1 g/dL (32-36); Mean Corpuscular Hgb 32.8 pg (27.0-32.0); Mean Corpuscular Volume 99.2 fL (80-94); Mean Platelet Vol. 9.9 fl (6.2-12.0); Monocyte# 0.68 X10^3/uL; Monocyte% 11.5 % (0-10); NRBC Flagged by Analyzer 0 % (0-5); Neutrophil # 3.29 X10^3/uL (2.7-7.7); Neutrophil % 55.8 % (47-70); Platelet Count 233 K/mm3 (150-450); RBC Distribution Width CV 14.7 % (11.6-14.6); RBC Distribution Width SD 51.9 fl (35.1-43.9); Red Blood Count 2.38 M/mm3 (4.6-6.2); White Blood Count 5.9 K/mm3 (4.4-11.0)
[2022-06-16 17:14] LABS: Anion Gap 8 (5-15); BUN 20 mg/dL (7-18); BUN/Creat Ratio 17.7 RATIO (10-20); Calcium,Total 9.1 mg/dL (8.5-10.1); Chloride 95 mmol/L (98-107); Creatinine, Serum 1.13 mg/dL (0.70-1.30); EST Glomerular Filtration Rate 65 mL/min (>60); Est Glom Filt Rate - Afr Amer 79 mL/min (>60); Estimated Creatinine Clearance 45.99 ml/min; Glucose 136 mg/dL (74-106); Potassium 4.5 mmol/L (3.5-5.1); Sodium Level 126 mmol/L (136-145)
[2022-06-16 17:30] LABS: Bacteria 0 SEEN /hpf (None Seen); Mucous, Urine 0 SEEN /hpf (<or=2+); Squamous Epithelial Cells - UA 0 SEEN /hpf (0-5)
[2022-06-16 17:34] LABS: Color, Urine Brown (Yellow); Glucose, Dipstick Normal (Normal); Ketone-Dipstick 15 mg/dl (Negative); Leukocyte Esterase-Dipstick Negative /ul (Negative); Nitrite-Dipstick Negative (Negative); Occult Blood-Urine 150 /ul (Negative); Protein-Dipstick 500 mg/dl (Negative); Specific Gravity, Urine 1.015 (1.002-1.030); Urine Bilirubin Dipstick Negative (Negative); Urine Clarity Cloudy (Clear); Urine Urobilinogen Normal (Normal)
[2022-06-16 17:53] LABS: White Blood Cells 5-10 SEEN /hpf (0-5)
[2022-06-16 17:54] LABS: Red Blood Cells-Urine > 100 SEEN /hpf (0-5)
--- NOTE | 2022-06-16 18:32 | ED.RN ---
[facility] DELAYED DUE TO NOT HAVING [facility] FLUID IN DEPT. DUST CONTROL ENGINEER CONTACTED ON CATHETER PLACEMENT FOR IRRIGATION FLUID. [facility] INITIATED AT 1830.
[2022-06-16 18:33] VITALS: BP 124/84; PULSE 106; RESP 18; O2SAT 94
[2022-06-16 20:48] VITALS: BP 142/88; PULSE 90; RESP 18; TEMP 36.7; O2SAT 97
[2022-06-16 20:49] VITALS: BP 142/88
--- NOTE | 2022-06-16 21:35 | HP.PCM.HOS_ITS ---
[facility] - General General Date of Admission: 06/16/22 Date of Service: 06/16/22 Chief Complaint: Recurrent hematuria following recent michel D/C. HPI Narrative The patient is an 86 y/o M w/ PMHx: COPD, Hx Prostate CA, PAF, HTN, HLD, Hx nephrolithiasis, Chronic anemia, prolonged admission 03/23-03/31/22 treated/evaluation for PAF with RVR, BELKIS requiring transient HD, recent again prolonged admission 05/19-05/26/22 with treatment for acute hypoxic respiratory failure with CHF exacerbation/volume overload likely secondary to paroxysmal atrial fibrillation with RVR, NSTEMI, E. Coli UTI as well as gross hematuria at that time with additionally follow-up recent operative intervention per Dr. Schafer on 05/28/22 secondary to gross hematuria bleeding from the prostate undergoing a cystoscopy for clot evacuation and cauterization of prostatic bleeding who now re-presents to the [facility] ED on 06/16/22 secondary to recurrent onset of gross hematuria and urinary retention with Michel catheter recently removed per urology on Tuesday with since then intermittent hematuria and inability to urinate with no recent fevers or chills but did admit to suprapubic discomfort especially with palpation. From review of records 05/29/2022 patient was discharged on a 5-day course of Cipro 500 mg twice daily per Dr[address] Schafer. Patient denied any lightheadedness, dizziness, dyspnea or chest pain associated with his recent hematuria onset. Work-up in the ED included T 98, heart rate 90, BP 142/88, respiratory rate 18, 97% on room air, CBC with WC 5.9, hemoglobin 7.8, MCV 99.2, platelet 233 with no marked shift, BMP with sodium 126, chloride 95, BUN/creat 20/1.13, glucose 136, urinalysis with evidence of gross hematuria but no obvious evidence of UTI. In the ED michel was replaced and irrigated with 2-2.5 L with ongoing bleeding. He did discuss case with patient's urologist who secondary to patient's chronic comorbidities requested medical primary admi ssion. [facility] Medical History (Updated 06/17/22 @ 00:37 by Homa Chahal) Anemia CHF (congestive heart failure) COPD (chronic obstructive pulmonary disease) HTN (hypertension) Kidney stones On home oxygen therapy Paroxysmal A-fib Prostate cancer Sleep apnea Home Medications cholecalciferol (vitamin D3) 25 mcg (1,000 unit) tablet (Vitamin D3) 1,000 unit PO DAILY supplement 03/23/22 [History Last Taken 05/19/22] atorvastatin 10 mg tablet 10 mg PO QHS #30 tabs 05/26/22 [Rx Last Taken Unknown] carvedilol 12.5 mg tablet 12.5 mg PO BID #60 tabs 05/26/22 [Rx Last Taken Unknown] furosemide 40 mg tablet 40 mg PO BIDLX #60 tabs 05/26/22 [Rx Last Taken Unknown] potassium chloride 20 mEq tablet,extended release 20 meq PO DAILY #30 tabs 05/26/22 [Rx Last Taken Unknown] ciprofloxacin HCl 500 mg tablet (Cipro) 500 mg PO BID #10 tabs 05/28/22 [Rx Last Taken Unknown] Allergy/AdvReac Type Severity Reaction Status Date / Time No Known Allergies Allergy Verified 06/16/22 15:27 Family History Mother Heart disease Hypertension Father Heart disease Hypertension Surgical History S/P hemodialysis catheter insertion Social History household members: significant other housing: house Smoking Status: Never smoker alcohol intake: current alcohol intake frequency: 0-2 drinks per day details: Occasional EtOH use. substance use type: does not use ROS ROS Narrative Admission Review of Systems: CONSTITUTIONAL: No weight loss, fever, chills, + weakness or fatigue. HEENT: Eyes: No visual loss, blurred vision, double vision or yellow sclerae. Ears, Nose, Throat: No hearing loss, sneezing, congestion, runny nose or sore throat. SKIN: No rash or itching, lesions, wounds. CARDIOVASCULAR: + Palpitations, edema, No chest pain, chest pressure or chest discomfort, orthopnea, syncopal events. RESPIRATORY: + shortness of breath, cough with minimal sputum, No wheezing, he moptysis. GASTROINTESTINAL: + Suprapubic pain w/ palpation, No anorexia, nausea, vomiting,? diarrhea, melena, BRBPR. GENITOURINARY: + Suprapubic pain, urinary retention onset, valention hematuria. NEUROLOGICAL: No headache, dizziness, syncope, paralysis, ataxia, numbness or tingling in the extremities, focal weakness, change in bowel or bladder control, seizure. MUSCULOSKELETAL: + muscle, back pain, joint pain or stiffness. HEMATOLOGIC: + anemia, bleeding or bruising. LYMPHATICS: No enlarged nodes. No history of splenectomy. PSYCHIATRIC: No history of depression or anxiety. ENDOCRINOLOGIC: No reports of sweating, cold or heat intolerance. No polyuria or polydipsia. ALLERGIES: No history of asthma, hives, eczema or rhinitis. Vital Signs Vital Signs Vital Signs: 06/16/22 15:25 06/16/22 16:23 06/16/22 18:33 Temperature 97.2 F L Temperature Source Temporal Pulse Rate 110 H 115 H 106 H Respiratory Rate 20 H 20 H 18 Blood Pressure 103/79 97/60 124/84 H Blood Pressure Mean 87 72 97 Pulse Ox 99 96 94 Oxygen Delivery Method Room Air Room Air Room Air 06/16/22 20:48 06/16/22 20:49 Temperature 98.0 F Temperature Source Temporal Pulse Rate 90 Respiratory Rate 18 Blood Pressure 142/88 H 142/88 H Blood Pressure Mean 106 106 Pulse Ox 97 Oxygen Delivery Method Room Air Weight Weight: 150 lb Body Mass Index (BMI) 22.8 Physical Exam Narrative Physical Examination: General: Awake, alert, oriented x 3 and cooperative, laying in the ED, fatigued appearing otherwise denies any acute complaints, notes feeling improved following catheter placement with resolution of retention, hematuria improving now on third bag of continuous irrigation. Skin: Normal color, normal turgor, no icterus, no cyanosis except occasional staged ecchymoses, bilateral lower extremity venous stasis skin change. HEENT: AT/NC, EOMI, PERRLA, mildly dry MM, no obvious carotid bruits or marked JVD. Lungs: Diminished, greater bases, occasional end expiratory wheeze, no rales or rhonchi. Heart: Regular rate and rhythm; no gallop, rub audible. Abdomen: Soft, NTTP, ND, distant normal BS, no HSM, michel bag with clearing urine, no large evident clots noted. Extremities: No cyanosis, no clubbing, see skin, pedal to mid kraft edema. Neurological: Patient awake, alert, oriented as noted, cognitive function appears baseline intact; pupils equally reactive to light and accommodation, cranial nerves II-XII grossly normal, moving all 4 extremities, no focal deficits, strength mildly to moderately globally decreased secondary to acute presentation. Psychiatric: Affect appears fatigued otherwise no acute distress, no acute evidence of depressive or anxiety feelings. Results Lab / Micro Data Result Diagrams: 06/17/22 01:10 06/16/22 16:55 Labs: Laboratory Results - last 24 hr 06/16/22 16:40: Urine Color Brown, Urine Clarity Cloudy, Urine pH 7.0, Ur Specific [place] 1.015, Urine Protein 500 H, Urine Glucose (UA) Normal, Urine Ketones 15 H, Urine Occult Blood 150 H, Urine Nitrite Negative, Urine Bilirubin Negative, Urine Urobilinogen Normal, Ur Leukocyte Esterase Negative, Urine RBC > 100 SEEN, Urine WBC 5-10 SEEN, Ur Squamous Epith Cells 0 SEEN, Urine Bacteria 0 SEEN, Urine Mucus 0 SEEN 06/16/22 16:55: WBC 5.9, RBC 2.38 L, Hgb 7.8 L, Hct 23.6 L, MCV 99.2 H, MCH 32.8 H, MCHC 33.1, RDW Std Deviation 51.9 H, RDW Coeff of [place] 14.7 H, Plt Count 233, MPV 9.9, Immature Gran % (Auto) 0.300, Neut % (Auto) 55.8, Lymph % (Auto) 23.4, [place] % (Auto) 11.5 H, Eos % (Auto) 7.6 H, Baso % (Auto) 1.4 H, Absolute Neuts (auto) 3.3, Absolute Lymphs (auto) 1.38, Nucleated RBC % 0 06/16/22 16:55: Sodium 126 L, Potassium 4.5, Chloride 95 L, Carbon Dioxide 23.0, Anion Gap 8, BUN 20 H, Creatinine 1.13, Estim Creat Clear Calc 45.99, Est GFR (MDRD) Af Amer 79, Est GFR (MDRD) Non-Af 65, BUN/Creatinine Ratio 17.7, Glucose 136 H, Calcium 9.1 Assessment & Plan Assessment/Plan (1) Hematuria: PLAN: Plan The patient is an 86 y/o M w/ PMHx: COPD, Hx Prostate CA, PAF, HTN, HLD, Hx nephrolithiasis, Chronic anemia, Hx BELKIS w/ transient HD needs, Diastolic CHF, Hx NSTEMI, recent operative intervention per Dr. Schafer on 05/28/22 secondary to gross hematuria bleeding from the prostate undergoing a cystoscopy for clot evacuation and cauterization of prostatic bleeding who now re-presents to the [facility] ED on 06/16/22 secondary to recurrent onset of gross hematuria and urinary retention with Michel catheter recently removed per urology on Tuesday with since then intermittent hematuria and inability to urinate with no recent fevers or chills. #1. Recent recurrent gross hematuria with Michel catheter removal now with urinary retention secondary to clots with associated acute on chronic anemia secondary to acute blood loss anemia associated with hematuria: Admission hemoglobin 7.8, recently 05/28/2022 9.3, from prior records baseline primarily 9-10, hemodynamically vital sign quarles stable therefore we will continue to closely monitor and trend CBC however if drops further or more symptomatic low threshold to transfuse especially given cardiac history. Will admit to medical surgical floor given stable vital signs, continue catheter in place with tim nuous irrigation with management per urology, will continue monitor CBC with PRBC administration if becomes appropriate, previously anticoagulated however from prior records appears to have been held with recent intervention, will continue to hold. Urology consulted and pending but was aware of admission as called upon presentation given recent intervention per their service with concern for multiple medical issues requesting medical management primarily. Will make NPO after midnight in case of return to OR needs if hematuria ongoing. #2. Chronic diastolic CHF: 03/27/2022 echocardiogram with EF 55 to 60%, normal LV systolic function, mild MR, mild AI, mild TR, RVSP 43.1 mmHg consistent with mild pulmonary hypertension. We will continue patient home Coreg, atorvastatin, Lasix with hold parameters as needed pending pressure and continue to repeat renal function evaluation given acute presentation #1. #3. PAF w/ recent Hx PAF RVR/NSTEMI demand associated: 03/27/2022 echocardiogram with EF 55 to 60%, normal LV systolic function, mild MR, mild AI, mild TR, RVSP 43.1 mmHg consistent with mild pulmonary hypertension. Anticoagulant has been held starting 06/10/2022 per cardiology, we will continue patient home Coreg regimen. Encourage continued follow-up outpatient with cardiology with last visit noted 06/10/2022 #4. Chronic COPD: Not on any routine inhalers, will add BID budesonide, PRN albuterol, HOB, IS parameters. #5. Hypertension: Continue home regimen including Coreg, Lasix, PRN hydralazine. #6. Hyperlipidemia: Continue home statin regimen. #7. History of prostate cancer: From discussion appears to be in remission, encourage continued outpatient follow-up. #9. Former tobacco use: Encourage continued tobacco cessation. #10. DVT prophylaxis: SCDs, patient's anticoagulation recently held per cardiology following visit 06/10/2022, continue to home and defer chemoprophlaxis given acute presentation #1. #11. CODE status: Patient HCPKATY is his who is present and living will is not currently in place. Discussed CODE status at length including difference between FULL code, DNR-CCA and DNR-CC status. Following discussions about the differences in these status, requested DNR-CCA, no intubation status. Advanced Care Planning Face to Face Time: 16 minutes. Charges/Coding Visit Charges Inpatient E&M: 71658 Init Hosp L3 Procedures Hospitalists Procedures: 94041 Advncd Care Plan 30 Min
[2022-06-16 23:51] VITALS: BMI 24.8
[2022-06-16 23:52] VITALS: BP 146/80; PULSE 110; RESP 18; TEMP 36.4; O2SAT 96
[2022-06-17] VITALS (9 sets, daily range): BP systolic 97–126; BP diastolic 63–98; PULSE 82–119; RESP 18–19; TEMP 36.2–36.7; O2SAT 92–98; BMI 25.0
[2022-06-17] MEDS: Acetaminophen 325 MG Tablet 650 MG PO (00:24)
[2022-06-17 01:21] LABS: Hematocrit 23.9 % (40-54)
[2022-06-17] MEDS: Lidocaine Jelly 2% 20 ML Syringe (URO-JET) 1 APPLIC TOPICAL (02:00)
--- NOTE | 2022-06-17 02:11 | CT_ITS ---
We are attempting to reach an attending provider to discuss findings. An addendum with communication details will be sent when the communication is complete. EXAM: CT ABDOMEN AND PELVIS WITH INTRAVENOUS CONTRAST CLINICAL INDICATION: abdominal pain TECHNIQUE: Helically acquired images were obtained of the abdomen and pelvis with intravenous contrast. This CT exam was performed using one or more of the following dose reduction techniques: automated exposure control, adjustment of the mA and/or kV according to patient size, and/or use of iterative reconstruction technique. This report was created using [employer] technology. CONTRAST: 100 cc of Isovue-370 IV. RADIATION DOSE: CTDIvol = 16.66 mGy, DLP = 1456.88 mGy-cm. COMPARISON: 03/23/2022. FINDINGS: LOWER THORAX: Slight bilateral pleural effusions. Mild cardiomegaly. ABDOMEN: LIVER: Unremarkable. Homogeneous. No focal mass. GALLBLADDER AND BILE DUCTS: Unremarkable. No calcified gallstones. No gallbladder distention or wall edema. No intra- or extrahepatic biliary ductal dilation. PANCREAS: Unremarkable. No focal cystic or solid mass. SPLEEN: Unremarkable. Normal size without focal cystic or solid mass. ADRENALS: Unremarkable. No nodules. KIDNEYS AND URETERS: Unremarkable. Normal renal size and position. No hydronephrosis. STOMACH AND BOWEL: Numerous sigmoid diverticula without diverticulitis. No stomach or bowel distention. PELVIS: APPENDIX: Normal appendix. BLADDER: Unremarkable. REPRODUCTIVE: Kaur catheter balloon is inflated within the prostate. ABDOMEN and PELVIS: INTRAPERITONEAL SPACE: Unremarkable. No ascites or other fluid collection. No free air. BONES/JOINTS: Unremarkable. No suspicious lytic or blastic abnormality. SOFT TISSUES: Unremarkable. No discrete abdominal or pelvic wall hernia. VASCULATURE: Unremarkable. Abdominal aorta is non-dilated. LYMPH NODES: Unremarkable. No enlarged lymph nodes. CT/Abdomen/Pelvis W IV Cont ONLY IMPRESSION: 1. Kaur catheter balloon is inflated within the prostate. 2. Slight bilateral pleural effusions. 3. Mild cardiomegaly. 4. Numerous sigmoid diverticula without diverticulitis. Electronically Signed: Dax Leo MD at 4:03 EST ,
--- NOTE | 2022-06-17 02:13 | PCM.HOSP.N ---
Hospitalist Note Patient with onset severe lower abdominal pain. Michel still draining but with bladder scan fluid present. Patient with notable change clinically from initial evaluation as pain had been minimal with michel placement and only mild suprapubic TTP in the ED. Will obtain CT scan STAT to be cautious given recent OR and michel placement.
[2022-06-17] MEDS: 0.9% Normal Saline 1,000 ML 75 ML IV ×2 (02:23→15:32)
[2022-06-17] MEDS: Carvedilol 12.5 MG Tablet PO ×3 (02:34→22:43)
[2022-06-17] MEDS: Atorvastatin Calcium 10 MG Tablet PO ×2 (02:34→22:43)
--- NOTE | 2022-06-17 02:39 | NURSING ---
Pt off floor. ASSEMBLER FINAL taking patient to CT.
[2022-06-17 05:22] LABS: Absolute Lymphocyte Count 1.04 X10^3/uL (0.83-4.51); Absolute Neutrophil Count 5.3 X10^3/uL (2.0-7.7); Basophil# 0.06 X10^3/uL; Basophil% 0.8 % (0-1); Eosinophil# 0.17 X10^3/uL; Eosinophils% 2.2 % (0-5); Hematocrit 21.8 % (40-54); Hemoglobin 7.4 g/dL (13.0-16.5); Lymphocyte # 1.04 X10^3/ul (0.83-4.51); Lymphocyte % 13.5 % (19-41); Mean Corp Hgb Conc 33.9 g/dL (32-36); Mean Corpuscular Hgb 33.6 pg (27.0-32.0); Mean Corpuscular Volume 99.1 fL (80-94); Mean Platelet Vol. 10.3 fl (6.2-12.0); Monocyte# 1.16 X10^3/uL; NRBC Flagged by Analyzer 0 % (0-5); Neutrophil # 5.26 X10^3/uL (2.7-7.7); Neutrophil % 68.1 % (47-70); Platelet Count 199 K/mm3 (150-450); RBC Distribution Width CV 14.8 % (11.6-14.6); RBC Distribution Width SD 52.8 fl (35.1-43.9); White Blood Count 7.7 K/mm3 (4.4-11.0)
[2022-06-17 05:47] LABS: AST(SGOT) 96 U/L (15-37); Alanine Aminotransfer ALT/SGPT 82 U/L (16-61); Albumin, Serum 3.2 g/dL (3.2-5.0); Alkaline Phosphatase 129 U/L (45-117); Anion Gap 10 (5-15); BUN 20 mg/dL (7-18); BUN/Creat Ratio 17.5 RATIO (10-20); Calcium,Total 8.7 mg/dL (8.5-10.1); Chloride 94 mmol/L (98-107); Creatinine, Serum 1.14 mg/dL (0.70-1.30); EST Glomerular Filtration Rate 65 mL/min (>60); Est Glom Filt Rate - Afr Amer 78 mL/min (>60); Estimated Creatinine Clearance 45.83 ml/min; Globulin 3.2 g/dL (2.2-4.2); Glucose 105 mg/dL (74-106); Potassium 4.9 mmol/L (3.5-5.1); Protein, Total 6.4 g/dL (6.4-8.2); Sodium Level 126 mmol/L (136-145)
--- NOTE | 2022-06-17 07:25 | PCM.CONS.U ---
HPI Consult Data Date of Consult: 06/17/22 HPI Narrative Reason for Consultation: Gross hematuria HPI Narrative: IRVIN GARLAND, is a 86 M who presents to the emergency room again with gross hematuria he does had this done about 2 weeks ago or so off to look back at the notes but came in with gross hematuria hemoglobin is down. He has a three-way catheter and will irrigated out to clear as much as possible n.p.o. at midnight I will plan to take him to surgery tomorrow for cystoscopy evacuation clots and cauterization of bleeding hopefully this to be the last of it but this has not become a recurrent problem we will discuss with him other options if this continues. [facility] Medical History (Updated 06/17/22 @ 00:37 by Homa Chahal) Anemia CHF (congestive heart failure) COPD (chronic obstructive pulmonary disease) HTN (hypertension) Kidney stones On home oxygen therapy Paroxysmal A-fib Prostate cancer Sleep apnea Home Medications cholecalciferol (vitamin D3) 25 mcg (1,000 unit) tablet (Vitamin D3) 1,000 unit PO DAILY supplement 03/23/22 [History Last Taken 05/19/22] atorvastatin 10 mg tablet 10 mg PO QHS #30 tabs 05/26/22 [Rx Last Taken Unknown] carvedilol 12.5 mg tablet 12.5 mg PO BID #60 tabs 05/26/22 [Rx Last Taken Unknown] furosemide 40 mg tablet 40 mg PO BIDLX #60 tabs 05/26/22 [Rx Last Taken Unknown] potassium chloride 20 mEq tablet,extended release 20 meq PO DAILY #30 tabs 05/26/22 [Rx Last Taken Unknown] ciprofloxacin HCl 500 mg tablet (Cipro) 500 mg PO BID #10 tabs 05/28/22 [Rx Last Taken Unknown] Allergy/AdvReac Type Severity Reaction Status Date / Time No Known Allergies Allergy Verified 06/16/22 15:27 Family History Mother Heart disease Hypertension Father Heart disease Hypertension Surgical History S/P hemodialysis catheter insertion Social History household members: significant other housing: house Smoking Status: Never smoker alcohol intake: current alcohol intake frequency: 0-2 drinks per day details: Occasional EtOH use. substance use type: does not use Lab / Micro Data Result Diagrams: 06/17/22 04:42 06/17/22 04:42 Labs: Laboratory Results - last 24 hr 06/16/22 16:40: Urine Color Brown, Urine Clarity Cloudy, Urine pH 7.0, Ur Specific [place] 1.015, Urine Protein 500 H, Urine Glucose (UA) Normal, Urine Ketones 15 H, Urine Occult Blood 150 H, Urine Nitrite Negative, Urine Bilirubin Negative, Urine Urobilinogen Normal, Ur Leukocyte Esterase Negative, Urine RBC > 100 SEEN, Urine WBC 5-10 SEEN, Ur Squamous Epith Cells 0 SEEN, Urine Bacteria 0 SEEN, Urine Mucus 0 SEEN 06/16/22 16:55: WBC 5.9, RBC 2.38 L, Hgb 7.8 L, Hct 23.6 L, MCV 99.2 H, MCH 32.8 H, MCHC 33.1, RDW Std Deviation 51.9 H, RDW Coeff of [place] 14.7 H, Plt Count 233, MPV 9.9, Immature Gran % (Auto) 0.300, Neut % (Auto) 55.8, Lymph % (Auto) 23.4, [place] % (Auto) 11.5 H, Eos % (Auto) 7.6 H, Baso % (Auto) 1.4 H, Absolute Neuts (auto) 3.3, Absolute Lymphs (auto) 1.38, Nucleated RBC % 0 06/16/22 16:55: Sodium 126 L, Potassium 4.5, Chloride 95 L, Carbon Dioxide 23.0, Anion Gap 8, BUN 20 H, Creatinine 1.13, Estim Creat Clear Calc 45.99, Est GFR (MDRD) Af Amer 79, Est GFR (MDRD) Non-Af 65, BUN/Creatinine Ratio 17.7, Glucose 136 H, Calcium 9.1 06/16/22 22:00: Blood Type Cancelled, Antibody Screen Cancelled 06/16/22 22:18: Blood Type A POSITIVE, Antibody Screen NEGATIVE 06/17/22 01:10: Hgb 8.0 L, Hct 23.9 L 06/17/22 04:42: WBC 7.7, RBC 2.20 L, Hgb 7.4 L, Hct 21.8 L, MCV 99.1 H, MCH 33.6 H, MCHC 33.9, RDW Std Deviation 52.8 H, RDW Coeff of [place] 14.8 H, Plt Count 199, MPV 10.3, Immature Gran % (Auto) 0.400, Neut % (Auto) 68.1, Lymph % (Auto) 13.5 L, [place] % (Auto) 15.0 H, Eos % (Auto) 2.2, Baso % (Auto) 0.8, Absolute Neuts (auto) 5.3, Absolute Lymphs (auto) 1.04, Nucleated RBC % 0 06/17/22 04:42: Sodium 126 L, Potassium 4.9, Chloride 94 L, Carbon Dioxide 22.0, Anion Gap 10, BUN 20 H, Creatinine 1.14, Estim Creat Clear Calc 45.83, Est GFR (MDRD) Af Amer 78, Est GFR (MDRD) Non-Af 65, BUN/Creatinine Ratio 17.5, Glucose 105, Calcium 8.7, Total Bilirubin 1.20 H, AST 96 H, ALT 82 H, Alkaline Phosphatase 129 H, Total Protein 6.4, Albumin 3.2, Globulin 3.2, Albumin/Globulin Ratio 1.0 Radiology Impression Abdomen/Pelvis CT 06/17/22 02:11 IMPRESSION: 1. Kaur catheter balloon is inflated within the prostate. 2. Slight bilateral pleural effusions. 3. Mild cardiomegaly. 4. Numerous sigmoid diverticula without diverticulitis. Electronically Signed: Dax Leo MD at 4:03 EST , ADDENDUM: 06/17/22 4348 IMPRESSION: 1. Kaur catheter balloon is inflated within the prostate. 2. Slight bilateral pleural effusions. 3. Mild cardiomegaly. 4. Numerous sigmoid diverticula without diverticulitis. N.B. : The above Results were Read Back by Dax Leo MD to Angelica Willis MD, and understanding confirmed on 06/17/2022 04:24:26 (ET). Electronically Signed: Dax Leo MD at 4:03 EST ,
[2022-06-17] MEDS: Furosemide 40 MG Tablet PO ×2 (09:19→18:42)
--- NOTE | 2022-06-17 09:30 | EKG12_ITS ---
Test Reason : AM EKG Blood Pressure : / mmHG Vent. Rate : 098 BPM Atrial Rate : 090 BPM P-R Int : 000 ms QRS Dur : 084 ms QT Int : 378 ms P-R-T Axes : 000 082 044 degrees QTc Int : 482 ms Atrial fibrillation with premature ventricular or aberrantly conducted complexes Prolonged QT Abnormal ECG Confirmed by LORRI GUZMÁN, LETITIA ([id number]), medical transcription editor DAPHNEY FULTON ([id number]) on 06/23/2022 8:00:57 AM Referred By: WALI Confirmed By:LETITIA BLACKMON MD
--- NOTE | 2022-06-17 13:35 | CASEMGMT ---
Readmission chart review: 05/19-05/26/22 CHF exac, PAF w/ RVR, Indeterminate troponin 05/28-05/29/22 TURP 06/16/22-current Pt presented to ED for SOB, N/V and dizziness x3 days. Pt was admitted for CHF exac, PAF w/ RVR and indeterminate troponin. Pt was supposed to be wearing oxygen with exertion at home prior to admission but per pt/family, pt would get up and move around doing what he needed to do then sit down and put oxygen on. Pt/family educated on when pt needed to wear oxygen at d/c which is 4L w/ exertion. Pt also had hematuria while inpt and Dr. Schafer was consulted and TURP was set up for pt to return 05/28/22. Pt was also started on lasix 40mg po twice daily at d/c. Pt then returned for TURP on scheduled date and was discharged home the next day. 05/29/22. Pt returned to [facility] ED on 06/16/22 for urinating blood. Pt had been self-cathing for urinary retention. Pt is scheduled for cysto on 06/18/22. CM to follow for any further discharge planning/needs. SStkeegan VAN CM
[2022-06-17] MEDS: Potassium Chloride Oral Tablet 20 MEQ PO (14:00)
--- NOTE | 2022-06-17 17:17 | PCM.PN.HOSP ---
Subjective Subjective Patient was seen and examined today, he is still having gross hematuria. I talked briefly with urology, they plan on doing a cystoscopy on him tomorrow. Objective Data Objective Data Vital Signs: Vital Signs Temp Pulse Resp BP Pulse Ox O2 Del Method 97.2 F L 99 18 112/63 96 Room Air 06/17/22 14:00 06/17/22 14:00 06/17/22 14:00 06/17/22 14:00 06/17/22 14:00 06/17/22 14:00 Oxygen Delivery Method Room Air Weight: 74.8 kg Body Mass Index (BMI) 25.0 Intake & Output: Intake and Output for Last 24 Hours 06/15/22 06/16/22 06/17/22 23:59 23:59 23:59 Intake Total 1406.25 / 1406.25 Output Total 3000 / 3000 4750 / 4750 Balance -3000 / -3000 -3343.75 / -3343.75 Lab / Micro Data Result Diagrams: 06/17/22 04:42 06/17/22 04:42 Labs: Laboratory Results - last 24 hr 06/16/22 16:40: Urine Color Brown, Urine Clarity Cloudy, Urine pH 7.0, Ur Specific [place] 1.015, Urine Protein 500 H, Urine Glucose (UA) Normal, Urine Ketones 15 H, Urine Occult Blood 150 H, Urine Nitrite Negative, Urine Bilirubin Negative, Urine Urobilinogen Normal, Ur Leukocyte Esterase Negative, Urine RBC > 100 SEEN, Urine WBC 5-10 SEEN, Ur Squamous Epith Cells 0 SEEN, Urine Bacteria 0 SEEN, Urine Mucus 0 SEEN 06/16/22 22:00: Blood Type Cancelled, Antibody Screen Cancelled 06/16/22 22:18: Blood Type A POSITIVE, Antibody Screen NEGATIVE 06/17/22 01:10: Hgb 8.0 L, Hct 23.9 L 06/17/22 04:42: WBC 7.7, RBC 2.20 L, Hgb 7.4 L, Hct 21.8 L, MCV 99.1 H, MCH 33.6 H, MCHC 33.9, RDW Std Deviation 52.8 H, RDW Coeff of [place] 14.8 H, Plt Count 199, MPV 10.3, Immature Gran % (Auto) 0.400, Neut % (Auto) 68.1, Lymph % (Auto) 13.5 L, [place] % (Auto) 15.0 H, Eos % (Auto) 2.2, Baso % (Auto) 0.8, Absolute Neuts (auto) 5.3, Absolute Lymphs (auto) 1.04, Nucleated RBC % 0 06/17/22 04:42: Sodium 126 L, Potassium 4.9, Chloride 94 L, Carbon Dioxide 22.0, Anion Gap 10, BUN 20 H, Creatinine 1.14, Estim Creat Clear Calc 45.83, Est GFR (MDRD) Af Amer 78, Est GFR (MDRD) Non-Af 65, BUN/Creatinine Ratio 17.5, Glucose 105, Calcium 8.7, Total Bilirubin 1.20 H, AST 96 H, ALT 82 H, Alkaline Phosphatase 129 H, Total Protein 6.4, Albumin 3.2, Globulin 3.2, Albumin/Globulin Ratio 1.0 Radiography Diagnostic Testing: Radiology Impression Abdomen/Pelvis CT 06/17/22 02:11 IMPRESSION: 1. Kaur catheter balloon is inflated within the prostate. 2. Slight bilateral pleural effusions. 3. Mild cardiomegaly. 4. Numerous sigmoid diverticula without diverticulitis. Electronically Signed: Dax Leo MD at 4:03 EST , ADDENDUM: 06/17/22 0431 IMPRESSION: 1. Kaur catheter balloon is inflated within the prostate. 2. Slight bilateral pleural effusions. 3. Mild cardiomegaly. 4. Numerous sigmoid diverticula without diverticulitis. N.B. : The above Results were Read Back by Dax Leo MD to Angelica Willis MD, and understanding confirmed on 06/17/2022 04:24:26 (ET). Electronically Signed: Dax Leo MD at 4:03 EST , Physical Exam Const alert, oriented x3 and no apparent distress General Appearance: cooperative, well kempt and well developed Orientation / Consciousness: awake, oriented to person, oriented to place and oriented to time HEENT normocephalic and moist oral mucous membranes Eyes PERRL, EOMs intact bilaterally and conjunctivae normal Neck supple, no JVD, thyroid normal and no carotid bruits General: trachea midline Resp normal respiratory effort, no retractions, no use of accessory muscles and clear to auscultation bilaterally Auscultation: Negative for rales, rhonchi or wheezes Cardio no murmurs, no rub and no gallops Cardio Narrative: Heart rate and rhythm is irregular GI normal to inspection, nondistended, normoactive bowel sounds, soft to palpation, non-tender and non-distended Extremity no clubbing, cyanosis or edema Skin no rashes or lesions noted General Skin Exam: no breakdown Neuro oriented x3, CN's II-XII intact bilaterally, moves all extremities, no focal motor deficits and no sensory deficits noted Sensorium / Orientation: awake and alert Speech: speech normal Psych affect normal Assessment & Plan Assessment/Plan (1) Hematuria: PLAN: Plan 1. Gross hematuria-etiology unclear, patient CBC will be monitored, patient will undergo cystoscopy tomorrow #2 chronic atrial fibrillation-patient's rate is under control at this time, patient is not on any systemic anticoagulation #3 COPD-patient is stable at this time, patient is on budesonide aerosols and as needed albuterol aerosols #4 essential hypertension-patient will remain on his present medications #5 chronic diastolic CHF-patient stable at this time, continue present medications #6 hyperlipidemia-patient is currently on a statin Charges/Coding Visit Charges Inpatient E&M: 66817 Subs Hosp L2
[2022-06-17] MEDS: Contrast Allergy Safety Check IV (22:49)
[2022-06-18] VITALS (13 sets, daily range): BP systolic 72–117; BP diastolic 52–87; PULSE 62–111; RESP 16–20; TEMP 36.5–37.2; O2SAT 89–99; BMI 24.1
--- NOTE | 2022-06-18 01:55 | EKG12_ITS ---
Test Reason : Blood Pressure : / mmHG Vent. Rate : 097 BPM Atrial Rate : 000 BPM P-R Int : 000 ms QRS Dur : 090 ms QT Int : 392 ms P-R-T Axes : 000 062 034 degrees QTc Int : 497 ms Atrial fibrillation with premature ventricular or aberrantly conducted complexes Prolonged QT Abnormal ECG When compared with ECG of 25-MAY-2022 05:16, T wave inversion no longer evident in Anterior leads Confirmed by YAHAIRA GUZMÁN, CATHY ([id number]), clinical editor DAPHNEY FULTON ([id number]) on 06/25/2022 7:19:37 AM Referred By: Lazaro Confirmed By:CATHY SYED MD
[2022-06-18] MEDS: 0.9% Normal Saline 1,000 ML 75 ML IV ×2 (04:06→19:01)
[2022-06-18 06:18] LABS: Absolute Lymphocyte Count 0.99 X10^3/uL (0.83-4.51); Absolute Neutrophil Count 4.1 X10^3/uL (2.0-7.7); Basophil# 0.05 X10^3/uL; Basophil% 0.7 % (0-1); Eosinophil# 0.19 X10^3/uL; Eosinophils% 2.8 % (0-5); Hematocrit 22.2 % (40-54); Hemoglobin 7.5 g/dL (13.0-16.5); Lymphocyte # 0.99 X10^3/ul (0.83-4.51); Lymphocyte % 14.7 % (19-41); Mean Corp Hgb Conc 33.8 g/dL (32-36); Mean Corpuscular Hgb 34.2 pg (27.0-32.0); Mean Corpuscular Volume 101.4 fL (80-94); Mean Platelet Vol. 10.1 fl (6.2-12.0); Monocyte% 20.8 % (0-10); NRBC Flagged by Analyzer 0 % (0-5); Neutrophil # 4.06 X10^3/uL (2.7-7.7); Neutrophil % 60.4 % (47-70); Platelet Count 180 K/mm3 (150-450); RBC Distribution Width CV 15.3 % (11.6-14.6); RBC Distribution Width SD 55.8 fl (35.1-43.9); Red Blood Count 2.19 M/mm3 (4.6-6.2); White Blood Count 6.7 K/mm3 (4.4-11.0)
[2022-06-18 06:27] LABS: International Normalized Ratio 1.2; Partial Thromboplast Time 29.5 Seconds (24.1-36.2)
[2022-06-18 06:52] LABS: Anion Gap 8 (5-15); BUN 17 mg/dL (7-18); BUN/Creat Ratio 16.7 RATIO (10-20); Calcium,Total 8.6 mg/dL (8.5-10.1); Chloride 99 mmol/L (98-107); Creatinine, Serum 1.02 mg/dL (0.70-1.30); EST Glomerular Filtration Rate 74 mL/min (>60); Est Glom Filt Rate - Afr Amer 89 mL/min (>60); Estimated Creatinine Clearance 51.23 ml/min; Glucose 121 mg/dL (74-106); Potassium 4.1 mmol/L (3.5-5.1); Sodium Level 131 mmol/L (136-145)
[2022-06-18] MEDS: Carvedilol 12.5 MG Tablet PO ×2 (10:03→20:11)
[2022-06-18] MEDS: Lactated Ringers 1,000 ML 15 ML IV (14:55)
--- NOTE | 2022-06-18 15:52 | PN.HOSP_ITS ---
Subjective Subjective Patient was seen and examined today, his hemoglobin today was 7.5, he is due to have a cystoscopy today by urology. Patient has no complaints of any chest pain or shortness of breath. Objective Data Objective Data Vital Signs: Vital Signs Temp Pulse Resp BP Pulse Ox O2 Del Method 99 F 99 18 115/78 95 Room Air 06/18/22 14:50 06/18/22 14:50 06/18/22 14:50 06/18/22 14:50 06/18/22 14:50 06/18/22 14:50 Oxygen Delivery Method Room Air Weight: 72 kg Body Mass Index (BMI) 24.1 Intake & Output: Intake and Output for Last 24 Hours 06/16/22 06/17/22 06/18/22 23:59 23:59 23:59 Intake Total 1406.25 / 1406.25 1725.0 / 1725.0 Output Total 3000 / 3000 4750 / 4750 250 / 250 Balance -3000 / -3000 -3343.75 / -3343.75 1475.0 / 1475.0 Lab / Micro Data Result Diagrams: 06/18/22 05:50 06/18/22 05:50 Labs: Laboratory Results - last 24 hr 06/18/22 05:50: WBC 6.7, RBC 2.19 L, Hgb 7.5 L, Hct 22.2 L, MCV 101.4 H, MCH 34.2 H, MCHC 33.8, RDW Std Deviation 55.8 H, RDW Coeff of [place] 15.3 H, Plt Count 180, MPV 10.1, Immature Gran % (Auto) 0.600, Neut % (Auto) 60.4, Lymph % (Auto) 14.7 L, [place] % (Auto) 20.8 H, Eos % (Auto) 2.8, Baso % (Auto) 0.7, Absolute Neuts (auto) 4.1, Absolute Lymphs (auto) 0.99, Nucleated RBC % 0 06/18/22 05:50: PT 15.0 H, INR 1.2, APTT 29.5 06/18/22 05:50: Sodium 131 L, Potassium 4.1, Chloride 99, Carbon Dioxide 24.0, Anion Gap 8, BUN 17, Creatinine 1.02, Estim Creat Clear Calc 51.23, Est GFR (M DRD) Af Amer 89, Est GFR (MDRD) Non-Af 74, BUN/Creatinine Ratio 16.7, Glucose 121 H, Calcium 8.6 Physical Exam Narrative alert, oriented x3 and no apparent distress General Appearance: cooperative, well kempt and well developed Orientation / Consciousness: awake, oriented to person, oriented to place and oriented to time HEENT normocephalic and moist oral mucous membranes Eyes PERRL, EOMs intact bilaterally and conjunctivae normal Neck supple, no JVD, thyroid normal and no carotid bruits General: trachea midline Resp normal respiratory effort, no retractions, no use of accessory muscles and clear to auscultation bilaterally Auscultation: Negative for rales, rhonchi or wheezes Cardio no murmurs, no rub and no gallops Cardio Narrative: Heart rate and rhythm is irregular GI normal to inspection, nondistended, normoactive bowel sounds, soft to palpation, non-tender and non-distended Extremity no clubbing, cyanosis or edema Skin no rashes or lesions noted General Skin Exam: no breakdown Neuro oriented x3, CN's II-XII intact bilaterally, moves all extremities, no focal motor deficits and no sensory deficits noted Sensorium / Orientation: awake and alert Speech: speech normal Psych affect normal Assessment & Plan Assessment/Plan (1) Hematuria: PLAN: Plan 1. Gross hematuria-etiology unclear, patient CBC will be monitored, patient valentina l undergo cystoscopy today #2 chronic atrial fibrillation-patient's rate is under control at this time, patient is not on any systemic anticoagulation #3 COPD-patient is stable at this time, patient is on budesonide aerosols and as needed albuterol aerosols #4 essential hypertension-patient will remain on his present medications #5 chronic diastolic CHF-patient stable at this time, continue present medications #6 hyperlipidemia-patient is currently on a statin Charges/Coding Visit Charges Inpatient E&M: 14848 Subs Hosp L2
--- NOTE | 2022-06-18 15:53 | OP.PCM_ITS ---
Report of Operation Date of Procedure: 06/18/22 Pre-Operative Diagnosis: Gross hematuria and bleeding from the bladder and pros pool edge Post-Operative Diagnosis: Same Surgery/Procedure Performed:: Cystoscopy evacuation of blood clots cauterization of bleeding Description of Surgical Findings:: This is an 86-year-old gentleman who is known to me in my practice he has a history of atonic bladder and he does self intermittent catheterization less than about 2 weeks ago he presented to the hospital with severe bleeding had a taken the surgery evacuate blood clots cauterized some bleeding in the prostatic channel he then went home with a catheter the catheter was removed and he had been doing well and then suddenly he presented to the ER with significant amount of bleeding three-way catheter was placed and now taken back to surgery today to evaluate the source of the bleeding. Patient was taken back to the operating room at the smooth induction of general MAC local anesthesia he was placed in dorsolithotomy position penis and mulu ticles were prepped and draped in usual sterile fashion we removed a three-way Michel catheter and then went into the bladder with a 21 Maori rigid cystourethroscope inside the bladder several clots these were evacuated out manually and then in the back of the bladder there was a small loser of blood coming from a prior area that been cauterized before I then used the Bugbee electrode and cauterized this extensively and then I checked several times and there was no more bleeding from the site and then we put a catheter in the bladder. He will need to go home with a catheter let this heal up for about 2 weeks and we can get it out in the office in 2 to 3 weeks after is healed up. Surgeon: Edgard Schafer Type of Anesthesia: MAC and Topical Anesth Drains: 20 fr michel
[2022-06-18] MEDS: Potassium Chloride Oral Tablet 20 MEQ PO (16:51)
--- NOTE | 2022-06-18 17:14 | CASEMGMT ---
CARLOTA RIVERO NOTE: PT/OT evals have been reviewed. PT does not recommend additional therapy. OT does. RN CM to room. Introduced self and role. Pt declines need for any HHC or OP therapy @ discharge. He was made aware to f/u w/PCP if he decides he would like additional therapy once he returns home. He denies having any other discharge planning needs or concerns. Terrance BOURNE RN CM
[2022-06-18] MEDS: Furosemide 40 MG Tablet PO (18:16)
[2022-06-18] MEDS: Atorvastatin Calcium 10 MG Tablet PO (20:11)
[2022-06-19 00:10] VITALS: O2SAT 95
[2022-06-19 03:26] VITALS: BP 102/50; PULSE 98; RESP 18; TEMP 36.6; TEMP 36.8; O2SAT 94
[2022-06-19 07:28] VITALS: O2SAT 94
[2022-06-19 07:59] VITALS: O2SAT 94
[2022-06-19] MEDS: 0.9% Normal Saline 1,000 ML 75 ML IV (08:13)
--- NOTE | 2022-06-19 08:36 | CASEMGMT ---
Social Work As per admitting mechanic senior, pt has POA, he named Toya Bear as POA. Pt is unable to bring in the documents at this time. Pt does not have a living will. DESIRE Collazo
[2022-06-19 09:01] LABS: Absolute Lymphocyte Count 1.07 X10^3/uL (0.83-4.51); Absolute Neutrophil Count 4.6 X10^3/uL (2.0-7.7); Basophil# 0.05 X10^3/uL; Basophil% 0.7 % (0-1); Eosinophil# 0.25 X10^3/uL; Eosinophils% 3.4 % (0-5); Hematocrit 23.8 % (40-54); Hemoglobin 7.6 g/dL (13.0-16.5); Lymphocyte # 1.07 X10^3/ul (0.83-4.51); Lymphocyte % 14.4 % (19-41); Mean Corp Hgb Conc 31.9 g/dL (32-36); Mean Corpuscular Hgb 33.9 pg (27.0-32.0); Mean Corpuscular Volume 106.3 fL (80-94); Mean Platelet Vol. 9.8 fl (6.2-12.0); Monocyte# 1.39 X10^3/uL; Monocyte% 18.7 % (0-10); NRBC Flagged by Analyzer 0.3 % (0-5); Neutrophil # 4.64 X10^3/uL (2.7-7.7); Neutrophil % 62.5 % (47-70); Platelet Count 181 K/mm3 (150-450); RBC Distribution Width CV 15.6 % (11.6-14.6); RBC Distribution Width SD 58.9 fl (35.1-43.9); Red Blood Count 2.24 M/mm3 (4.6-6.2); White Blood Count 7.4 K/mm3 (4.4-11.0)
[2022-06-19 10:00] VITALS: BP 111/65; PULSE 95; RESP 17; TEMP 36.7; O2SAT 96
--- NOTE | 2022-06-19 10:09 | DCINST_ITS ---
Discharge Instructions Diet Discharge Diet: No restrictions Activity Discharge Activity: Return to Normal Activity Weight Bearing Status: Full weight bearing Follow Up Care Test Results: Test results from this visit will be discussed in further detail at your follow- up appointment, if applicable. Discharge Plan Admission Admit Date/Time: 06/16/22 21:35 Primary Reason for Your Visit: hematuria Attending Provider: Alvaro Gibson Primary Care Provider: Conor Ronquillo Consulting Providers: Edgard Schafer ; Angelica Willis Discharge Orders/Prescriptions Prescriptions: New cephalexin 500 mg capsule 500 mg PO BID Qty: 10 0RF Continued cholecalciferol (vitamin D3) [Vitamin D3] 25 mcg (1,000 unit) tablet 1,000 unit PO DAILY Label Comments: Take 1 tablet by mouth once a day furosemide 40 mg Tablet 40 mg PO BIDLX Qty: 60 2RF carvedilol 12.5 mg Tablet 12.5 mg PO BID Qty: 60 1RF atorvastatin 10 mg Tablet 10 mg PO QHS Qty: 30 1RF potassium chloride 20 mEq tablet extended release 20 meq PO DAILY Qty: 30 1RF Discontinued ciprofloxacin HCl [Cipro] 500 mg tablet 500 mg PO BID Qty: 10 0RF Referrals / Follow Up: Conor Ronquillo DO [Primary Care Provider] - Edgard Schafer MD [Med Staff - Active Staff] - See Referral Note (in two weeks-call for appointment) Disposition Disposition (needs filled in before D/C Order can be placed): Home, Self Care
--- NOTE | 2022-06-19 10:19 | PCM.DC.SUM ---
Providers Date of Admission: 06/16/22 Date of Discharge: 06/19/22 Primary Care Physician: Dr. Conor Ronquillo, DO Consultations 06/16/22 23:57 Consult: Urology Routine Consulting Provider: Edgard Schafer Reason for Consult: Recurrent hematuria, urinary retention. EMERGENT Consult: No MD Notified: Yes Date Notified: 06/16/22 Time Notified: 21:38 Method of Notification: ED Physician Initiated Reason For Visit: HEMATURIA Diagnosis Discharge Diagnosis (1) Hematuria: Status: Acute Code(s): R31.9 - Hematuria, unspecified Plan 1. Gross hematuria due to bleeding areas of the bladder #2 chronic atrial fibrillation-patient's rate is under control at this time, patient is not on any systemic anticoagulation #3 COPD-patient is stable at this time, patient is on budesonide aerosols and as needed albuterol aerosols #4 essential hypertension-patient will remain on his present medications #5 chronic diastolic CHF-patient stable at this time, continue present medications #6 hyperlipidemia-patient is currently on a statin Medications at Discharge Home Medications cholecalciferol (vitamin D3) 25 mcg (1,000 unit) tablet (Vitamin D3) 1,000 unit PO DAILY supplement 03/23/22 atorvastatin 10 mg tablet 10 mg PO QHS #30 tabs 05/26/22 carvedilol 12.5 mg tablet 12.5 mg PO BID #60 tabs 05/26/22 furosemide 40 mg tablet 40 mg PO BIDLX #60 tabs 05/26/22 potassium chloride 20 mEq tablet,extended release 20 meq PO DAILY #30 tabs 05/26/22 cephalexin 500 mg capsule 500 mg PO BID #10 caps 06/19/22 Hospital Course Operations None Procedures - (Cystoscopy with evacuation of blood clots and cauterization of bleeding areas in the bladder) Summary of Care Provided Minutes Spent on Discharge: 31 Hospital Course: This 86-year-old white male was seen in the emergency room with complaints of intermittent gross hematuria, patient had a Kaur catheter removed several days prior and his urologist office. Patient had a Kaur catheter placed in the emergency room due to his gross hematuria, his bladder was irrigated and despite irrigating with over 2 L of irrigation, the patient continued to have significant hematuria. Patient's hemoglobin was low at 7.8 but he was hemodynamically stable. Patient was admitted to PCU, urology was consulted, patient was ultimately taken for cystoscopy with evacuation of clots in the bladder and cauterization of bleeding bladder areas. Patient tolerated the procedure well. On 06/19/2022, patient was seen and examined: On examination he appeared in good health and spirits. Vital signs as documented. Skin warm and dry and without overt rashes. Neck without JVD, neck was supple, trachea midline, thyroid was normal. Lungs clear bilaterally, normal air movement was noted. Heart exam notable for irregular rhythm, normal sounds and absence of murmurs, rubs or gallops. Abdomen unremarkable and without evidence of organomegaly, masses, or abdominal aortic enlargement. Bowel sounds are present, abdomen is not distended. Extremities nonedematous, no cyanosis was noted, no clubbing was noted. Neuro: Cranial nerves II through XII are grossly intact, no focal motor deficits were noted, sensation to light touch and pinprick intact, motor exam 5/5 throughout. Psych: Patient is alert and oriented x3, he does not appear anxious or depressed, he does not appear agitated. Patient was felt to be stable for discharge home on 06/19/2022, he was discharged with a Kaur catheter and instructed to follow-up with his urologist. Weight / BMI Weight Weight: 73.5 kg Body Mass Index (BMI) 24.1 ABG / Lab / Microbiology Data Result Diagrams: 06/19/22 08:54 06/18/22 05:50 Laboratory: Laboratory Results - last 24 hr 06/19/22 08:54: WBC 7.4, RBC 2.24 L, Hgb 7.6 L, Hct 23.8 L, MCV 106.3 H, MCH 33.9 H, MCHC 31.9 L D, RDW Std Deviation 58.9 H, RDW Coeff of Chaparro 15.6 H, Plt Count 181, MPV 9.8, Immature Gran % (Auto) 0.300, Neut % (Auto) 62.5, Lymph % (Auto) 14.4 L, [place]ick[place] % (Auto) 18.7 H, Eos % (Auto) 3.4, Baso % (Auto) 0.7, Absolute Neuts (auto) 4.6, Absolute Lymphs (auto) 1.07, Nucleated RBC % 0.3 D/C Instructions Discharge Diet: No restrictions Weight Bearing Status: Full weight bearing Meaningful Use Info Meaningful Use Diagnoses (Choose all that apply): None applicable Discharge Plan Admission Admit Date/Time: 06/16/22 21:35 Primary Reason for Your Visit: hematuria Attending Provider: Alvaro Gibson Primary Care Provider: Conor Ronquillo Consulting Providers: Edgard Schafer ; Angelica Willis Discharge Orders/Prescriptions Prescriptions: New cephalexin 500 mg capsule 500 mg PO BID Qty: 10 0RF Continued cholecalciferol (vitamin D3) [Vitamin D3] 25 mcg (1,000 unit) tablet 1,000 unit PO DAILY Label Comments: Take 1 tablet by mouth once a day furosemide 40 mg Tablet 40 mg PO BIDLX Qty: 60 2RF carvedilol 12.5 mg Tablet 12.5 mg PO BID Qty: 60 1RF atorvastatin 10 mg Tablet 10 mg PO QHS Qty: 30 1RF potassium chloride 20 mEq tablet extended release 20 meq PO DAILY Qty: 30 1RF Discontinued ciprofloxacin HCl [Cipro] 500 mg tablet 500 mg PO BID Qty: 10 0RF Referrals / Follow Up: Conor Ronquillo DO [Primary Care Provider] - Edgard Schafer MD [Med Staff - Active Staff] - See Referral Note (in two weeks-call for appointment) Disposition Disposition (needs filled in before D/C Order can be placed): Home, Self Care Charges/Coding Visit Charges Inpatient E&M: 90622 Disch Hosp
[2022-06-19] MEDS: Carvedilol 12.5 MG Tablet PO (10:24)
[2022-06-19] MEDS: Potassium Chloride Oral Tablet 20 MEQ PO (10:24)
[2022-06-19] MEDS: Furosemide 40 MG Tablet PO (10:24)
[2022-06-19 11:11] VITALS: O2SAT 87; O2SAT 90; O2SAT 96
--- NOTE | 2022-06-19 12:13 | NURSING ---
This RN reviewed discharge instructions with patient and patient's daughter at bedside; no questions at this time. IV removed per hospital policy without complications. Pt left with michel catheter and instructed on how to change from leg bag back to large bag. Pt has prior knowledge of how to change michel bag. Pt will follow up with urology in two weeks. Pt left via wheelchair with all belongings.
== END 2022-06-19 12:11 | disposition home or self-care (01) | DRG 663 ==
LOC: ED 21:24 → PCU 21:55
PROVIDERS: Anesthesiology; Urology; Admitting Provider Family Medicine; Emergency Provider Emergency Medicine; PCP Internal Medicine; Visit Provider Internal Medicine
PROC: 0W3R8ZZ Control Bleeding in Genitourinary Tract, Via Natural or Artificial Opening Endoscopic (ICD-10-PCS; CPT 52214; principal; 2022-06-18 15:35)
DX: R31.0 Gross hematuria (principal); D62 Acute posthemorrhagic anemia; I48.20 Chronic atrial fibrillation, unspecified; E87.1 Hypo-osmolality and hyponatremia; I27.20 Pulmonary hypertension, unspecified; I11.0 Hypertensive heart disease with heart failure; J44.9 Chronic obstructive pulmonary disease, unspecified; I48.0 Paroxysmal atrial fibrillation; E78.5 Hyperlipidemia, unspecified; Z87.891 Personal history of nicotine dependence; Z79.899 Other long term (current) drug therapy; N31.2 Flaccid neuropathic bladder, not elsewhere classified; R33.9 Retention of urine, unspecified
CPT/HCPCS: 36415; 51702; 74177; 80048; 80053; 81001; 85014; 85018; 85025; 85610; 85730; 86850; 86900; 86901; 93005; 97161; 97165; 97535; 97802; 99251; 99285; J7030; J7120; Q9967; A4216; G0463; J2405

== ENCOUNTER 2022-07-06 14:05 | Emergency (ER) | payer MEDICARE, SELFPAY ==
[2022-07-06 14:05] VITALS: BP 127/78; PULSE 118; RESP 16; TEMP 36.6; O2SAT 96; BMI 23.6
--- NOTE | 2022-07-06 14:42 | EX.ED.DYSGE1 ---
HPI History of Present Illness Chief Complaint: Complaint Informant: patient and family Narrative Narrative: Patient presents with inability to urinate. This patient has been having issues [id number] with hematuria and inability to urinate. He has had catheters in and out. His last one was placed about 2 weeks ago. It was removed yesterday. He really has not urinated much at all since then. He had a couple drops of urine. He had a small amount of blood but no clots.He also has some discomfort in the lower abdomen and he feels like it is hard to breathe but this all started after he could not urinate for a while. He denies fevers or chills. When I ask about peripheral edema he states that he gets this and this is not really abnormal for him. Patient was on Eliquis for history of atrial fibrillation but that was stopped because of this recurrent problem with hematuria bleeding and Dr. Schafer Has had to do bladder scopes and cauterization a couple times already. [facility] Medical History Anemia CHF (congestive heart failure) COPD (chronic obstructive pulmonary disease) HTN (hypertension) Kidney stones On home oxygen therapy Paroxysmal A-fib Prostate cancer Sleep apnea Home Medications cholecalciferol (vitamin D3) 25 mcg (1,000 unit) tablet (Vitamin D3) 1,000 unit PO DAILY supplement 03/23/22 [History Last Taken 05/19/22] atorvastatin 10 mg tablet 10 mg PO QHS #30 tabs 05/26/22 [Rx Last Taken Unknown] carvedilol 12.5 mg tablet 12.5 mg PO BID #60 tabs 05/26/22 [Rx Last Taken Unknown] furosemide 40 mg tablet 40 mg PO BIDLX #60 tabs 05/26/22 [Rx Last Taken Unknown] potassium chloride 20 mEq tablet,extended release 20 meq PO DAILY #30 tabs 05/26/22 [Rx Last Taken Unknown] cephalexin 500 mg capsule 500 mg PO Q12 #20 caps 07/06/22 [Rx Last Taken Unknown] ciprofloxacin HCl 500 mg tablet (Cipro) 500 mg PO BID #14 tabs 07/06/22 [Rx Last Taken Unknown] Allergy/AdvReac Type Severity Reaction Status Date / Time No Known Allergies Allergy Verified 07/06/22 14:07 Family History Mother Heart disease Hypertension Father Heart disease Hypertension Surgical History S/P hemodialysis catheter insertion Social History household members: significant other housing: house Smoking Status: Never smoker alcohol intake: current alcohol intake frequency: 0-2 drinks per day details: Occasional EtOH use. substance use type: does not use ROS ROS ED Constitutional Constitutional ED: Denies chills or fever(s) ENT ENT ED: Denies rhinorrhea Cardiovascular Cardiovascular: Reports other Details: She does have a history of atrial fibrillation but does not feel any chest pain or palpitations at this time ; Denies chest pain, palpitations or racing heartbeat Respiratory/Chest Respiratory/Chest: Denies cough or dyspnea Gastrointestinal Gastrointestinal: Reports abdominal pain; Denies nausea or vomiting Genitourinary Genitourinary ED: Reports other Details: See history of present illness Musculoskeletal Musculoskeletal: Denies arthralgias Integumentary Denies rash Neurologic Neurologic: Denies headache(s) Endocrine Endocrinology: Denies polydipsia or polyuria Hematologic/Lymphatic Hematologic/Lymphatic: Reports other Details: Patient was on blood thinners. But is no longer taking the Eliquis. ; Denies easy bleeding or easy bruising Allergic/Immunologic Allergic/Immunologic ED: Denies urticaria EXAM Physical Exam Const Vital Signs: 07/06/22 14:05 07/06/22 16:31 07/06/22 15:33 Temperature 98 F Temperature Source Temporal Pulse Rate 118 H 112 H 94 Respiratory Rate 16 27 H 20 H Respiratory Pattern Normal Blood Pressure 127/78 H 124/93 H Blood Pressure Mean 94 103 Pulse Ox 96 99 Oxygen Delivery Method Room Air Nasal Cannula Oxygen Flow Rate (L/min) 2 07/06/22 17:16 Temperature Temperature Source Pulse Rate 113 H Respiratory Rate 18 Respiratory Pattern Blood Pressure 128/92 H Blood Pressure Mean 104 Pulse Ox 98 Oxygen Delivery Method Nasal Cannula Oxygen Flow Rate (L/min) Positive well nourished and well developed Constitutional Narrative: Patient does look a bit uncomfortable but not toxic. He is hard of hearing. General Appearance ED: well developed HEENT Reports moist mucous membranes Neck no lymphadenopathy Resp Resp Narrative: Work of breathing is slightly increased. He does have a hint of expiratory wheezing. But I think most of his breathing issue is due to difficulty taking a deep breath due to an enlarged bladder. Cardio Rate: tachycardic and other Other Details: Heart does sound regular. Mildly tachycardic at about 105 while I am in the room. GI GI Narrative: Abdomen does seem full at the lower abdomen consistent with enlarged bladder. Is not really tender though. Narrative: No CVA tenderness. Anus is mildly edematous. Extremity Extremity Narrative: Bilateral +1 lower extremity edema which is evidently not new. General Extremety ED: Yes edema General Extremity: edema Neuro oriented x3 Neuro Narrative: Patient is oriented but is a bit hard of hearing Psych mental status grossly normal Skin no rashes or lesions noted MDM MDM MDM Narrative Medical decision making narrative: Bladder scan did not show significantly enlarged bladder. However, his abdomen does seem to be a bit distended. He now states his abdomen does not hurt. I gave him a breathing treatment and he states his breathing is normal for him now.A catheter was placed. We only have about 250 to 300 cc of urine out. It looks clear yellow. There is no blood or sediment. However, his blood work shows an acute kidney injury.It seems like he is on Lasix that might be part of this. But he states he is drinking water and drink plenty of water yesterday. The catheter was removed by about 10 AM. And he says he has not really had much urine output since. He had a few dribbles this morning. He now states he dribbles urine but he does not think there was any blood in that. He overall feels well right now. He is not having bladder pain. He is not having trouble breathing or abdominal pain or any other symptoms. But I am concerned with his worsening renal function. I will do scanning the abdomen without contrast. I did ultrasound of the abdomen and I do not see an enlarged bladder. I will do a CT scan without contrast to make sure that there is no significantly enlarged bladder, hydronephrosis, or other acute intra-abdominal process. Patient's EKG does show atrial fibrillation with rate of 121. But when I go in the room he is normally about 112/14. He is asymptomatic with this. I talked to him about his meds. It sounds like he may not have taken his carvedilol and Lasix this morning because of these issues that brought him in today. I will give him his carvedilol dose. I will hold off on his Lasix dose because it sounds like it was doubled not long ago and I think he is getting a bit dry from this. He feels well and would like to go home. He evidently does much better when he has a catheter in. This may be one of his background issues and concerns. Is just easier for him with the catheter in. But with him having trouble urinating, the BELKIS we will keep it in at this time. Urine is also suspicious for a urine infection. I will give him antibiotics now. If the culture is negative they may be able to be stopped. As long as his CT does not show any marked abnormality that requires acute intervention I think we can get him home. CT does show some effusions but overall his x-ray is much better than his prior, he is not hypoxic and he is not short of breath. Although patient does have an acute kidney injury this is elevated from his prior level but he did have a creatinine over 1.5 recently also. X-ray shows changes but compared to his prior is much better. CT shows multiple changes. There is some effusion and groundglass changes. But again, his x-ray is improved and he is breathing is gotten better. I find he is on budesonide and albuterol but just does not usually use it. I explained that if he has any breathing problems he should use these medicines as prescribed. He states he does take his pills. The CT also hinted of the left-sided diverticulitis in 1 statement. I went back and talked to him. He has not been having nausea vomiting fevers or chills. He states he has absolutely no abdominal pain. I pressed firmly in the abdomen and I am not getting any tenderness. Patient does not want to come in the hospital. I will put him on Cipro to cover both potential diverticulitis and the urine. We discussed reasons to return and follow. Lab Data Attestation: I reviewed the patient's lab results. Labs: Laboratory Results - last 24 hr 07/06/22 07/06/22 07/06/22 15:00 15:00 15:00 WBC 7.5 RBC 2.72 L Hgb 9.0 L Hct 29.8 L MCV 109.6 H MCH 33.1 H MCHC 30.2 L RDW Std Deviation 67.6 H RDW Coeff of Chaparro 17.2 H Plt Count 287 MPV 10.1 Immature Gran % (Auto) 0.400 Neut % (Auto) 65.4 Lymph % (Auto) 16.2 L [place] % (Auto) 13.1 H Eos % (Auto) 3.6 Baso % (Auto) 1.3 H Absolute Neuts (auto) 4.9 Absolute Lymphs (auto) 1.21 Nucleated RBC % 0.8 Differential Comment SCANNED Anisocytosis 1+ Sodium 139 Potassium 4.6 Chloride 105 Carbon Dioxide 26.0 Anion Gap 8 BUN 31 H Creatinine 1.72 H Estim Creat Clear Calc 30.38 Est GFR (MDRD) Af Amer 49 L Est GFR (MDRD) Non-Af 40 L BUN/Creatinine Ratio 18.0 Glucose 163 H Calcium 9.0 Urine Color Yellow Urine Clarity Sl. Cloudy Urine pH 6.0 Ur Specific [place] 1.015 Urine Protein 30 H Urine Glucose (UA) Normal Urine Ketones Negative Urine Occult Blood 150 H Urine Nitrite Negative Urine Bilirubin Negative Urine Urobilinogen Normal Ur Leukocyte Esterase 500 H Urine RBC 0-5 SEEN Urine WBC >100 SEEN Ur Squamous Epith Cells 0 SEEN Urine Bacteria 2+ Urine Mucus 0 SEEN Radiography Diagnostic Testing: Clinical Impression(s) from Imaging Studies Abdomen/Pelvis CT 07/06/22 15:52 IMPRESSION: Acute sigmoid diverticulitis. No focal fluid collection or free air. Due to asymmetry of the wall thickening in the distal sigmoid colon, cannot rule out underlying malignancy. Correlate with most recent colonoscopy. Fluid overload as evidenced by mild ascites, moderate bilateral pleural effusions and soft tissue anasarca. Ground glass and airspace opacities in the left lower lobe and lingula could represent edema and/or infection. Electronically Signed: Mono Coreas MD at 17:26 EST , Chest X-Ray 07/06/22 16:14 IMPRESSION: Streaky and hazy opacities in the left lung base could represent edema and/or infection. Cardiomegaly with small bilateral pleural effusions. Electronically Signed: Mono Coreas MD at 17:17 EST , EKG Initial EKG: Comments: EKG done for history of atrial fibrillation read by me shows atrial fib with a rate of 121. There are a few PVCs. Nonspecific ST and T wave change. QRS duration and QTc are normal. Discharge Plan Triage Chief Complaint: Complaint ED Provider: Cornelio Ramesh Dx/Rx/DC Orders Clinical Impression: Acute urinary retention, Acute kidney injury, Atrial fibrillation, Diverticulitis Instructions: ED Urinary Retention, Male, ED Urinary Tract Infections in Men Prescriptions: New cephalexin [cephalexin] 500 mg capsule 500 mg PO Q12 Qty: 20 0RF ciprofloxacin HCl [Cipro] 500 mg tablet 500 mg PO BID Qty: 14 0RF Continued cholecalciferol (vitamin D3) [Vitamin D3] 25 mcg (1,000 unit) tablet 1,000 unit PO DAILY Label Comments: Take 1 tablet by mouth once a day furosemide 40 mg Tablet 40 mg PO BIDLX Qty: 60 2RF carvedilol 12.5 mg Tablet 12.5 mg PO BID Qty: 60 1RF atorvastatin 10 mg Tablet 10 mg PO QHS Qty: 30 1RF potassium chloride 20 mEq tablet extended release 20 meq PO DAILY Qty: 30 1RF Discontinued cephalexin 500 mg capsule 500 mg PO BID Qty: 10 0RF Primary Care Provider: Conor Ronquillo Referrals: Conor Ronquillo DO [Primary Care Provider] - 3-5 Days Edgard Schafer MD [Med Staff - Active Staff] - 3-5 Days Activity Restrictions/Additional Instructions: Take your furosemide once a day rather than twice a day for the next 3 days. Then return to normal dose. Follow-up with your physician for recheck and for evaluation of results of urine culture. Disposition Disposition: Home, Self Care
[2022-07-06 15:08] LABS: Mucous, Urine 0 SEEN /hpf (<or=2+); Squamous Epithelial Cells - UA 0 SEEN /hpf (0-5)
[2022-07-06 15:18] LABS: Absolute Lymphocyte Count 1.21 X10^3/uL (0.83-4.51); Absolute Neutrophil Count 4.9 X10^3/uL (2.0-7.7); Basophil% 1.3 % (0-1); Eosinophil# 0.27 X10^3/uL; Eosinophils% 3.6 % (0-5); Hematocrit 29.8 % (40-54); Lymphocyte # 1.21 X10^3/ul (0.83-4.51); Lymphocyte % 16.2 % (19-41); Mean Corp Hgb Conc 30.2 g/dL (32-36); Mean Corpuscular Hgb 33.1 pg (27.0-32.0); Mean Corpuscular Volume 109.6 fL (80-94); Mean Platelet Vol. 10.1 fl (6.2-12.0); Monocyte# 0.98 X10^3/uL; Monocyte% 13.1 % (0-10); NRBC Flagged by Analyzer 0.8 % (0-5); Neutrophil # 4.89 X10^3/uL (2.7-7.7); Neutrophil % 65.4 % (47-70); POSITIVE MORPHOLOGY YES; Platelet Count 287 K/mm3 (150-450); RBC Distribution Width CV 17.2 % (11.6-14.6); RBC Distribution Width SD 67.6 fl (35.1-43.9); Red Blood Count 2.72 M/mm3 (4.6-6.2); White Blood Count 7.5 K/mm3 (4.4-11.0)
[2022-07-06 15:19] LABS: Differential Indicated SCAN CRITERIA MET
[2022-07-06 15:22] LABS: Color, Urine Yellow (Yellow); Glucose, Dipstick Normal (Normal); Ketone-Dipstick Negative (Negative); Leukocyte Esterase-Dipstick 500 /ul (Negative); Nitrite-Dipstick Negative (Negative); Occult Blood-Urine 150 /ul (Negative); Protein-Dipstick 30 mg/dl (Negative); Specific Gravity, Urine 1.015 (1.002-1.030); Urine Bilirubin Dipstick Negative (Negative); Urine Clarity Sl. Cloudy (Clear); Urine Urobilinogen Normal (Normal)
[2022-07-06 15:29] LABS: Anion Gap 8 (5-15); BUN 31 mg/dL (7-18); Chloride 105 mmol/L (98-107); Creatinine, Serum 1.72 mg/dL (0.70-1.30); EST Glomerular Filtration Rate 40 mL/min (>60); Est Glom Filt Rate - Afr Amer 49 mL/min (>60); Estimated Creatinine Clearance 30.38 ml/min; Glucose 163 mg/dL (74-106); Potassium 4.6 mmol/L (3.5-5.1); Sodium Level 139 mmol/L (136-145)
[2022-07-06 15:33] VITALS: PULSE 94; RESP 20
[2022-07-06] MEDS: Ipratropium/Albuterol Sulfate 3 ML AMPUL.NEB INHALATION (15:33)
--- NOTE | 2022-07-06 15:52 | CT_ITS ---
INDICATION: distension EXAMINATION: CT Abdomen And Pelvis W/O Contrast Injection TECHNIQUE: Helically acquired images were obtained of the abdomen and pelvis without the use of IV contrast. A radiation dose optimization technique was used for this scan. Oral contrast: None. COMPARISON: None FINDINGS: Evaluation of the solid organs and vascular structures is limited without intravenous contrast. Visualized lung bases: Ground glass opacities with denser consolidation in the left lung base as well as lingula. Small to moderate bilateral pleural effusions. Mild intralobular septal thickening. Liver: Unremarkable Gallbladder: Unremarkable Spleen: Unremarkable Pancreas: Unremarkable Adrenal Glands: Unremarkable Kidneys: Unremarkable Vasculature: Moderate aortoiliac atherosclerotic disease. GI Tract: Extensive colonic diverticula. Short segment asymmetric wall thickening of the distal sigmoid colon with surrounding mesenteric fat stranding. Lymphadenopathy: None Peritoneum: No ascites. Bladder: Kaur catheter in place. Reproductive organs: Unremarkable Bones/Soft tissues: There are diffuse degenerative changes of the spine. Soft tissue anasarca. CT/Abdomen/Pelvis without Cont IMPRESSION: Acute sigmoid diverticulitis. No focal fluid collection or free air. Due to asymmetry of the wall thickening in the distal sigmoid colon, cannot rule out underlying malignancy. Correlate with most recent colonoscopy. Fluid overload as evidenced by mild ascites, moderate bilateral pleural effusions and soft tissue anasarca. Ground glass and airspace opacities in the left lower lobe and lingula could represent edema and/or infection. Electronically Signed: Mono Coreas MD at 17:26 EST ,
[2022-07-06 15:54] LABS: Differential Comment SCANNED
[2022-07-06 15:55] LABS: Anisocytosis 1+
[2022-07-06 16:04] LABS: White Blood Cells >100 SEEN /hpf (0-5)
[2022-07-06 16:05] LABS: Bacteria 2+ /hpf (None Seen); Red Blood Cells-Urine 0-5 SEEN /hpf (0-5)
--- NOTE | 2022-07-06 16:14 | RAD_ITS ---
INDICATION: SOB EXAMINATION/TECHNIQUE: X-RAY - XR Chest 1 View COMPARISON: 05/19/2022 FINDINGS: Streaky and hazy opacities in the left lung base. Tortuous and calcified thoracic aorta. The heart is mildly enlarged. Small bilateral pleural effusions. Degenerative changes of the thoracic spine and shoulders. RAD/Chest 1 View (Portable) IMPRESSION: Streaky and hazy opacities in the left lung base could represent edema and/or infection. Cardiomegaly with small bilateral pleural effusions. Electronically Signed: Mono Coreas MD at 17:17 EST ,
[2022-07-06 16:31] VITALS: BP 124/93; PULSE 112; RESP 27; O2SAT 99
[2022-07-06] MEDS: Carvedilol 12.5 MG Tablet PO (17:14)
[2022-07-06] MEDS: Ceftriaxone 1 GM/50 ML BAG IV (17:15)
[2022-07-06 17:16] VITALS: BP 128/92; PULSE 113; RESP 18; O2SAT 98
[2022-07-06 17:50] VITALS: BP 114/73; PULSE 110; RESP 21; O2SAT 96
[2022-07-06 17:59] VITALS: BP 110/79; PULSE 112; RESP 20; TEMP 36.8; O2SAT 95
== END 2022-07-06 18:17 | disposition home or self-care (01) ==
PROVIDERS: Emergency Provider Emergency Medicine; PCP Internal Medicine; Visit Provider Emergency Medicine
DX: R33.9 Retention of urine, unspecified (principal); N17.9 Acute kidney failure, unspecified; J44.9 Chronic obstructive pulmonary disease, unspecified; I50.9 Heart failure, unspecified; I11.0 Hypertensive heart disease with heart failure; I48.91 Unspecified atrial fibrillation; K57.32 Diverticulitis of large intestine without perforation or abscess without bleeding; R31.9 Hematuria, unspecified
CPT/HCPCS: 51702; 71045; 74176; 80048; 81001; 85025; 87077; 87086; 87088; 87186; 93005; 94640; 96365; 99285; A4216

== ENCOUNTER 2022-07-07 11:28 | Emergency (ER) | payer MEDICARE, SELFPAY ==
[2022-07-07 11:29] VITALS: BP 110/68; PULSE 103; RESP 18; TEMP 36.2; O2SAT 98; BMI 23.6
--- NOTE | 2022-07-07 13:22 | EDS_ITS ---
HPI HPI - GI History of Present Illness Chief Complaint: GI Bleed Informant: patient Nausea/Vomiting/Emesis GI Symptom: Positive for Nausea and Vomiting Onset: Today Quality: Positive for Nonbilious; Negative for Blood streaks, Coffee ground or Hematemesis Diarrhea/Melena/Hematochezia GI Symptom: Positive for Diarrhea and Hematochezia Onset: Today Stool Quality: Positive for BRB per rectum Severity: Severe Associated Symptoms Associated Symptoms: Negative for Dysuria, Frequency or Hematuria Narrative Narrative: Presents with rectal bleeding that began today. Patient states he is having bright red rectal bleeding this morning. Patient was seen here yesterday for problems with his Kaur catheter. Patient states his Kaur catheter is functioning fine. Patient denies any hematuria. Patient states that today he had a bowel movement that was bright red and bloody. Patient denies any abdominal pain. Patient had a CT scan done yesterday which showed diverticu litis. Patient was started on Cipro and Keflex for urinary tract infection and also diverticulitis. Patient denies any fevers or chills. Patient admits to some nausea and vomiting. Patient denies any hematemesis or coffee-ground emesis. Patient has a history of paroxysmal atrial fibrillation but is not on any anticoagulants at this time because he was having hematuria. [facility] Medical History Anemia CHF (congestive heart failure) COPD (chronic obstructive pulmonary disease) HTN (hypertension) Kidney stones On home oxygen therapy Paroxysmal A-fib Prostate cancer Sleep apnea Home Medications cholecalciferol (vitamin D3) 25 mcg (1,000 unit) tablet (Vitamin D3) 1,000 unit PO DAILY supplement 03/23/22 [History Last Taken 05/19/22] atorvastatin 10 mg tablet 10 mg PO QHS #30 tabs 05/26/22 [Rx Last Taken Unknown] carvedilol 12.5 mg tablet 12.5 mg PO BID #60 tabs 05/26/22 [Rx Last Taken Unknown] furosemide 40 mg tablet 40 mg PO BIDLX #60 tabs 05/26/22 [Rx Last Taken Unknown] potassium chloride 20 mEq tablet,extended release 20 meq PO DAILY #30 tabs 05/26/22 [Rx Last Taken Unknown] cephalexin 500 mg capsule 500 mg PO Q12 #20 caps 07/06/22 [Rx Last Taken Unknown] ciprofloxacin HCl 500 mg tablet (Cipro) 500 mg PO BID #14 tabs 07/06/22 [Rx Last Taken Unknown] metronidazole 500 mg tablet 500 mg PO Q6H #40 tabs 07/07/22 [Rx Last Taken Unknown] Allergy/AdvReac Type Severity Reaction Status Date / Time No Known Allergies Allergy Verified 07/06/22 14:07 Family History Mother Heart disease Hypertension Father Heart disease Hypertension Surgical History S/P hemodialysis catheter insertion Social History household members: significant other housing: house Smoking Status: Never smoker alcohol intake: current alcohol intake frequency: 0-2 drinks per day details: Occasional EtOH use. substance use type: does not use ROS ROS ED Constitutional Constitutional ED: Denies chills or fever(s) Eyes Eyes: Denies blurry vision or change in vision ENT ENT ED: Denies rhinorrhea or sore throat Cardiovascular Cardiovascular: Denies chest pain or palpitations Respiratory/Chest Respiratory/Chest: Denies cough or dyspnea Gastrointestinal Gastrointestinal: Reports diarrhea, nausea and vomiting Genitourinary Genitourinary ED: Denies dysuria or hematuria Musculoskeletal Musculoskeletal: Reports back pain; Denies neck pain Integumentary Denies abscess or rash Neurologic Neurologic: Denies headache(s) or weakness Allergic/Immunologic Allergic/Immunologic ED: Denies mouth swelling or urticaria EXAM Physical Exam Const Vital Signs: 07/07/22 11:29 07/07/22 16:16 Temperature 97.2 F L Temperature Source Temporal Pulse Rate 103 H 80 Respiratory Rate 18 18 Blood Pressure 110/68 138/79 H Blood Pressure Mean 82 98 Pulse Ox 98 99 Oxygen Delivery Method Room Air Nasal Cannula Positive well nourished and well developed General Appearance ED: well developed HEENT Reports moist mucous membranes Neck supple and no JVD Resp normal respiratory effort and clear to auscultation bilaterally Cardio regular rate, regular rhythm and no murmurs GI normal to inspection, nondistended, normoactive bowel sounds and non-tender Palpation: soft Extremity normal to inspection General Extremety ED: Negative for edema or tenderness General Extremity: Negative for edema Neuro oriented x3, CN's II-XII intact bilaterally and no sensory deficits noted Sensorium / Orientation: alert Motor Exam: strength 5/5 throughout Psych mental status grossly normal Skin no rashes or lesions noted MDM MDM MDM Narrative Medical decision making narrative: CBC shows a hemoglobin of 8.7 and hematocrit of 30.0. These are basically unchanged from previous result. Pro time was 15.6 with an INR of 1.3. PTT was 26.4. Comprehensive metabolic profile shows a slightly elevated BUN of 29 and creatinine of 1.46. These are consistent with prior results. Patient did have some blood in his bowel movement. But there were no clots. Patient denies any pain. Patient denies any lightheadedness or dizziness. Patient feels like he wants to go home. Patient was given a dose of Cipro and Flagyl here. Patient was given prescription for Flagyl. Patient was instructed to continue his Cipro and Keflex as previously prescribed. Patient was instructed to follow-up with his primary care physician in 5 to 7 days. Patient understood and was agreeable with the plan. All questions were answered. Lab Data Attestation: I reviewed the patient's lab results. Labs: Laboratory Results - last 24 hr 07/07/22 07/07/22 07/07/22 13:43 13:43 13:43 WBC 7.1 RBC 2.77 L Hgb 8.7 L Hct 30.0 L MCV 108.3 H MCH 31.4 MCHC 29.0 L RDW Std Deviation 66.4 H RDW Coeff of Chaparro 17.0 H Plt Count 252 MPV 10.1 Immature Gran % (Auto) 0.400 Neut % (Auto) 64.6 Lymph % (Auto) 16.6 L Bates % (Auto) 13.9 H Eos % (Auto) 3.7 Baso % (Auto) 0.8 Absolute Neuts (auto) 4.6 Absolute Lymphs (auto) 1.17 Nucleated RBC % 0.6 Platelet Estimate ADEQUATE Anisocytosis 1+ Macrocytosis 1+ PT 15.6 H INR 1.3 APTT 26.4 Sodium 139 Potassium 4.1 Chloride 103 Carbon Dioxide 29.0 Anion Gap 7 BUN 29 H Creatinine 1.46 H Estim Creat Clear Calc 35.79 Est GFR (MDRD) Af Amer 59 L Est GFR (MDRD) Non-Af 49 L BUN/Creatinine Ratio 19.9 Glucose 149 H Calcium 9.0 Total Bilirubin 0.80 AST 116 H ALT 146 H Alkaline Phosphatase 152 H Total Protein 6.5 Albumin 3.0 L Globulin 3.5 Albumin/Globulin Ratio 0.9 Discharge Plan Triage Chief Complaint: GI Bleed ED Provider: Pedro Luis Patel Dx/Rx/DC Orders Clinical Impression: Acute lower gastrointestinal bleeding, Diverticulitis Instructions: ED Diverticulitis Prescriptions: New metronidazole [metronidazole] 500 mg tablet 500 mg PO Q6H Qty: 40 0RF No Action cholecalciferol (vitamin D3) [Vitamin D3] 25 mcg (1,000 unit) tablet 1,000 unit PO DAILY Label Comments: Take 1 tablet by mouth once a day furosemide 40 mg Tablet 40 mg PO BIDLX Qty: 60 2RF carvedilol 12.5 mg Tablet 12.5 mg PO BID Qty: 60 1RF atorvastatin 10 mg Tablet 10 mg PO QHS Qty: 30 1RF potassium chloride 20 mEq tablet extended release 20 meq PO DAILY Qty: 30 1RF cephalexin [cephalexin] 500 mg capsule 500 mg PO Q12 Qty: 20 0RF ciprofloxacin HCl [Cipro] 500 mg tablet 500 mg PO BID Qty: 14 0RF Primary Care Provider: Conor Ronquillo Referrals: Conor Ronquillo DO [Primary Care Provider] - 3-5 Days Disposition Disposition: Home, Self Care
[2022-07-07 13:55] LABS: Absolute Lymphocyte Count 1.17 X10^3/uL (0.83-4.51); Absolute Neutrophil Count 4.6 X10^3/uL (2.0-7.7); Basophil# 0.06 X10^3/uL; Basophil% 0.8 % (0-1); Eosinophil# 0.26 X10^3/uL; Eosinophils% 3.7 % (0-5); Hemoglobin 8.7 g/dL (13.0-16.5); Lymphocyte # 1.17 X10^3/ul (0.83-4.51); Lymphocyte % 16.6 % (19-41); Mean Corpuscular Hgb 31.4 pg (27.0-32.0); Mean Corpuscular Volume 108.3 fL (80-94); Mean Platelet Vol. 10.1 fl (6.2-12.0); Monocyte# 0.98 X10^3/uL; Monocyte% 13.9 % (0-10); NRBC Flagged by Analyzer 0.6 % (0-5); Neutrophil # 4.56 X10^3/uL (2.7-7.7); Neutrophil % 64.6 % (47-70); POSITIVE MORPHOLOGY YES; Platelet Count 252 K/mm3 (150-450); RBC Distribution Width SD 66.4 fl (35.1-43.9); Red Blood Count 2.77 M/mm3 (4.6-6.2); White Blood Count 7.1 K/mm3 (4.4-11.0)
[2022-07-07 13:57] LABS: Differential Indicated SCAN CRITERIA MET
[2022-07-07 14:07] LABS: International Normalized Ratio 1.3; Prothrombin Time (Protime)PT. 15.6 SECONDS (11.7-14.9)
[2022-07-07 14:08] LABS: Partial Thromboplast Time 26.4 Seconds (24.1-36.2)
[2022-07-07 14:12] LABS: ALB/GLOB Ratio 0.9 RATIO (0.9-2.4); AST(SGOT) 116 U/L (15-37); Alanine Aminotransfer ALT/SGPT 146 U/L (16-61); Alkaline Phosphatase 152 U/L (45-117); Anion Gap 7 (5-15); BUN 29 mg/dL (7-18); BUN/Creat Ratio 19.9 RATIO (10-20); Chloride 103 mmol/L (98-107); Creatinine, Serum 1.46 mg/dL (0.70-1.30); EST Glomerular Filtration Rate 49 mL/min (>60); Est Glom Filt Rate - Afr Amer 59 mL/min (>60); Estimated Creatinine Clearance 35.79 ml/min; Globulin 3.5 g/dL (2.2-4.2); Glucose 149 mg/dL (74-106); Potassium 4.1 mmol/L (3.5-5.1); Protein, Total 6.5 g/dL (6.4-8.2); Sodium Level 139 mmol/L (136-145)
[2022-07-07] MEDS: metroNIDAZOLE 500 MG Tablet PO (14:15)
[2022-07-07] MEDS: Ciprofloxacin 500 MG Tablet PO (14:15)
[2022-07-07 14:16] LABS: Platelet Estimate ADEQUATE (ADEQ)
[2022-07-07 14:17] LABS: Anisocytosis 1+; Macrocytosis 1+
[2022-07-07 16:16] VITALS: BP 138/79; PULSE 80; RESP 18; O2SAT 99
== END 2022-07-07 17:02 | disposition home or self-care (01) ==
PROVIDERS: Emergency Provider Emergency Medicine; PCP Internal Medicine; Visit Provider Emergency Medicine
DX: K92.2 Gastrointestinal hemorrhage, unspecified (principal); J44.9 Chronic obstructive pulmonary disease, unspecified; I11.0 Hypertensive heart disease with heart failure; I50.9 Heart failure, unspecified; K57.92 Diverticulitis of intestine, part unspecified, without perforation or abscess without bleeding; R11.2 Nausea with vomiting, unspecified; R31.9 Hematuria, unspecified
CPT/HCPCS: 80053; 85025; 85610; 85730; 99285; A4216

== ENCOUNTER → 2022-07-29 | Outpatient (CLI) | payer MEDICARE, SELFPAY ==
--- NOTE | 2022-07-29 10:53 | RAD_ITS ---
STUDY: X-RAY CHEST REASON FOR EXAM: Male, 87 years old. LUCIA TECHNIQUE: XR Chest 2 Views COMPARISON: 07.06.22 FINDINGS: There is atherosclerotic calcification of the aortic arch with tortuosity. There are diffuse degenerative changes of the visualized thoracic spine. There is degenerative osteoarthritis of the bilateral shoulders. There are bilateral pleural effusions. There are bilateral infiltrates. Normal size heart. Normal mediastinum and lexy. Normal visualized pulmonary arteries. There is no demonstrated abnormality of the visualized soft tissue structures of the upper abdomen. RAD/Chest PA and Lateral IMPRESSION: Pulmonary findings appear worse. Electronically Signed: Jaylon Serra MD at 17:47 EST ,
[2022-07-29 12:15] LABS: Absolute Lymphocyte Count 1.07 X10^3/uL (0.83-4.51); Absolute Neutrophil Count 3.7 X10^3/uL (2.0-7.7); Basophil# 0.08 X10^3/uL; Basophil% 1.1 % (0-1); Eosinophil# 1.29 X10^3/uL; Eosinophils% 18.5 % (0-5); Hematocrit 28.2 % (40-54); Hemoglobin 8.3 g/dL (13.0-16.5); Lymphocyte # 1.07 X10^3/ul (0.83-4.51); Lymphocyte % 15.3 % (19-41); Mean Corp Hgb Conc 29.4 g/dL (32-36); Mean Corpuscular Hgb 31.1 pg (27.0-32.0); Mean Corpuscular Volume 105.6 fL (80-94); Mean Platelet Vol. 10.4 fl (6.2-12.0); Monocyte# 0.85 X10^3/uL; Monocyte% 12.2 % (0-10); NRBC Flagged by Analyzer 0.9 % (0-5); Neutrophil # 3.65 X10^3/uL (2.7-7.7); Neutrophil % 52.3 % (47-70); POSITIVE MORPHOLOGY YES; Platelet Count 246 K/mm3 (150-450); RBC Distribution Width CV 17.2 % (11.6-14.6); RBC Distribution Width SD 65.1 fl (35.1-43.9); Red Blood Count 2.67 M/mm3 (4.6-6.2)
[2022-07-29 12:26] LABS: BNP,B-Type NATRIURETIC PEPTIDE 1219.6 pg/mL (0-100)
[2022-07-29 12:30] LABS: Anion Gap 5 (5-15); BUN 26 mg/dL (7-18); BUN/Creat Ratio 22.2 RATIO (10-20); Calcium,Total 9.4 mg/dL (8.5-10.1); Chloride 104 mmol/L (98-107); Creatinine, Serum 1.17 mg/dL (0.70-1.30); EST Glomerular Filtration Rate 63 mL/min (>60); Est Glom Filt Rate - Afr Amer 76 mL/min (>60); Glucose 116 mg/dL (74-106); Magnesium 2.2 mg/dL (1.6-2.6); Potassium 3.5 mmol/L (3.5-5.1); Sodium Level 141 mmol/L (136-145)
[2022-07-29 12:31] LABS: Differential Indicated SCAN CRITERIA MET
[2022-07-29 13:05] LABS: Anisocytosis 1+
== END | disposition home or self-care (01) ==
LOC: RAD 10:52
PROVIDERS: PCP Internal Medicine; Referring Provider Nurse Practitioner Gerontology; Visit Provider Nurse Practitioner Gerontology
DX: I50.9 Heart failure, unspecified (principal); I48.0 Paroxysmal atrial fibrillation; D64.9 Anemia, unspecified; R06.09 Other forms of dyspnea
CPT/HCPCS: 36415; 71046; 80048; 83735; 83880; 85025

== ENCOUNTER 2022-08-27 11:24 | Inpatient (IN) | payer MEDICARE, SELFPAY ==
[2022-08-27] VITALS (23 sets, daily range): BP systolic 98–157; BP diastolic 50–115; PULSE 94–148; RESP 18–30; TEMP 36.6–37.6; O2SAT 91–99; BMI 29.3; BMI 30.5
--- NOTE | 2022-08-27 11:49 | RAD_ITS ---
STUDY: X-RAY CHEST REASON FOR EXAM: Male, 87 years old. Respiratory distress, bilateral rales, anasarca, A TECHNIQUE: Single AP portable view of the chest. COMPARISON: Comparison is made with prior study 07/29/2002. FINDINGS: EKG electrodes are seen. Increasing left pleural effusion with left basilar infiltration and/or atelectasis. Mild degree of vascular congestion. Normal size heart. Normal mediastinum and lexy. Normal visualized pulmonary arteries. There is atherosclerotic calcification of the aortic arch with tortuosity. Normal visualized thoracic spine. Normal visualized ribs, clavicles, and shoulders. There is no demonstrated abnormality of the visualized soft tissue structures of the upper abdomen. RAD/Chest 1 View (Portable) IMPRESSION: Increasing left pleural effusion with left basilar infiltration and/or atelectasis. Mild degree of superimposed CHF. Electronically Signed: Elliot Quintero MD at 12:41 EST ,
--- NOTE | 2022-08-27 11:49 | CT_ITS ---
STUDY: CT BRAIN WITHOUT CONTRAST REASON FOR EXAM: Male, 87 years old. Altered mental status, facial droop -- Onset unknown RADIATION DOSAGE (If Supplied By Facility): CTDIvol = ( 44.99 ) mGy, DLP = ( 796.11 ) mGycm TECHNIQUE: Transaxial CT imaging of the brain was performed without administration of intravenous contrast material. Individualized dose optimization techniques were used for this CT. COMPARISON: No relevant priors. FINDINGS: Normal soft tissue structures. Normal calvarium. There is mild cerebral atrophy with widening of the extra-axial spaces and ventricular dilatation. Normal white matter tracts of the cerebral hemispheres. Normal basal ganglia and thalami. Normal brainstem. Normal cerebellum. There is no intracranial hemorrhage. There are no findings of an acute ischemic infarction. Atherosclerotic calcification of the vertebral arteries and cavernous portions of the internal carotid arteries bilaterally. Normal visualized paranasal sinuses. CT/Brain/Head without Contrast IMPRESSION: Chronic involutional changes of the brain. Electronically Signed: Elliot Quintero MD at 12:36 EST ,
--- NOTE | 2022-08-27 11:50 | EKG12_ITS ---
Test Reason : Blood Pressure : / mmHG Vent. Rate : 159 BPM Atrial Rate : 000 BPM P-R Int : 000 ms QRS Dur : 080 ms QT Int : 298 ms P-R-T Axes : 000 113 025 degrees QTc Int : 484 ms Atrial fibrillation with rapid ventricular response with premature ventricular or aberrantly conducte d complexes Right axis deviation Possible Right ventricular hypertrophy Septal infarct , age undetermined Abnormal ECG Confirmed by YAHAIRA GUZMÁN, CATHY ([id number]), editor newspaper DAPHNEY FULTON ([id number]) on 08/30/2022 10:00:36 AM Referred By: JAXSON Confirmed By:CATHY SYED MD
--- NOTE | 2022-08-27 11:53 | EDS_ITS ---
HPI History of Present Illness Chief Complaint: Abd Pain Detail of Chief Complaint: Patient has numerous symptoms and complaints Informant: patient and family Onset/Context/Timing Onset: - (Onset has varied from several days to yesterday) Context: - (Unknown) Timing: Continuous (Per sister) Quality: Documented HPI narrative Location: Documented HPI narrative Current Severity: Unable to determine Maximum Severity: Unable to determine Worsened by: Unable to determine Relieved by: Nothing Associated Symptoms Associated Symptoms: Per HPI neuro Narrative Narrative: Patient is a 87-year-old male with history of paroxysmal atrial fibrillation, COPD, essential hypertension, chronic diastolic congestive heart failure and hyperlipidemia. He was admitted June of last year for hematuria. He was seen by urology. The hematuria is a recurrent problem and also has recurrent urinary retention. Patient is a poor informant. Patient is disoriented. Sister states she has been trying to get him to come to the hospital for days. The facial droop may have been noted last evening. Uncertain, however. According to sister he has been coughing and complained of abdominal discomfort. Patient's speech is slurred. He has a facial droop. Difficult to understand. He apparently is very hard of hearing. This may be a reason why he is a poor informant in addition to his disorientation. According to sister he has not been compliant with his medication. Prior similar symptoms: No Recent Illness/Hospitalization: Yes [facility] Medical History Anemia CHF (congestive heart failure) COPD (chronic obstructive pulmonary disease) HTN (hypertension) Kidney stones On home oxygen therapy Paroxysmal A-fib Prostate cancer Sleep apnea Home Medications cholecalciferol (vitamin D3) 25 mcg (1,000 unit) tablet (Vitamin D3) 1,000 unit PO DAILY supplement 03/23/22 [History Last Taken 05/19/22] atorvastatin 10 mg tablet 10 mg PO QHS #30 tabs 05/26/22 [Rx Last Taken Unknown] furosemide 40 mg tablet 40 mg PO BIDLX #60 tabs 05/26/22 [Rx Last Taken Unknown] potassium chloride 20 mEq tablet,extended release 20 meq PO DAILY #30 tabs 05/26/22 [Rx Last Taken Unknown] metoprolol succinate 25 mg tablet,extended release 24 hr 25 mg PO DAILY #30 tabs 07/29/22 [Rx Last Taken Unknown] Allergy/AdvReac Type Severity Reaction Status Date / Time No Known Allergies Allergy Verified 07/29/22 11:09 Family History Mother Heart disease Hypertension Father Heart disease Hypertension Surgical History S/P hemodialysis catheter insertion Social History household members: significant other housing: house Smoking Status: Never smoker Smokeless tobacco user: chewing tobacco alcohol intake: current alcohol intake frequency: 0-2 drinks per day details: Occasional EtOH use. substance use type: does not use caffeine: Yes Type: coffee Number of servings: 1 ROS ROS ED Review of Systems ROS Unobtainable: due to mental status EXAM Physical Exam Const Vital Signs: 08/27/22 11:25 08/27/22 11:51 08/27/22 11:27 Temperature 98.1 F 97.9 F Temperature Source Temporal Temporal Pulse Rate 148 H 130 H Respiratory Rate 20 H 30 H Blood Pressure 131/89 H 157/115 H Blood Pressure Mean 103 129 Pulse Ox 96 97 Oxygen Delivery Method Room Air Nasal Cannula Nasal Cannula Oxygen Flow Rate (L/min) 5 08/27/22 12:27 08/27/22 12:27 Temperature 98 F Temperature Source Temporal Pulse Rate 132 H 130 H Respiratory Rate 28 H 28 H Blood Pressure 147/87 H 147/87 H Blood Pressure Mean 107 107 Pulse Ox 96 97 Oxygen Delivery Method Nasal Cannula Nasal Cannula Oxygen Flow Rate (L/min) 5 5 Positive well nourished, well developed and obese Constitutional Narrative: Patient has mild respiratory distress. He has abnormal breathing and suspicious this may represent Farhad-Hanson breathing pattern. He is breathing with pursed lips at times. He is on 5 L of oxygen by nasal cannula which is chronic for patient. General Appearance ED: well developed; Negative for cyanotic, diaphoretic, NAD or pallor Nutritional Appearance: obese HEENT Reports moist mucous membranes HEENT Narrative: Poor dentition. Normocephalic and atraumatic head. Ears normal. TMs normal. Nares are patent. Posterior pharynx out erythema or exudate. Eyes Negative for PERRL or EOMs intact bilaterally General Eye ED: Negative for pale conjunctiva or scleral icterus Neck no lymphadenopathy, supple and no JVD Chest Wall Negative for inspection of chest normal or palpation of chest normal Chest Narrative: Patient has pitting edema of his abdominal chest wall. Resp No normal respiratory effort and No clear to auscultation bilaterally Effort and Inspection: Negative for pain with movement Auscultation: rales bilateral lower Cardio no murmurs Rate: tachycardic Rhythm: abnormal rhythm irregularly irregular GI Negative for hepatosplenomegaly or no masses GI Narrative: Abdomen is slightly distended. Is not tympanitic. Patient has pitting edema of his abdominal wall. I do not believe he is any tenderness. He reports rectal pain due to hemorrhoids. Narrative: There is no swelling of the scrotum or erythema. Back/Spine no CVA tenderness Back/Spine Narrative: Patient has pitting edema posterior back exam. Extremity Negative for normal to inspection General Extremety ED: Yes edema; Negative for tenderness General Extremity: edema Neuro No oriented x3, No CN's II-XII intact bilaterally and No no sensory deficits noted Sensorium / Orientation: orientation impaired; Negative for alert Psych Psych Narrative: Difficult to assess Skin No no rashes or lesions noted and No no wounds General Skin Exam: Negative for jaundice or pallor Sepsis Attestation Sepsis Alert: Yes Sepsis Attestation: Sepsis Ruled Out Date exam was performed: 08/27/22 Time exam was performed: 12:56 MDM MDM MDM Narrative Medical decision making narrative: Differential is vast. With patient presently in A. fib with RVR will administer Cardizem for rate control. Because of the slurred speech with facial droop concern patient may have had an embolic stroke. CT of the head was obtained. EKG was obtained to rule out obvious cardiac ischemia as well as troponin and with history of CHF BNP was added for the admitting physician to follow his course of treatment. CBC was obtained assess white count and evaluate for anemia. Competence metabolic panel to assess renal function, glucose, CO2 anion gap and electrolytes especially since patient's been noncompliant with his meds. Chest x-ray is obtained to confirm suspicion for congestive heart failure and rule out pneumonia. Lab Data Attestation: I reviewed the patient's lab results. Lab results narrative: CBC is remarkable for H&H of 9.1 and 30.4. Comprehensive metabolic panel is remarkable for a creatinine of 1.63 with a GFR of 43. Glucose is normal. Lactate elevated 4.8. Bilirubin is elevated 1.6, AST and ALT are 181 and 160 respectively. Troponin is elevated 161. BNP is 1640.2. Labs: Laboratory Results - last 24 hr 08/27/22 08/27/22 08/27/22 11:56 11:56 11:56 WBC 6.8 RBC 3.13 L Hgb 9.1 L Hct 30.4 L MCV 97.1 H MCH 29.1 MCHC 29.9 L RDW Std Deviation 64.8 H RDW Coeff of Chaparro 18.3 H Plt Count 358 MPV 10.1 Immature Gran % (Auto) 0.300 Neut % (Auto) 56.8 Lymph % (Auto) 17.0 L [place] % (Auto) 20.8 H Eos % (Auto) 3.1 Baso % (Auto) 2.0 H Absolute Neuts (auto) 3.9 Absolute Lymphs (auto) 1.16 Nucleated RBC % 0.4 Sodium 136 Potassium 4.4 Chloride 99 Carbon Dioxide 27.0 Anion Gap 10 BUN 32 H Creatinine 1.63 H Estim Creat Clear Calc 0.00 Est GFR (MDRD) Af Amer 52 L Est GFR (MDRD) Non-Af 43 L BUN/Creatinine Ratio 19.6 Glucose 88 Lactic Acid 4.8 H* Calcium 9.6 Total Bilirubin 1.60 H AST 181 H ALT 160 H Alkaline Phosphatase 164 H Troponin I High Sens 161 H* B-Natriuretic Peptide Total Protein 7.7 Albumin 3.6 Globulin 4.1 Albumin/Globulin Ratio 0.9 08/27/22 11:56 WBC RBC Hgb Hct MCV MCH MCHC RDW Std Deviation RDW Coeff of Chaparro Plt Count MPV Immature Gran % (Auto) Neut % (Auto) Lymph % (Auto) [place] % (Auto) Eos % (Auto) Baso % (Auto) Absolute Neuts (auto) Absolute Lymphs (auto) Nucleated RBC % Sodium Potassium Chloride Carbon Dioxide Anion Gap BUN Creatinine Estim Creat Clear Calc Est GFR (MDRD) Af Amer Est GFR (MDRD) Non-Af BUN/Creatinine Ratio Glucose Lactic Acid Calcium Total Bilirubin AST ALT Alkaline Phosphatase Troponin I High Sens B-Natriuretic Peptide 1640.2 H Total Protein Albumin Globulin Albumin/Globulin Ratio ABG Data ABG results: ABG 08/27/22 12:15 Specimen Type ART Sample Site L Radial pH 7.38 Bicarbonate Actual 24.9 Total CO2 26 Base Excess 0 O2 Saturation 91 L ABG pCO2 41.9 ABG pO2 61 L Joey Test Positive O2 Delivery Device Cannula Liter Flow 5.0 Radiography Chest X-Ray - ED: 1 View (Patient has evidence of congestive heart failure with increasing left pleural effusion. Cardiac size is borderline. [place] structures are unremarkable. This is in the reviewed and interpreted by me.) and Read by ED Physician Diagnostic Testing: Clinical Impression(s) from Imaging Studies Brain CT 08/27/22 11:49 IMPRESSION: Chronic involutional changes of the brain. Electronically Signed: Elliot Quintero MD at 12:36 EST , Chest X-Ray 08/27/22 11:49 IMPRESSION: Increasing left pleural effusion with left basilar infiltration and/or atelectasis. Mild degree of superimposed CHF. Electronically Signed: Elliot Quintero MD at 12:41 EST , Rhythm Strip Rhythm Strip: A-fib Rate: 168 Ectopy: PVC(s) (Premature ventricular beats versus aberrant beats) EKG Initial EKG: Attestation: I personally reviewed and interpreted this EKG as follows: Interpretation: Atrial Fibrillation (Ventricular rate is 159. There are premature ventricular beats versus aberrant beats noted. QRS duration 80 ms. QT duration 298 ms. [place] is to the right. There is decreased anterior forces noted. There is no obvious acute ischemic changes noted.) Treatment and Re-Evaluation Narrative: Patient's heart rate remains rapid after IV bolus of Cardizem. Additional bolus was ordered and drip. Patient also was administered Lasix. Critical Care Time Critical Care Time: Yes Critical care time (excluding procedures): 30-74 minutes (37 minutes), Including time spent: (History, physical, documentation, review of prior records, independent interpretation of laboratory results and chest x-ray), Discussing w/Patient &/or Family/Drilling Field Specialist, Discussing w/Consultants and Arranging Admission or Transfer Discharge Plan Triage Chief Complaint: Abd Pain ED Provider: Mike Rojas Dx/Rx/DC Orders Clinical Impression: Atrial fibrillation with RVR, HTN (hypertension), Pleural effusion due to CHF (congestive heart failure), Anemia in chronic illness, Anasarca, Elevated serum creatinine, Facial droop, Acute alteration in mental status, Acidosis, lactic, Cardiogenic shock Prescriptions: No Action metoprolol succinate 25 mg tablet extended release 24 hr 25 mg PO DAILY Qty: 30 6RF cholecalciferol (vitamin D3) [Vitamin D3] 25 mcg (1,000 unit) tablet 1,000 unit PO DAILY Label Comments: Take 1 tablet by mouth once a day furosemide 40 mg Tablet 40 mg PO BIDLX Qty: 60 2RF atorvastatin 10 mg Tablet 10 mg PO QHS Qty: 30 1RF potassium chloride 20 mEq tablet extended release 20 meq PO DAILY Qty: 30 1RF Primary Care Provider: Conor Ronquillo Referrals: Conor Ronquillo DO [Primary Care Provider] - Disposition Disposition: [facility] Capacity Capacity Assessment Tool Can the patient make a choice & communicate that choice?: No Can the patient understand benefits, risks and alternatives?: No Can the patient make a logical, rational choice?: No Is the choice the patient makes consistent w/ their values?: Unable to Determine Is there an impending, emergent risk to the patient?: Unable to Determine (There is a possibility and work-up was initiated.) Is there a Surrogate Available?: Yes (She voiced she is not the POA.) i.e. HCPOA: Yes (Will need to contact.)
[2022-08-27] MEDS: dilTIAZem 25 MG/5 ML Vial 10 MG IV BOLUS (12:00)
[2022-08-27 12:06] LABS: Absolute Lymphocyte Count 1.16 X10^3/uL (0.83-4.51); Absolute Neutrophil Count 3.9 X10^3/uL (2.0-7.7); Basophil# 0.14 X10^3/uL; Eosinophil# 0.21 X10^3/uL; Eosinophils% 3.1 % (0-5); Hematocrit 30.4 % (40-54); Hemoglobin 9.1 g/dL (13.0-16.5); Lymphocyte # 1.16 X10^3/ul (0.83-4.51); Mean Corp Hgb Conc 29.9 g/dL (32-36); Mean Corpuscular Hgb 29.1 pg (27.0-32.0); Mean Corpuscular Volume 97.1 fL (80-94); Mean Platelet Vol. 10.1 fl (6.2-12.0); Monocyte# 1.42 X10^3/uL; Monocyte% 20.8 % (0-10); NRBC Flagged by Analyzer 0.4 % (0-5); Neutrophil # 3.89 X10^3/uL (2.7-7.7); Neutrophil % 56.8 % (47-70); Platelet Count 358 K/mm3 (150-450); RBC Distribution Width CV 18.3 % (11.6-14.6); RBC Distribution Width SD 64.8 fl (35.1-43.9); Red Blood Count 3.13 M/mm3 (4.6-6.2); White Blood Count 6.8 K/mm3 (4.4-11.0)
[2022-08-27 12:20] LABS: Allen Test Positive; Base Excess 0 mmol/L (-2 to +2); Bicarbonate 24.9 mmol/L (22-26); Blood Gas Specimen Type ART; O2 Delivery Device Cannula; PO2 61 mmHG (75-100); SITE L Radial; SO2 91 % (95-99); Total Carbon Dioxide 26 mmol/L; pCO2 41.9 mmHg (35-45); pH 7.38 (7.35-7.45)
[2022-08-27 12:28] LABS: BNP,B-Type NATRIURETIC PEPTIDE 1640.2 pg/mL (0-100)
[2022-08-27 12:43] LABS: ALB/GLOB Ratio 0.9 RATIO (0.9-2.4); AST(SGOT) 181 U/L (15-37); Alanine Aminotransfer ALT/SGPT 160 U/L (16-61); Albumin, Serum 3.6 g/dL (3.2-5.0); Alkaline Phosphatase 164 U/L (45-117); Anion Gap 10 (5-15); BUN 32 mg/dL (7-18); BUN/Creat Ratio 19.6 RATIO (10-20); Calcium,Total 9.6 mg/dL (8.5-10.1); Chloride 99 mmol/L (98-107); Creatinine, Serum 1.63 mg/dL (0.70-1.30); EST Glomerular Filtration Rate 43 mL/min (>60); Est Glom Filt Rate - Afr Amer 52 mL/min (>60); Globulin 4.1 g/dL (2.2-4.2); Glucose 88 mg/dL (74-106); Lactic Acid 4.8 mmol/L (0.4-1.9); Potassium 4.4 mmol/L (3.5-5.1); Protein, Total 7.7 g/dL (6.4-8.2); Sodium Level 136 mmol/L (136-145); Troponin-I HS 161 pg/mL (3.0-78.0)
--- NOTE | 2022-08-27 12:54 | ED.RN ---
DR HANCOCK NOTIFIED OF SEPSIS ALERT. PT IS NOT A FLUID RESUSCITATION CANDIDATE BASED ON HIS CHF.
--- NOTE | 2022-08-27 13:15 | HP.PCM.HOS_ITS ---
HPI - General General Date of Admission: 08/27/22 Date of Service: 08/27/22 Chief Complaint: Altered mental status - 1 day HPI Narrative Regards Ilsa GARLAND, is a 87 M who presents with the above. Patient has past medical history of chronic A. fib, CKD with a history in March requiring transient hemodialysis, history of prostate CA in remission who comes in with confusion. Patient lives with his daughter and has been resistant to care. He typically does not take his medications and dumped them out. His family stated that since the demise of his in 2019, patient has been noncompliant with his medications. Patient is also a heavy drinker and drinks vodka every day. His last drink was a day prior to admission. Patient woke up this morning at 3 AM confused. He was talking to people as well as who was being rude to his children. He appeared short of breath, and restless. In the emergency room, his blood pressure 131/89, heart rate of 148, treatment was 20, temperature 98.1 F, oxygen sat was 96% on 5 L of oxygen. She WBC count 6.8, hemoglobin 9.1, Plt 358, BMP was significant for BUN of 32, creatinine 1 .63, previous creatinine was 1.17. Lactic acid is 4.8, total bilirubin is 1.60, AST 181, ALT 160, ALP 164, troponin is 161, BNPep is 1640.2. Admitting chest x-ray showed increasing left pleural effusion with left basilar infiltration and atelectasis, mild degree of superimposed CHF. CT of the brain showed chronic involuntary changes. [facility], [facility] Medical History Anemia CHF (congestive heart failure) COPD (chronic obstructive pulmonary disease) HTN (hypertension) Kidney stones On home oxygen therapy Paroxysmal A-fib Prostate cancer Sleep apnea Home Medications cholecalciferol (vitamin D3) 25 mcg (1,000 unit) tablet (Vitamin D3) 1,000 unit PO DAILY supplement 03/23/22 [History Last Taken 05/19/22] albuterol sulfate 90 mcg/actuation aerosol inhaler 2 puff inhalation UD PRN Shortness Of Breath 08/27/22 [History Last Taken Unknown] atorvastatin 10 mg tablet 10 mg PO QHS CHOLESTEROL 08/27/22 [History Last Taken Unknown] furosemide 40 mg tablet 40 mg PO BID FLUID 08/27/22 [History Last Taken Unknown] metoprolol succinate 25 mg tablet,extended release 24 hr 25 mg PO DAILY BLOOD PRESSURE 08/27/22 [History Last Taken Unknown] potassium chloride 20 mEq tablet,extended release 20 meq PO DAILY SUPPLEMENT 08/27/22 [History Last Taken Unknown] tamsulosin 0.4 mg capsule 0.4 mg PO QHS prostate 08/27/22 [History Last Taken Unknown] Allergy/AdvReac Type Severity Reaction Status Date / Time No Known Allergies Allergy Verified 07/29/22 11:09 Family History Mother Heart disease Hypertension Father Heart disease Hypertension Surgical History S/P hemodialysis catheter insertion Social History household members: significant other housing: house Smoking Status: Never smoker Smokeless tobacco user: chewing tobacco alcohol intake: current alcohol intake frequency: 0-2 drinks per day details: Occasional EtOH use. substance use type: does not use caffeine: Yes Type: coffee Number of servings: 1 ROS Review of Systems ROS Unobtainable: due to encephalopathy Vital Signs Vital Signs Vital Signs: 08/27/22 11:25 08/27/22 11:51 08/27/22 11:27 Temperature 98.1 F 97.9 F Temperature Source Temporal Temporal Pulse Rate 148 H 130 H Respiratory Rate 20 H 30 H Blood Pressure 131/89 H 157/115 H Blood Pressure Mean 103 129 Pulse Ox 96 97 Oxygen Delivery Method Room Air Nasal Cannula Nasal Cannula Oxygen Flow Rate (L/min) 5 08/27/22 12:27 08/27/22 12:27 Temperature 98 F Temperature Source Temporal Pulse Rate 132 H 130 H Respiratory Rate 28 H 28 H Blood Pressure 147/87 H 147/87 H Blood Pressure Mean 107 107 Pulse Ox 96 97 Oxygen Delivery Method Nasal Cannula Nasal Cannula Oxygen Flow Rate (L/min) 5 5 Weight Weight: 87.6 kg Body Mass Index (BMI) 29.3 Physical Exam Narrative Physical exam: General: Alert, very confused, uncooperative, on 6 L of oxygen, in moderate respiratory distress, anasarca HEENT: Atraumatic Oral: Moist Mucosa Neck: Supple Lungs: Diminished to auscultation Cardiovascular: HS I+II, regular, no murmurs Abdomen: Distended, ascites+, bowel Sounds Present, Soft, Non Tender Extremities: Bilateral leg edema +2 Skin: No rashes, No breakdown Neurological: Grossly intact Psych/Mental Status: Appropriate Results Lab / Micro Data Result Diagrams: 08/27/22 11:56 08/27/22 11:56 Labs: Laboratory Results - last 24 hr 08/27/22 11:56: WBC 6.8, RBC 3.13 L, Hgb 9.1 L, Hct 30.4 L, MCV 97.1 H, MCH 29.1, MCHC 29.9 L, RDW Std Deviation 64.8 H, RDW Coeff of Chaparro 18.3 H, Plt Count 358, MPV 10.1, Immature Gran % (Auto) 0.300, Neut % (Auto) 56.8, Lymph % (Auto) 17.0 L, [place] % (Auto) 20.8 H, Eos % (Auto) 3.1, Baso % (Auto) 2.0 H, Absolute Neuts (auto) 3.9, Absolute Lymphs (auto) 1.16, Nucleated RBC % 0.4 08/27/22 11:56: Sodium 136, Potassium 4.4, Chloride 99, Carbon Dioxide 27.0, Anion Gap 10, BUN 32 H, Creatinine 1.63 H, Estim Creat Clear Calc 0.00, Est GFR (MDRD) Af Amer 52 L, Est GFR (MDRD) Non-Af 43 L, BUN/Creatinine Ratio 19.6, Glucose 88, Calcium 9.6, Total Bilirubin 1.60 H, AST 181 H, ALT 160 H, Alkaline Phosphatase 164 H, Troponin I High Sens 161 H*, Total Protein 7.7, Albumin 3.6, Globulin 4.1, Albumin/Globulin Ratio 0.9 08/27/22 11:56: Lactic Acid 4.8 H* 08/27/22 11:56: B-Natriuretic Peptide 1640.2 H Micro: Microbiology 08/27/22 12:18 Nasal Secretion SARS-CoV-2 & FLU Antigen (Rapid) - Final ABG Data ABG results: ABG 08/27/22 12:15 Specimen Type ART Sample Site L Radial pH 7.38 Bicarbonate Actual 24.9 Total CO2 26 Base Excess 0 O2 Saturation 91 L ABG pCO2 41.9 ABG pO2 61 L Joey Test Positive O2 Delivery Device Cannula Liter Flow 5.0 Rhythm Strip Rhythm Strip: A-fib Rate: 168 Ectopy: PVC(s) (Premature ventricular beats versus aberrant beats) Radiology Impression Brain CT 08/27/22 11:49 IMPRESSION: Chronic involutional changes of the brain. Electronically Signed: Elliot Quintero MD at 12:36 EST , Chest X-Ray 08/27/22 11:49 IMPRESSION: Increasing left pleural effusion with left basilar infiltration and/or atelectasis. Mild degree of superimposed CHF. Electronically Signed: Elliot Quintero MD at 12:41 EST , Assessment & Plan Assessment/Plan (1) Atrial fibrillation with RVR: (2) Pleural effusion due to CHF (congestive heart failure): PLAN: Plan 1. Acute metabolic encephalopathy, multifactorial likely secondary to hypoxia/probable acute alcohol withdrawal/probable hepatic encephalopathy Patient is alert oriented only to self We will continue to monitor 2. Acute hypoxia secondary to acute exacerbation of heart failure preserved EF, EF 60%/left pleural effusion Admitting BNPep is 1640.2. Patient is currently on 4 to 6 L of oxygen; not on oxygen Rapid COVID-19 antigen as well as influenza screen is negative Continue on IV Lasix 40 mg IV twice daily, CHF protocol 3. A. fib with RVR in a patient has history of A. fib, Received Cardizem bolus and drip in the ED Continue on Cardizem drip, therapeutic Lovenox -patient does have a remote history of melena/hematuria Hemoglobin appears to be stable 4. Elevated troponin, likely secondary to #3, Continue to trend 5. Elevated lactic acidosis, lactic acid 4.8, likely secondary to #2 Would also check UA as patient has history of UTIs We will trend 6. Elevated LFTs likely secondary to venous congestion, Will check liver ultrasound, trend labs 7. Probable acute alcohol withdrawal, patient is a heavy alcohol drinker, Will monitor CIWA scores Will hold off on starting phenobarb on account of #1 and not allowed to worsen mental status Continue on folic acid and thiamine 8. COPD, not in acute exacerbation 9. Hypertension, fairly controlled, currently on Cardizem drip Continue to monitor vital 10. CKD stage III, creatinine appears to be close to baseline, Continue to trend with treatment with Lasix 11. DVT prophylaxis?on therapeutic lobe I discussed and explained in details the various types of CODE STATUS-full code, DNR CCA, DNR CC. Patient's daughter at the bedside stated that patient has a DNR CCA, no intubation. Chart review showed that patient has always been DNR CCA with no intubation. Total time spent: 75 minutes of which more > 50% was spent taking history from patient's stepdaughter at the bedside, reviewing his laboratory investigations, imaging, discussing with boarding house manager. Charges/Coding Visit Charges Inpatient E&M: 80906 Init Hosp L3
[2022-08-27] MEDS: dilTIAZem 25 MG/5 ML Vial 20 MG IV BOLUS (13:20)
[2022-08-27] MEDS: Furosemide 40 MG/4 ML Vial IV ×2 (13:23→17:07)
[2022-08-27] MEDS: Enoxaparin 100 MG/ML Syringe 88 MG SC (13:27)
--- NOTE | 2022-08-27 15:03 | ED.RN ---
1503: Report called to Geovanna VAN on ICU.
--- NOTE | 2022-08-27 15:30 | CON.PCM.CC_ITS ---
Assessment & Plan Assessment/Plan (1) Atrial fibrillation with RVR: (2) Pleural effusion due to CHF (congestive heart failure): (3) Acute alteration in mental status: PLAN: Plan RECOMMENDATIONS: 1. Aggressive diuresis 2. Wean oxygen as tolerated. Bronchodilators only as needed 3. Aggressive rate control. Agree with anticoagulation 4. Monitor for alcohol withdrawal. Possible need for phenobarbital 5. Social work evaluation 6. AVAPS with tidal volume of 450 if decompensates IMPRESSIONS: 1. Acute hypoxic respiratory insufficiency secondary to A. fib with RVR complicating acute diastolic CHF Patient appears to be grossly volume overloaded at this time. Patient reportedly has a history of noncompliance, so failure to take Lasix would be a consideration. I agree with rate control medications. We will have to watch for hypotension. Continue with aggressive diuresis. Patient may require BiPAP overnight, especially with sleep. Patient may require Haldol to facilitate BiPAP use. 2. Elevated troponin/acute on chronic diastolic CHF/elevated LFTs/lactic acidosis Patient with recent echocardiogram in May 2022 showing diastolic dysfunction with elevated pulmonary artery pressures and mild right ventricular dysfunction. Clinical suspicion for type II pulmonary hypertension. This would lead to a congestive hepatitis and elevation of liver enzymes. Can check this on a daily basis. Patient was hypoxic on presentation and this may account for elevated troponins. 3. Probable metabolic encephalopathy Unclear etiology of confusion. Patient was hypoxic secondary to problem #1. Patient does not have a significant leukocytosis or fever, but sepsis will need to be monitored for patient did not have significant CO2 retention on ABG, but creatinine appears to be somewhat elevated. Patient reportedly has an alcohol history, so withdrawal would be a consideration. 4. Reported COPD/hypertension/CKD stage III/advanced age/anemia Complicates care, management, recovery and prognosis. History is diff icult to obtain at this time. Patient is not on any baseline inhalers. Clinical suspicion is patient does not require any steroid therapy. Bronchodilators as needed likely sufficient as scheduled therapy may complicate problem #1. Patient does have a history of GI bleeds, so we will need to deepak tor stools. Obtain guaiac if necessary. No indication for renal replacement therapy at this time. Hospitalist did confirm patient is a DNR Comfort Care arrest without intubation. HPI Consult Data Date of Consult: 08/27/22 HPI Narrative Reason for Consultation: A. fib with RVR HPI Narrative: IRVIN GARLAND is an 87 M, with past medical history listed below, who presents to [facility] 08/27/2022 secondary to numerous complaints including shortness of breath, possible facial droop and disorientation. Carley ent reportedly had been admitted in June secondary to hematuria and was seen by urology at that time. Patient also has a history of recurrent retention. Patient reportedly has been coughing and complaining of abdominal discomfort and family was trying to get the patient to come to the ER for evaluation. Patient does have a history of being noncompliant with home therapies including Lasix, m etoprolol and atorvastatin. In the ER, patient was afebrile, but tachycardic as high as 148 bpm. Patient was normotensive at that time, but was requiring 5 L nasal cannula to maintain saturations. Patient reportedly does not use supplemental oxygen at baseline. Laboratory work-up showed a white blood cell count of 6.8, hemoglobin of 9.1 and platelets of 358. Chemistry showed an elevated bicarbonate of 27 with a creatinine of 1.63. Lactate was elevated at 4.8 and liver enzymes are also elev ated mildly. BNP was elevated at 1640. ABG showed adequate ventilation with increased AA gradient. A chest x-ray completed in the emergency department did show an increasing left pleural effusion that was not present in June. Patient also had a CT scan showing no acute process with chronic involutional changes. EKG did confirm A. fib with RVR. Patient was administered Cardizem for rate control. Patient was subsequently admitted to the intensive care unit for further evaluation. In the intensive care unit, patient did have slurred speech and was significantly agitated. Patient did not report any pain, but was unable to provide a review of systems secondary to mental status. [facility] Medical History Anemia CHF (congestive heart failure) COPD (chronic obstructive pulmonary disease) HTN (hypertension) Kidney stones On home oxygen therapy Paroxysmal A-fib Prostate cancer Sleep apnea Home Medications cholecalciferol (vitamin D3) 25 mcg (1,000 unit) tablet (Vitamin D3) 1,000 unit PO DAILY supplement 03/23/22 [History Last Taken 05/19/22] albuterol sulfate 90 mcg/actuation aerosol inhaler 2 puff inhalation UD PRN Shortness Of Breath 08/27/22 [History Last Taken Unknown] atorvastatin 10 mg tablet 10 mg PO QHS CHOLESTEROL 08/27/22 [History Last Taken Unknown] furosemide 40 mg tablet 40 mg PO BID FLUID 08/27/22 [History Last Taken Unknown] metoprolol succinate 25 mg tablet,extended release 24 hr 25 mg PO DAILY BLOOD PRESSURE 08/27/22 [History Last Taken Unknown] potassium chloride 20 mEq tablet,extended release 20 meq PO DAILY SUPPLEMENT 08/27/22 [History Last Taken Unknown] tamsulosin 0.4 mg capsule 0.4 mg PO QHS prostate 08/27/22 [History Last Taken Unknown] Allergy/AdvReac Type Severity Reaction Status Date / Time No Known Allergies Allergy Verified 07/29/22 11:09 Family History Mother Heart disease Hypertension Father Heart disease Hypertension Surgical History S/P hemodialysis catheter insertion Social History household members: significant other housing: house Smoking Status: Never smoker Smokeless tobacco user: chewing tobacco alcohol intake: current alcohol intake frequency: 0-2 drinks per day details: Occasional EtOH use. substance use type: does not use caffeine: Yes Type: coffee Number of servings: 1 ROS Review of Systems ROS Unobtainable: due to mental status Physical Exam Const alert, oriented x3 and no apparent distress General Appearance: cooperative and well developed HEENT normocephalic, head/scalp atraumatic and moist oral mucous membranes HEENT Narrative: Nasal cannula in place. Eyes PERRL, EOMs intact bilaterally and no scleral icterus Neck full ROM and no lymphadenopathy Neck Narrative: JVD noted. General: trachea midline Chest inspection of chest normal Resp no use of accessory muscles Effort and Inspection: tachypneic Auscultation: rales; Negative for rhonchi or wheezes Percussion: Negative for dullness Cardio S1 normal heart sound, S2 normal heart sound, no murmurs, no rub and no gallops Cardio Narrative: A. fib with RVR noted on telemetry Rate: tachycardic Rhythm: abnormal rhythm irregularly irregular GI GI Narrative: Pitting edema beyond the navel Inspection: anasarca present and abdominal distention Palpation: Negative for tender or guarding no CVA tenderness Extremity General Extremity: edema; Negative for clubbing Skin no rashes or lesions noted Neuro CN's II-XII intact bilaterally and no focal motor deficits Neuro Narrative: Unable to appreciate a facial droop Psych Activity / Motor Behavior: restless Mood & Affect: anxious Medical Records Data Attestation: I reviewed the patient's medical records Medical records narrative: Review of the medical record shows the patient has had issues with urinary retention, UTI and hematuria. Patient was recently discharged in June with a Kaur catheter. It does not appear as though the patient was sent home on supplemental oxygen at that time. Unable to confirm this in the EMR. Patient also has a history of melena in the past. Lab / Micro Data Attestation: I reviewed the patient's lab results. Lab results narrative: Patient's baseline creatinine appears to be approximately 1.02 to 1.17. Result Diagrams: 08/27/22 11:56 08/27/22 11:56 Labs: Laboratory Results - last 24 hr 08/27/22 11:56: WBC 6.8, RBC 3.13 L, Hgb 9.1 L, Hct 30.4 L, MCV 97.1 H, MCH 29.1, MCHC 29.9 L, RDW Std Deviation 64.8 H, RDW Coeff of Chaparro 18.3 H, Plt Count 358, MPV 10.1, Immature Gran % (Auto) 0.300, Neut % (Auto) 56.8, Lymph % (Auto) 17.0 L, [place] % (Auto) 20.8 H, Eos % (Auto) 3.1, Baso % (Auto) 2.0 H, Absolute Neuts (auto) 3.9, Absolute Lymphs (auto) 1.16, Nucleated RBC % 0.4 08/27/22 11:56: Sodium 136, Potassium 4.4, Chloride 99, Carbon Dioxide 27.0, Anion Gap 10, BUN 32 H, Creatinine 1.63 H, Estim Creat Clear Calc 0.00, Est GFR (MDRD) Af Amer 52 L, Est GFR (MDRD) Non-Af 43 L, BUN/Creatinine Ratio 19.6, Glucose 88, Calcium 9.6, Total Bilirubin 1.60 H, AST 181 H, ALT 160 H, Alkaline Phosphatase 164 H, Troponin I High Sens 161 H*, Total Protein 7.7, Albumin 3.6, Globulin 4.1, Albumin/Globulin Ratio 0.9 08/27/22 11:56: Lactic Acid 4.8 H* 08/27/22 11:56: B-Natriuretic Peptide 1640.2 H 08/27/22 14:50: Ammonia 30.0 Micro: Microbiology 08/27/22 12:18 Nasal Secretion SARS-CoV-2 & FLU Antigen (Rapid) - Final ABG Data ABG results: ABG 08/27/22 12:15 Specimen Type ART Sample Site L Radial pH 7.38 Bicarbonate Actual 24.9 Total CO2 26 Base Excess 0 O2 Saturation 91 L ABG pCO2 41.9 ABG pO2 61 L Joey Test Positive O2 Delivery Device Cannula Liter Flow 5.0 Attestation: I personally reviewed and interpreted this ABG as follows: Interpretation: Normal acid-base with increased AA gradient Rhythm Strip Rhythm Strip: A-fib Rate: 168 Ectopy: PVC(s) (Premature ventricular beats versus aberrant beats) Radiology Impression Brain CT 08/27/22 11:49 IMPRESSION: Chronic involutional changes of the brain. Electronically Signed: Elliot Quintero MD at 12:36 EST , Chest X-Ray 08/27/22 11:49 IMPRESSION: Increasing left pleural effusion with left basilar infiltration and/or atelectasis. Mild degree of superimposed CHF. Electronically Signed: Elliot Quintero MD at 12:41 EST , Charges/Coding Visit Charges Inpatient E&M: 12365 Init Hosp L3
--- NOTE | 2022-08-27 15:35 | US_ITS ---
INDICATION: elevated LFTs EXAMINATION: Ultrasound US Abdomen RUQ (limited) TECHNIQUE: Hopkins-scale and color Doppler imaging was performed of the abdomen. COMPARISON: None. FINDINGS: LIVER: There is normal echotexture measuring 15 cm. No focal hepatic lesion. No intrahepatic biliary ductal dilatation. There is no free fluid. GALLBLADDER AND BILIARY TREE: No shadowing gallstone, pericholecystic fluid or gallbladder wall thickening is demonstrated. The proximal common bile duct measures , which is within normal limits for the patient''s age. SONOGRAPHIC BOYER''S SIGN: Negative. PANCREAS: Limited visualization of the pancreas. RIGHT KIDNEY: 9.4 x 3.7 x 4.0 cm. The cortex is 9 mm. There is no hydronephrosis. No shadowing calculus, focal lesion, or perinephric collection is demonstrated. VESSELS: Submitted longitudinal images of the intra-abdominal aorta demonstrate no gross abnormalities and are unremarkable. The IVC is patent. Mild ascites. US/Liver IMPRESSION: Mild ascites. Electronically Signed: Karlo Tirado DO at 20:02 EST ,
[2022-08-27 16:03] LABS: Reflex Lactate? Y
[2022-08-27 16:08] LABS: Mucous, Urine 0 SEEN /hpf (<or=2+); Squamous Epithelial Cells - UA 0 SEEN /hpf (0-5)
[2022-08-27 16:19] LABS: Color, Urine Yellow (Yellow); Glucose, Dipstick Normal (Normal); Ketone-Dipstick 5 mg/dl (Negative); Leukocyte Esterase-Dipstick 500 /ul (Negative); Nitrite-Dipstick Negative (Negative); Occult Blood-Urine 250 /ul (Negative); Protein-Dipstick 100 mg/dl (Negative); Urine Bilirubin Dipstick Negative (Negative); Urine Clarity Cloudy (Clear); Urine Urobilinogen 1 mg/dl (Normal)
--- NOTE | 2022-08-27 16:55 | RAD_ITS ---
INDICATION: post line placement EXAMINATION/TECHNIQUE: X-RAY - XR Chest 1 View COMPARISON: August 27, 2022 at 12:20 hours. FINDINGS: LINES/DEVICES: A right-sided PICC line is noted with tip extending into the neck. LUNGS: There is a moderate left effusion. Left consolidation cannot be excluded. No pneumothorax. MEDIASTINUM AND CARDIOVASCULAR STRUCTURES: Cardiac silhouette not enlarged. Central airways and mediastinal contour are unremarkable. BONES AND SOFT TISSUES: Degenerative vertebral changes. RAD/Chest 1 View (Portable) IMPRESSION: A right-sided PICC line is noted with tip extending into the neck. There is a moderate left effusion. Left consolidation cannot be excluded. Electronically Signed: Karlo Tirado DO at 17:18 EST ,
[2022-08-27 17:03] LABS: Troponin-I HS 151 pg/mL (3.0-78.0)
[2022-08-27] MEDS: Haloperidol Lactate 5 MG/ML Vial IM (17:04)
[2022-08-27 17:16] LABS: Bacteria 4+ /hpf (None Seen); Red Blood Cells-Urine 10-25 SEEN /hpf (0-5); White Blood Cells >100 SEEN /hpf (0-5)
--- NOTE | 2022-08-27 17:45 | RAD_ITS ---
EXAM: XR CHEST, 1 VIEW CLINICAL INDICATION: line placement TECHNIQUE: Frontal view of the chest. This report was created using [employer] report generation technology. COMPARISON: 08/27/2022 at 1659 hours FINDINGS: LUNGS AND PLEURAL SPACES: There is a moderate left-sided pleural effusion. No pneumothorax. HEART: Unremarkable. Cardiac silhouette not enlarged. MEDIASTINUM: Central airways and mediastinal contour are unremarkable. BONES/JOINTS: Unremarkable. SOFT TISSUES: Unremarkable. TUBES, LINES AND DEVICES: There is a right-sided PICC line in place with the distal tip at the junction of superior vena cava and right atrium. RAD/Chest 1 View (Portable) IMPRESSION: 1. No change in the appearance of the chest. 2. Right-sided PICC line has been readjusted with the distal tip now at the junction of superior vena cava and right atrium. Electronically Signed: Luis Manuel Mireles MD at 18:37 EST ,
--- NOTE | 2022-08-27 17:50 | RAD_ITS ---
EXAM: XR CHEST, 1 VIEW CLINICAL INDICATION: line placement TECHNIQUE: Frontal view of the chest. This report was created using [employer] report generation technology. COMPARISON: None. FINDINGS: LUNGS AND PLEURAL SPACES: Moderate left-sided pleural effusion is unchanged. No pneumothorax. HEART: Unremarkable. Cardiac silhouette not enlarged. MEDIASTINUM: Central airways and mediastinal contour are unremarkable. BONES/JOINTS: Unremarkable. SOFT TISSUES: Unremarkable. TUBES, LINES AND DEVICES: Right-sided PICC line is in place with the distal tip overlying the superior vena cava. RAD/Chest 1 View (Portable) IMPRESSION: No change in the appearance of the chest. Right-sided PICC line in good position. Electronically Signed: Luis Manuel Mireles MD at 18:40 EST ,
[2022-08-27 18:20] LABS: Lactic Acid 2.8 mmol/L (0.4-1.9)
[2022-08-27 18:25] LABS: Troponin-I HS 159 pg/mL (3.0-78.0)
[2022-08-27] MEDS: Enoxaparin 80 MG/0.8 ML Syringe SC (20:56)
[2022-08-27 22:56] LABS: Troponin-I HS 159 pg/mL (3.0-78.0)
[2022-08-28] VITALS (30 sets, daily range): BP systolic 64–130; BP diastolic 30–80; PULSE 56–101; RESP 14–26; TEMP 35.3–37.7; O2SAT 91–100
[2022-08-28] MEDS: Haloperidol Lactate 5 MG/ML Vial 4 MG IV ×2 (02:03→19:48)
[2022-08-28 04:04] LABS: Absolute Lymphocyte Count 0.95 X10^3/uL (0.83-4.51); Basophil# 0.08 X10^3/uL; Basophil% 1.1 % (0-1); Eosinophil# 0.02 X10^3/uL; Eosinophils% 0.3 % (0-5); Hematocrit 27.1 % (40-54); Hemoglobin 8.1 g/dL (13.0-16.5); Lymphocyte # 0.95 X10^3/ul (0.83-4.51); Lymphocyte % 13.6 % (19-41); Mean Corp Hgb Conc 29.9 g/dL (32-36); Mean Corpuscular Hgb 28.5 pg (27.0-32.0); Mean Corpuscular Volume 95.4 fL (80-94); Mean Platelet Vol. 10.1 fl (6.2-12.0); Monocyte# 1.85 X10^3/uL; Monocyte% 26.5 % (0-10); NRBC Flagged by Analyzer 0.6 % (0-5); Neutrophil # 4.03 X10^3/uL (2.7-7.7); Neutrophil % 57.8 % (47-70); POSITIVE DIFFERENTIAL YES; Platelet Count 330 K/mm3 (150-450); RBC Distribution Width CV 18.6 % (11.6-14.6); RBC Distribution Width SD 64.1 fl (35.1-43.9); Red Blood Count 2.84 M/mm3 (4.6-6.2)
[2022-08-28 04:07] LABS: Differential Indicated SCAN CRITERIA MET
[2022-08-28 04:30] LABS: ALB/GLOB Ratio 0.9 RATIO (0.9-2.4); AST(SGOT) 573 U/L (15-37); Alanine Aminotransfer ALT/SGPT 302 U/L (16-61); Albumin, Serum 3.1 g/dL (3.2-5.0); Alkaline Phosphatase 136 U/L (45-117); Anion Gap 11 (5-15); BUN 40 mg/dL (7-18); BUN/Creat Ratio 20.9 RATIO (10-20); Chloride 99 mmol/L (98-107); Creatinine, Serum 1.91 mg/dL (0.70-1.30); EST Glomerular Filtration Rate 36 mL/min (>60); Est Glom Filt Rate - Afr Amer 43 mL/min (>60); Estimated Creatinine Clearance 26.86 ml/min; Globulin 3.6 g/dL (2.2-4.2); Glucose 81 mg/dL (74-106); Potassium 4.6 mmol/L (3.5-5.1); Protein, Total 6.7 g/dL (6.4-8.2); Sodium Level 136 mmol/L (136-145)
[2022-08-28 05:37] LABS: Differential Comment SCANNED
--- NOTE | 2022-08-28 07:13 | PN.CC_ITS ---
Assessment & Plan Assessment/Plan (1) Atrial fibrillation with RVR: (2) Pleural effusion due to CHF (congestive heart failure): (3) Acute alteration in mental status: PLAN: Plan RECOMMENDATIONS: 1. Slow diuresis given renal function 2. Wean oxygen as tolerated. Bronchodilators only as needed 3. Aggressive rate control. Agree with anticoagulation 4. Monitor for alcohol withdrawal. Possible need for phenobarbital 5. Social work evaluation 6. AVAPS with tidal volume of 450 if decompensates with sleep IMPRESSIONS: 1. Acute hypoxic respiratory insufficiency secondary to A. fib with RVR complicating acute diastolic CHF Patient appears to be grossly volume overloaded at this time, but somewhat improved compared to previous. Patient reportedly has a history of noncompliance, so failure to take Lasix would be a consideration. I agree with rate control medications. Good control of rate at this time. We will have to watch for hypotension. Continue with aggressive diuresis. Patient may require BiPAP overnight, especially with sleep. Suggest Haldol to help with BiPAP synchrony 2. Elevated troponin/acute on chronic diastolic CHF/elevated LFTs/lactic acidosis Patient with recent echocardiogram in May 2022 showing diastolic dysfunction with elevated pulmonary artery pressures and mild right ventricular dysfunction. Clinical suspicion for type II pulmonary hypertension. This would lead to a congestive hepatitis and elevation of liver enzymes. Can check LFTs on a daily basis. Patient was hypoxic on presentation and this may account for elevated troponins. 3. Probable metabolic encephalopathy Unclear etiology of confusion. Patient was hypoxic secondary to problem #1. Patient does not have a significant leukocytosis or fever, but sepsis will need to be monitored for patient did not have significant CO2 retention on ABG, but creatinine appears to be somewhat elevated. Patient reportedly has an alcohol history, so withdrawal would be a consideration. 4. Reported COPD/hypertension/CKD stage III/advanced age/anemia Complicates care, management, recovery and prognosis. History is diffic ult to obtain at this time. Patient is not on any baseline inhalers. Clinical suspicion is patient does not require any steroid therapy. Bronchodilators as needed likely sufficient as scheduled therapy may complicate problem #1. Patient does have a history of GI bleeds, so we will need to monitor stools. Obtain guaiac if necessary. No indication for renal replacement therapy at this time, but will need to slow down diuresis given elevation in creatinine. Hospitalist did confirm patient is a DNR Comfort Care arrest without intubation. Subjective Subjective Patient did okay overnight. Patient continues to moan, but is more appropriate and answering questions. Patient is aware of his daughter coming to take care of him. Patient is not reporting any pain. Patient has remained on supplemental oxygen to maintain saturations. Patient does remain on Cardizem at 15 with good rate control and remains in A. fib. Objective Data Objective Data Vital Signs: Vital Signs Temp Pulse Resp BP Pulse Ox O2 Del Method O2 Flow Rate 37.1 C 82 17 92/60 94 Nasal Cannula 4 08/28/22 06:00 08/28/22 06:00 08/28/22 06:00 08/28/22 06:00 08/28/22 06:00 08/28/22 06:00 08/28/22 06:00 Oxygen Flow Rate (L/min) 4 Oxygen Delivery Method Nasal Cannula Weight: 94.1 kg Body Mass Index (BMI) 30.5 Intake & Output: Intake and Output for Last 24 Hours 08/26/22 08/27/22 08/28/22 23:59 23:59 23:59 Intake Total 131.00 / 146.00 116 / 116 Output Total 220 / 240 45 / 45 Balance -89.00 / -94.00 71 / 71 Lab / Micro Data Attestation: I reviewed the patient's lab results. Result Diagrams: 08/28/22 03:50 08/28/22 03:50 Labs: Laboratory Results - last 24 hr 08/27/22 11:56: WBC 6.8, RBC 3.13 L, Hgb 9.1 L, Hct 30.4 L, MCV 97.1 H, MCH 29.1, MCHC 29.9 L, RDW Std Deviation 64.8 H, RDW Coeff of Chaparro 18.3 H, Plt Count 358, MPV 10.1, Immature Gran % (Auto) 0.300, Neut % (Auto) 56.8, Lymph % (Auto) 17.0 L, Borden % (Auto) 20.8 H, Eos % (Auto) 3.1, Baso % (Auto) 2.0 H, Absolute Neuts (auto) 3.9, Absolute Lymphs (auto) 1.16, Nucleated RBC % 0.4 08/27/22 11:56: Sodium 136, Potassium 4.4, Chloride 99, Carbon Dioxide 27.0, Anion Gap 10, BUN 32 H, Creatinine 1.63 H, Estim Creat Clear Calc 0.00, Est GFR (MDRD) Af Amer 52 L, Est GFR (MDRD) Non-Af 43 L, BUN/Creatinine Ratio 19.6, Glucose 88, Calcium 9.6, Total Bilirubin 1.60 H, AST 181 H, ALT 160 H, Alkaline Phosphatase 164 H, Troponin I High Sens 161 H*, Total Protein 7.7, Albumin 3.6, Globulin 4.1, Albumin/Globulin Ratio 0.9 08/27/22 11:56: Lactic Acid 4.8 H* 08/27/22 11:56: B-Natriuretic Peptide 1640.2 H 08/27/22 14:50: Ammonia 30.0 08/27/22 16:00: Urine Color Yellow, Urine Clarity Cloudy, Urine pH 5.0, Ur Specific [place] 1.020, Urine Protein 100 H, Urine Glucose (UA) Normal, Urine Ketones 5 H, Urine Occult Blood 250 H, Urine Nitrite Negative, Urine Bilirubin Negative, Urine Urobilinogen 1 H, Ur Leukocyte Esterase 500 H, Urine RBC 10-25 SEEN, Urine WBC >100 SEEN, Ur Squamous Epith Cells 0 SEEN, Urine Bacteria 4+, Urine Mucus 0 SEEN 08/27/22 16:15: Troponin I High Sens 151 H* 08/27/22 17:15: Lactic Acid 2.8 H* 08/27/22 18:00: Troponin I High Sens 159 H* 08/27/22 22:10: Troponin I High Sens 159 H* 08/28/22 03:50: WBC 7.0, RBC 2.84 L, Hgb 8.1 L, Hct 27.1 L, MCV 95.4 H, MCH 28.5, MCHC 29.9 L, RDW Std Deviation 64.1 H, RDW Coeff of Chaparro 18.6 H, Plt Count 330, MPV 10.1, Immature Gran % (Auto) 0.700, Neut % (Auto) 57.8, Lymph % (Auto) 13.6 L, Borden % (Auto) 26.5 H, Eos % (Auto) 0.3, Baso % (Auto) 1.1 H, Absolute Neuts (auto) 4.0, Absolute Lymphs (auto) 0.95, Nucleated RBC % 0.6, Differential Comment SCANNED 08/28/22 03:50: Sodium 136, Potassium 4.6, Chloride 99, Carbon Dioxide 26.0, Anion Gap 11, BUN 40 H, Creatinine 1.91 H, Estim Creat Clear Calc 26.86, Est GFR (MDRD) Af Amer 43 L, Est GFR (MDRD) Non-Af 36 L, BUN/Creatinine Ratio 20.9 H, Glucose 81, Calcium 9.0, Total Bilirubin 2.00 H, AST 573 H, ALT 302 H, Alkaline Phosphatase 136 H, Total Protein 6.7, Albumin 3.1 L, Globulin 3.6, Albumin/Globulin Ratio 0.9 Micro: Microbiology 08/27/22 12:18 Nasal Secretion SARS-CoV-2 & FLU Antigen (Rapid) - Final ABG Data ABG results: ABG 08/27/22 12:15 Specimen Type ART Sample Site L Radial pH 7.38 Bicarbonate Actual 24.9 Total CO2 26 Base Excess 0 O2 Saturation 91 L ABG pCO2 41.9 ABG pO2 61 L Joey Test Positive O2 Delivery Device Cannula Liter Flow 5.0 Attestation: I personally reviewed and interpreted this ABG as follows: (Normal acid-base with increased AA gradient) Radiography Diagnostic Testing: Radiology Impression Brain CT 08/27/22 11:49 IMPRESSION: Chronic involutional changes of the brain. Electronically Signed: Elliot Quintero MD at 12:36 EST , Chest X-Ray 08/27/22 11:49 IMPRESSION: Increasing left pleural effusion with left basilar infiltration and/or atelectasis. Mild degree of superimposed CHF. Electronically Signed: Elliot Quintero MD at 12:41 EST , Liver Ultrasound 08/27/22 15:35 IMPRESSION: Mild ascites. Electronically Signed: Karlo Tirado DO at 20:02 EST , Chest X-Ray 08/27/22 16:55 IMPRESSION: A right-sided PICC line is noted with tip extending into the neck. There is a moderate left effusion. Left consolidation cannot be excluded. Electronically Signed: Karlo DO Celestino at 17:18 EST , Chest X-Ray 08/27/22 17:45 IMPRESSION: 1. No change in the appearance of the chest. 2. Right-sided PICC line has been readjusted with the distal tip now at the junction of superior vena cava and right atrium. Electronically Signed: Luis Manuel Mireles MD at 18:37 EST , Chest X-Ray 08/27/22 17:50 IMPRESSION: No change in the appearance of the chest. Right-sided PICC line in good position. Electronically Signed: Luis Manuel Mireles MD at 18:40 EST , Rhythm Strip Rhythm Strip: A-fib Rate: 86 Ectopy: PVC(s) (Premature ventricular beats versus aberrant beats) Physical Exam Const alert, oriented x3 and no apparent distress General Appearance: cooperative and well developed HEENT normocephalic, head/scalp atraumatic and moist oral mucous membranes HEENT Narrative: Nasal cannula in place. Eyes PERRL, EOMs intact bilaterally and no scleral icterus Neck full ROM and no lymphadenopathy Neck Narrative: JVD noted. General: trachea midline Chest inspection of chest normal Resp no use of accessory muscles Auscultation: rales; Negative for rhonchi or wheezes Percussion: Negative for dullness Cardio regular rate, S1 normal heart sound, S2 normal heart sound, no murmurs, no rub and no gallops Cardio Narrative: A. fib with RVR noted on telemetry Rhythm: abnormal rhythm irregularly irregular GI GI Narrative: Pitting edema beyond the navel. Anasarca is improving. Inspection: abdominal distention Palpation: Negative for tender or guarding no CVA tenderness Extremity General Extremity: edema; Negative for clubbing Skin no rashes or lesions noted Neuro CN's II-XII intact bilaterally and no focal motor deficits Neuro Narrative: Unable to appreciate a facial droop Psych Activity / Motor Behavior: restless Mood & Affect: labile affect Charges/Coding Visit Charges Inpatient E&M: 17818 Subs Hosp L3
[2022-08-28] MEDS: Furosemide 40 MG/4 ML Vial IV (09:38)
[2022-08-28] MEDS: Enoxaparin 80 MG/0.8 ML Syringe SC ×2 (09:38→19:46)
--- NOTE | 2022-08-28 09:55 | CASEMGMT ---
RN CM Face to Face with patient for initial transition planning/care coordination assessment. RN CM introduced self and role at [facility]. Patient lying in bed, sleeping, 3 daughters at bedside. Daugthers willing to participate in assessment and is able to answer all questions appropriately. Care providers, pharmacy, and demographics verified. Daughters wish for patient to discharge home, but will to have patient go to SNF if needing assistance with ADLs as daughter works during the day. Daughters state they has no further needs or concerns at this time. CM to follow for discharge planning needs that may arise. PCP: Yg Specialists: Hanh, urologist; Gillian, match up worker Preferred Pharmacy: [facility] Insurance: [employer] Prescription Benefit: yes Living Will/HPOA: yes, daughter Toya Roa LNOK: 3 daughters Living Arrangements: Patient lives with daughter in a first floor apartment with 1 step and grab bar to enter the home. Transportation: self, daughter DME/HHC: Patient has shower chair, cane, walker, grab bars, pulse ox, and home oxygen at 2.5-3lpm through [employer] with portability. Patient has had [facility] in the past. No previous SNF. Daughters state that patient chew 1/2 can of tobacco daily and does about 4-5 short of whiskey or fireball daily. Daughters concerned that patient has been decline since 's passing 3 years ago. SW updated. Disposition Plan: TBD by course of treatment and progress with therapy. Anticipate HHC vs SNF. Myesha BOURNE, RN, CM
--- NOTE | 2022-08-28 10:19 | CT_ITS ---
STUDY: CT ABDOMEN AND PELVIS WITHOUT CONTRAST REASON FOR EXAM: Male, 87 years old. Ascites LACTIC ACIDOSIS,CHF RADIATION DOSAGE (If Supplied By Facility): CTDIvol = ( 16.40 ) mGy, DLP = ( 888.96 ) mGycm TECHNIQUE: Transaxial images were obtained from the dome of the diaphragm to the symphysis pubis without oral contrast, and without intravenous contrast. Sagittal and coronal images were reconstructed. Individualized dose optimization techniques were used for this CT. COMPARISON: CT of abdomen and pelvis dated July 06, 2022 FINDINGS: Mild interval increase in the amount of abdominal and pelvic ascites, which is now moderate in volume. Diffuse anasarca redemonstrated. A small right and a moderate size left pleural effusion are present. Near-complete left lower lobe atelectasis is also visualized. Normal liver. Normal gallbladder and extrahepatic biliary system. There is a benign calcified granuloma of the spleen. Normal pancreas. Normal bilateral adrenal glands. Normal right kidney. Normal left kidney. Normal visualized stomach. Normal small intestine. There are multiple colonic diverticula consistent with diverticulosis. The appendix is visualized and appears normal. There is diffuse atherosclerotic calcification of the abdominal aorta, without a demonstrated aneurysm. Normal inferior vena cava. Normal retroperitoneum. A catheter is present in the bladder with a small amount of related air. Normal abdominal wall. There are diffuse degenerative changes of the visualized lumbar spine. CT/Abdomen/Pelvis without Cont IMPRESSION: 1. Mild interval increase in the amount of abdominal and pelvic ascites, which is now moderate in volume. Diffuse anasarca redemonstrated. 2. A small right and a moderate size left pleural effusion are present. Near-complete left lower lobe atelectasis is also visualized.. 3. Colonic diverticulosis. Electronically Signed: Roni Flores MD at 11:19 EST ,
--- NOTE | 2022-08-28 11:46 | PCM.CONS.R ---
Assessment & Plan Assessment/Plan (1) BELKIS (acute kidney injury): (2) Acute and chronic respiratory failure with hypoxia: (3) Pleural effusion due to CHF (congestive heart failure): (4) Prostate cancer: PLAN: Plan Impression/Plan: The patient is a 87-year-old man with past history of hypertension, heart failure with preserved ejection fraction due to diastolic dysfunction, prostate cancer, COPD, paroxysmal atrial fibrillation, KONRAD, and hyperlipidemia. The patient is admitted to the hospital on 08/27/2022 with acute hypoxic respiratory failure and volume overload. Nephrology is following for BELKIS. Acute kidney injury. Baseline serum creatinine is around 1.00 to 1.20 mg/dL. The patient did develop obstructive BELKIS in March 2022 and did require brief periods of hemodialysis. However, renal function improved with relief of obstruction. The patient was performing clean intermittent catheterization at home. Current BELKIS is more likely to be from cardiorenal cause and decreased effective blood volume. Prerenal acute kidney injury could have also progressed and evolved to ischemic ATN as well. There is no evidence of hydronephrosis on CT scan of the abdomen/pelvis on 08/28/2022. He has also been performing CIC prior to admission. The patient now has Kaur catheter in place as well. I agree with continuing to diurese the patient with IV furosemide. However, I would try to keep MAP above 65 mmHg while we are diuresing him. If BELKIS is primarily due to cardiorenal cause, serum creatinine should stabilize or even improved. However, creatinine can also increase if this is mainly ATN. Therefore, we will continue to monitor the trajectory of renal function over the next 24 to 48 hours. At this point, there is no urgent need for kidney replacement therapy. Current medications are reviewed and are appropriately dosed for his renal function. Acute on chronic hypoxic respiratory failure. Chest x-ray from 08/27/2022 showed marked left pleural effusion and small right pleural effusion. The patient also has a history of diastolic dysfunction as well as probable pulmonary hypertension. He is being diuresed with IV furosemide. He is currently on 4 L nasal cannula in ICU. From nephrology standpoint, okay to continue diuretic. Keep MAP above 65 mmHg while we are diuresing the patient. Prostate cancer. The patient has a history of bladder outlet obstruction and had obstructive BELKIS in March 2022. He has been performing CIC prior to admission. The current episode of BELKIS is unlikely to be from obstruction. Imaging study done earlier today did not show hydronephrosis. Nevertheless, I would continue Kaur catheter to avoid bladder outlet obstruction for now. Nephrology plan was discussed with daughter, Valdez. Nephrology plan will also be discussed with Dr. Curz. HPI Consult Data Date of Consult: 08/28/22 HPI Narrative Reason for Consultation: BELKIS on CKD HPI Narrative: IRVIN GARLAND is a 87-year-old man with past history of hypertension, heart failure with preserved ejection fraction due to diastolic dysfunction, prostate cancer, COPD, paroxysmal atrial fibrillation, KONRAD, and hyperlipidemia. The patient presented to the hospital on 08/27/2022 with altered mental status and dyspnea. The patient was admitted to the ICU because of acute hypoxic respiratory failure due to volume overload related to diastolic dysfunction, probable pulmonary hypertension, and acute kidney injury on chronic kidney disease. Nephrology is asked to see the patient because of acute kidney injury. The patient had been seen by our service when he was admitted to the hospital in March 2022. At that time, the patient had BELKIS with serum creatinine as high as 9.10 mg/dL. BELKIS was secondary to obstruction of the bladder outlet. He did require temporary hemodialysis. He was last seen in the office by my partner, Dr. Ellington, in our office on 05/04/2022. At that time, his serum creatinine had decreased back to 1.01 mg/dL. The most recent serum creatinine prior to this admission was from 07/29/2022 at 1.17 mg/dL. The patient presented to the hospital on 08/27/2022 with serum creatinine of 1.63 mg/dL. His serum creatinine has increased to 1.91 mg/dL today. Because of volume overload, he is being treated with IV loop diuretic. CT of the abdomen/pelvis which was done earlier today did not reveal any obstruction of the urinary tract. The patient is currently confused and cannot provide any meaningful history. According to his daughter who is bedside, the patient has been performing CIC as instructed prior to presentation to the hospital. FORMERLY [facility], [facility] Medical History Anemia CHF (congestive heart failure) COPD (chronic obstructive pulmonary disease) HTN (hypertension) Kidney stones On home oxygen therapy Paroxysmal A-fib Prostate cancer Sleep apnea Home Medications cholecalciferol (vitamin D3) 25 mcg (1,000 unit) tablet (Vitamin D3) 1,000 unit PO DAILY supplement 03/23/22 [History Last Taken 05/19/22] albuterol sulfate 90 mcg/actuation aerosol inhaler 2 puff inhalation UD PRN Shortness Of Breath 08/27/22 [History Last Taken Unknown] atorvastatin 10 mg tablet 10 mg PO QHS CHOLESTEROL 08/27/22 [History Last Taken Unknown] furosemide 40 mg tablet 40 mg PO BID FLUID 08/27/22 [History Last Taken Unknown] metoprolol succinate 25 mg tablet,extended release 24 hr 25 mg PO DAILY BLOOD PRESSURE 08/27/22 [History Last Taken Unknown] potassium chloride 20 mEq tablet,extended release 20 meq PO DAILY SUPPLEMENT 08/27/22 [History Last Taken Unknown] tamsulosin 0.4 mg capsule 0.4 mg PO QHS prostate 08/27/22 [History Last Taken Unknown] Allergy/AdvReac Type Severity Reaction Status Date / Time No Known Allergies Allergy Verified 07/29/22 11:09 Family History Mother Heart disease Hypertension Father Heart disease Hypertension Surgical History S/P hemodialysis catheter insertion Social History household members: significant other housing: house Smoking Status: Never smoker Smokeless tobacco user: chewing tobacco alcohol intake: current alcohol intake frequency: 0-2 drinks per day details: Occasional EtOH use. substance use type: does not use caffeine: Yes Type: coffee Number of servings: 1 ROS ROS Narrative ROS cannot be done because the patient is confused. Physical Exam Narrative General: Encephalopathic but NAD. HEENT: Normocephalic, atraumatic. Mucous membrane dry. PERRLA. Neck: Supple, no JVD. Heart: Normal S1, S2. No rubs, murmurs or gallops. Lungs: Decreased breath sound at bases bilaterally. Left greater than right. Abdomen: Normal bowel sound, soft, nontender, no guarding or rebound. Extremities: No clubbing, cyanosis, or edema. Musculoskeletal: Full passive range of motion. No joint swelling. Skin: No rash. Warm and dry. Neurologic: Confused. No focal neurologic deficits. Psychiatric: Mildly agitated when awakens. Lab / Micro Data Result Diagrams: 08/28/22 03:50 08/28/22 03:50 Labs: Laboratory Results - last 24 hr 08/27/22 11:56: WBC 6.8, RBC 3.13 L, Hgb 9.1 L, Hct 30.4 L, MCV 97.1 H, MCH 29.1, MCHC 29.9 L, RDW Std Deviation 64.8 H, RDW Coeff of Chaparro 18.3 H, Plt Count 358, MPV 10.1, Immature Gran % (Auto) 0.300, Neut % (Auto) 56.8, Lymph % (Auto) 17.0 L, Nolan % (Auto) 20.8 H, Eos % (Auto) 3.1, Baso % (Auto) 2.0 H, Absolute Neuts (auto) 3.9, Absolute Lymphs (auto) 1.16, Nucleated RBC % 0.4 08/27/22 11:56: Sodium 136, Potassium 4.4, Chloride 99, Carbon Dioxide 27.0, Anion Gap 10, BUN 32 H, Creatinine 1.63 H, Estim Creat Clear Calc 0.00, Est GFR (MDRD) Af Amer 52 L, Est GFR (MDRD) Non-Af 43 L, BUN/Creatinine Ratio 19.6, Glucose 88, Calcium 9.6, Total Bilirubin 1.60 H, AST 181 H, ALT 160 H, Alkaline Phosphatase 164 H, Troponin I High Sens 161 H*, Total Protein 7.7, Albumin 3.6, Globulin 4.1, Albumin/Globulin Ratio 0.9 08/27/22 11:56: Lactic Acid 4.8 H* 08/27/22 11:56: B-Natriuretic Peptide 1640.2 H 08/27/22 14:50: Ammonia 30.0 08/27/22 16:00: Urine Color Yellow, Urine Clarity Cloudy, Urine pH 5.0, Ur Specific [place] 1.020, Urine Protein 100 H, Urine Glucose (UA) Normal, Urine Ketones 5 H, Urine Occult Blood 250 H, Urine Nitrite Negative, Urine Bilirubin Negative, Urine Urobilinogen 1 H, Ur Leukocyte Esterase 500 H, Urine RBC 10-25 SEEN, Urine WBC >100 SEEN, Ur Squamous Epith Cells 0 SEEN, Urine Bacteria 4+, Urine Mucus 0 SEEN 08/27/22 16:15: Troponin I High Sens 151 H* 08/27/22 17:15: Lactic Acid 2.8 H* 08/27/22 18:00: Troponin I High Sens 159 H* 08/27/22 22:10: Troponin I High Sens 159 H* 08/28/22 03:50: WBC 7.0, RBC 2.84 L, Hgb 8.1 L, Hct 27.1 L, MCV 95.4 H, MCH 28.5, MCHC 29.9 L, RDW Std Deviation 64.1 H, RDW Coeff of [place] 18.6 H, Plt Count 330, MPV 10.1, Immature Gran % (Auto) 0.700, Neut % (Auto) 57.8, Lymph % (Auto) 13.6 L, Nolan % (Auto) 26.5 H, Eos % (Auto) 0.3, Baso % (Auto) 1.1 H, Absolute Neuts (auto) 4.0, Absolute Lymphs (auto) 0.95, Nucleated RBC % 0.6, Differential Comment SCANNED 08/28/22 03:50: Sodium 136, Potassium 4.6, Chloride 99, Carbon Dioxide 26.0, Anion Gap 11, BUN 40 H, Creatinine 1.91 H, Estim Creat Clear Calc 26.86, Est GFR (MDRD) Af Amer 43 L, Est GFR (MDRD) Non-Af 36 L, BUN/Creatinine Ratio 20.9 H, Glucose 81, Calcium 9.0, Total Bilirubin 2.00 H, AST 573 H, ALT 302 H, Alkaline Phosphatase 136 H, Total Protein 6.7, Albumin 3.1 L, Globulin 3.6, Albumin/Globulin Ratio 0.9 Micro: Microbiology 08/27/22 12:18 Nasal Secretion SARS-CoV-2 & FLU Antigen (Rapid) - Final ABG Data ABG results: ABG 08/27/22 12:15 Specimen Type ART Sample Site L Radial pH 7.38 Bicarbonate Actual 24.9 Total CO2 26 Base Excess 0 O2 Saturation 91 L ABG pCO2 41.9 ABG pO2 61 L Joey Test Positive O2 Delivery Device Cannula Liter Flow 5.0 Rhythm Strip Rhythm Strip: A-fib Rate: 86 Ectopy: PVC(s) (Premature ventricular beats versus aberrant beats) Radiology Impression Brain CT 08/27/22 11:49 IMPRESSION: Chronic involutional changes of the brain. Electronically Signed: Elliot Quintero MD at 12:36 EST , Chest X-Ray 08/27/22 11:49 IMPRESSION: Increasing left pleural effusion with left basilar infiltration and/or atelectasis. Mild degree of superimposed CHF. Electronically Signed: Elliot Quintero MD at 12:41 EST , Liver Ultrasound 08/27/22 15:35 IMPRESSION: Mild ascites. Electronically Signed: Karlo Tirado DO at 20:02 EST , Chest X-Ray 08/27/22 16:55 IMPRESSION: A right-sided PICC line is noted with tip extending into the neck. There is a moderate left effusion. Left consolidation cannot be excluded. Electronically Signed: Karlo Tirado DO at 17:18 EST , Chest X-Ray 08/27/22 17:45 IMPRESSION: 1. No change in the appearance of the chest. 2. Right-sided PICC line has been readjusted with the distal tip now at the junction of superior vena cava and right atrium. Electronically Signed: Luis Manuel Mireles MD at 18:37 EST , Chest X-Ray 08/27/22 17:50 IMPRESSION: No change in the appearance of the chest. Right-sided PICC line in good position. Electronically Signed: Luis Manuel Mireles MD at 18:40 EST , Abdomen/Pelvis CT 08/28/22 10:19 IMPRESSION: 1. Mild interval increase in the amount of abdominal and pelvic ascites, which is now moderate in volume. Diffuse anasarca redemonstrated. 2. A small right and a moderate size left pleural effusion are present. Near-complete left lower lobe atelectasis is also visualized.. 3. Colonic diverticulosis. Electronically Signed: Roni Flores MD at 11:19 EST ,
[2022-08-28] MEDS: Albumin Human 25% (50 mL) 12.5 GM/50 ML IV.SOLN IV (11:58)
--- NOTE | 2022-08-28 12:33 | CASEMGMT ---
Social Work SW spoke briefly w/daughter Valdez who is in the room, offered support and explained SW available for support to family. SW let daughter know has snf facility list should it be needed. Valdez deferred to Tuesday to take and review list. ARABELLA will continue to follow. DESIRE Collazo
[2022-08-28] MEDS: Albumin Human 25% (100 mL) 25 GM/100 ML BAG IV (12:48)
--- NOTE | 2022-08-28 12:53 | PCM.PN.HOSP ---
Subjective Subjective Follow-up on acute metabolic encephalopathy/acute CHF/BELKIS: Patient was seen and examined. He appears to be resting at time of being seen. He is currently on 4 L of oxygen. He failed his bedside swallow eval. He remained on Cardizem drip. He developed hypotension; Cardizem drip stopped, received fluid bolus as well as albumin bolus. Urine output has been marginal. Objective Data Objective Data Vital Signs: Vital Signs Temp Pulse Resp BP Pulse Ox O2 Del Method O2 Flow Rate 98.8 F 66 14 64/30 L 96 Nasal Cannula 4 08/28/22 06:00 08/28/22 11:31 08/28/22 10:00 08/28/22 10:00 08/28/22 11:31 08/28/22 11:31 08/28/22 11:31 Oxygen Flow Rate (L/min) 4 Oxygen Delivery Method Nasal Cannula Weight: 94.1 kg Body Mass Index (BMI) 30.5 Intake & Output: Intake and Output for Last 24 Hours 08/26/22 08/27/22 08/28/22 23:59 23:59 23:59 Intake Total 131.00 / 146.00 670 / 670 Output Total 220 / 240 50 / 50 Balance -89.00 / -94.00 620 / 620 Lab / Micro Data Result Diagrams: 08/28/22 03:50 08/28/22 03:50 Labs: Laboratory Results - last 24 hr 08/27/22 14:50: Ammonia 30.0 08/27/22 16:00: Urine Color Yellow, Urine Clarity Cloudy, Urine pH 5.0, Ur Specific Auxier 1.020, Urine Protein 100 H, Urine Glucose (UA) Normal, Urine Ketones 5 H, Urine Occult Blood 250 H, Urine Nitrite Negative, Urine Bilirubin Negative, Urine Urobilinogen 1 H, Ur Leukocyte Esterase 500 H, Urine RBC 10-25 SEEN, Urine WBC >100 SEEN, Ur Squamous Epith Cells 0 SEEN, Urine Bacteria 4+, Urine Mucus 0 SEEN 08/27/22 16:15: Troponin I High Sens 151 H* 08/27/22 17:15: Lactic Acid 2.8 H* 08/27/22 18:00: Troponin I High Sens 159 H* 08/27/22 22:10: Troponin I High Sens 159 H* 08/28/22 03:50: WBC 7.0, RBC 2.84 L, Hgb 8.1 L, Hct 27.1 L, MCV 95.4 H, MCH 28.5, MCHC 29.9 L, RDW Std Deviation 64.1 H, RDW Coeff of Chaparro 18.6 H, Plt Count 330, MPV 10.1, Immature Gran % (Auto) 0.700, Neut % (Auto) 57.8, Lymph % (Auto) 13.6 L, [place] % (Auto) 26.5 H, Eos % (Auto) 0.3, Baso % (Auto) 1.1 H, Absolute Neuts (auto) 4.0, Absolute Lymphs (auto) 0.95, Nucleated RBC % 0.6, Differential Comment SCANNED 08/28/22 03:50: Sodium 136, Potassium 4.6, Chloride 99, Carbon Dioxide 26.0, Anion Gap 11, BUN 40 H, Creatinine 1.91 H, Estim Creat Clear Calc 26.86, Est GFR (MDRD) Af Amer 43 L, Est GFR (MDRD) Non-Af 36 L, BUN/Creatinine Ratio 20.9 H, Glucose 81, Calcium 9.0, Total Bilirubin 2.00 H, AST 573 H, ALT 302 H, Alkaline Phosphatase 136 H, Total Protein 6.7, Albumin 3.1 L, Globulin 3.6, Albumin/Globulin Ratio 0.9 Micro: Microbiology 08/27/22 12:18 Nasal Secretion SARS-CoV-2 & FLU Antigen (Rapid) - Final Radiography Diagnostic Testing: Radiology Impression Liver Ultrasound 08/27/22 15:35 IMPRESSION: Mild ascites. Electronically Signed: Karlo Tirado DO at 20:02 EST , Chest X-Ray 08/27/22 16:55 IMPRESSION: A right-sided PICC line is noted with tip extending into the neck. There is a moderate left effusion. Left consolidation cannot be excluded. Electronically Signed: Karlo Tirado DO at 17:18 EST , Chest X-Ray 08/27/22 17:45 IMPRESSION: 1. No change in the appearance of the chest. 2. Right-sided PICC line has been readjusted with the distal tip now at the junction of superior vena cava and right atrium. Electronically Signed: Luis Manuel Mireles MD at 18:37 EST , Chest X-Ray 08/27/22 17:50 IMPRESSION: No change in the appearance of the chest. Right-sided PICC line in good position. Electronically Signed: Luis Manuel Mireles MD at 18:40 EST , Abdomen/Pelvis CT 08/28/22 10:19 IMPRESSION: 1. Mild interval increase in the amount of abdominal and pelvic ascites, which is now moderate in volume. Diffuse anasarca redemonstrated. 2. A small right and a moderate size left pleural effusion are present. Near-complete left lower lobe atelectasis is also visualized.. 3. Colonic diverticulosis. Electronically Signed: Roni Flores MD at 11:19 EST , Rhythm Strip Rhythm Strip: A-fib Rate: 86 Ectopy: PVC(s) (Premature ventricular beats versus aberrant beats) Physical Exam Narrative Physical exam: General: Letahrgic, on 4 L of oxygen, in mild respiratory distress, anasarca HEENT: Atraumatic Oral: Moist Mucosa Neck: Supple Lungs: Diminished to auscultation Cardiovascular: HS I+II, regular, no murmurs Abdomen: Distended, ascites+, bowel Sounds Present, Soft, Non Tender Extremities: Bilateral leg edema +2 Skin: No rashes, No breakdown Neurological: Grossly intact Psych/Mental Status: Appropriate Assessment & Plan Assessment/Plan (1) Atrial fibrillation with RVR: (2) Pleural effusion due to CHF (congestive heart failure): PLAN: Plan 1. Acute metabolic encephalopathy, multifactorial likely secondary to hypoxia/probable acute alcohol withdrawal/probable hepatic encephalopathy Waxes and wanes, continue to monitor 2. Acute hypotension secondary to Cardizem side effect Off Cardizem, status post 500 cc IV fluid bolus as well as IV albumin Will to continue to trend 3. Acute hypoxia secondary to acute exacerbation of heart failure preserved EF, EF 60%/left pleural effusion Admitting BNPep was 1640.2. Patient is currently on 4 L of oxygen; not on oxygen at home Rapid COVID-19 antigen as well as influenza screen is negative Continue on IV Lasix 40 mg daily, CHF protocol 3. A. fib with RVR in a patient has history of A. fib, rate controlled now Unable to swallow now, cannot do oral rate control medications' Discontinue Cardizem drip on account of hypotension, Continue therapeutic Lovenox -patient does have a remote history of melena/hematuria Hemoglobin appears to be stable 4. Elevated troponin, likely secondary to #3, Continue to trend 5. Elevated lactic acidosis, lactic acid 4.8, likely secondary to #2 6. Probable Acute UTI, h/o ESBL, will start IV Unasyn 6. Elevated LFTs likely secondary to venous congestion/right-sided failure Liver enzymes have worsening Liver ultrasound showed normal liver, mild ascites We will continue to trend 7. Probable acute alcohol withdrawal, patient is a heavy alcohol drinker, Will monitor CIWA scores Will hold off on starting phenobarb on account of #1 and not allowed to worsen mental status Continue on folic acid and thiamine 8. COPD, not in acute exacerbation 10. BELKIS on CKD stage III, creatinine slightly worse at 1.91 Patient is almost anuric. History of being on dialysis 6 months ago Will consult nephrology 11. DVT prophylaxis?on therapeutic lovenox Total time spent: 75 minutes of which more > 50% was spent in reviewing patient's chart, going over hislaboratory investigations, imaging, talking to nursing, pleater and wholesale loan processor in detail. Charges/Coding Visit Charges Inpatient E&M: 59105 [facility] L3
--- NOTE | 2022-08-28 16:09 | NURSING ---
bp 72/42 Dr Blair notified will start levo per PICC
[2022-08-28] MEDS: 0.9% Saline Lock 10 ML Syringe IV ×2 (19:48→23:45)
[2022-08-28] MEDS: LORazepam 2 MG/ML Syringe IV (23:45)
[2022-08-29] VITALS (33 sets, daily range): BP systolic 55–110; BP diastolic 16–95; PULSE 81–109; RESP 14–25; TEMP 37.1–37.5; O2SAT 87–98
[2022-08-29 04:02] LABS: Absolute Lymphocyte Count 1.05 X10^3/uL (0.83-4.51); Absolute Neutrophil Count 14.3 X10^3/uL (2.0-7.7); Basophil# 0.04 X10^3/uL; Basophil% 0.2 % (0-1); Eosinophil# 0.01 X10^3/uL; Eosinophils% 0.1 % (0-5); Hematocrit 27.4 % (40-54); Hemoglobin 8.3 g/dL (13.0-16.5); Lymphocyte # 1.05 X10^3/ul (0.83-4.51); Mean Corp Hgb Conc 30.3 g/dL (32-36); Mean Corpuscular Hgb 28.9 pg (27.0-32.0); Mean Corpuscular Volume 95.5 fL (80-94); Mean Platelet Vol. 10.1 fl (6.2-12.0); Monocyte# 1.93 X10^3/uL; NRBC Flagged by Analyzer 0.2 % (0-5); Neutrophil # 14.34 X10^3/uL (2.7-7.7); Neutrophil % 81.8 % (47-70); POSITIVE DIFFERENTIAL YES; Platelet Count 369 K/mm3 (150-450); RBC Distribution Width CV 18.8 % (11.6-14.6); RBC Distribution Width SD 63.9 fl (35.1-43.9); Red Blood Count 2.87 M/mm3 (4.6-6.2); White Blood Count 17.5 K/mm3 (4.4-11.0)
[2022-08-29 04:10] LABS: Differential Indicated SCAN CRITERIA MET
[2022-08-29 04:30] LABS: Differential Comment SCANNED
[2022-08-29 04:42] LABS: AST(SGOT) 2071 U/L (15-37); Alanine Aminotransfer ALT/SGPT 859 U/L (16-61); Albumin, Serum 3.4 g/dL (3.2-5.0); Alkaline Phosphatase 128 U/L (45-117); Anion Gap 15 (5-15); BUN 53 mg/dL (7-18); BUN/Creat Ratio 18.5 RATIO (10-20); Chloride 102 mmol/L (98-107); Creatinine, Serum 2.86 mg/dL (0.70-1.30); EST Glomerular Filtration Rate 22 mL/min (>60); Est Glom Filt Rate - Afr Amer 27 mL/min (>60); Estimated Creatinine Clearance 17.94 ml/min; Globulin 3.5 g/dL (2.2-4.2); Glucose 85 mg/dL (74-106); Potassium 4.9 mmol/L (3.5-5.1); Protein, Total 6.9 g/dL (6.4-8.2); Sodium Level 139 mmol/L (136-145)
--- NOTE | 2022-08-29 07:34 | PN.CC_ITS ---
Assessment & Plan Assessment/Plan (1) Atrial fibrillation with RVR: (2) Pleural effusion due to CHF (congestive heart failure): (3) Acute alteration in mental status: PLAN: Plan RECOMMENDATIONS: 1. Hold diuresis given renal function 2. Wean oxygen as tolerated. Bronchodilators only as needed 3. Aggressive rate control. Agree with anticoagulation 4. Monitor for alcohol withdrawal. As needed Ativan for now 5. Social work evaluation 6. AVAPS with tidal volume of 450 if decompensates with sleep IMPRESSIONS: 1. Acute hypoxic respiratory insufficiency secondary to A. fib with RVR complicating acute diastolic CHF Patient appears to be grossly volume overloaded at this time, but somewhat improved compared to previous. Patient reportedly has a history of noncompliance, so failure to take Lasix would be a consideration. I agree with rate control medications. Good control of rate at this time. Unfortunately, renal function is precluding further diuresis. Patient may require BiPAP overnight, especially with sleep. Suggest Haldol to help with BiPAP synchrony. Unfortunately, CT scan is suggesting worsening in ascites 2. Elevated troponin/acute on chronic diastolic CHF/elevated LFTs/lactic acidosis Patient with recent echocardiogram in May 2022 showing diastolic dysfunction with elevated pulmonary artery pressures and mild right ventricular dysfunction. Clinical suspicion for type II pulmonary hypertension. This would lead to a congestive hepatitis and elevation of liver enzymes. Can check LFTs on a daily basis. Patient was hypoxic on presentation and this may account for elevated troponins. 3. Probable metabolic encephalopathy Unclear etiology of confusion. Patient was hypoxic secondary to problem #1. Patient does not have a significant leukocytosis or fever, but sepsis will need to be monitored for patient did not have significant CO2 retention on ABG, but creatinine appears to be somewhat elevated. Patient reportedly has an alcohol history, so withdrawal would be a consideration. 4. Reported COPD/hypertension/CKD stage III/advanced age/anemia Complicates care, management, recovery and prognosis. History is difficult to obtain at this time. Patient is not on any baseline inhalers. Clinical suspicion is patient does not require any steroid therapy. Bronchodilators as needed likely sufficient as scheduled therapy may complicate problem #1. Patient does have a history of GI bleeds, so we will need to monitor stools. Obtain guaiac if necessary. No indication for renal replacement therapy at this time, but will need to slow down diuresis given elevation in creatinine. Hospitalist did confirm patient is a DNR Comfort Care arrest without intubation. 5. Acute kidney injury Clinical suspicion for prerenal etiology secondary to hypotension. Very narrow spectrum at this time. We will consult nephrology for recommendations. Unclear if family would be open to dialysis given goals of therapy. ?Hepatorenal syndrome TIME: 33 minutes critical care time spent addressing patient's hypotension, acute kidney injury, A. fib, hypoxia, review of all data and collaboration with care team Subjective Subjective No real changes over the last 24 hours. Patient continues to moan frequently, but stops when talked to. Patient denies any current chest pain. Patient has had increased pressor requirements overnight. Nursing has noted significant decrease in urine output. Objective Data Objective Data Vital Signs: Vital Signs Temp Pulse Resp BP Pulse Ox O2 Del Method O2 Flow Rate 37.4 C H 103 H 21 H 103/18 L 92 Nasal Cannula 5 08/29/22 04:00 08/29/22 07:00 08/29/22 07:00 08/29/22 07:00 08/29/22 07:33 08/29/22 07:33 08/29/22 07:33 Oxygen Flow Rate (L/min) 5 Oxygen Delivery Method Nasal Cannula Weight: 89.5 kg Body Mass Index (BMI) 30.5 Intake & Output: Intake and Output for Last 24 Hours 08/27/22 08/28/22 08/29/22 23:59 23:59 23:59 Intake Total 131.00 / 146.00 1840.65 / 1845.65 348.55 / 348.55 Output Total 220 / 240 270 / 270 Balance -89.00 / -94.00 1570.65 / 1575.65 348.55 / 348.55 Lab / Micro Data Attestation: I reviewed the patient's lab results. Result Diagrams: 08/29/22 03:50 08/29/22 03:50 Labs: Laboratory Results - last 24 hr 08/29/22 03:50: WBC 17.5 H, RBC 2.87 L, Hgb 8.3 L, Hct 27.4 L, MCV 95.5 H, MCH 28.9, MCHC 30.3 L, RDW Std Deviation 63.9 H, RDW Coeff of Chaparro 18.8 H, Plt Count 369, MPV 10.1, Immature Gran % (Auto) 0.900, Neut % (Auto) 81.8 H, Lymph % (Auto) 6.0 L, Bartholomew % (Auto) 11.0 H, Eos % (Auto) 0.1, Baso % (Auto) 0.2, Absolute Neuts (auto) 14.3 H, Absolute Lymphs (auto) 1.05, Nucleated RBC % 0.2, Differential Comment SCANNED, Diff Path Review December foll 08/29/22 03:50: Sodium 139, Potassium 4.9, Chloride 102, Carbon Dioxide 22.0, Anion Gap 15, BUN 53 H, Creatinine 2.86 H, Estim Creat Clear Calc 17.94, Est GFR (MDRD) Af Amer 27 L, Est GFR (MDRD) Non-Af 22 L, BUN/Creatinine Ratio 18.5, Glucose 85, Calcium 9.0, Total Bilirubin 2.60 H, AST 2071 H, ALT 859 H, Alkaline Phosphatase 128 H, Total Protein 6.9, Albumin 3.4, Globulin 3.5, Albumin/Rhiannon bulin Ratio 1.0 Micro: Microbiology 08/27/22 12:18 Nasal Secretion SARS-CoV-2 & FLU Antigen (Rapid) - Final Radiography Diagnostic Testing: Radiology Impression Abdomen/Pelvis CT 08/28/22 10:19 IMPRESSION: 1. Mild interval increase in the amount of abdominal and pelvic ascites, which is now moderate in volume. Diffuse anasarca redemonstrated. 2. A small right and a moderate size left pleural effusion are present. Near-complete left lower lobe atelectasis is also visualized.. 3. Colonic diverticulosis. Electronically Signed: Roni Flores MD at 11:19 EST Reading Location ID and State: [facility] / [place] , Service support , Rhythm Strip Rhythm Strip: A-fib Rate: 86 Ectopy: PVC(s) (Premature ventricular beats versus aberrant beats) Physical Exam Const Constitutional Narrative: Periodic moaning. General Appearance: cooperative, well developed, in distress Positive for mild and lethargic HEENT normocephalic, head/scalp atraumatic and moist oral mucous membranes HEENT Narrative: Nasal cannula in place. Eyes PERRL, EOMs intact bilaterally and no scleral icterus Neck full ROM and no lymphadenopathy Neck Narrative: JVD noted. General: trachea midline Chest inspection of chest normal Resp no use of accessory muscles Auscultation: rales; Negative for rhonchi or wheezes Percussion: dullness Cardio regular rate, S1 normal heart sound, S2 normal heart sound, no murmurs, no rub and no gallops Rhythm: abnormal rhythm irregularly irregular GI GI Narrative: Pitting edema beyond the navel. Anasarca is improving. Inspection: abdominal distention Palpation: Negative for tender or guarding no CVA tenderness Extremity General Extremity: edema; Negative for clubbing Skin no rashes or lesions noted Neuro CN's II-XII intact bilaterally and no focal motor deficits Neuro Narrative: Unable to appreciate a facial droop Psych Activity / Motor Behavior: restless Mood & Affect: labile affect Charges/Coding Procedures Hospitalists Procedures: 14747 [facility] H[facility]
--- NOTE | 2022-08-29 07:51 | PCM.PN.HOSP ---
Subjective Subjective Follow-up on acute metabolic encephalopathy/acute CHF/BELKIS: Patient was seen and examined. Patient is lethargic. Currently on 2 pressors. Discussed with fire production operator and artificial flowers dyer; hospice is recommended. Discussed with the daughter at the bedside, updated her on his clinical condition. She is agreeable to hospice Objective Data Objective Data Vital Signs: Vital Signs Temp Pulse Resp BP Pulse Ox O2 Del Method O2 Flow Rate 99.4 F H 103 H 21 H 103/18 L 92 Nasal Cannula 5 08/29/22 04:00 08/29/22 07:00 08/29/22 07:00 08/29/22 07:00 08/29/22 07:33 08/29/22 07:33 08/29/22 07:33 Oxygen Flow Rate (L/min) 5 Oxygen Delivery Method Nasal Cannula Weight: 89.5 kg Body Mass Index (BMI) 30.5 Intake & Output: Intake and Output for Last 24 Hours 08/27/22 08/28/22 08/29/22 23:59 23:59 23:59 Intake Total 131.00 / 146.00 1840.65 / 1845.65 348.55 / 348.55 Output Total 220 / 240 270 / 270 Balance -89.00 / -94.00 1570.65 / 1575.65 348.55 / 348.55 Lab / Micro Data Result Diagrams: 08/29/22 03:50 08/29/22 03:50 Labs: Laboratory Results - last 24 hr 08/29/22 03:50: WBC 17.5 H, RBC 2.87 L, Hgb 8.3 L, Hct 27.4 L, MCV 95.5 H, MCH 28.9, MCHC 30.3 L, RDW Std Deviation 63.9 H, RDW Coeff of Chaparro 18.8 H, Plt Count 369, MPV 10.1, Immature Gran % (Auto) 0.900, Neut % (Auto) 81.8 H, Lymph % (Auto) 6.0 L, Lares % (Auto) 11.0 H, Eos % (Auto) 0.1, Baso % (Auto) 0.2, Absolute Neuts (auto) 14.3 H, Absolute Lymphs (auto) 1.05, Nucleated RBC % 0.2, Differential Comment SCANNED, Diff Path Review December08/29/22 03:50: Sodium 139, Potassium 4.9, Chloride 102, Carbon Dioxide 22.0, Anion Gap 15, BUN 53 H, Creatinine 2.86 H, Estim Creat Clear Calc 17.94, Est GFR (MDRD) Af Amer 27 L, Est GFR (MDRD) Non-Af 22 L, BUN/Creatinine Ratio 18.5, Glucose 85, Calcium 9.0, Total Bilirubin 2.60 H, AST 2071 H, ALT 859 H, Alkaline Phosphatase 128 H, Total Protein 6.9, Albumin 3.4, Globulin 3.5, Albumin/Globulin Ratio 1.0 Micro: Microbiology 08/27/22 12:18 Nasal Secretion SARS-CoV-2 & FLU Antigen (Rapid) - Final Radiography Diagnostic Testing: Radiology Impression Abdomen/Pelvis CT 08/28/22 10:19 IMPRESSION: 1. Mild interval increase in the amount of abdominal and pelvic ascites, which is now moderate in volume. Diffuse anasarca redemonstrated. 2. A small right and a moderate size left pleural effusion are present. Near-complete left lower lobe atelectasis is also visualized.. 3. Colonic diverticulosis. Electronically Signed: Roni Flores MD at 11:19 EST Reading Location ID and State: [address] [place] [address] , Service support , Rhythm Strip Rhythm Strip: A-fib Rate: 86 Ectopy: PVC(s) (Premature ventricular beats versus aberrant beats) Physical Exam Narrative Physical exam: General: Letahrgic, on 6 L of oxygen, in mild respiratory distress, anasarca HEENT: Atraumatic Oral: Moist Mucosa Neck: Supple Lungs: Diminished to auscultation Cardiovascular: HS I+II, regular, no murmurs Abdomen: Distended, ascites+, bowel Sounds Present, Soft, Non Tender Extremities: Bilateral leg edema +2 Skin: No rashes, No breakdown Neurological: Grossly intact Psych/Mental Status: Appropriate Assessment & Plan Assessment/Plan (1) Atrial fibrillation with RVR: (2) Pleural effusion due to CHF (congestive heart failure): PLAN: Plan 1. Acute metabolic encephalopathy, multifactorial likely secondary to hypoxia/probable acute alcohol withdrawal/probable hepatic encephalopathy Worsening, continue to monitor 2. Acute hypotension secondary to Cardizem side effect, worsening Currently on 2 pressors 3. Acute hypoxia secondary to acute exacerbation of heart failure preserved EF, EF 60%/left pleural effusion Admitting BNPep was 1640.2. Patient is currently on 6 L of oxygen; not on oxygen at home Rapid COVID-19 antigen as well as influenza screen is negative Hospice appropriate 3. A. fib with RVR in a patient has history of A. fib, rate controlled now Off Cardizem 4. Elevated troponin, likely secondary to #3, Continue to trend 5. Elevated lactic acidosis, lactic acid 4.8, likely secondary to #2 6. Probable Acute UTI, h/o ESBL, continue on IV Unasyn 6. Elevated LFTs likely secondary to venous congestion/right-sided failure Liver enzymes have worsening Liver ultrasound showed normal liver, mild ascites Continue to trend 7. Probable acute alcohol withdrawal, patient is a heavy alcohol drinker, Will monitor CIWA scores Will hold off on starting phenobarb on account of #1 and not allowed to worsen mental status Continue on folic acid and thiamine 8. COPD, not in acute exacerbation 10. BELKIS on CKD stage III, worsening at 2.86 Patient is almost anuric. History of being on dialysis 6 months ago Nephrology consulted; patient will be discharged to Hospice 11. DVT prophylaxis?on therapeutic lovenox
--- NOTE | 2022-08-29 09:29 | PCM.PN.REN ---
Subjective Subjective Following for acute kidney injury. Clinically worse in the last 24 hours. He is now on 2 vasopressor agents. He is encephalopathic and cannot provide ROS. Objective Data Objective Data Vital Signs: Vital Signs Temp Pulse Resp BP Pulse Ox O2 Del Method O2 Flow Rate 99.4 F H 103 H 21 H 103/18 L 92 Nasal Cannula 5 08/29/22 04:00 08/29/22 07:00 08/29/22 07:00 08/29/22 07:00 08/29/22 07:33 08/29/22 07:33 08/29/22 07:33 Oxygen Flow Rate (L/min) 5 Oxygen Delivery Method Nasal Cannula Weight: 89.5 kg Body Mass Index (BMI) 30.5 Intake & Output: Intake and Output for Last 24 Hours 08/27/22 08/28/22 08/29/22 23:59 23:59 23:59 Intake Total 131.00 / 146.00 1840.65 / 1845.65 348.55 / 348.55 Output Total 220 / 240 270 / 270 Balance -89.00 / -94.00 1570.65 / 1575.65 348.55 / 348.55 Lab / Micro Data Result Diagrams: 08/29/22 03:50 08/29/22 03:50 Labs: Laboratory Results - last 24 hr 08/29/22 03:50: WBC 17.5 H, RBC 2.87 L, Hgb 8.3 L, Hct 27.4 L, MCV 95.5 H, MCH 28.9, MCHC 30.3 L, RDW Std Deviation 63.9 H, RDW Coeff of [place] 18.8 H, Plt Count 369, MPV 10.1, Immature Gran % (Auto) 0.900, Neut % (Auto) 81.8 H, Lymph % (Auto) 6.0 L, [place] % (Auto) 11.0 H, Eos % (Auto) 0.1, Baso % (Auto) 0.2, Absolute Neuts (auto) 14.3 H, Absolute Lymphs (auto) 1.05, Nucleated RBC % 0.2, Differential Comment SCANNED, Diff Path Review December foll 08/29/22 03:50: Sodium 139, Potassium 4.9, Chloride 102, Carbon Dioxide 22.0, Anion Gap 15, BUN 53 H, Creatinine 2.86 H, Estim Creat Clear Calc 17.94, Est GFR (MDRD) Af Amer 27 L, Est GFR (MDRD) Non-Af 22 L, BUN/Creatinine Ratio 18.5, Glucose 85, Calcium 9.0, Total Bilirubin 2.60 H, AST 2071 H, ALT 859 H, Alkaline Phosphatase 128 H, Total Protein 6.9, Albumin 3.4, Globulin 3.5, Albumin/Globulin Ratio 1.0 Micro: Microbiology 08/27/22 12:18 Nasal Secretion SARS-CoV-2 & FLU Antigen (Rapid) - Final Radiography Diagnostic Testing: Radiology Impression Abdomen/Pelvis CT 08/28/22 10:19 IMPRESSION: 1. Mild interval increase in the amount of abdominal and pelvic ascites, which is now moderate in volume. Diffuse anasarca redemonstrated. 2. A small right and a moderate size left pleural effusion are present. Near-complete left lower lobe atelectasis is also visualized.. 3. Colonic diverticulosis. Electronically Signed: Roni Flores MD at 11:19 EST Reading Location ID and State: [facility] / [place] , Service support , Rhythm Strip Rhythm Strip: A-fib Rate: 86 Ectopy: PVC(s) (Premature ventricular beats versus aberrant beats) Physical Exam Narrative General: Encephalopathic but NAD. HEENT: Normocephalic, atraumatic. Mucous membrane dry. Neck: Supple, no JVD. Heart: Normal S1, S2. No rubs, murmurs or gallops. Lungs: Decreased breath sound at bases bilaterally. Abdomen: Normal bowel sound, soft, nontender, no guarding or rebound. Extremities: No clubbing, cyanosis, or edema. Assessment & Plan Assessment/Plan (1) BELKIS (acute kidney injury): (2) Acute and chronic respiratory failure with hypoxia: (3) Pleural effusion due to CHF (congestive heart failure): (4) Prostate cancer: PLAN: Plan Impression/Plan: The patient is a 87-year-old man with past history of hypertension, heart failure with preserved ejection fraction due to diastolic dysfunction, prostate cancer, COPD, paroxysmal atrial fibrillation, KONRAD, and hyperlipidemia. The patient is admitted to the hospital on 08/27/2022 with acute hypoxic respiratory failure and volume overload. Nephrology is following for BELKIS. Acute kidney injury. Baseline serum creatinine is around 1.00 to 1.20 mg/dL. The patient developed BELKIS attributed to ATN in March 2022 and did require brief periods of hemodialysis. However, renal function improved relatively quickly, and the patient required less than a week of hemodialysis. Current BELKIS is due to decreased effective blood volume. The patient likely has cardiogenic shock now. There is no evidence of hydronephrosis on CT scan of the abdomen/pelvis on 08/28/2022. He has also been performing CIC prior to admission. The patient now has Kaur catheter in place as well. Serum creatinine has continued to increase from 1.63 mg/dL on admission (08/27/2022) up to 2.86 mg/dL today (08/29/2022). I suspect that we are now seeing evaluation of prerenal/cardiorenal BELKIS to ischemic ATN. Given his age and comorbidities, I do not recommend hemodialysis. Plan discussed with Dr. Padilla. The patient will be transitioning to hospice care. Acute on chronic hypoxic respiratory failure. Chest x-ray from 08/27/2022 showed marked left pleural effusion and small right pleural effusion. The patient also has a history of diastolic dysfunction as well as probable pulmonary hypertension. He was being diuresed with IV furosemide. However, he is now on 2 pressors. Diuretic has appropriately been discontinued. Prostate cancer. The patient has a history of bladder outlet obstruction and had obstructive BELKIS in March 2022. He has been performing CIC prior to admission. The current episode of BELKIS is unlikely to be from obstruction. Imaging study done earlier today did not show hydronephrosis. Nevertheless, I would continue Kaur catheter to avoid bladder outlet obstruction for now. Nephrology plan was discussed with daughter, Valdez. Nephrology was also discussed with Dr. Padilla.
--- NOTE | 2022-08-29 10:46 | NURSING ---
Dr Padilla came talked with family about Hospice that is their wishes, several attempts made to contact Hospice with no success, message left
[2022-08-29] MEDS: LORazepam 2 MG/ML Syringe IV ×3 (11:10→20:41)
--- NOTE | 2022-08-29 11:35 | NURSING ---
Family @ bedside bp 81/33, medicated for comfort as per order
[2022-08-29] MEDS: morphine (oral solution) 10MG/0.5ML Syringe 5 MG SL/PO ×2 (13:07→20:41)
--- NOTE | 2022-08-29 14:00 | NURSING ---
hospice here talking with daughter that is POA, family would like pt to remain in hospital vs transfer to inpatient unit, vaso and levo discontinued, medicated with ativan for anxiety as per order, family remains @ bedside
[2022-08-29] MEDS: 0.9% Saline Lock 10 ML Syringe IV (20:42)
[2022-08-30] VITALS (8 sets, daily range): BP systolic 41–69; BP diastolic 16–37; PULSE 71–106; RESP 11–23; TEMP 37.4; O2SAT 69–91
[2022-08-30] MEDS: morphine (oral solution) 10MG/0.5ML Syringe 5 MG SL/PO (05:27)
[2022-08-30] MEDS: LORazepam 2 MG/ML Syringe IV (05:28)
[2022-08-30] MEDS: 0.9% Saline Lock 10 ML Syringe IV (05:28)
--- NOTE | 2022-08-30 08:30 | NURSING ---
Patient time of 0720, no heart sounds heard, no pulse. Verified with Cornelio Argueta RN. Family present. Comfort given.
--- NOTE | 2022-08-30 11:12 | EXP.PCM_ITS ---
Preliminary Cause of Preliminary Cause of Preliminary Cause of : Hypotension-multifactorial and Multisystem Organ Failure Date of Admission: 08/27/22 Date of : 08/30/22 Principle Diagnosis Problem List: Active and Suspected Problems (Updated 08/28/22 @ 12:[address] Cirilo Platt MD) Prostate cancer (Acute) BELKIS (acute kidney injury) (Acute) Atrial fibrillation with RVR (Acute) Pleural effusion due to CHF (congestive heart failure) (Acute) Anasarca (Acute) Elevated serum creatinine (Acute) Facial droop (Acute) Acute alteration in mental status (Acute) Acidosis, lactic (Acute) Cardiogenic shock (Acute) Hospital Course Mr. Mackey is a 89-year-old white male who was admitted to [facility] on 08/27/2022 with numerous complaints including shortness of breath, possible facial droop, and disorientation. He evidently had been having some coughing and complaining of some abdominal discomfort for which the family was trying to get him in the emergency department. He did have a known history of medication noncompliance. In the emergency department he was afebrile but had heart rates as high as 148. Patient was normotensive at that time but was requiring oxygen to maintain saturations greater than 88%. Patient was not a user of chronic supplemental oxygen at home. Laboratory work-up showed a white blood cell count of 6.8, hemoglobin of 9.1 and platelets of 358.? Chemistry showed an elevated bicarbonate of 27 with a creatinine of 1.63.? Lactate was e levated at 4.8 and liver enzymes are also elevated mildly.? BNP was elevated at 1640.? ABG showed adequate ventilation with increased AA gradient.? A chest x- ray completed in the emergency department did show an increasing left pleural effusion that was not present in June.? Patient also had a CT scan showing no acute process with chronic involutional changes.? EKG did confirm A. fib with RVR.? Patient was administered Cardizem for rate control. Given his above issues he was admitted to the intensive care unit for further evaluation. Critical care medicine as well as nephrology were consulted. Patient's baseline serum creatinine appears to be between 1 and 1.2 and his serum creatinine was 1.19. Family is adamant that the felt that he would not want dialysis and he was a chronic patient of Dr. Ellington. A CT of his abdomen pelvis was obtained and did not show any signs of obstruction. The patient did require intermittent self-catheterization at home for history of obstruction. Patient continued to worsen despite aggressive treatment with regards to his blood pressure, respiratory status, and renal function. He did eventually require pressors and the case was discussed with both critical care medicine and nephrology and they agreed that hospice would be the most appropriate course. Extensive discussion was had with the daughter at the bedside and she was updated on the clinical date condition and she was agreeable to hospice at that time. CODE STATUS was changed to DNR CC and patient was kept comfortable. He on the a.m. of 08/30/2022 at at 7:20 AM.
[2022-08-31 10:00] LABS: Pathologist Review Reviewed
== END 2022-08-30 10:23 | DRG 291 ==
LOC: ED 13:10 → ICU 13:34
PROVIDERS: Admitting Provider Internal Medicine; Emergency Provider Emergency Medicine; PCP Internal Medicine; Visit Provider Internal Medicine
DX: R57.0 Cardiogenic shock (principal); K76.7 Hepatorenal syndrome; I50.33 Acute on chronic diastolic (congestive) heart failure; G93.41 Metabolic encephalopathy; R18.8 Other ascites; I13.0 Hypertensive heart and chronic kidney disease with heart failure and stage 1 through stage 4 chronic kidney disease, or unspecified chronic kidney disease; N17.9 Acute kidney failure, unspecified; I48.20 Chronic atrial fibrillation, unspecified; F10.239 Alcohol dependence with withdrawal, unspecified; N39.0 Urinary tract infection, site not specified; I27.20 Pulmonary hypertension, unspecified; J44.9 Chronic obstructive pulmonary disease, unspecified; N18.30 Chronic kidney disease, stage 3 unspecified; K76.82 Hepatic encephalopathy; D63.8 Anemia in other chronic diseases classified elsewhere; E78.5 Hyperlipidemia, unspecified; F17.220 Nicotine dependence, chewing tobacco, uncomplicated; G47.33 Obstructive sleep apnea (adult) (pediatric); I95.2 Hypotension due to drugs; R06.03 Acute respiratory distress; R29.810 Facial weakness; H91.90 Unspecified hearing loss, unspecified ear; T46.1X5A Adverse effect of calcium-channel blockers, initial encounter; R77.8 Other specified abnormalities of plasma proteins; R09.02 Hypoxemia; R47.81 Slurred speech; Z20.822 Contact with and (suspected) exposure to COVID-19; Z79.899 Other long term (current) drug therapy; Z91.14 Patient's other noncompliance with medication regimen; Z99.81 Dependence on supplemental oxygen; Z85.46 Personal history of malignant neoplasm of prostate
CPT/HCPCS: 36569; 36600; 70450; 71045; 74176; 76705; 80053; 81001; 82140; 82803; 83605; 83880; 84484; 85025; 87428; 93005; 94762; 97802; 99285; J7040; J7050; P9047; A4216; J0295; J1940; J3490